=== PATIENT | male | born 1940 | race Caucasian/White ===

== ENCOUNTER 2016-11-13 18:21 | Inpatient (IN) | payer OTHER, MEDICARE ==
[~2016-11-13] VITALS: Ht 172.7 cm; Wt 72.6 kg
[~2016-11-13 18:21] MED LIST: ASPIRIN EC325 M2 PO; ASPIRIN81 M4 PO; CLOPIDOGREL75 M1 PO; COQ-10100 MG PO; LANTUS SOL100 UNIT/1 SC; LOSARTAN POTAS100 M1 PO; METOPROLOL TAR100 M1 PO; NOVOLOG100 UNIT/2 SC; OMEPRAZOLE20 M3 PO; VENLAFAXINE HC150 MG PO; VENLAFAXINE HCL75 M1 PO; VITAMIN D31000 UNI2 PO; ZETIA10 M1 PO
--- NOTE | 2016-11-13 18:35 | NUR ---
PT TO ED FOR POSITIVE URINE CULTURES, FEELING WELL OTHERWISE.
--- NOTE | 2016-11-13 18:50 | NUR ---
PT TO ROOM 21 VIA WHEELCHAIR. SITTING UP IN WHEELCHAIR
[2016-11-13] MEDS ORDERED: FINASTERIDE5 M1 PO (18:52)
[2016-11-13] MEDS ORDERED: TAMSULOSIN HCL0.4 M1 PO (18:52)
[2016-11-13] MEDS ORDERED: XARELTO20 M2 PO (18:53)
[2016-11-13] MEDS ORDERED: AMLODIPINE BESYL5 M1 PO (18:53)
[2016-11-13] MEDS ORDERED: MAGNESIUM400 M1 PO (18:55)
[2016-11-13] MEDS ORDERED: PROBIOTIC1 EACH PO (18:55)
--- NOTE | 2016-11-13 19:16 | ED GI/GU/ABDOMINAL COMPLAINT ---
History of Present Illness General Chief Complaint: General Adult Stated Complaint: SENT BY ZIA MARTINEZ FOR ADMISSION FOR PIC LINE Source: patient Exam Limitations: no limitations Vital Signs & Intake/Output Vital Signs & Intake/Output Vital Signs Date Time Temp Pulse Resp B/P B/P Pulse O2 O2 Flow FiO2 Mean Ox Delivery Rate 11/138 97.3 67 18 160/70 99 Room Air 11/13 2013 Room Air 11/13 1835 97.9 67 18 110/60 99 Room Air Allergies Coded Allergies: Penicillins (unknown 11/13/15) Reconcile Medications Amlodipine Besylate 5 MG TABLET 1 TAB PO BID HEART/BP (Reported) Cholecalciferol (Vitamin D3) 1,000 UNIT TABLET 1 TAB PO DAILY SUPPLEMENT ( Reported) Ezetimibe (Zetia) 10 MG TABLET 1 TAB PO DAILY CHOLESTEROL (Reported) Finasteride 5 MG TABLET 1 TAB PO DAILY PROSTATE (Reported) Insulin Aspart (Novolog) (Unknown Strength) VIAL (Unknown Dose) SEE SLIDING SCALE DIABETES (Reported) Insulin Glargine,Hum.rec.anlog (Lantus Solostar) 100 UNIT/1 ML INSULN.PEN 40 U SC QAM DIABETES (Reported) Lactobacillus Acidophilus (Probiotic) (Unknown Strength) CAPSULE (Unknown Dose ) PO DAILY PROBIOTIC (Reported) Losartan Potassium 100 MG TABLET 1 TAB PO DAILY HEART (Reported) Magnesium Oxide (Magnesium) (Unknown Strength) CAPSULE (Unknown Dose) PO DAILY SUPPLEMENT (Reported) Metoprolol Tartrate 100 MG TABLET 1 TAB PO BID HEART (Reported) Rivaroxaban (Xarelto) 20 MG TABLET 1 TAB PO DAILY BLOOD THINNER (Reported) with food Tamsulosin HCl 0.4 MG CAP.ER.24H 2 CAP PO QPM PROSTATE (Reported) Triage Note: PT TO ED FOR POSITIVE URINE CULTURES, FEELING WELL OTHERWISE. Triage Nurses Notes Reviewed? 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 Patient presents emergency room in which he was sent in by his primary care doctor for concerns of positive urine culture of Pseudomonas which is resistant to ciprofloxacin and levofloxacin. It is noted through the faxed urine culture that it is susceptible to cefepime, ceftazidime, tobramycin AND ZOSYN Patient currently denies any fever chills headache sore throat chest pain shortness of breath cough abdominal pain nausea vomiting. Patient is producing brown stool through the colostomy bag. (ROMANA GARRISON) Past History Travel History Traveled to [place] past 21 day No Medical History Any Pertinent Medical History? see below for history Neurological: NEUROPATHY Cardiovascular: hypertension, hyperlipidemia, myocardial infarction, CHF CABG Respiratory: obstructive sleep apnea Renal: FREQUENT UTI Musculoskeletal: OA "BEDSORE ON BUTT" Psychiatric: depression Endocrine: diabetes Blood Disorders: "CLOT" Cancer(s): rectal cancer History of MRSA: No History of VRE: No History of CDIFF: No Pneumonia Vaccine: 05/02/10 Surgical History Surgical History: CABG, colon resection, CYST REMOVAL R femoral artery stent transanal excision of rectal lesion Psychosocial History Who do you live with Spouse What is your primary language French Tobacco Use: Never used ETOH Use: occasional use Illicit Drug Use: denies illicit drug use Family History Family History, If Any: cousin FH: colon cancer MOTHER Hx Contributory? No (ROMANA GARRISON) Review of Systems Review of Systems Constitutional: Reports: no symptoms. EENTM: Reports: no symptoms. Respiratory: Reports: no symptoms. Cardiovascular: Reports: no symptoms. GI: Reports: no symptoms. Genitourinary: Reports: see HPI. Musculoskeletal: Reports: no symptoms. Skin: Reports: no symptoms. Neurological/Psychological: Reports: no symptoms. Hematologic/Endocrine: Reports: no symptoms. Immunologic/Allergic: Reports: no symptoms. All Other Systems: Reviewed and Negative (ROMANA GARRISON) Physical Exam Physical Exam General Appearance: no apparent distress, alert, comfortable Gastrointestinal: normal bowel sounds, soft, colostomy bag indwelling, Comments: Well-developed well-nourished person in no acute distress HEENT: Normal EENT exam, extraocular motion intact, no nystagmus. Pupils equally round and reactive to light and accommodation. Nose is atraumatic. External auditory canal and Tympanic membranes clear. Pharynx normal. No swelling or edema. Neck: Supple, no lymphadenopathy, normal range of motion without pain or tenderness Back: Nontender, no CVA tenderness. Cardiovascular: Regular rate and rhythms no murmurs rubs or gallops, normal JVP Respiratory: Chest nontender. No respiratory distress.breath sounds clear to auscultation bilaterally Abdomen: Soft, nontender nondistended, Extremity: No edema, no calf tenderness to palpation, normal and equal pulses. Neuro: Alert oriented x3, motor sensory normal, Psych: Mood and affect is normal, memory and judgment is normal. Diagram Body Front & Back 1) 2 x 1 cm superficial decubitus ulcer with no surrounding erythema no warmth no active discharge Core Measures ACS in differential dx? No Severe Sepsis Present: No Septic Shock Present: No (JANAY VELASCO,ROMANA) Progress Differential Diagnosis: AAA, AMI, appendicitis, biliary colic, bowel obstruction , colon cancer, cholecystitis, diverticulitis, epididymitis, esophageal varices, gastritis, hepatitis, hernia, hemorrhoids, ischemic bowel, inflamm bowel dis, Katerine-Ap tear, orchitis, pancreatitis, prostatitis, peptic ulcer, PUD/GERD, perforated viscous, pyelonephritis, SBO, STD, testicular torsion, ureterolithiasis, urinary retention, urethritis, UTI/pyelo Plan of Care: Orders Procedure Date/time Status Heart Healthy Diet 11/14 B Active LACTIC ACID 11/13 2214 Active ED Holding Orders 11/13 2144 Active Admit to inpatient 11/13 2144 Active Vital Signs 11/13 2144 Active Code Status 11/13 2144 Active Patient Data 11/14 2131 Active EKG 11/13 2026 Active CULTURE,URINE 11/13 1914 Active URINALYSIS 11/13 1914 Complete LACTIC ACID 11/13 1914 Complete COMPREHENSIVE METABOLIC PANEL 11/13 1914 Complete CBC WITHOUT DIFFERENTIAL 11/13 1914 Complete Current Medications Sig/Audrey Start time Last Medication Dose Stop Time Status Admin Sodium Chloride 1,000 ML BOLUS ONE 11/13 2014 AC 11/13 (Normal Saline 0.9%) 11/13 221 2104 Laboratory Tests 11/13/16 2005: Urine Color STRAW, Urine Clarity CLDY H, Urine pH 6.0, Ur Specific [place] 1.015, Urine Protein 100 H, Urine Ketones NEG, Urine Nitrite POS H, Urine Bilirubin NEG, Urine Urobilinogen 0.2, Ur Leukocyte Esterase LARGE H, Ur Microscopic SEDIMENT EXAMINED, Urine RBC RARE, Urine WBC PACKD H, Ur Epithelial Cells RARE, Urine Bacteria MANY H, Urine Hemoglobin LARGE H, Urine Glucose NEG 11/13/16 1933: Anion Gap 12, Estimated GFR 28 L, BUN/Creatinine Ratio 28.3 H, Glucose 146 H, Lactic Acid 0.9, Calcium 9.8, Total Bilirubin 0.3, AST 13 L, ALT 27, Alkaline Phosphatase 51, Total Protein 6.7, Albumin 3.8, Globulin 2.9, Albumin/Globulin Ratio 1.3, CBC w Diff NO MAN DIFF REQ, RBC 3.09 L, MCV 86.3, MCH 28.2, RDW 15.2 H, MPV 6.1 L, Gran % 77.1 H, Lymphocytes % 11.0 L, Monocytes % 7.6, Eosinophils % 4.1, Basophils % 0.2, Absolute Granulocytes 7.2 H, Absolute Lymphocytes 1.0 L, Absolute Monocytes 0.7 H, Absolute Eosinophils 0.4, Absolute Basophils 0, PUBS MCHC 32.7 L Microbiology 11/13 2004 URINE ROUT: Urine Culture - RECD Patient currently has unremarkable physical exam findings and no tenderness upon palpation of abdomen clear lungs PATIENT. No signs of sepsis at this time. Patient will be admitted for concerns of acute kidney injury and urine tract infection. Patient was administered IV fluid resuscitation (ROMANA GARRISON) Initial ED EKG: normal intervals, normal p-waves, normal QRS complex, normal sinus rhythm, 61 bpm (ROMANA GARRISON) Departure Departure Disposition: STILL A PATIENT Condition: Stable Clinical Impression Primary Impression: JACK (acute kidney injury) Secondary Impressions: Sacral decubitus ulcer, UTI (urinary tract infection) Referrals: DAKSHA CAMPBELL MD (PCP/Family) Departure Forms: Customer Survey General Discharge Information Admission Note Spoke With: TEVIN ADAIR MD Documentation of Exam: Documentation of any treatments & extenuating circumstances including Concerns Regarding Discharge (functional status, medication knowledge or non-compliance, living conditions, etc.) that warrant an admission rather than observation: [ Discussed patient with who agrees with general medicine admission for concerns of acute kidney injury. Patient requires IV fluid resuscitation, repeat labs, possible nephrology consultation an IV antibiotics for concomitant urine infection. Outpatient treatment this time due to critical findings of acute kidney injury would be medically harmful] (ROMANA GARRISON) PA/MANAGER HEART Co-Sign Statement Statement: ED Attending supervision documentation- [X] I saw and evaluated the patient. I have also reviewed all the pertinent lab results and diagnostic results. I agree with the findings and the plan of care as documented in the PA's/MANAGER HEART's documentation. [] I have reviewed the ED Record and agree with the PA's/MANAGER HEART's documentation. [] Additions or exceptions (if any) to the PAs/MANAGER HEART's note and plan are summarized below: [] (TAYLOR ARELLANO,COLETTE Moffett) Critical Care Note Critical Care Note Critical Care Time: 30-74 min (ROMANA GARRISON)
--- NOTE | 2016-11-13 19:30 | NUR ---
TWO PERSON MAX ASSIST TO STAND PIVOT TO STRETCHER. PT UNDRESSED. WEARING CONDOM CATH DUE TO INCONTINENCE. STATES SHE USED CONDOM CATH FOR EASE OF CARE AND DUE TO PT HAVING SACRAL DECUB
--- NOTE | 2016-11-13 19:39 | NUR ---
BLOOD SENT TO LAB. [facility]. SANDOR GARCIA.
--- NOTE | 2016-11-13 19:41 | NUR ---
STATES THEY APPLY SANTYL OINTMENT TO SACRAL DECUB. ROMANA GUSTAFSON NOTIFIED OF DECUB.
[2016-11-13 19:42] LABS: ABSOLUTE BASOPHIL COUNT 0 /CUMM (0.0-0.2); ABSOLUTE EOSINOPHIL COUNT 0.4 /CUMM (0.0-0.7); ABSOLUTE GRANULOCYTE CT 7.2 /CUMM (1.4-6.5); ABSOLUTE MONOCYTE COUNT 0.7 /CUMM (0.10-0.60); BASOPHIL % 0.2 % (0.0-2.0); EOSINOPHIL % 4.1 % (0-5); GRANULOCYTE % 77.1 % (42.2-75.2); HEMATOCRIT 26.6 % (42-52); MEAN CORPUSCULAR HGB 28.2 PG (27.0-31.0); MEAN CORPUSCULAR HGB CONC 32.7 G/DL (33.0-37.0); MEAN CORPUSCULAR VOLUME 86.3 FL (80.0-94.0); MEAN PLATELET VOLUME 6.1 FL (7.4-10.4); PLATELET COUNT 331 /CUMM (130-400); RBC DISTRIBUTION WIDTH 15.2 % (11.5-14.5); RED BLOOD CELL CT 3.09 /CUMM (4.70-6.10); WHITE BLOOD CELL COUNT 9.4 /CUMM (4.8-10.8)
--- NOTE | 2016-11-13 20:11 | NUR ---
URINE SENT. SPK & LENCHO
--- NOTE | 2016-11-13 21:03 | NUR ---
ABX AND 0.9%NS INFUSING ORDERED.
--- NOTE | 2016-11-13 21:36 | History & Physical ---
SMOOTH BRONSON,[facility] 11/13/16 2135: General Information and HPI MD Statement: I have seen and personally examined MONICA BAILEY and documented this H&P. The patient is a 76 year old M who presented with a patient stated chief complaint of [positive urinalysis]. Source of Information: patient, family () Exam Limitations: patient refusing physical exam History of Present Illness: 76-year-old M with PMH of recently admitted to [facility] for nephrolithiasis and UTI requiring PICC line and IV Cefepime, rectal cancer s/p anal endoscopic surgery in 07/2006, CABG, right femoral stent on Clopidogrel, HTN, HLD, DM, BPH, CAD s/p CABG,anemia of chronic disease, RLE DVT on Xarelto, paraxosymal afib, urinary retention 2/2 BPH and developing sacral ulcer requiring placement of condom catheter presenting to the ED after a urine analysis and urine culture done as an outpatient revealing growth of Pseudomonas resistant ciprofloxacin and levofloxacin. Most of the clinical history was obtained from the patient's Elissa over the phone as the patient was uncooperative with the history or physical. The patient's of the states that approximately 7 days ago she noticed that the patient's urine was "milky white". She then asked the visiting nurse to order a urine culture and urinalysis. On 11/11/2016 the UA came back positive for microorganism growth. On 11/13/2016 urine culture was positive for for microorganisms (> 100,000 CFU/mL of Pseudemonas). The patient's states that since 04/13/2016, he has had multiple admissions and procedures related to his colorectal cancer. He has been admitted multiple times to [facility] and has been repeatedly back and forth to [facility] and rehabilitation in [place]. During his last admission to [facility] (10/03/2016 10/15/2016), he received 5 days of IV cefepime and then was sent home with a PICC line for an additional 5 days of cefepime. At this time the patient does not have any complaints. He denies any fever, chills, night sweats, pain or discomfort. He reports a good appetite although has had a decreased PO fluid intake. The of the patient also states that her 's personality is returning to baseline since he has been giving her more of a "harder time". Patient is uncooperative with interview and physical exam. Allergies/Medications Allergies: Coded Allergies: Penicillins (unknown 11/13/15) Home Med list Amlodipine Besylate 5 MG TABLET 2 TAB PO DAILY BP (Reported) Cholecalciferol (Vitamin D3) 1,000 UNIT TABLET 1 TAB PO DAILY SUPPLEMENT ( Reported) Ezetimibe (Zetia) 10 MG TABLET 1 TAB PO DAILY CHOLESTEROL (Reported) Finasteride 5 MG TABLET 1 TAB PO DAILY PROSTATE (Reported) Insulin Aspart (Novolog) (Unknown Strength) VIAL (Unknown Dose) SEE SLIDING SCALE DIABETES (Reported) Insulin Glargine,Hum.rec.anlog (Lantus Solostar) 100 UNIT/1 ML INSULN.PEN 40 U SC QAM DIABETES (Reported) Lactobacillus Acidophilus (Probiotic) (Unknown Strength) CAPSULE (Unknown Dose ) PO DAILY PROBIOTIC (Reported) Losartan Potassium 100 MG TABLET 1 TAB PO DAILY HEART (Reported) Magnesium Oxide (Magnesium) (Unknown Strength) CAPSULE (Unknown Dose) PO DAILY SUPPLEMENT (Reported) Metoprolol Tartrate 100 MG TABLET 1.5 TAB PO BID Heart (Reported) Rivaroxaban (Xarelto) 20 MG TABLET 1 TAB PO DAILY BLOOD THINNER (Reported) with food Tamsulosin HCl 0.4 MG CAP.ER.24H 2 CAP PO DAILY prostate (Reported) Past History Travel History Traveled to [place] past 21 day No Medical History Neurological: NEUROPATHY Cardiovascular: hypertension, hyperlipidemia, CAD status post CABG, paroxisymal A. fib Renal: FREQUENT UTI, urinary retention secondary to BPH, sacral ulcer requiring condom catheter Psychiatric: depression Endocrine: diabetes Blood Disorders: anemia of chronic disease, PVD status post stent, ight lower extremity DVT on Xarelto Cancer(s): colorectal cancer status post transanal excision History of MRSA: No History of VRE: No History of CDIFF: No Pneumonia Vaccine: 05/02/10 Surgical History Surgical History: CABG, colon resection, CYST REMOVAL R femoral artery stent transanal excision of rectal lesion, PVD status post stent, colon cancer status post transanal excision Past Family/Social History Family History Relations & Conditions if any cousin FH: colon cancer MOTHER Psychosocial History ETOH Use: occasional use Illicit Drug Use: denies illicit drug use Functional Ability ADLs Independent: dressing, eating, toileting, bathing. Ambulation: independent Review of Systems Review of Systems Constitutional: Reports: see HPI. Denies: chills, fever. GI: Denies: nausea, vomiting. Exam & Diagnostic Data Last 24 Hrs of Vital Signs/I&O Vital Signs Date Time Temp Pulse Resp B/P B/P Pulse O2 O2 Flow FiO2 Mean Ox Delivery Rate 11/14 0705 98.5 76 18 149/82 96 Room Air 11/13 2333 Room Air 11/13 2324 98.6 68 20 158/70 96 11/13 2138 97.3 67 18 160/70 99 Room Air 11/13 2013 Room Air 11/13 1835 97.9 67 18 110/60 99 Room Air Intake & Output 11/14 1600 11/14 0800 11/14 0000 Intake Total 480 2290 Output Total 600 Balance -120 2290 Intake, IV 2050 Intake, Oral 480 240 Output, Urine 600 Patient 160 lb Weight Weight Reported by Patient Measurement Method Physical Exam General Appearance Alert, Oriented X3, No Acute Distress, uncooperative with physical exam and history, patient appears tired and sleepy Skin Temp/Moisture Exam: Warm/Dry Cardiovascular Regular Rate, Normal S1, Normal S2 Lungs Clear to Auscultation, expiratory crackles Abdomen Normal Bowel Sounds, condom catheter and drainage noted Extremities No Edema, Normal Pulses, 5 out of 5 strength of bilateral lower extremities Diagnostic Data EKG Results Sinus rhythm Other Results ABDOMEN PELVIS CT IMPRESSION: 1. Fluid-filled cavity along the left side of the rectum within the deep pelvis, as above, consistent with focal contained perforation of the left side of the rectum, may be secondary to underlying malignancy at this site in this patient with reported history of colon carcinoma. 2. No adjacent pathologically enlarged lymph nodes within the deep pelvis and abdomen. 3. Scattered colonic diverticulosis with no evidence of diverticulitis. 4. Bilateral renal cysts. 5. Bilateral adrenal nodularity with findings indicative of underlying small adrenal adenomas. 6. Cholelithiasis with no evidence of acute cholecystitis. 7. Three 2 mm right-sided pulmonary nodules. 8. No lytic or blastic osseous lesions. CHEST CT IMPRESSION: 1. Fluid-filled cavity along the left side of the rectum within the deep pelvis, as above, consistent with focal contained perforation of the left side of the rectum, may be secondary to underlying malignancy at this site in this patient with reported history of colon carcinoma. 2. No adjacent pathologically enlarged lymph nodes within the deep pelvis and abdomen. 3. Scattered colonic diverticulosis with no evidence of diverticulitis. 4. Bilateral renal cysts. 5. Bilateral adrenal nodularity with findings indicative of underlying small adrenal adenomas. 6. Cholelithiasis with no evidence of acute cholecystitis. 7. Three 2 mm right-sided pulmonary nodules. 8. No lytic or blastic osseous lesions. Assessment/Plan Assessment: 76-year-old M with PMH of recently admitted to [facility] for nephrolithiasis and UTI requiring PICC line and IV Cefepime, rectal cancer s/p anal endoscopic surgery in 07/2006, CABG, right femoral stent on Clopidogrel, HTN, HLD, DM, BPH, CAD s/p CABG,anemia of chronic disease, RLE DVT on Xarelto, paraxosymal afib, urinary retention 2/2 BPH and developing sacral ulcer requiring placement of condom catheter presenting to the ED after a urine analysis and urine culture done as an outpatient revealing growth of Pseudomonas resistant ciprofloxacin and levofloxacin found to be afebrile, white count of 9.4, and positive urinalysis for leuk esterase and nitrates, BUN 65, creatinine 2.3, lactic acid 0.9 most likely acute kidney injury secondary to UTI. As Ranked By This Provider Problem List: 1. UTI (urinary tract infection) Assessment/Plan The patient has a developing sacral ulcer requiring placement of condom catheter presenting to the ED after a urine analysis and urine culture done as an outpatient revealing growth of Pseudomonas resistant ciprofloxacin and levofloxacin. The pt it afebrile, white count of 9.4, and positive urinalysis for leuk esterase and nitrates. The patient's primary care physician initially advised against antibiotics until cultures were back. He was sent into the emergency department when results revealed that the Pseudomonas was resistant to ciprofloxacin and that the patient would require IV antibiotics. His creatinine was 2.3 and BUN was 65, his baseline creatinine is 0.8-0.9. His JACK is most likely due to UTI. His lactic acid is 0.9. We will repeat urine cultures. We will start him on IV fluids and trend his renal functions. We continue IV Ceftazidime and consult urology for further management. We will also consult infectious disease for further management. We will need to obtain the records from [facility] regarding his most recent admission. For now we will hold his home medications and will need to confirm them/restart them in the morning. -f/u urine cultures -Continue normal saline 0.9% at 100 mL per hour -Follow-up CBCs, BMP, trend her renal functions -continue IV Ceftazidime -consult urology for further management -Consult infectious disease -obtain the records from [facility] regarding his most recent admission 2. Anemia Assessment/Plan The patient was found to have a H&H of 8.7 and 26.6 respectively. His MCV was 86.9. It seems that he has normocytic anemia possibly due to anemia of chronic disease. We will need to guaiac all stools, check iron studies B12 and folic acid. -Follow-up stool guaiac -Follow-up iron studies -Follow-up B12 and folate levels 3. DVT prophylaxis Assessment/Plan Continue rivaroxaban 20 mg by mouth daily 4. Full code status Assessment/Plan Full code Core Measures/Miscellaneous Acute Coronary Syndrome ACS Diagnosis: No Cerebrovascular Accident CVA/TIA Diagnosis: No Congestive Heart Failure CHF Diagnosis: No VTE (View Protocol) VTE Risk Factors: Acute medical illness, Age > 40, Previous VTE No [facility] VTE prophylaxis d/t: No contraindications No VTE Pharm Prophylaxis d/t: No contraindications VTE Diagnosis: No VTE Type: NONE VTE Confirmed by (Test): NONE Sepsis (View Protocol) Severe Sepsis Present: No Septic Shock Septic Shock Present: No Miscellaneous Documentation Attending [facility] Primary Care Physician: DAKSHA CAMPBELL MD Patient sees these Specialists NA Level of Patient Care: General Medicine VIVIANA BRONSON,[facility] 11/14/16 0333: Resident Review Statement Resident Statement: examined this patient, discussed with buying intern, agreed with buying intern Other Findings: H: This is a 76-year-old gentleman with PMH of rectal cancer, s/p anal endoscopic surgery in 07/2006, CABG, right femoral stent on Clopidogrel, HTN, HLD , DM, BPH who presented to the emergency department on 11/13/2016 after a urine analysis and urine culture done as an outpatient revealed this was positive for growth of microorganisms. Much of the clinical history was obtained from the Elissa of the patient as the patient was unable to give much of a history. of the patient states that approximately 7 days ago she noted that urine was "milky white". She subsequently asked the visiting nurse (who comes to see the patient once a week) to order a urine culture and urinalysis (sample collected on 11/09 and received in the lab 11/10). On 11/11/2016 results of this UA came back positive for microorganism growth and on the evening of 11/13/2016 urine culture was positive for for microorganisms (> 100, 000 CFU/mL of Pseudemonas). of the patient states that since 04/13/2016 he has had multiple admissions and procedures owing to his history of colon and rectal cancer. He has been admitted multiple times to [facility] and has been back and forth to [facility]. His last admission to [facility] took place from October 03 2016 to October 15 2016. It was during this visit that the patient needed IV antibiotics for a Lower UTIand was sent home with a PICC line (for an additional 5 days for antibiotics) It must be noted that in addition to the above the patient has not had any complaints. He denies any fever, chills, night sweats, pain or discomfort. He reports a good appetite although has had a decreased PO fluid intake. The of the patient also states that her 's personality is returning to baseline giving her more of a "harder time". Patients primary care physician is Dr. Campbell. Urologist is Dr. Jesus. Patient's infectious disease doctor is Dr. Anthony Guevara of [place]. R On review of systems this was rather limited given the patient's condition he denied any fever, chills, nausea, vomiting. E Physical examination was limited owing to patient's lack of appropriate permission to perform physical exam. General Appearance Alert, Oriented X3, Cooperative. Skin Skin Warm and Dry. Cardiovascular Normal S1, Normal S2 Lungs Clear to Auscultation, Expiratory Crackels. Abdomen Normal Bowel Sounds, Urinary bag in place. Extremities No Clubbing, No Edema, Normal Pulses, 5/5 strength of lower extremities Lab studies were notable for white count 9.4 H&H 8.7 and 26.6, platelets 331. Electrolytes were within normal limits. BUN/creatinine ratio was 28.3. B urine was 65, creatinine was 2.3. Urine was positive for leukocyte esterase and nitrite. I CT ABD & PELVIS W IV CONTRAST; CT CHEST W IV CONTRAST IMPRESSION: 1. Fluid-filled cavity along the left side of the rectum within the deep pelvis, as above, consistent with focal contained perforation of the left side of the rectum, may be secondary to underlying malignancy at this site in this patient with reported history of colon carcinoma. 2. No adjacent pathologically enlarged lymph nodes within the deep pelvis and abdomen. 3. Scattered colonic diverticulosis with no evidence of diverticulitis. 4. Bilateral renal cysts. 5. Bilateral adrenal nodularity with findings indicative of underlying small adrenal adenomas. 6. Cholelithiasis with no evidence of acute cholecystitis. 7. Three 2 mm right-sided pulmonary nodules. 8. No lytic or blastic osseous lesions. A/P This is a 76-year-old gentleman with PMH of rectal cancer, s/p anal endoscopic surgery in 07/2006, CABG, right femoral stent on Clopidogrel, HTN, HLD, DM, BPH who presented to the emergency department on 11/13/2016 after a urine analysis and urine culture done as an outpatient revealed this was positive for growth of Psedemonas. We malu admit the patient to general medicine. Continue on Ceftaz steam for the next 24 hours. If patient remains afebrile and white blood cell count remains within normal limits may consider following off antibiotics, the setting of chronic bacteriuria without complaints. Obtain ID consultation in a.m. Consider urology consult in a.m. for additional recommendations. Patient has had extensive workup under Dr. Jesus. Elevated BUN/creatinine ratio is likely in the setting of decreased by mouth intake. Continue encouragin increased by mouth fluids. Normocytic anemia. Likely due to chronic disease. Obtain macrocytic and microcytic workup. Supplement as necessary. Insulin sliding scale for tighter glycemic control. Maintain blood sugar between 120 and 140. Gentle IV hydration with normal saline. Confirm medications in AM. Once these have been confirmed they can be resumed as tolerated by the patient. Obtain records from [facility]. Monitor BEP daily. Monitor CBC daily. VT prophylaxis Xarelto Patient is a full code. GIOVANY BRONSON, [facility] 11/14/16 0535: Attending MD Review Statement Attending Statement Attending MD Statement: examined this patient, discuss w/resident/PA/METAL LATHER, agreed w/resident/PA/METAL LATHER Attending Assessment/Plan: 76 yo M with h/o rectal cancer (diagnosed 2007) s/p transanal excision, refused chemoradiation at that point, had recurrent rectal cancer (2016), received neoadjuvant chemoradiation and underwent proctocolectomy with diverting colostomy, HTN, DM, CAD s/p CABG, PVD s/p stent, anemia of chronic disease, RLE DVT on Xarelto, Pafib, urinary retention 2/2 BPH and given developing sacral ulcer requiring placement of condom catheter, who was recently admitted to [facility] (10/03-10/15) for nephrolithiasis and UTI requiring PICC line and IV antibiotics (Cefepime), is sent in by PCP for positive urine culture. Patient was not co-operative with history or physical exam. History obtained from patient's . About 1 week ago, patient's urine was noted to be abnormal, hence UA and UC was sent. Although UA was positive, PCP advised against antibiotics until culture results were back, as patient remained asymptomatic. Today when UC results returned with Pseudomonas resistant to Cipro, patient was advised to come to ER for IV antibiotics. Patient does not keep himself hydrated. VSS. Labs: WBC 9.4, H/H 8.7/26.6, BUN 65, creat 2.3 (baseline 0.8-0.9), lactic acid 0.9. UA cloudy, proteinuria, positive nitrite, large LE, packed WBC, many bacteria. EKG: SR, PACs, first degree AV block. 1. Recurrent UTI with JACK. GM admit, repeat urine culture, IV fluids, continue IV ceftaz for now, encourage adequate hydration, trend renal functions. Obtain records from [facility] about most recent admission, any urologic intervention, etc. Consider Urology input. Resume flomax, finasteride. 2. Normocytic anemia ?ACD. Guaiac all stools, check iron studies, B12, folic acid. DVT ppx Xarelto. Full code. Please obtain more collateral information from patient's , PCP and [facility], as patient did not wish to talk or be examined overnight.
--- NOTE | 2016-11-13 21:58 | NUR ---
2ND LITER OF 0.9%NS INFUSING ORDERED.
--- NOTE | 2016-11-13 22:12 | NUR ---
MD CASE AT BEDSIDE.
--- NOTE | 2016-11-13 22:30 | NUR ---
PT TO ROOM [id number]
--- NOTE | 2016-11-13 22:32 | NUR ---
REPORT GIVEN TO DALLIN MARTINEZ ON 2NB.
[2016-11-13 23:24] VITALS: BP 158/70
--- NOTE | 2016-11-14 00:03 | Admission Certification ---
Admission Certification Certification Statement - As attending physician, I certify that at the time of - admission, based on clinical presentation, severity of - symptoms, need for further diagnostic testing and - therapeutic interventions, and risk of adverse outcomes - without in-hospital treatment, in my clinical assessment, - this patient requires an acute hospital stay for a minimum - of two nights or longer. I have also considered psychsocial - factors such as support system, advanced age, financial - issues, cognitive issues, and failed out-patient treatments, - past re-admission history, safety of patient, and lack of - compliance as applicable. Specific rationale supporting this admission is: JACK, recurrent UTI.
--- NOTE | 2016-11-14 01:45 | NUR ---
NURSE NOTE: PT ARRIVED TO FLOOR AROUND 0. REPORT FROM ED STAFF. CAME TO FLOOR VIA TRANSPORT. PT AAOX3, SOME FORGETFULLNESS NOTED. RA, IVF RUNNING. [place] CATH AND COLOSTOMY. FALL PX PUT IN PLACE, WILL CONTINUE TO MONITOR.
[2016-11-14 07:05] VITALS: BP 149/82
--- NOTE | 2016-11-14 08:14 | PN- Housestaff ---
See Addendum Subjective Follow-up For: UTi Subjective: He presented last night. This morning, he feels good. No pain. Talking to his , she is wondering why he can't walk as well as he used to before hjis blood clot in July. Otherwise, his urine is looking better and his ostomy is producing well formed stools. No other complaints. Review of Systems Constitutional: Reports: no symptoms. EENTM: Reports: no symptoms. Cardiovascular: Reports: no symptoms. Respiratory: Reports: no symptoms. Gastrointestinal: Reports: no symptoms. Genitourinary: Reports: see HPI. Musculoskeletal: Reports: see HPI. Skin: Reports: no symptoms. Neurological/Psychological: Reports: no symptoms. Hematologic/Endocrine: Reports: no symptoms. Immunologic/Allergic: Reports: no symptoms. Objective Last 24 Hrs of Vital Signs/I&O Vital Signs Date Time Temp Pulse Resp B/P B/P Pulse O2 O2 Flow FiO2 Mean Ox Delivery Rate 11/14 0705 98.5 76 18 149/82 96 Room Air 11/13 2333 Room Air 11/13 2324 98.6 68 20 158/70 96 11/13 2138 97.3 67 18 160/70 99 Room Air 11/13 2013 Room Air 11/13 1835 97.9 67 18 110/60 99 Room Air Intake & Output 11/14 1600 11/14 0800 11/14 0000 Intake Total 480 2290 Output Total 600 Balance -120 2290 Intake, IV 2050 Intake, Oral 480 240 Output, Urine 600 Patient 160 lb Weight Weight Reported by Patient Measurement Method Physical Exam General Appearance: Alert, Cooperative, No Acute Distress Cardiovascular: Regular Rate, Normal S1, Normal S2 Lungs: Clear to Auscultation Abdomen: Normal Bowel Sounds, Soft, No Tenderness, ostomy doesn't look infected. , Condom cathether Neurological: Normal Speech, Strength at 5/5 X4 Ext, Normal Tone Current Medications: Current Medications Sig/Audrey Start time Last Medication Dose Route Stop Time Status Admin Acetaminophen 650 MG Q6P PRN 11/14 0130 AC PO Amlodipine Besylate 10 MG DAILY 11/14 1000 AC PO Ceftazidime 1,000 MG Q12 11/14 1000 AC IV Ceftazidime 0 .STK-MED ONE 11/13 2100 DC .ROUTE Ceftazidime 1,000 MG ONCE ONE 11/13 2014 DC 11/13 IV 11/13 Cholecalciferol 1,000 IU DAILY 11/14 1000 AC PO Ezetimibe 10 MG DAILY 11/14 1000 AC PO Finasteride 5 MG DAILY 11/14 1000 AC PO Insulin Aspart 0 AT BEDTIME 11/14 2200 AC SC Insulin Aspart 0 TIDAC 11/14 0800 AC SC Lactobacillus 1 CAP DAILY 11/14 1000 AC Acidophilus PO Metoprolol Tartrate 150 MG BID 11/14 1000 AC PO Morphine Sulfate 2 MG Q6P PRN 11/14 0145 AC IV Rivaroxaban 20 MG DAILY 11/14 1000 AC PO Sodium Chloride 1,000 ML SEE RATE 11/13 2330 AC 11/13 IV 11/15 0929 2347 Sodium Chloride 1,000 ML BOLUS ONE 11/13 2029 DC 11/13 IV 11/13 2128 2158 Sodium Chloride 1,000 ML BOLUS ONE 11/13 2014 DC 11/13 IV 11/13 2213 2104 Tamsulosin HCl 0.8 MG DAILY 11/14 1000 AC PO Tramadol HCl 50 MG Q6P PRN 11/14 0145 AC PO Last 24 Hrs of Lab/Pilo Results Last 24 Hrs of Labs/Mics: Laboratory Tests 11/14/16 0710: Anion Gap 12, Estimated GFR 33 L, BUN/Creatinine Ratio 27.0 H, CBC w Diff NO MAN DIFF REQ, RBC 2.88 L, MCV 86.9, MCH 28.8, RDW 14.8 H, MPV 6.7 L, Gran % 72.7, Lymphocytes % 14.8 L, Monocytes % 8.5, Eosinophils % 3.5, Basophils % 0.5 , Absolute Granulocytes 5.9, Absolute Lymphocytes 1.2, Absolute Monocytes 0.7 H , Absolute Eosinophils 0.3, Absolute Basophils 0, PUBS MCHC 33.1 11/13/16 2215: Lactic Acid Cancelled 11/13/162004: Urine Color STRAW, Urine Clarity CLDY H, Urine pH 6.0, Ur Specific [place] 1.015, Urine Protein 100 H, Urine Ketones NEG, Urine Nitrite POS H, Urine Bilirubin NEG, Urine Urobilinogen 0.2, Ur Leukocyte Esterase LARGE H, Ur Microscopic SEDIMENT EXAMINED, Urine RBC RARE, Urine WBC PACKD H, Ur Epithelial Cells RARE, Urine Bacteria MANY H, Urine Hemoglobin LARGE H, Urine Glucose NEG 11/13/16 1933: Anion Gap 12, Estimated GFR 28 L, BUN/Creatinine Ratio 28.3 H, Glucose 146 H, Lactic Acid 0.9, Calcium 9.8, Iron 24 L, TIBC 303, Ferritin 26.2, Total Bilirubin 0.3, AST 13 L, ALT 27, Alkaline Phosphatase 51, Total Protein 6.7, Albumin 3.8, Globulin 2.9, Albumin/Globulin Ratio 1.3, Vitamin B12 289, Folate 5.1, CBC w Diff NO MAN DIFF REQ, RBC 3.09 L, MCV 86.3, MCH 28.2, RDW 15.2 H, MPV 6.1 L, Gran % 77.1 H, Lymphocytes % 11.0 L, Monocytes % 7.6, Eosinophils % 4.1, Basophils % 0.2, Absolute Granulocytes 7.2 H, Absolute Lymphocytes 1.0 L, Absolute Monocytes 0.7 H, Absolute Eosinophils 0.4, Absolute Basophils 0, PUBS MCHC 32.7 L Microbiology 11/13 2004 URINE ROUT: Urine Culture - RES GRAM NEGATIVE RODS Assessment/Plan Assessment: 76-year-old M with PMH of recently admitted to [facility] for nephrolithiasis and UTI requiring PICC line and IV Cefepime, rectal cancer s/p anal endoscopic surgery in 07/2006, CABG, right femoral stent on Clopidogrel, HTN, HLD, DM, BPH, CAD s/p CABG,anemia of chronic disease, RLE DVT on Xarelto, paraxosymal afib, urinary retention 2/2 BPH and developing sacral ulcer requiring placement of condom catheter presenting to the ED after a urine analysis and urine culture done as an outpatient revealing growth of Pseudomonas resistant ciprofloxacin and levofloxacin. On arrival, he was found to be afebrile, white count of 9.4, and positive urinalysis for leuk esterase and nitrates, BUN 65, creatinine 2.3, lactic acid 0.9. He was admitted to general medicine and treated for the following problems: 1) UTI 2) JACK 3) Weakness #UTI: pyuria and growing psuedomonas. Complicated UTI in male. The patient had radiation for colon cancer in December 2015. Since then, he has required a condom catheter. He is incontient of urine otherwise. We will need to obtain the records from [facility] regarding his most recent admission. For now we will hold his home medications and will need to confirm them in the morning. -f/u urine cultures -Continue normal saline 0.9% at 100 mL per hour -Follow-up CBCs, BMP, trend her renal functions -continue IV Ceftazidime -consult urology for further management -Consult infectious disease -obtain the records from [facility] regarding his most recent admission #Iron deficiency anemia: -consider ferrous sulfate supplement #JACK: Likely prerenal in setting of infection and dementia. Cr coming down to 2.0 from 2.3. Baseline 1.0 -fluids #Weakness: reports he can't walk since he had a blood clot in July. On exam, he has good strengh. This may tabitha deconditioning vs coordination issue. -PT #Chronic medical problems: HTN, HLD, DM, BPH, CAD s/p CABG, Afib, sacaral ulcer, vit d deficiency -Continue home meds -wound care -Hold oral hypoglycemics. LEvemir plus sliding scale DVT prophylaxis Continue rivaroxaban 20 mg by mouth daily Full code Problem List: 1. UTI (urinary tract infection) 2. JACK (acute kidney injury) Pain Ratin Pain Location: no pain Pain Goal: Remain pain free Pain Plan: see a/p Tomorrow's Labs & Rationales: cbc, bep
[2016-11-14 08:22] LABS: ABSOLUTE BASOPHIL COUNT 0 /CUMM (0.0-0.2); ABSOLUTE EOSINOPHIL COUNT 0.3 /CUMM (0.0-0.7); ABSOLUTE GRANULOCYTE CT 5.9 /CUMM (1.4-6.5); ABSOLUTE LYMPH COUNT 1.2 /CUMM (1.2-3.4); ABSOLUTE MONOCYTE COUNT 0.7 /CUMM (0.10-0.60); BASOPHIL % 0.5 % (0.0-2.0); EOSINOPHIL % 3.5 % (0-5); GRANULOCYTE % 72.7 % (42.2-75.2); MEAN CORPUSCULAR HGB 28.8 PG (27.0-31.0); MEAN CORPUSCULAR HGB CONC 33.1 G/DL (33.0-37.0); MEAN CORPUSCULAR VOLUME 86.9 FL (80.0-94.0); MEAN PLATELET VOLUME 6.7 FL (7.4-10.4); PLATELET COUNT 281 /CUMM (130-400); RBC DISTRIBUTION WIDTH 14.8 % (11.5-14.5); RED BLOOD CELL CT 2.88 /CUMM (4.70-6.10); WHITE BLOOD CELL COUNT 8.1 /CUMM (4.8-10.8)
[2016-11-14 15:34] VITALS: BP 142/68
--- NOTE | 2016-11-14 16:09 | NUR ---
WOUND CARE: RIGHT BUTTOCKS OPEN AREA WITH 75% SLOUGH AND SCANT SEROSANGUNOUS DRAINAGE OBSERVED. SURROUNDING AREA MACERATED AND RED. NO EDEMA. WOUND CONSULT PLACED. DRG CHANGED PER MD ORDER. WILL CONTINUE TO MONITOR ACCORDING TO POC.
--- NOTE | 2016-11-14 16:53 | Cons- Infect Disease ---
General Information and HPI Consulting Request Date of Consult: 11/14/16 Requested By: GIOVANY BRONSON,TEVIN Reason for Consult: UTI/abx advice Source of Information: patient, primary ream Exam Limitations: clinical condition History of Present Illness: 76-year-old M with PMH of rectal cancer s/p anal endoscopic surgery in 07/2006, CABG, right femoral stent, HTN, HLD, DM2, BPH,CAD s/p CABG,anemia of chronic disease, RLE DVT, paraxosymal atrial fibrillation, urinary retention 2/2 BPH and developing sacral ulcer requiring placement of condom catheter presenting to the ED after a urine analysis and urine culture done as an outpatient revealing growth of Pseudomonas resistant ciprofloxacin. Per patient's 7 days ago she noticed that the patient's urine was purulent "milky white"; urine culture was obtained; on 11/13/2016 urine analysis + packed WBC, LE positive and culture was positive for over 100,000 CFU/mL of Pseudemonas aeruginosa (of note PILO to Ceftazidime is 8). The patient's states that since 04/13/2016, he has had multiple admissions and procedures related to his colorectal cancer. He has been admitted multiple times to [facility] and has been repeatedly back and forth to [facility] in [place]. During his last admission to [facility] (10/03/2016 10/15/2016), he received 5 days of IV cefepime and then was sent home with a PICC line for an additional 5 days of cefepime. At this time the patient denies fever, chills, night sweats, pain or discomfort. He reports a good appetite although has had a decreased oral fluid intake. Has urinary incontinence. Feels fatigued. Allergies/Medications Allergies: Coded Allergies: Penicillins (unknown 11/13/15) Home Med List: Amlodipine Besylate 5 MG TABLET 2 TAB PO DAILY BP (Reported) Cholecalciferol (Vitamin D3) 1,000 UNIT TABLET 1 TAB PO DAILY SUPPLEMENT ( Reported) Ezetimibe (Zetia) 10 MG TABLET 1 TAB PO DAILY CHOLESTEROL (Reported) Finasteride 5 MG TABLET 1 TAB PO DAILY PROSTATE (Reported) Insulin Aspart (Novolog) (Unknown Strength) VIAL (Unknown Dose) SEE SLIDING SCALE DIABETES (Reported) Insulin Glargine,Hum.rec.anlog (Lantus Solostar) 100 UNIT/1 ML INSULN.PEN 40 U SC QAM DIABETES (Reported) Lactobacillus Acidophilus (Probiotic) (Unknown Strength) CAPSULE (Unknown Dose ) PO DAILY PROBIOTIC (Reported) Losartan Potassium 100 MG TABLET 1 TAB PO DAILY HEART (Reported) Magnesium Oxide (Magnesium) (Unknown Strength) CAPSULE (Unknown Dose) PO DAILY SUPPLEMENT (Reported) Metoprolol Tartrate 100 MG TABLET 1.5 TAB PO BID Heart (Reported) Rivaroxaban (Xarelto) 20 MG TABLET 1 TAB PO DAILY BLOOD THINNER (Reported) with food Tamsulosin HCl 0.4 MG CAP.ER.24H 2 CAP PO DAILY prostate (Reported) Current Medications: Current Medications Sig/Audrey Start time Last Medication Dose Route Stop Time Status Admin Acetaminophen 650 MG Q6P PRN 11/14 0130 AC PO Amlodipine Besylate 10 MG DAILY 11/14 1000 AC 11/14 PO 1103 Ceftazidime 1,000 MG Q12 11/14 1000 AC 11/14 IV 1105 Ceftazidime 0 .STK-MED ONE 11/13 2100 DC .ROUTE Ceftazidime 1,000 MG ONCE ONE 11/13 2014 DC 11/13 IV 11/13 Cholecalciferol 1,000 IU DAILY 11/14 1000 AC 11/14 PO 1104 Ezetimibe 10 MG DAILY 11/14 1000 AC 11/14 PO 1104 Finasteride 5 MG DAILY 11/14 1000 AC 11/14 PO 1103 Insulin Aspart 0 AT BEDTIME 11/14 2200 AC SC Insulin Aspart 0 TIDAC 11/14 0800 11/14 SC 1137 Insulin Detemir 40 UNITS DAILY 11/14 1145 11/14 SC 1136 Lactobacillus 1 CAP DAILY 11/14 1000 AC 11/14 Acidophilus PO 1104 Metoprolol Tartrate 150 MG BID 11/14 1000 AC 11/14 PO 1103 Morphine Sulfate 2 MG Q6P PRN 11/14 0145 AC IV Rivaroxaban 20 MG DAILY 11/14 1000 AC 11/14 PO 1104 Sodium Chloride 1,000 ML SEE RATE 11/13 2330 AC 11/14 IV 11/15 0929 1102 Sodium Chloride 1,000 ML BOLUS ONE 11/13 2029 DC 11/13 IV 11/13 2128 2158 Sodium Chloride 1,000 ML BOLUS ONE 11/13 2014 DC 11/13 IV 11/13 2214 2104 Tamsulosin HCl 0.8 MG DAILY 11/14 1000 AC 11/14 PO 1102 Tramadol HCl 50 MG Q6P PRN 11/14 0145 AC PO Past History Travel History Traveled to [place] past 21 day No Medical History Neurological: NEUROPATHY Cardiovascular: hypertension, hyperlipidemia, CAD status post CABG paroxisymal A. fib Renal: FREQUENT UTI urinary retention secondary to BPH sacral ulcer requiring condom catheter Psychiatric: depression Endocrine: diabetes Blood Disorders: anemia of chronic disease PVD status post stent ight lower extremity DVT on Xarelto Cancer(s): colorectal cancer status post transanal excision History of MRSA: No History of VRE: No History of CDIFF: No Isolation History: Standard Pneumonia Vaccine: 05/02/10 Surgical History Surgical History: CABG, colon resection, CYST REMOVAL R femoral artery stent transanal excision of rectal lesion PVD status post stent colon cancer status post transanal excision Family History Relations & Conditions If Any: cousin FH: colon cancer MOTHER Psychosocial History Smoking Status: Never Smoked ETOH Use: occasional use Illicit Drug Use: denies illicit drug use Functional Ability ADLs Independent: dressing, eating, toileting, bathing. Ambulation: independent Review of Systems Comments 12 points reviewed as noted, otherwise negative. Exam & Diagnostic Data Last 24 Hrs of Vital Signs/I&O Vital Signs Date Time Temp Pulse Resp B/P B/P Pulse O2 O2 Flow FiO2 Mean Ox Delivery Rate 11/14 1534 97.9 81 18 142/68 96 11/14 1103 148/78 11/14 1103 148/72 11/14 0705 98.5 76 18 149/82 96 Room Air 11/13 2333 Room Air 11/13 2324 98.6 68 20 158/70 96 11/13 2138 97.3 67 18 160/70 99 Room Air 11/13 2013 Room Air 11/13 1835 97.9 67 18 110/60 99 Room Air Intake & Output 11/14 1600 11/14 0800 11/14 0000 Intake Total 7181 152 4208 Output Total 500 600 Balance 540 -120 2290 Intake, IV 800 2050 Intake, Oral 240 480 240 Output, Urine 500 600 Patient 160 lb Weight Weight Reported by Patient Measurement Method Physical Exam Other Physical Findings: General Appearance Alert, Oriented X3, No Acute Distress, appears tired and sleepy HEENT: AT/NC Neck: no JVD Lungs BS present, no expiratory wheezes Cardiovascular Regular Rate, Normal S1, Normal S2 Abdomen Normal Bowel Sounds, condom catheter and drainage noted Extremities No Edema, Normal Pulses, 5 out of 5 strength of bilateral lower extremities Skin Temp/Moisture Exam: Pale Last 24 Hours of Lab Results: Laboratory Tests 11/14 11/13 0710 2215 Chemistry Sodium (137 - 145 mmol/L) 144 Potassium (3.5 - 5.1 mmol/L) 5.0 Chloride (98 - 107 mmol/L) 112 H Carbon Dioxide (22 - 30 mmol/L) 20 L Anion Gap (5 - 16) 12 BUN (9 - 20 mg/dL) 54 H Creatinine (0.7 - 1.2 mg/dL) 2.0 H Estimated GFR (>60 ml/min) 33 L BUN/Creatinine Ratio (7 - 25 %) 27.0 H Lactic Acid Cancelled Hematology CBC w Diff NO MAN DIFF REQ WBC (4.8 - 10.8 /CUMM) 8.1 RBC (4.70 - 6.10 /CUMM) 2.88 L Hgb (14.0 - 18.0 G/DL) 8.3 L Hct (42 - 52 %) 25.0 L MCV (80.0 - 94.0 FL) 86.9 MCH (27.0 - 31.0 PG) 28.8 RDW (11.5 - 14.5 %) 14.8 H Plt Count (130 - 400 /CUMM) 281 MPV (7.4 - 10.4 FL) 6.7 L Gran % (42.2 - 75.2 %) 72.7 Lymphocytes % (20.5 - 51.1 %) 14.8 L Monocytes % (1.7 - 9.3 %) 8.5 Eosinophils % (0 - 5 %) 3.5 Basophils % (0.0 - 2.0 %) 0.5 Absolute Granulocytes (1.4 - 6.5 /CUMM) 5.9 Absolute Lymphocytes (1.2 - 3.4 /CUMM) 1.2 Absolute Monocytes (0.10 - 0.60 /CUMM) 0.7 H Absolute Eosinophils (0.0 - 0.7 /CUMM) 0.3 Absolute Basophils (0.0 - 0.2 /CUMM) 0 PUBS MCHC (33.0 - 37.0 G/DL) 33.1 07/15 07/15 2005 193 Chemistry Sodium (137 - 145 mmol/L) 142 Potassium (3.5 - 5.1 mmol/L) 4.8 Chloride (98 - 107 mmol/L) 107 Carbon Dioxide (22 - 30 mmol/L) 23 Anion Gap (5 - 16) 12 BUN (9 - 20 mg/dL) 65 H Creatinine (0.7 - 1.2 mg/dL) 2.3 H Estimated GFR (>60 ml/min) 28 L BUN/Creatinine Ratio (7 - 25 %) 28.3 H Glucose (65 - 99 mg/dL) 146 H Lactic Acid (0.7 - 2.1 mmol/L) 0.9 Calcium (8.4 - 10.2 mg/dL) 9.8 Iron (49 - 181 ug/dL) 24 L TIBC (261 - 462 ug/dL) 303 Ferritin (17.9 - 464 ng/mL) 26.2 Total Bilirubin (0.2 - 1.3 mg/dL) 0.3 AST (17 - 59 U/L) 13 L ALT (21 - 72 U/L) 27 Alkaline Phosphatase (< 127 U/L) 51 Total Protein (6.3 - 8.2 g/dL) 6.7 Albumin (3.5 - 5.0 g/dL) 3.8 Globulin (1.9 - 4.2 gm/dL) 2.9 Albumin/Globulin Ratio (1.1 - 2.2 %) 1.3 Vitamin B12 (239 - 931 pg/mL) 289 Folate (2.76 - 20.0 ng/mL) 5.1 Hematology CBC w Diff NO MAN DIFF REQ WBC (4.8 - 10.8 /CUMM) 9.4 RBC (4.70 - 6.10 /CUMM) 3.09 L Hgb (14.0 - 18.0 G/DL) 8.7 L Hct (42 - 52 %) 26.6 L MCV (80.0 - 94.0 FL) 86.3 MCH (27.0 - 31.0 PG) 28.2 RDW (11.5 - 14.5 %) 15.2 H Plt Count (130 - 400 /CUMM) 331 MPV (7.4 - 10.4 FL) 6.1 L Gran % (42.2 - 75.2 %) 77.1 H Lymphocytes % (20.5 - 51.1 %) 11.0 L Monocytes % (1.7 - 9.3 %) 7.6 Eosinophils % (0 - 5 %) 4.1 Basophils % (0.0 - 2.0 %) 0.2 Absolute Granulocytes (1.4 - 6.5 /CUMM) 7.2 H Absolute Lymphocytes (1.2 - 3.4 /CUMM) 1.0 L Absolute Monocytes (0.10 - 0.60 /CUMM) 0.7 H Absolute Eosinophils (0.0 - 0.7 /CUMM) 0.4 Absolute Basophils (0.0 - 0.2 /CUMM) 0 PUBS MCHC (33.0 - 37.0 G/DL) 32.7 L Urines Urine Color (YEL,AMB,STR) STRAW Urine Clarity (CLEAR) CLDY H Urine pH (5.0 - 8.0) 6.0 Ur Specific [place] (1.001 - 1.035) 1.015 Urine Protein (NEG,<30 MG/DL) 100 H Urine Ketones (NEG) NEG Urine Nitrite (NEG) POS H Urine Bilirubin (NEG) NEG Urine Urobilinogen (0.1 - 1.0 EU/dl) 0.2 Ur Leukocyte Esterase (NEG) LARGE H Ur Microscopic SEDIMENT EXAMINED Urine RBC (0 - 5 /HPF) RARE Urine WBC (0 - 2 /HPF) PACKD H Ur Epithelial Cells (NONE,FEW) RARE Urine Bacteria (NEG/NONE) MANY H Urine Hemoglobin (NEG) LARGE H Urine Glucose (N MG/DL) NEG Last 24 Hours of [place] Results: SPEC #: [id number] RADHA: 11/13/16 STATUS: RES RECD: 11/13/[address]: ROMANA GARRISON SOURCE: URINE ROUT ENTR: 11/13/16-[address]: SHANNAN BRONSON,DAKSHA [place] SPDESC: URINE STRA ORDERED: URINE CULTURE Procedure Result > URINE CULTURE Preliminary 11/14/16-1017 Greater than 100,000 colonies per ml of: GRAM NEGATIVE RODS Identification and susceptibilities to follow Diagnostic Data Recent Imaging Findings: CT chest/abdomen/pelvis 11/14/16: IMPRESSION: 1. Fluid-filled cavity along the left side of the rectum within the deep pelvis, as above, consistent with focal contained perforation of the left side of the rectum, may be secondary to underlying malignancy at this site in this patient with reported history of colon carcinoma. 2. No adjacent pathologically enlarged lymph nodes within the deep pelvis and abdomen. 3. Scattered colonic diverticulosis with no evidence of diverticulitis. 4. Bilateral renal cysts. 5. Bilateral adrenal nodularity with findings indicative of underlying small adrenal adenomas. 6. Cholelithiasis with no evidence of acute cholecystitis. 7. Three 2 mm right-sided pulmonary nodules. 8. No lytic or blastic osseous lesions. DICTATED BY: NIYAH JONAS MD DATE/TIME DICTATED:11/15/15712 JUNIOR SYSTEMS ANALYST:MARIE DATE/TIME TRANSCRIBED:11/15/15712 Assessment/Plan Assessment/Plan Impression: 76-year-old M with PMH of rectal cancer s/p anal endoscopic surgery in 07/2006, CABG, right femoral stent, HTN, HLD, DM2, BPH,CAD s/p CABG,anemia of chronic disease, RLE DVT, paraxosymal atrial fibrillation, urinary retention 2/2 BPH admitted 11/13/16 with Ps. aeruginosa UTI and JACK. Abnormal CT abd/pelvis: per radiology fluid-filled cavity along the left side of the rectum within the deep pelvis, as above, consistent with focal contained perforation of the left side of the rectum; will require surgical evaluation. Suggestion: 1. Monitor CBC/BMP. 2. F/U repeat UC obtained in the hospital to further guide antibiotic treatment. 3. Currently receiving Ceftazidime 1 gm q 12 h D #2; f/u urology recom. 4. Bladdder scan Q 8 h; SC id PVR elevated. Consult Acknowledgment - Thank you for your consult request.
[2016-11-14 21:15] VITALS: BP 130/70
[2016-11-15 06:48] VITALS: BP 156/68
--- NOTE | 2016-11-15 08:13 | PN- Housestaff ---
See Addendum Subjective Follow-up For: UTI Subjective: No overnight events. He is feeling well this morning, no complaints. His was not present, so history is limited. Review of Systems Constitutional: Reports: no symptoms. EENTM: Reports: no symptoms. Cardiovascular: Reports: no symptoms. Respiratory: Reports: no symptoms. Gastrointestinal: Reports: no symptoms. Genitourinary: Reports: see HPI. Musculoskeletal: Reports: no symptoms. Skin: Reports: no symptoms. Neurological/Psychological: Reports: no symptoms. Hematologic/Endocrine: Reports: no symptoms. Immunologic/Allergic: Reports: no symptoms. Objective Last 24 Hrs of Vital Signs/I&O Vital Signs Date Time Temp Pulse Resp B/P B/P Pulse O2 O2 Flow FiO2 Mean Ox Delivery Rate 11/15 0648 98.0 76 20 156/68 92 11/14 2115 97.8 70 18 130/70 95 Room Air 11/14 2109 70 130/70 11/14 1534 97.9 81 18 142/68 96 11/14 1103 148/78 11/14 1103 148/72 Intake & Output 11/15 1600 11/15 0800 11/15 0000 Intake Total 250 1200 Output Total 455 1 Balance -205 1199 Intake, IV 10 450 Intake, Oral 240 750 Number 0 Bowel Movements Output, Stool 5 1 Output, Urine 450 Physical Exam General Appearance: Alert, Cooperative, No Acute Distress, Mild Distress Cardiovascular: Regular Rate, Normal S1, Normal S2 Lungs: Clear to Auscultation Abdomen: Normal Bowel Sounds, Soft, No Tenderness, No condom catheter Current Medications: Current Medications Sig/Audrey Start time Last Medication Dose Route Stop Time Status Admin Acetaminophen 650 MG Q6P PRN 11/14 0130 AC PO Amlodipine Besylate 10 MG DAILY 11/14 1000 AC 11/14 PO 1103 Ceftazidime 1,000 MG Q12 11/14 1000 AC 11/14 IV 2109 Cholecalciferol 1,000 IU DAILY 11/14 1000 AC 11/14 PO 1104 Ezetimibe 10 MG DAILY 11/14 1000 AC 11/14 PO 1104 Finasteride 5 MG DAILY 11/14 1000 AC 11/14 PO 1103 Insulin Aspart 0 AT BEDTIME 11/14 2200 AC SC Insulin Aspart 0 TIDAC 11/14 0800 AC 11/14 SC 1137 Insulin Detemir 30 UNITS DAILY 11/15 1000 AC SC Insulin Detemir 40 UNITS DAILY 11/14 1145 DC 11/14 SC 1136 Lactobacillus 1 CAP DAILY 11/14 1000 AC 11/14 Acidophilus PO 1104 Metoprolol Tartrate 150 MG BID 11/14 1000 AC 11/14 PO 2109 Morphine Sulfate 2 MG Q6P PRN 11/14 0145 AC IV Rivaroxaban 20 MG DAILY 11/14 1000 AC 11/14 PO 1104 Sodium Chloride 1,000 ML SEE RATE 11/13 2330 AC 11/14 IV 11/15 0929 1102 Tamsulosin HCl 0.8 MG DAILY 11/14 1000 AC 11/14 PO 1102 Tramadol HCl 50 MG Q6P PRN 11/14 0145 AC PO Last 24 Hrs of Lab/Pilo Results Last 24 Hrs of Labs/Mics: Laboratory Tests 11/15/16 0719: Sodium Pending, Potassium Pending, Chloride Pending, Carbon Dioxide Pending, Anion Gap Pending, BUN Pending, Creatinine Pending, BUN/Creatinine Ratio Pending , CBC w Diff Pending, WBC Pending, RBC Pending, Hgb Pending, Hct Pending, MCV Pending, MCH Pending, RDW Pending, Plt Count Pending, MPV Pending, PUBS MCHC Pending Assessment/Plan Assessment: 76-year-old M with PMH of recently admitted to [facility] for nephrolithiasis and UTI requiring PICC line and IV Cefepime, rectal cancer s/p anal endoscopic surgery in 07/2006, CABG, right femoral stent on Clopidogrel, HTN, HLD, DM, BPH, CAD s/p CABG,anemia of chronic disease, RLE DVT on Xarelto, paraxosymal afib, urinary retention 2/2 BPH and developing sacral ulcer requiring placement of condom catheter presenting to the ED after a urine analysis and urine culture done as an outpatient revealing growth of Pseudomonas resistant ciprofloxacin and levofloxacin. On arrival, he was found to be afebrile, white count of 9.4, and positive urinalysis for leuk esterase and nitrates, BUN 65, creatinine 2.3, lactic acid 0.9. He was admitted to general medicine and treated for the following problems: 1) UTI 2) JACK 3) Weakness #UTI: pyuria and growing psuedomonas. Complicated UTI in male. The patient had radiation for rectal cancer in December 2015. Since then, he has required a condom catheter. He is incontient of urine otherwise. He is looking clinically well. He is growing gram-negative rods in his urine. He will likely be able to go home tomorrow if he continues to improve. -f/u urine cultures -Continue normal saline 0.9% -Follow-up CBCs, BMP, trend his renal functions -continue IV Ceftazidime -consult urology for further management -Consult infectious disease #Iron deficiency anemia: -ferrous sulfate supplement #JACK: Likely prerenal in setting of infection and dementia. Cr coming down to 1.8 today from 2.3. Baseline 1.0 -fluids #Weakness: reports he can't walk since he had a blood clot in July. On exam, he has good strengh. This may tabitha deconditioning vs coordination issue. -PT #Chronic medical problems: HTN, HLD, DM, BPH, CAD s/p CABG, Afib, sacaral ulcer, vit d deficiency -Continue home meds -wound care -Hold oral hypoglycemics. LEvemir plus sliding scale. His glucose was 66 this morning so his levemir dose was reduced to 20 DVT prophylaxis Continue rivaroxaban 20 mg by mouth daily Full code Problem List: 1. UTI (urinary tract infection) 2. Sacral decubitus ulcer 3. JACK (acute kidney injury) Pain Ratin Pain Location: no pain Pain Goal: Remain pain free Pain Plan: see a/p Tomorrow's Labs & Rationales: cbc, bep
[2016-11-15 09:26] LABS: ABSOLUTE BASOPHIL COUNT 0 /CUMM (0.0-0.2); ABSOLUTE EOSINOPHIL COUNT 0.3 /CUMM (0.0-0.7); ABSOLUTE GRANULOCYTE CT 5.4 /CUMM (1.4-6.5); ABSOLUTE LYMPH COUNT 1.2 /CUMM (1.2-3.4); ABSOLUTE MONOCYTE COUNT 0.6 /CUMM (0.10-0.60); BASOPHIL % 0.4 % (0.0-2.0); EOSINOPHIL % 4.2 % (0-5); GRANULOCYTE % 71.1 % (42.2-75.2); HEMATOCRIT 23.5 % (42-52); MEAN CORPUSCULAR HGB 28.2 PG (27.0-31.0); MEAN CORPUSCULAR VOLUME 85.6 FL (80.0-94.0); MEAN PLATELET VOLUME 6.6 FL (7.4-10.4); PLATELET COUNT 267 /CUMM (130-400); RBC DISTRIBUTION WIDTH 15.1 % (11.5-14.5); RED BLOOD CELL CT 2.74 /CUMM (4.70-6.10); WHITE BLOOD CELL COUNT 7.6 /CUMM (4.8-10.8)
--- NOTE | 2016-11-15 12:51 | ULTRASOUND REPORT ---
EXAMINATION: US RETROPERITONEAL COMPLETE (RENAL) CLINICAL INFORMATION: Acute kidney injury. Evaluate for renal obstruction. COMPARISON: CT scan of the abdomen and pelvis dated 11/15/2016. TECHNIQUE: Real-time imaging of the kidneys and bladder. FINDINGS: RIGHT KIDNEY: 12.3 x 5.8 x 6.0 cm (SAG x AP x TRV). The kidney is normal in size, contour, and echogenicity. Renal cortical thickness is normal. No calculi or focal suspicious parenchymal lesions. There is mild right-sided hydronephrosis with dilatation of the pelvicalyceal system. No obstructing stone or mass is appreciated. In the upper pole of the right kidney, a 3.0 x 2.8 x 2.6 cm avascular simple cyst is seen. LEFT KIDNEY: 11.7 x 6.0 x 4.8 cm (SAG x AP x TRV). The kidney is normal in size, contour, and echogenicity. Renal cortical thickness is normal. No calculi or focal parenchymal lesions. There is mild left-sided hydronephrosis with no definite obstructing stone or mass seen. BLADDER: Well-distended and normal. Right ureteral jet is demonstrated. Left ureteral jet is not seen. Prevoid bladder volume is 480.8 mL. Postvoid bladder volume could not be assessed because patient was unable to void. IMPRESSION: 1. Bilateral mild hydronephrosis, new when compared to recent CT scan from 11/14/2015. 2. Upper pole right renal cyst. Of note, the recent CT scan had shown several bilateral renal low-attenuation masses, which are not seen on this ultrasound and cannot be further characterized. 3. Bladder well distended and unremarkable.
--- NOTE | 2016-11-15 13:41 | Discharge Summary ---
Visit Information Visit Dates Admission Date: 11/13/16 Discharge Date: 11/19/16 Hospital Course Course Attending Physician: YOAV METZGER MD Primary Care Physician: SHANNAN BRONSON,DAKSHA Blackburn Hospital Course: Mr Alejandro is a 76-year-old gentleman with a PMH of CAD S/P CABG, paroxysmal atrial ablation, right femoral stent currently on Plavix, RLE DVT on Xarelto, HTN, HLD, DM, BPH with urinary retention currently managed with a [place] catheter , anemia of chronic disease, sacral ulcer and a history of anal cancer diagnosed in 2007 S/P transanal excision, initially declined chemoradiation, recurrent rectal cancer 2015 for which she did receive neoadjuvant chemoradiation and underwent proctocolectomy with diverting colostomy who was brought in by his out of concern for cloudy/milky colored urine. Symptoms have been going on for approximately 7 days prior to presentation. He was recently admitted to [facility] () for nephrolithiasis and UTI, sent home with a PICC line on IV cefepime. His visiting nurse did obtain a urine sample on 11/11/2016 that came back positive for greater than 100,000 CFU per mL of Pseudomonas. VS on admission: BP 110/60, HR 67, RR 18, SPO2 99% on RA, T 97.9 Pertinent physical exam findings on admission: Alert, oriented 2, mild dementia , uncooperative with physical exam and history. RRR, normal S1/S2. Lungs CTA with mild expiratory crackles. Abdomen soft. [place] catheter noted with cloudy urine/debris. UA: Cloudy, proteinuria, positive nitrites, large LE, WBCs, many bacteria. EKG: NSR, PACs, first-degree AV block CT abdomen and pelvis with oral contrast: Probable A-P resection of bowel with left lower quadrant colostomy. There is a presacral soft tissue density which has indistinct margins with the prostate and bladder and is likely the etiology of the mild bilateral hydronephrosis of the kidneys. The soft tissue density has an indistinct margin with the posterior bladder wall as well. There is a small bowel loop or loops down into this region or the pelvis without causing obstruction of the small bowel loops. No air in the bladder to indicate presence of bowel bladder fistula. Cholelithiasis. A 5 mm nonobstructing stone lower pole left kidney Patient was admitted to general medicine floor for management of following problems 1. Complicated UTI in setting of incontinence with condom catheter s/p radiation therapy 2. Mild bilateral hydronephrosis R>L 3. BPH with possible neurogenic bladder 4. Acute kidney injury 5. Presacral soft tissue density which has indistinct margins with the prostate and bladder Hospital course: 1. Complicated UTI in setting of incontinence with condom cathether s/p radiation therapy * We empirically started the patient on ceftazidime 1 g IV Q12 * Urine cultures grew pseudomonas aeruginosa and Enterobacter cloacae * E.cloacae P. aerugin RX AB RX AB ------ -- ------ -- AMPICILLIN R CEFAZOLIN R AMOX/CLAV AUGM R AMP/SULB-UNASYN R CEFOXITIN R CEFTAZIDIME S S CEFTRIAXONE I CIPROFLOXACIN S R GENTAMICIN S I IMIPENEM S MEROPENEM S NITROFURANTOIN R TOBRAMYCIN S TRIMETH/SULFA S * PICC line was placed on 11/17/2016 with planned duration of 14 days ceftaz 1gram IV Q12 * He will also continue taking ciprofloxacin for the Enterobacter. 2. Mild bilateral hydronephrosis R>L * We obtained a renal ultrasound showed bilateral mild hydronephrosis, new in comparison with the recent CT on admission. The right renal cyst. * Initially the patient was reluctant to have a [facility] catheter placed despite symptomatic evidence of urinary retention that was relieved with straight cath X2. He eventually agreed to have a regular [facility] catheter placed with noticeable relief in urine output 3. BPH with possible neurogenic bladder * Patient will be following up with urology after discharge within 1 week for management of indwelling [facility] catheter 4. Acute kidney injury * Baseline creatinine of 0.9 as of April 2016. The patient presented with a creatinine of 2.3 that was likely in the context of post obstructive uropathy. Interval improvement with gentle fluid hydration and [facility] catheter placement 5. 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 He is not a surgical candidate at this time however , so this will be managed medically. * Patient will follow up with both his oncologist DR Sharp within the next week Allergies: Coded Allergies: Penicillins (unknown 11/13/15) Disposition Summary Disposition Principal Diagnosis: Complicated UTI in setting of incontinence with condom catheter s/p radiation therapy Additional Diagnosis: 2. Mild bilateral hydronephrosis R>L 3. BPH with possible neurogenic bladder 4. Acute kidney injury Discharge Disposition: home health services Discharge Instructions General Discharge Information Code Status: Full Code Patient's Diet: Heart healthy diet Patient's Activity: As tolerated Follow-Up Instructions/Appts: Please take all medications as directed. Patient will be on IV antibiotics for total 14 days after which the PICC line will be removed. Medications at Discharge Discharge Medications: Continue taking these medications: Cholecalciferol (Vitamin D3) 1,000 UNIT TABLET 1 Tablet ORAL DAILY Comments: LAST DOSE GIVEN ON 11/17/15 AT 8:30AM Losartan Potassium (Losartan Potassium) 100 MG TABLET 1 Tablet ORAL DAILY Qty = 90 Comments: LAST DOSE GIVEN ON 11/17/15 AT 8:30AM Metoprolol Tartrate (Metoprolol Tartrate) 100 MG TABLET 1.5 Tablet ORAL TWICE DAILY Qty = 180 Comments: LAST DOSE GIVEN ON 11/17/15 AT 8:30AM Insulin Aspart (Novolog) (Unknown Strength) VIAL 0 Inject into fatty tissue SEE SLIDING SCALE Qty = 60 Comments: LAST DOSE GIVEN ON 11/17/15 AT 12:30PM Insulin Glargine,Hum.rec.anlog (Lantus Solostar) 100 UNIT/1 ML INSULN.PEN 40 Units Inject into fatty tissue Every Morning Qty = 75 Comments: NOT GIVEN IN HOSPITAL. Ezetimibe (Zetia) 10 MG TABLET 1 Tablet ORAL DAILY Qty = 90 Comments: NOT GIVEN IN HOSPITAL. Finasteride (Finasteride) 5 MG TABLET 1 Tablet ORAL DAILY Qty = 90 Tamsulosin HCl (Tamsulosin HCl) 0.4 MG CAP.ER.24H 2 Capsule ORAL DAILY Qty = 60 Rivaroxaban (Xarelto) 20 MG TABLET 1 Tablet ORAL DAILY Qty = 90 Instructions: with food Amlodipine Besylate (Amlodipine Besylate) 5 MG TABLET 2 Tablet ORAL DAILY Qty = 60 Magnesium Oxide (Magnesium) (Unknown Strength) CAPSULE 1 Capsule ORAL DAILY Lactobacillus Acidophilus (Probiotic) (Unknown Strength) CAPSULE 1 Capsule ORAL DAILY Start taking the following new medications: Ceftazidime (Ceftazidime) 1 GRAM VIAL 1 Gram INTRAVEN EVERY 12 HOURS Qty = 17 No Refills Instructions: To complete 17 more doses Ciprofloxacin HCl (Cipro) 500 MG TABLET 500 Milligram ORAL DAILY Qty = 12 No Refills Instructions: . Copies To: LINDA BRONSON,DEANNE; HIMA BRONSON,GEGE Maldonado; GABINO BRONSON,JUANITA Mayfield; SHANNAN BRONSON,DAKSHA Blackburn
--- NOTE | 2016-11-15 14:00 | NUR ---
NURSING NOTE: BLADDER SCANED @ 1400 FOR 140ML OF URINE.
--- NOTE | 2016-11-15 14:26 | PN- Infect Dx ---
Subjective Subjective: No fever; noted increased confusion. No abdominal pain. Review of Systems Comments: 12 points reviewed as noted, otherwise negative. Objective Last 24 Hrs of Vital Signs/I&O Vital Signs Date Time Temp Pulse Resp B/P B/P Pulse O2 O2 Flow FiO2 Mean Ox Delivery Rate 11/15 1027 76 156/68 11/15 1026 76 156/68 11/15 1021 76 156/68 11/15 0648 98.0 76 20 156/68 92 11/14 2115 97.8 70 18 130/70 95 Room Air 11/14 2109 70 130/70 11/14 1534 97.9 81 18 142/68 96 Intake & Output 11/15 1600 11/15 0800 11/15 0000 Intake Total 7145 205 2080 Output Total 455 1 Balance 1220 -205 1199 Intake, IV 500 10 450 Intake, Oral 720 240 750 Number 0 0 Bowel Movements Output, Stool 5 1 Output, Urine 450 Physical Exam Other Physical Findings: General Appears chronically ill, fatigued, No Acute Distress HEENT: AT/NC, sclera anicteric Neck: no JVD Lungs BS present, few rhonchi with cough Cardiovascular Regular Rate, Normal S1, Normal S2 Abdomen Normal Bowel Sounds, ostomy bag in place Extremities No pedal Edema Skin Temp/Moisture Exam: Pale Results Last 24 Hours of Lab Results: Laboratory Tests 11/15 718 Chemistry Sodium (137 - 145 mmol/L) 144 Potassium (3.5 - 5.1 mmol/L) 4.5 Chloride (98 - 107 mmol/L) 114 H Carbon Dioxide (22 - 30 mmol/L) 20 L Anion Gap (5 - 16) 10 BUN (9 - 20 mg/dL) 47 H Creatinine (0.7 - 1.2 mg/dL) 1.8 H Estimated GFR (>60 ml/min) 37 L BUN/Creatinine Ratio (7 - 25 %) 26.1 H Hematology CBC w Diff NO MAN DIFF REQ WBC (4.8 - 10.8 /CUMM) 7.6 RBC (4.70 - 6.10 /CUMM) 2.74 L Hgb (14.0 - 18.0 G/DL) 7.7 L Hct (42 - 52 %) 23.5 L MCV (80.0 - 94.0 FL) 85.6 MCH (27.0 - 31.0 PG) 28.2 RDW (11.5 - 14.5 %) 15.1 H Plt Count (130 - 400 /CUMM) 267 MPV (7.4 - 10.4 FL) 6.6 L Gran % (42.2 - 75.2 %) 71.1 Lymphocytes % (20.5 - 51.1 %) 15.9 L Monocytes % (1.7 - 9.3 %) 8.4 Eosinophils % (0 - 5 %) 4.2 Basophils % (0.0 - 2.0 %) 0.4 Absolute Granulocytes (1.4 - 6.5 /CUMM) 5.4 Absolute Lymphocytes (1.2 - 3.4 /CUMM) 1.2 Absolute Monocytes (0.10 - 0.60 /CUMM) 0.6 Absolute Eosinophils (0.0 - 0.7 /CUMM) 0.3 Absolute Basophils (0.0 - 0.2 /CUMM) 0 PUBS MCHC (33.0 - 37.0 G/DL) 33.0 Last 24 Hours of [place] Results: SPEC #: [id number] RADHA: 11/13/16 STATUS: RES RECD: 11/13/[address]: ROMANA GARRISON SOURCE: URINE ROUT ENTR: 11/13/[address]: SHANNAN BRONSON,DAKSHA Blackburn SPDESC: URINE STRA ORDERED: URINE CULTURE Procedure Result > URINE CULTURE Preliminary 11/14/16-1017 Greater than 100,000 colonies per ml of: GRAM NEGATIVE RODS Identification and susceptibilities to follow Recent Imaging Studies: SERVICE DATE: 11/15/16 EXAM TYPE: US - US-RENAL/KIDNEY EXAMINATION: US RETROPERITONEAL COMPLETE (RENAL) CLINICAL INFORMATION: Acute kidney injury. Evaluate for renal obstruction. COMPARISON: CT scan of the abdomen and pelvis dated 11/15/2016. TECHNIQUE: Real-time imaging of the kidneys and bladder. FINDINGS: RIGHT KIDNEY: 12.3 x 5.8 x 6.0 cm (SAG x AP x TRV). The kidney is normal in size, contour, and echogenicity. Renal cortical thickness is normal. No calculi or focal suspicious parenchymal lesions. There is mild right-sided hydronephrosis with dilatation of the pelvicalyceal system. No obstructing stone or mass is appreciated. In the upper pole of the right kidney, a 3.0 x 2.8 x 2.6 cm avascular simple cyst is seen. LEFT KIDNEY: 11.7 x 6.0 x 4.8 cm (SAG x AP x TRV). The kidney is normal in size, contour, and echogenicity. Renal cortical thickness is normal. No calculi or focal parenchymal lesions. There is mild left-sided hydronephrosis with no definite obstructing stone or mass seen. BLADDER: Well-distended and normal. Right ureteral jet is demonstrated. Left ureteral jet is not seen. Prevoid bladder volume is 480.8 mL. Postvoid bladder volume could not be assessed because patient was unable to void. IMPRESSION: 1. Bilateral mild hydronephrosis, new when compared to recent CT scan from 11/14/2015. 2. Upper pole right renal cyst. Of note, the recent CT scan had shown several bilateral renal low-attenuation masses, which are not seen on this ultrasound and cannot be further characterized. 3. Bladder well distended and unremarkable. DICTATED BY: CHRISTIN BRONSON,ANN Danielle DATE/TIME DICTATED:11/15/161241 DIRECTOR OF CATERING SALES:MARIE DATE/TIME TRANSCRIBED:11/15/161241 Assessment/Plan Impression: 76-year-old M with PMH of rectal cancer s/p anal endoscopic surgery in 07/2006, CABG, right femoral stent, HTN, HLD, DM2, BPH,CAD s/p CABG,anemia of chronic disease, RLE DVT, paraxosymal atrial fibrillation, urinary retention 2/2 BPH admitted 11/13/16 with Ps. aeruginosa UTI. Bilateral hydronephrosis on renal US from today; h/o nephrolithiasis on CT abd from 11/14/15. JACK (kidney function improving) in the setting of urinary retention; f/u urology recom Suggestion: 1. Monitor CBC/BMP. aspiration precautions. 2. F/U repeat UC obtained in the hospital to further guide antibiotic treatment. 3. Currently receiving Ceftazidime 1 gm q 12 h D #3; f/u urology recom. 4. Would consider Ct abd/pelvis w/ oral contrast to eval nephrolithiasis and better eval pelvic anatomy.
[2016-11-15 14:51] VITALS: BP 138/70
--- NOTE | 2016-11-15 15:48 | NUR ---
WOUND CARE: REQUESTEWD BY NURSING STAFF TO EVLUATE PT FOR SKIN ALTERATION PRESENT ON ADMISSION - PRESENT AT BEDSIDE OFFERED HX - STATED PT HAS HAD WOUNDS FOR MONTHS TX AT [facility] AND HAS REQUIRED SX DEBRIDEMENT AND ENZYMATIC TX WITH SANTYL AT HOME UPON ASSESSMENT, PT NOTED WITH A 2X4 CM UNSTAGEABLE PRESSURE INURY TO BUTTOCKS 100% MOIST YELLOW FILL AND PERIWOUND MACERATION SLIGHTLY - NO UNDERMINNG OR TUNNELING NOTED - RECOMMENDATION: GROUP 2 APM PLEASE - CLEANSE WITH NS FB HYDROCOLLOID CGF Q 3 DAYS AND PRN - EDUCATED RE: POC
--- NOTE | 2016-11-15 17:58 | CT SCAN REPORT ---
EXAMINATION: CT ABDOMEN AND PELVIS WITHOUT CONTRAST CLINICAL INFORMATION: Fistula between bowel and bladder. Patient presenting with UTI, extremely dirty urine. COMPARISON: Ultrasound of kidneys 11/15/2016. TECHNIQUE: Multidetector volumetric imaging was performed from the superior aspect of the liver through the pubic symphysis following administration of oral contrast. Sagittal and coronal reformatted images were obtained on the technologist's workstation. No IV contrast. DLP: 310.8 mGy-cm FINDINGS: LUNG BASES: Linear scarring/atelectasis at right lung base. There is no pleural effusion. LIVER, GALLBLADDER, AND BILIARY TREE: The liver is normal in size, shape, and attenuation. No focal hepatic lesion or biliary ductal dilatation is present. Multiple small calcified gallstones layering dependently in the gallbladder. The gallbladder is distended to about 10 cm but there is no edema around the gallbladder. No bile duct dilatation. PANCREAS: Pancreas is atrophic. SPLEEN: Unremarkable. ADRENAL GLANDS: Unremarkable. KIDNEYS AND URETERS: There is mild fullness, hydronephrosis of the right and left renal collecting system to the lower pelvis. Difficult to track the ureters entirely through the pelvis. 5 mm nonobstructive stone lower pole of the left kidney. 3 cm cortical cyst at the posterior midpole of the right kidney. BLADDER: The posterior inferior bladder wall is indistinct due to the presacral soft tissue density. No air in the bladder to confirm presence of a bowel to the bladder fistula. PELVIS/GASTROINTESTINAL TRACT: There is a left-sided colostomy in the left lower quadrant. Likely status post AP resection with transverse lower midline abdominal incision and soft tissue density in the pelvis in the presacral region. There is soft tissue density in the presacral rejoin that measures approximately 5 cm AP. This is inseparable from the posterior bladder wall and the prostate as well as a small bowel loop that loops down into this region. There is no obstruction of the bowel however. No bowel wall thickening or edema. The appendix is normal. Moderate volume of stool in colon. ABDOMINAL WALL: Left lower quadrant colostomy. Transverse lower mid abdominal surgical incision intact. LYMPH NODES: Normal. VASCULAR: Extensive vascular calcifications of the aorta and iliac vessels and major branch vessels of the aorta without aneurysm. PELVIC VISCERA: Soft tissue density in the presacral area in the lower pelvis. OSSEOUS STRUCTURES: Unremarkable. IMPRESSION: 1. Probable AP resection of bowel with left lower quadrant colostomy. There is a presacral soft tissue density which has indistinct margins with the prostate bladder and is likely the etiology for the mild bilateral hydronephrosis of the kidneys. The soft tissue density has an indistinct margin with the posterior bladder wall as well. There is a small bowel loop that loops down into this region of the pelvis without causing obstruction of the small bowel loop. No air in the bladder to indicate presence of a bowel to bladder fistula. 2. Cholelithiasis. 3. A 5 mm nonobstructive stone lower pole left kidney.
[2016-11-15 22:34] VITALS: BP 142/70
--- NOTE | 2016-11-16 00:29 | Event Note ---
Event Note Event Note: S: alerted bladder scan revealed 850ml at 23:22 B: 76-year-old M with PMH of recently admitted to [facility] for nephrolithiasis and UTI requiring PICC line and IV Cefepime, urinary retention 2 /2 BPH and developing sacral ulcer requiring placement of condom catheter A/R:The resident and I were alerted that the patient's bladder scan revealed a volume of 850ml. We immediately placed an order for a straight cath. We [place] [facility] rescan bladder every 3 hours. S: alerted bladder scan revealed 625ml at 05:00 B: Patient having urinary retention A/R: We placed an order for a davis for the patient. The nurse informed us that the patient refused the davis. The resident and I went to talk to the patient. We asked the patient why he did not want a davis and he stated he has had enough. We discussed our concerns with the patient. We told him the average bladder was 500ml but the patients' bladder is 625. We told the patient that we were concerned that his bladder could possibly rupture. The patient stated that he would be fine since his bladder was larger the other day. The patient was initially reluctant to straight cath but we convinced him to allow us to straight cath him.
--- NOTE | 2016-11-16 05:49 | NUR ---
NURSE NOTE: PT BLADDER SCANNED FOR 600ML. CONCRETE FLOAT MAKER MADE AWARE, PER CONCRETE FLOAT MAKER ORDER, PLACE ROMERO. PT REFUSING ROMERO INSERTION AT THIS TIME, PT ORIENTED TO PERSON, PLACE, AND TIME. CONCRETE FLOAT MAKER MADE AWARE, PER CONCRETE FLOAT MAKER WILL COME AND TALK TO PATIENT. WILL CONTINUE TO MONITOR.
[2016-11-16 06:21] VITALS: BP 140/80
--- NOTE | 2016-11-16 07:25 | PN- Housestaff ---
See Addendum Subjective Follow-up For: Urethritis Subjective: He was bladder scaned last night, found to have 850mL. He was straight cathed but refused a davis. This morning, he feels well with no complaints. He still does not want a davis. Review of Systems Constitutional: Reports: no symptoms. EENTM: Reports: no symptoms. Cardiovascular: Reports: no symptoms. Respiratory: Reports: no symptoms. Gastrointestinal: Reports: no symptoms. Genitourinary: Reports: no symptoms. Musculoskeletal: Reports: no symptoms. Skin: Reports: no symptoms. Neurological/Psychological: Reports: no symptoms. Hematologic/Endocrine: Reports: no symptoms. Immunologic/Allergic: Reports: no symptoms. Objective Last 24 Hrs of Vital Signs/I&O Vital Signs Date Time Temp Pulse Resp B/P B/P Pulse O2 O2 Flow FiO2 Mean Ox Delivery Rate 11/16 0621 97.6 58 20 140/80 90 Room Air 11/16 0000 Room Air 11/15 2234 98.0 63 18 142/70 92 11/15 2213 63 142/70 11/15 1451 97.8 56 20 138/70 93 Room Air 11/15 1027 76 156/68 11/15 1026 76 156/68 11/15 1021 76 156/68 Intake & Output 11/16 0800 11/16 0000 11/15 1600 Intake Total 847 139 4695 Output Total 900 Balance -061 978 7886 Intake, IV 500 Intake, Oral 240 240 720 Number 0 Bowel Movements Output, Urine 900 Physical Exam General Appearance: Alert, Cooperative, No Acute Distress Cardiovascular: Regular Rate, Normal S1, Normal S2 Lungs: Clear to Auscultation Abdomen: Normal Bowel Sounds, Soft, No Tenderness, ostomy with well formed stool. No suprapoubic tenderness or fullness Current Medications: Current Medications Sig/Audrey Start time Last Medication Dose Route Stop Time Status Admin Acetaminophen 650 MG Q6P PRN 11/14 0130 AC PO Amlodipine Besylate 10 MG DAILY 11/14 1000 AC 11/15 PO 1027 Ceftazidime 1,000 MG Q12 11/14 1000 AC 11/15 IV 2213 Cholecalciferol 1,000 IU DAILY 11/14 1000 AC 11/15 PO 1027 Ezetimibe 10 MG DAILY 11/14 1000 AC 11/15 PO 1029 Ferrous Sulfate 325 MG DAILY 11/15 1103 AC 11/15 PO 1308 Finasteride 5 MG DAILY 11/14 1000 AC 11/15 PO 1027 Insulin Aspart 0 AT BEDTIME 11/14 2200 AC SC Insulin Aspart 0 TIDAC 11/14 0800 AC 11/15 SC 1700 Insulin Detemir 20 UNITS DAILY 11/16 1000 AC SC Insulin Detemir 30 UNITS DAILY 11/15 1000 DC SC Lactobacillus 1 CAP DAILY 11/14 1000 AC 11/15 Acidophilus PO 1027 Metoprolol Tartrate 150 MG BID 11/14 1000 AC 11/15 PO 2213 Morphine Sulfate 2 MG Q6P PRN 11/14 0145 AC IV Patient Medication 1 ED .STK-MED ONE 11/15 1415 [facility] Teaching ED 11/15 1416 Rivaroxaban 20 MG DAILY 11/14 1000 AC 11/15 PO 1028 Sodium Chloride 1,000 ML Q8H 11/15 1015 DC 11/15 IV 11/15 1814 1100 Sodium Chloride 1,000 ML SEE RATE 11/13 2330 DC 11/14 IV 11/15 0929 1102 Tamsulosin HCl 0.8 MG DAILY 11/14 1000 AC 11/15 PO 1021 Tramadol HCl 50 MG Q6P PRN 11/14 0145 AC PO Assessment/Plan Assessment: 76-year-old M with PMH of recently admitted to [facility] for nephrolithiasis and UTI requiring PICC line and IV Cefepime, rectal cancer s/p anal endoscopic surgery in 07/2006, CABG, right femoral stent on Clopidogrel, HTN, HLD, DM, BPH, CAD s/p CABG,anemia of chronic disease, RLE DVT on Xarelto, paraxosymal afib, urinary retention 2/2 BPH and developing sacral ulcer requiring placement of condom catheter presenting to the ED after a urine analysis and urine culture done as an outpatient revealing growth of Pseudomonas resistant ciprofloxacin and levofloxacin. On arrival, he was found to be afebrile, white count of 9.4, and positive urinalysis for leuk esterase and nitrates, BUN 65, creatinine 2.3, lactic acid 0.9. He was admitted to general medicine and treated for the following problems: 1) Urethritis plus or minus prostatitis 2) JACK 3) Weakness #Urethritis with potential prostatitis: pyuria, milky discharge, and growing psuedomonas and Enterobacter both sensitive to ceftazidine. The patient had radiation for rectal cancer in December 2015. Since then, he has required a condom catheter. However last night he was found to be retaining with 850 mL of urine in the bladder. He was straight cathed but refused Davis. Urology is recommending to continue antibiotics and check postvoid residual, cathing if greater than 500 mL. -Follow-up CBCs, BMP, trend his renal functions -continue IV Ceftazidime -Appreciate urology recommendations -Bladder scanned every 3 hours #Iron deficiency anemia: -ferrous sulfate supplement #JACK: Likely prerenal in setting of infection and dementia. He is now obstructed as well which will contribute to this. Cr still 1.8 today from 2.3. Baseline 1.0. -Consider additional IV fluids #Weakness: reports he can't walk since he had a blood clot in July. On exam, he has good strengh. This may tabitha deconditioning vs coordination issue. PT is recommending short-term rehabilitation at this point. -Continue PT #Chronic medical problems: HTN, HLD, DM, BPH, CAD s/p CABG, Afib, sacaral ulcer, vit d deficiency -Continue home meds -wound care -Hold oral hypoglycemics. LEvemir plus sliding scale. His glucose was 66 this morning so his levemir dose was reduced to 20 DVT prophylaxis Continue rivaroxaban 20 mg by mouth daily Full code Problem List: 1. JACK (acute kidney injury) 2. Urethritis Pain Ratin Pain Location: no pain Pain Goal: Remain pain free Pain Plan: see a/p Tomorrow's Labs & Rationales: cbc, bep
--- NOTE | 2016-11-16 07:30 | Cons- Urology ---
General Information and HPI Consulting Request Date of Consult: 11/16/16 Requested By: medical service, GIOVANY BRONSON,AUREAI Reason for Consult: bilateral hydronephrosis Source of Information: patient, old records Exam Limitations: no limitations History of Present Illness: This patient was admitted due to a UTI not sensitive to oral abx. He underwent an APR in 2015 due to a rectal ca. Most of his care has been at [facility]. This was complicated by pelvic abscess. Since then he has had several UTI's. He has been noted to have bilateral mild hydronephrosis since his surgery. In a R ureteral stent was placed due to a stone in the R ureter. He then underwent R ureteroscopy and laser litho of the stone. The R ureteral stent has since been removed. In 09/2016 he was treated with IV abx due to a UTI, at [facility]. At time of discharge creatinine was 1.4. He has DM and BPH. He is on tamsulosin and finasteride. He does not empty his bladder well. On this admission CT again shows mild bilateral hydronephrosis, R >L. No stones are seen. There is a soft tissue mass in the pelvis which could be the residual of his pelvic abscess, or recurrent ca. The bladder was somewhat distended. On this admission creatinine was elevated but is trending down. Allergies/Medications Allergies: Coded Allergies: Penicillins (unknown 11/13/15) Home Med List: Amlodipine Besylate 5 MG TABLET 2 TAB PO DAILY BP (Reported) Cholecalciferol (Vitamin D3) 1,000 UNIT TABLET 1 TAB PO DAILY SUPPLEMENT ( Reported) Ezetimibe (Zetia) 10 MG TABLET 1 TAB PO DAILY CHOLESTEROL (Reported) Finasteride 5 MG TABLET 1 TAB PO DAILY PROSTATE (Reported) Insulin Aspart (Novolog) (Unknown Strength) VIAL (Unknown Dose) SEE SLIDING SCALE DIABETES (Reported) Insulin Glargine,Hum.rec.anlog (Lantus Solostar) 100 UNIT/1 ML INSULN.PEN 40 U SC QAM DIABETES (Reported) Lactobacillus Acidophilus (Probiotic) (Unknown Strength) CAPSULE (Unknown Dose ) PO DAILY PROBIOTIC (Reported) Losartan Potassium 100 MG TABLET 1 TAB PO DAILY HEART (Reported) Magnesium Oxide (Magnesium) (Unknown Strength) CAPSULE (Unknown Dose) PO DAILY SUPPLEMENT (Reported) Metoprolol Tartrate 100 MG TABLET 1.5 TAB PO BID Heart (Reported) Rivaroxaban (Xarelto) 20 MG TABLET 1 TAB PO DAILY BLOOD THINNER (Reported) with food Tamsulosin HCl 0.4 MG CAP.ER.24H 2 CAP PO DAILY prostate (Reported) Current Medications: Current Medications Sig/Audrey Start time Last Medication Dose Route Stop Time Status Admin Acetaminophen 650 MG Q6P PRN 11/14 0130 AC PO Amlodipine Besylate 10 MG DAILY 11/14 1000 AC 11/15 PO 1027 Ceftazidime 1,000 MG Q12 11/14 1000 AC 11/15 IV 2213 Cholecalciferol 1,000 IU DAILY 11/14 1000 AC 11/15 PO 1027 Ezetimibe 10 MG DAILY 11/14 1000 AC 11/15 PO 1029 Ferrous Sulfate 325 MG DAILY 11/15 1103 AC 11/15 PO 1308 Finasteride 5 MG DAILY 11/14 1000 AC 11/15 PO 1027 Insulin Aspart 0 AT BEDTIME 11/14 2200 AC SC Insulin Aspart 0 TIDAC 11/14 0800 AC 11/15 SC 1700 Insulin Detemir 20 UNITS DAILY 11/16 1000 AC SC Insulin Detemir 30 UNITS DAILY 11/15 1000 DC SC Lactobacillus 1 CAP DAILY 11/14 1000 AC 11/15 Acidophilus PO 1027 Metoprolol Tartrate 150 MG BID 11/14 1000 AC 11/15 PO 2213 Morphine Sulfate 2 MG Q6P PRN 11/14 0145 AC IV Patient Medication 1 ED .STK-MED ONE 11/[address] Teaching ED 11/15 1416 Rivaroxaban 20 MG DAILY 11/14 1000 AC 11/15 PO 1028 Sodium Chloride 1,000 ML Q8H 11/15 1015 DC 11/15 IV 11/15 1814 1100 Sodium Chloride 1,000 ML SEE RATE 11/13 2330 DC 11/14 IV 11/15 0929 1102 Tamsulosin HCl 0.8 MG DAILY 11/14 1000 AC 11/15 PO 1021 Tramadol HCl 50 MG Q6P PRN 11/14 0145 AC PO Past History Medical History Neurological: NEUROPATHY Cardiovascular: hypertension, hyperlipidemia, CAD status post CABG paroxisymal A. fib Renal: FREQUENT UTI urinary retention secondary to BPH sacral ulcer requiring condom catheter Psychiatric: depression Endocrine: diabetes Blood Disorders: anemia of chronic disease PVD status post stent ight lower extremity DVT on Xarelto Cancer(s): colorectal cancer status post transanal excision Surgical History Pertinent Surgical History: CABG, colon resection, CYST REMOVAL R femoral artery stent transanal excision of rectal lesion PVD status post stent colon cancer status post transanal excision Family History Relations & Conditions If Any: cousin FH: colon cancer MOTHER Psychosocial History Smoking Status: Never Smoked ETOH Use: occasional use Illicit Drug Use: denies illicit drug use Functional Ability ADLs Independent: dressing, eating, toileting, bathing. Ambulation: independent Exam & Diagnostic Data Vital Signs and I&O Vital Signs Date Time Temp Pulse Resp B/P B/P Pulse O2 O2 Flow FiO2 Mean Ox Delivery Rate 11/16 06 97.6 58 20 140/80 90 Room Air 11/16 0000 Room Air 11/15 2234 98.0 63 18 142/70 92 11/15 2213 63 142/70 11/15 1451 97.8 56 20 138/70 93 Room Air 11/15 1027 76 156/68 11/15 1026 76 156/68 11/15 1021 76 156/68 Intake & Output 11/16 0800 11/16 0000 11/15 1600 11/15 0800 11/15 0000 11/14 1600 Intake Total 907 391 7673 250 1200 1040 Output Total 900 455 1 500 Balance -391 949 4893 -205 1199 540 Intake, IV 500 10 450 800 Intake, Oral 240 240 720 240 750 240 Number 0 0 Bowel Movements Output, Stool 5 1 Output, Urine 900 450 500 No acute distress. Chronically ill-appearing Back: No CVA tenderness Abd: soft and non tender. Colostomy on L Genitalia: normal male Laboratory Tests 11/15 718 Chemistry Sodium (137 - 145 mmol/L) 144 Potassium (3.5 - 5.1 mmol/L) 4.5 Chloride (98 - 107 mmol/L) 114 H Carbon Dioxide (22 - 30 mmol/L) 20 L Anion Gap (5 - 16) 10 BUN (9 - 20 mg/dL) 47 H Creatinine (0.7 - 1.2 mg/dL) 1.8 H Estimated GFR (>60 ml/min) 37 L BUN/Creatinine Ratio (7 - 25 %) 26.1 H Hematology CBC w Diff NO MAN DIFF REQ WBC (4.8 - 10.8 /CUMM) 7.6 RBC (4.70 - 6.10 /CUMM) 2.74 L Hgb (14.0 - 18.0 G/DL) 7.7 L Hct (42 - 52 %) 23.5 L MCV (80.0 - 94.0 FL) 85.6 MCH (27.0 - 31.0 PG) 28.2 RDW (11.5 - 14.5 %) 15.1 H Plt Count (130 - 400 /CUMM) 267 MPV (7.4 - 10.4 FL) 6.6 L Gran % (42.2 - 75.2 %) 71.1 Lymphocytes % (20.5 - 51.1 %) 15.9 L Monocytes % (1.7 - 9.3 %) 8.4 Eosinophils % (0 - 5 %) 4.2 Basophils % (0.0 - 2.0 %) 0.4 Absolute Granulocytes (1.4 - 6.5 /CUMM) 5.4 Absolute Lymphocytes (1.2 - 3.4 /CUMM) 1.2 Absolute Monocytes (0.10 - 0.60 /CUMM) 0.6 Absolute Eosinophils (0.0 - 0.7 /CUMM) 0.3 Absolute Basophils (0.0 - 0.2 /CUMM) 0 PUBS MCHC (33.0 - 37.0 G/DL) 33.0 Assessment/Plan Assessment/Plan Imp: 1. Mild bilateral hydronephrosis, R>L, appears chronic based on review of old records 2. UTI 3. BPH 4. Possible decreased bladder tone due to DM 5. Hx of urinary stone 6. Hx of rectal ca 7. JACK improving Plan: 1. Continue abx 2. Trend creatinine 3. Would check pvr by bladder scan and str cath if more than 500 cc 4. Will follow Consult Acknowledgment - Thank you for your consult request.
[2016-11-16 08:35] LABS: ABSOLUTE BASOPHIL COUNT 0 /CUMM (0.0-0.2); ABSOLUTE EOSINOPHIL COUNT 0.4 /CUMM (0.0-0.7); ABSOLUTE GRANULOCYTE CT 6.4 /CUMM (1.4-6.5); ABSOLUTE LYMPH COUNT 1.2 /CUMM (1.2-3.4); ABSOLUTE MONOCYTE COUNT 0.7 /CUMM (0.10-0.60); BASOPHIL % 0.3 % (0.0-2.0); EOSINOPHIL % 4.2 % (0-5); GRANULOCYTE % 73.6 % (42.2-75.2); HEMATOCRIT 24.3 % (42-52); MEAN CORPUSCULAR HGB 28.5 PG (27.0-31.0); MEAN CORPUSCULAR VOLUME 86.2 FL (80.0-94.0); MEAN PLATELET VOLUME 6.6 FL (7.4-10.4); PLATELET COUNT 250 /CUMM (130-400); RBC DISTRIBUTION WIDTH 14.7 % (11.5-14.5); RED BLOOD CELL CT 2.82 /CUMM (4.70-6.10); WHITE BLOOD CELL COUNT 8.6 /CUMM (4.8-10.8)
--- NOTE | 2016-11-16 11:55 | PN- Infect Dx ---
Subjective Subjective: Feeling better. No fever. Not empyting his bladder well; requiring bladder scan. Review of Systems Comments: 12 points reviewed as noted, otherwise negative. Objective Last 24 Hrs of Vital Signs/I&O Vital Signs Date Time Temp Pulse Resp B/P B/P Pulse O2 O2 Flow FiO2 Mean Ox Delivery Rate 11/16 1105 140/80 11/16 1105 58 140/80 11/16 1104 140/80 11/16 0621 97.6 58 20 140/80 90 Room Air 11/16 0000 Room Air 11/15 2234 98.0 63 18 142/70 92 11/15 2213 63 142/70 11/15 1451 97.8 56 20 138/70 93 Room Air Intake & Output 11/16 1600 11/16 0800 11/16 0000 Intake Total 240 240 Output Total 900 Balance -660 240 Intake, Oral 240 240 Output, Urine 900 Physical Exam Other Physical Findings: General Appears chronically ill, fatigued, No Acute Distress HEENT: AT/NC, sclera anicteric Neck: no JVD Lungs BS present, few b/l rhonchi Cardiovascular Regular Rate, Normal S1, Normal S2 Abdomen Normal Bowel Sounds, ostomy bag in place Extremities No pedal Edema Skin Temp/Moisture Exam: Pale Results Last 24 Hours of Lab Results: Laboratory Tests 11/16 0640 Chemistry Sodium (137 - 145 mmol/L) 142 Potassium (3.5 - 5.1 mmol/L) 4.4 Chloride (98 - 107 mmol/L) 113 H Carbon Dioxide (22 - 30 mmol/L) 18 L Anion Gap (5 - 16) 12 BUN (9 - 20 mg/dL) 46 H Creatinine (0.7 - 1.2 mg/dL) 1.8 H Estimated GFR (>60 ml/min) 37 L BUN/Creatinine Ratio (7 - 25 %) 25.6 H Hematology CBC w Diff NO MAN DIFF REQ WBC (4.8 - 10.8 /CUMM) 8.6 RBC (4.70 - 6.10 /CUMM) 2.82 L Hgb (14.0 - 18.0 G/DL) 8.0 L Hct (42 - 52 %) 24.3 L MCV (80.0 - 94.0 FL) 86.2 MCH (27.0 - 31.0 PG) 28.5 RDW (11.5 - 14.5 %) 14.7 H Plt Count (130 - 400 /CUMM) 250 MPV (7.4 - 10.4 FL) 6.6 L Gran % (42.2 - 75.2 %) 73.6 Lymphocytes % (20.5 - 51.1 %) 14.0 L Monocytes % (1.7 - 9.3 %) 7.9 Eosinophils % (0 - 5 %) 4.2 Basophils % (0.0 - 2.0 %) 0.3 Absolute Granulocytes (1.4 - 6.5 /CUMM) 6.4 Absolute Lymphocytes (1.2 - 3.4 /CUMM) 1.2 Absolute Monocytes (0.10 - 0.60 /CUMM) 0.7 H Absolute Eosinophils (0.0 - 0.7 /CUMM) 0.4 Absolute Basophils (0.0 - 0.2 /CUMM) 0 PUBS MCHC (33.0 - 37.0 G/DL) 33.0 Last 24 Hours of [place] Results: SPEC #: [id number] RADHA: 11/13/16 STATUS: COMP RECD: 11/13/[address]: ROMANA GARRISON SOURCE: URINE ROUT ENTR: 11/13/[address]: SHANNAN BRONSON,DAKSHA Oliver. SPDESC: URINE STRA ORDERED: URINE CULTURE Procedure Result > URINE CULTURE Final 11/16/16 Greater than 100,000 colonies per ml of: 1.ENTEROBACTER CLOACAE 2.PSEUDOMONAS AERUGINOSA E.cloacae P. aerugin RX AB RX AB ------ -- ------ -- AMPICILLIN R CEFAZOLIN R AMOX/CLAV AUGM R AMP/SULB-UNASYN R CEFOXITIN R CEFTAZIDIME S S CEFTRIAXONE I CIPROFLOXACIN S R GENTAMICIN S I IMIPENEM S MEROPENEM S NITROFURANTOIN R TOBRAMYCIN S TRIMETH/SULFA S 1. ENTEROBACTER CLOACAE RX AB ------ -- AMPICILLIN R CEFAZOLIN R AMOXICILLIN/CLAVULINIC ACID R AMPICILLIN/SULBACTAM R CEFOXITIN R CEFTAZIDIME S CEFTRIAXONE I CIPROFLOXACIN S GENTAMICIN S NITROFURANTOIN R TRIMETHOPRIM/SULFAMETHOXAZOLE S 2. PSEUDOMONAS AERUGINOSA RX AB ------ -- CEFTAZIDIME S CIPROFLOXACIN R GENTAMICIN I IMIPENEM S MEROPENEM S Note: Infectious Diseases Society of [place] Guidelines state that asymptomatic bacteriuria is not associated with any increase in morbidity or mortality in most patients and therefore treatment is usually not indicated unless patients are less than five years old, or about to undergo urological procedures. TOBRAMYCIN S Recent Imaging Studies: SERVICE DATE: 11/15/16- EXAM TYPE: CAT - CT ABD & PELVIS W/ ORAL CONTRA EXAMINATION: CT ABDOMEN AND PELVIS WITHOUT CONTRAST CLINICAL INFORMATION: Fistula between bowel and bladder. Patient presenting with UTI, extremely dirty urine. COMPARISON: Ultrasound of kidneys 11/15/2016. TECHNIQUE: Multidetector volumetric imaging was performed from the superior aspect of the liver through the pubic symphysis following administration of oral contrast. Sagittal and coronal reformatted images were obtained on the technologist's workstation. No IV contrast. DLP: 310.8 mGy-cm FINDINGS: LUNG BASES: Linear scarring/atelectasis at right lung base. There is no pleural effusion. LIVER, GALLBLADDER, AND BILIARY TREE: The liver is normal in size, shape, and attenuation. No focal hepatic lesion or biliary ductal dilatation is present. Multiple small calcified gallstones layering dependently in the gallbladder. The gallbladder is distended to about 10 cm but there is no edema around the gallbladder. No bile duct dilatation. PANCREAS: Pancreas is atrophic. SPLEEN: Unremarkable. ADRENAL GLANDS: Unremarkable. KIDNEYS AND URETERS: There is mild fullness, hydronephrosis of the right and left renal collecting system to the lower pelvis. Difficult to track the ureters entirely through the pelvis. 5 mm nonobstructive stone lower pole of the left kidney. 3 cm cortical cyst at the posterior midpole of the right kidney. BLADDER: The posterior inferior bladder wall is indistinct due to the presacral soft tissue density. No air in the bladder to confirm presence of a bowel to the bladder fistula. PELVIS/GASTROINTESTINAL TRACT: There is a left-sided colostomy in the left lower quadrant. Likely status post AP resection with transverse lower midline abdominal incision and soft tissue density in the pelvis in the presacral region. There is soft tissue density in the presacral rejoin that measures approximately 5 cm AP. This is inseparable from the posterior bladder wall and the prostate as well as a small bowel loop that loops down into this region. There is no obstruction of the bowel however. No bowel wall thickening or edema. The appendix is normal. Moderate volume of stool in colon. ABDOMINAL WALL: Left lower quadrant colostomy. Transverse lower mid abdominal surgical incision intact. LYMPH NODES: Normal. VASCULAR: Extensive vascular calcifications of the aorta and iliac vessels and major branch vessels of the aorta without aneurysm. PELVIC VISCERA: Soft tissue density in the presacral area in the lower pelvis. OSSEOUS STRUCTURES: Unremarkable. IMPRESSION: 1. Probable AP resection of bowel with left lower quadrant colostomy. There is a presacral soft tissue density which has indistinct margins with the prostate bladder and is likely the etiology for the mild bilateral hydronephrosis of the kidneys. The soft tissue density has an indistinct margin with the posterior bladder wall as well. There is a small bowel loop that loops down into this region of the pelvis without causing obstruction of the small bowel loop. No air in the bladder to indicate presence of a bowel to bladder fistula. 2. Cholelithiasis. 3. A 5 mm nonobstructive stone lower pole left kidney. DICTATED BY: BRYAN CORMIER MD DATE/TIME DICTATED:11/15/161717 STAFF PHARMACIST:MARIE DATE/TIME TRANSCRIBED:11/15/161717 Assessment/Plan Impression: 76-year-old M with PMH of rectal cancer s/p anal endoscopic surgery in 07/2006, CABG, right femoral stent, HTN, HLD, DM2, BPH,CAD s/p CABG,anemia of chronic disease, RLE DVT, paraxosymal atrial fibrillation, urinary retention 2/2 BPH admitted 11/13/16 with Ps. aeruginosa/Enterobacter UTI. Bilateral hydronephrosis, nephrolithiasis; CT scan of the abdomen and pelvis from yesterday also note a presacral soft tissue density which has indistinct margins with the prostate bladder and is likely the etiology for the mild bilateral hydronephrosis of the kidneys. This soft tissue density has an indistinct margin with the posterior bladder wall as well; question of recurrent malignancy. JACK/CKD (kidney function improved; baseline creatinine ~ 1.4mg/dl); f/u urology recom Suggestion: 1. Monitor CBC/BMP. Aspiration precautions. 2. Currently receiving Ceftazidime 1 gm q 12 h D #4; as urine culture positive also enterobacter add oral Cipro 500 mg daily for 14 d. 3. Obtain baseline EKG in am eval QT prolongation. 4. F/U urology and sx recom regarding the further work up of the pelvic mass. 5. Trend CBC/BMP/ESR. CEA level in am.
--- NOTE | 2016-11-16 14:54 | NUR ---
PT AND PT'S AGREED TO HAVE A ROMERO PLACED IN DUE TO PATIENT RETAINING. ROMERO PLACED AT 1123. PT TOLERATED PROCEDURE WELL. 400ML OUTPUT, URINE CLEAR/LIGHT YELLOW. PT CURRENTLY SITTING IN CHAIR, APPEARS COMFORTABLE AND DENIES ANY PAIN.
[2016-11-16 15:15] VITALS: BP 120/58
[2016-11-16 22:41] VITALS: BP 118/52
--- NOTE | 2016-11-17 07:18 | PN- Urology ---
Subjective Subjective: No acute distress Objective Vital Signs and I&Os Vital Signs Date Time Temp Pulse Resp B/P B/P Pulse O2 O2 Flow FiO2 Mean Ox Delivery Rate 11/16 2241 97.6 83 20 118/52 92 Room Air 11/16 2103 68 132/72 11/16 1515 97.9 60 20 120/58 96 Room Air 11/16 1105 140/80 11/16 1105 58 140/80 11/16 1104 140/80 Intake & Output 11/17 0811/17 0000 11/16 1600 11/16 0800 11/16 0000 11/15 1600 Intake Total 250 930 800 123 590 6931 Output Total 801 500 400 900 Balance -551 430 400 -482 372 8936 Intake, IV 10 750 300 500 Intake, Oral 240 180 500 240 240 720 Number 0 Bowel Movements Output, Stool 1 Output, Urine 800 500 400 900 Abd: soft. Colostomy functioning Genitalia: Normal male. Davis now in place. Draining clear urine Laboratory Tests 11/16 11/15 0640 0719 Chemistry Sodium (137 - 145 mmol/L) 142 144 Potassium (3.5 - 5.1 mmol/L) 4.4 4.5 Chloride (98 - 107 mmol/L) 113 H 114 H Carbon Dioxide (22 - 30 mmol/L) 18 L 20 L Anion Gap (5 - 16) 12 10 BUN (9 - 20 mg/dL) 46 H 47 H Creatinine (0.7 - 1.2 mg/dL) 1.8 H 1.8 H Estimated GFR (>60 ml/min) 37 L 37 L BUN/Creatinine Ratio (7 - 25 %) 25.6 H 26.1 H Hematology CBC w Diff NO MAN DIFF REQ NO MAN DIFF REQ WBC (4.8 - 10.8 /CUMM) 8.6 7.6 RBC (4.70 - 6.10 /CUMM) 2.82 L 2.74 L Hgb (14.0 - 18.0 G/DL) 8.0 L 7.7 L Hct (42 - 52 %) 24.3 L 23.5 L MCV (80.0 - 94.0 FL) 86.2 85.6 MCH (27.0 - 31.0 PG) 28.5 28.2 RDW (11.5 - 14.5 %) 14.7 H 15.1 H Plt Count (130 - 400 /CUMM) 250 267 MPV (7.4 - 10.4 FL) 6.6 L 6.6 L Gran % (42.2 - 75.2 %) 73.6 71.1 Lymphocytes % (20.5 - 51.1 %) 14.0 L 15.9 L Monocytes % (1.7 - 9.3 %) 7.9 8.4 Eosinophils % (0 - 5 %) 4.2 4.2 Basophils % (0.0 - 2.0 %) 0.3 0.4 Absolute Granulocytes (1.4 - 6.5 /CUMM) 6.4 5.4 Absolute Lymphocytes (1.2 - 3.4 /CUMM) 1.2 1.2 Absolute Monocytes (0.10 - 0.60 /CUMM) 0.7 H 0.6 Absolute Eosinophils (0.0 - 0.7 /CUMM) 0.4 0.3 Absolute Basophils (0.0 - 0.2 /CUMM) 0 0 PUBS MCHC (33.0 - 37.0 G/DL) 33.0 33.0 Assessment/Plan Assessment/Plan Imp: 1. Hx of APR for rectal cancer 2. Mild chronic bilateral hydro 3. UTI 4. Incomplete bladder emptying 5. Pelvic mass, ? residual of pelvic abscess vs recurrent rectal ca Plan: 1. Trend creatinine with davis in place 2. Abx per ID 3. Would order CEA if not done already
--- NOTE | 2016-11-17 07:24 | PN- Housestaff ---
See Addendum Subjective Follow-up For: Urethritis Subjective: No overnight events. He feels well this morning. No complaints. Review of Systems Constitutional: Reports: no symptoms. EENTM: Reports: no symptoms. Cardiovascular: Reports: no symptoms. Respiratory: Reports: no symptoms. Gastrointestinal: Reports: no symptoms. Genitourinary: Reports: no symptoms. Musculoskeletal: Reports: no symptoms. Skin: Reports: no symptoms. Neurological/Psychological: Reports: no symptoms. Hematologic/Endocrine: Reports: no symptoms. Immunologic/Allergic: Reports: no symptoms. Objective Last 24 Hrs of Vital Signs/I&O Vital Signs Date Time Temp Pulse Resp B/P B/P Pulse O2 O2 Flow FiO2 Mean Ox Delivery Rate 11/16 2241 97.6 83 20 118/52 92 Room Air 11/16 2103 68 132/72 11/16 1515 97.9 60 20 120/58 96 Room Air 11/16 1105 140/80 11/16 1105 58 140/80 11/16 1104 140/80 Intake & Output 11/17 0800 11/17 0000 11/16 1600 Intake Total 250 930 800 Output Total 801 500 400 Balance -551 430 400 Intake, IV 10 750 300 Intake, Oral 240 180 500 Output, Stool 1 Output, Urine 800 500 400 Physical Exam General Appearance: Alert, Cooperative, No Acute Distress Cardiovascular: Regular Rate, Normal S1, Normal S2 Lungs: Clear to Auscultation Abdomen: Normal Bowel Sounds, Soft, No Tenderness, [facility] with yellow urine. Ostomy with well formed stool Extremities: No Edema Current Medications: Current Medications Sig/Audrey Start time Last Medication Dose Route Stop Time Status Admin Acetaminophen 650 MG Q6P PRN 11/14 0130 AC PO Amlodipine Besylate 10 MG DAILY 11/14 1000 AC 11/16 PO 1104 Ceftazidime 1,000 MG Q12 11/14 1000 AC 11/16 IV 2102 Cholecalciferol 1,000 IU DAILY 11/14 1000 AC 11/16 PO 1104 Ezetimibe 10 MG DAILY 11/14 1000 AC 11/16 PO 1106 Ferrous Sulfate 325 MG DAILY 11/15 1103 AC 11/16 PO 1106 Finasteride 5 MG DAILY 11/14 1000 AC 11/16 PO 1104 Insulin Aspart 0 AT BEDTIME 11/14 2200 AC SC Insulin Aspart 0 TIDAC 11/14 0800 AC 11/16 SC 1755 Insulin Detemir 20 UNITS DAILY 11/16 1000 AC 11/16 SC 1114 Lactobacillus 1 CAP DAILY 11/14 1000 AC 11/16 Acidophilus PO 1104 Metoprolol Tartrate 150 MG BID 11/14 1000 AC 11/16 PO 2103 Morphine Sulfate 2 MG Q6P PRN 11/14 0145 AC IV Rivaroxaban 20 MG DAILY 11/14 1000 AC 11/16 PO 1106 Sodium Chloride 1,000 ML ONCE ONE 11/16 1000 DC 11/16 IV 11/16 1958 1116 Tamsulosin HCl 0.8 MG DAILY 11/14 1000 AC 11/16 PO 1105 Tramadol HCl 50 MG Q6P PRN 11/14 0145 AC PO Assessment/Plan Assessment: 76-year-old M with PMH of recently admitted to [facility] for nephrolithiasis and UTI requiring PICC line and IV Cefepime, rectal cancer s/p anal endoscopic surgery in 07/2006, CABG, right femoral stent on Clopidogrel, HTN, HLD, DM, BPH, CAD s/p CABG,anemia of chronic disease, RLE DVT on Xarelto, paraxosymal afib, urinary retention 2/2 BPH and developing sacral ulcer requiring placement of condom catheter presenting to the ED after a urine analysis and urine culture done as an outpatient revealing growth of Pseudomonas resistant ciprofloxacin and levofloxacin. #Urethritis and complicated UTI in a male: pyuria, milky discharge, and growing psuedomonas and Enterobacter both sensitive to ceftazidine and resistant to ciprofloxacin. The patient had radiation for rectal cancer in December 2015. Since then, he has required a condom catheter for incontinence. He now has a [facility] in. he has had 800mL output from his urine in the past 24 hours, fluid balance - 551. Because the bacteria is resistant to ciprofloxacin, he'll need a PICC line to complete his course of antibiotics. -Follow-up CBCs, BMP, trend his renal functions -continue IV Ceftazidime -Appreciate urology recommendations -PICC line today #Incidental CT scan finding: CT scan on 11/13 showed presacral soft tissue density with indistinct margins with the prostate bladder. There was also soft tissue density with indistinct margins in the posterior bladder wall. The differential for this includes a residual pelvic abscess versus recurrent rectal carcinoma. -Follow-up CEA -Talk to about goals of care. Consider consulting surgery if they are amenable. #JACK: Likely prerenal in setting of infection and dementia. He is now obstructed as well which will contribute to this. Cr still 1.8 today from 2.3. Baseline 1.0. -Consider additional IV fluids #Mild bilateral hydronephrosis right greater than left:this was seen on renal ultrasound and was new compared with 11/13 CT scan. Likely caused by obstruction. he now has a [facility] in.urology has been following him. -Follow up with urology recommendations. #Iron deficiency anemia: -ferrous sulfate supplement #Weakness: reports he can't walk since he had a blood clot in July. On exam, he has good strengh. This may tabitha deconditioning vs coordination issue. PT is recommending short-term rehabilitation at this point. -Continue PT #Chronic medical problems: HTN, HLD, DM, BPH, CAD s/p CABG, Afib, sacaral ulcer, vit d deficiency -Continue home meds -wound care -Hold oral hypoglycemics. LEvemir plus sliding scale. His glucose was 66 this morning so his levemir dose was reduced to 20 DVT prophylaxis Continue rivaroxaban 20 mg by mouth daily Full code Problem List: 1. Complicated UTI (urinary tract infection) 2. Urethritis 3. Hydronephrosis due to obstruction of bladder 4. Presacral mass 5. JACK (acute kidney injury) Pain Ratin Pain Location: no pain Pain Goal: Remain pain free Pain Plan: see a/p Tomorrow's Labs & Rationales: cbc, bep cbc, bep
[2016-11-17 07:45] VITALS: BP 141/70
[2016-11-17 08:00] VITALS: BP 110/60
[2016-11-17 09:36] LABS: PT 17.7 SEC (9.4-12.5)
[2016-11-17 10:17] LABS: ABSOLUTE BASOPHIL COUNT 0.1 /CUMM (0.0-0.2); ABSOLUTE EOSINOPHIL COUNT 0.4 /CUMM (0.0-0.7); ABSOLUTE GRANULOCYTE CT 7.1 /CUMM (1.4-6.5); ABSOLUTE LYMPH COUNT 1.4 /CUMM (1.2-3.4); ABSOLUTE MONOCYTE COUNT 0.5 /CUMM (0.10-0.60); BASOPHIL % 0.6 % (0.0-2.0); GRANULOCYTE % 76.2 % (42.2-75.2); HEMATOCRIT 23.5 % (42-52); MEAN CORPUSCULAR HGB 28.5 PG (27.0-31.0); MEAN CORPUSCULAR HGB CONC 33.2 G/DL (33.0-37.0); MEAN CORPUSCULAR VOLUME 85.9 FL (80.0-94.0); MEAN PLATELET VOLUME 6.9 FL (7.4-10.4); RBC DISTRIBUTION WIDTH 15.1 % (11.5-14.5); RED BLOOD CELL CT 2.73 /CUMM (4.70-6.10); WHITE BLOOD CELL COUNT 9.4 /CUMM (4.8-10.8)
[2016-11-17 11:26] LABS: PLATELET COUNT 232 /CUMM (130-400)
[2016-11-17 11:30] VITALS: BP 180/80
--- NOTE | 2016-11-17 12:20 | NUR ---
PULP GR[employer]ER AND BLENDER NOTIFIED OF PT BP THIS AM; BP MEDS HELD AT THIS TIME; PULP GR[employer]ER [employer] BLENDER ALSO INFORMED OF REPEAT BP 180/80 AND HR OF 57; TO HOL LOPRESSOR AT THIS TIME.
[2016-11-17 14:56] VITALS: BP 150/61
--- NOTE | 2016-11-17 15:22 | RADIOLOGY REPORT ---
EXAMINATION: XR PORTABLE CHEST CLINICAL INFORMATION: PICC line placement. COMPARISON: Chest x-ray 12/05/2014. TECHNIQUE: Portable frontal view of the chest was obtained. 2:54 PM FINDINGS: PICC line catheter tip in superior vena cava at the cavoatrial junction. Status post median sternotomy. Cardiac and mediastinal contours are normal. Lungs are clear. No pleural effusion or pneumothorax. 1.5 cm Periarticular calcification inferior to left humeral head at the glenohumeral joint. IMPRESSION: PICC line catheter tip at caval atrial junction. No acute change of the chest.
--- NOTE | 2016-11-17 17:41 | PN- Infect Dx ---
Subjective Subjective: No fever. fatigued. Elevated PVR. Review of Systems Comments: 12 points reviewed as noted, otherwise negative. Objective Last 24 Hrs of Vital Signs/I&O Vital Signs Date Time Temp Pulse Resp B/P B/P Pulse O2 O2 Flow FiO2 Mean Ox Delivery Rate 11/17 1456 97.8 63 20 150/61 96 Room Air 11/17 1242 57 180/80 11/17 1242 97.7 57 180/80 11/17 1242 57 16 180/80 11/17 1130 57 180/80 11/17 0800 97.7 60 16 110/60 97 Room Air 11/17 0745 98.0 59 20 141/70 94 Room Air 11/16 2241 97.6 83 20 118/52 92 Room Air 11/16 2103 68 132/72 Intake & Output 11/17 1600 11/17 0800 11/17 0000 Intake Total 800 250 930 Output Total 801 500 Balance 800 -551 430 Intake, IV 10 750 Intake, Oral 800 240 180 Output, Stool 1 Output, Urine 800 500 Patient 160 lb Weight Physical Exam Other Physical Findings: General Appears chronically ill, fatigued, No Acute Distress HEENT: AT/NC, sclera anicteric Neck: no JVD Lungs BS present, few b/l rhonchi Cardiovascular Regular Rate, Normal S1, Normal S2 Abdomen Normal Bowel Sounds, ostomy bag in place Extremities No pedal Edema Skin Temp/Moisture Exam: Pale Results Last 24 Hours of Lab Results: Laboratory Tests 11/17 11/17 UNK 0847 Chemistry Sodium (137 - 145 mmol/L) 142 Potassium (3.5 - 5.1 mmol/L) 4.5 Chloride (98 - 107 mmol/L) 114 H Carbon Dioxide (22 - 30 mmol/L) 18 L Anion Gap (5 - 16) 11 BUN (9 - 20 mg/dL) 44 H Creatinine (0.7 - 1.2 mg/dL) 1.8 H Estimated GFR (>60 ml/min) 37 L BUN/Creatinine Ratio (7 - 25 %) 24.4 Carcinoembryonic Ag Pending Coagulation PT (9.4 - 12.5 SEC) 17.7 H INR (0.90 - 1.17) 1.69 H Hematology CBC w Diff NO MAN DIFF REQ WBC (4.8 - 10.8 /CUMM) 9.4 RBC (4.70 - 6.10 /CUMM) 2.73 L Hgb (14.0 - 18.0 G/DL) 7.8 L Hct (42 - 52 %) 23.5 L MCV (80.0 - 94.0 FL) 85.9 MCH (27.0 - 31.0 PG) 28.5 RDW (11.5 - 14.5 %) 15.1 H Plt Count (130 - 400 /CUMM) 232 MPV (7.4 - 10.4 FL) 6.9 L Gran % (42.2 - 75.2 %) 76.2 H Lymphocytes % (20.5 - 51.1 %) 14.4 L Monocytes % (1.7 - 9.3 %) 4.8 Eosinophils % (0 - 5 %) 4.0 Basophils % (0.0 - 2.0 %) 0.6 Absolute Granulocytes (1.4 - 6.5 /CUMM) 7.1 H Absolute Lymphocytes (1.2 - 3.4 /CUMM) 1.4 Absolute Monocytes (0.10 - 0.60 /CUMM) 0.5 Absolute Eosinophils (0.0 - 0.7 /CUMM) 0.4 Absolute Basophils (0.0 - 0.2 /CUMM) 0.1 PUBS MCHC (33.0 - 37.0 G/DL) 33.2 ESR Westergren (0 - 10 MM) 80 H Last 24 Hours of Pilo Results: n/a Recent Imaging Studies: n/a Assessment/Plan Impression: 76-year-old M with PMH of rectal cancer s/p anal endoscopic surgery in 07/2006, CABG, right femoral stent, HTN, HLD, DM2, BPH,CAD s/p CABG,anemia of chronic disease, RLE DVT, paraxosymal atrial fibrillation, urinary retention 2/2 BPH admitted 11/13/16 with Ps. aeruginosa/Enterobacter UTI. Bilateral hydronephrosis, nephrolithiasis; CT scan of the abdomen and pelvis from yesterday also note a presacral soft tissue density which has indistinct margins with the prostate bladder and is likely the etiology for the mild bilateral hydronephrosis of the kidneys. This soft tissue density has an indistinct margin with the posterior bladder wall as well; question of recurrent malignancy. JACK/CKD (kidney function improved; baseline creatinine ~ 1.4mg/dl); f/u urology recom Suggestion: 1. Monitor CBC/BMP. Aspiration precautions. 2. Currently receiving Ceftazidime 1 gm q 12 h D #4/; as urine culture positive also Enterobacter (S cipro) add oral Cipro 500 mg daily for 14 d as advised previous day. Please note that ceftazidime is not treating Enterobacter infection. If Cipro contraindicated (e.g. increased QT interval or possible worrisome side effects as increased confusion) iv Meropenem instead of ceftazidime is indicated. Please call if questions. 3. Obtain baseline EKG in am eval QT prolongation. 4. F/U urology and sx recom regarding the further work up of the pelvic mass. 5. Trend CBC/BMP.
--- NOTE | 2016-11-17 19:53 | NUR ---
ALERT AND ORIENTED X 3. ON ROOM AIR. DENIES SHORTNESS OF BREATH VITAL SIGNS STABLE. DENIES CHEST PAIN. + PULSES. DENIES NUMBNESS/TINGLING PALE. NO EDEMA. ROMERO CARE GIVEN. TURNED AND REPOSITIONED. FOLEU CARE GIVEN NO DISTRESS/DISCOMFORT NOTED. WILL CONTINUE TO MONITOR
[2016-11-17 22:48] VITALS: BP 136/64
--- NOTE | 2016-11-18 07:33 | PN- Housestaff ---
See Addendum Subjective Follow-up For: Urethritis with cystitis Subjective: No overnight events. He got his PICC line yesterday, tolerated procedure well. CXR confirmed placement. He feels good this morning, no complaints. Review of Systems Constitutional: Reports: no symptoms. EENTM: Reports: no symptoms. Cardiovascular: Reports: no symptoms. Respiratory: Reports: no symptoms. Gastrointestinal: Reports: no symptoms. Genitourinary: Reports: no symptoms. Musculoskeletal: Reports: no symptoms. Skin: Reports: no symptoms. Neurological/Psychological: Reports: no symptoms. Hematologic/Endocrine: Reports: no symptoms. Immunologic/Allergic: Reports: no symptoms. Objective Last 24 Hrs of Vital Signs/I&O Vital Signs Date Time Temp Pulse Resp B/P B/P Pulse O2 O2 Flow FiO2 Mean Ox Delivery Rate 11/17 2301 68 136/64 11/17 2248 98.2 68 20 136/64 94 Room Air 11/17 1456 97.8 63 20 150/61 96 Room Air 11/17 1242 57 180/80 11/17 1242 97.7 57 180/80 11/17 1242 57 16 180/80 11/17 1130 57 180/80 11/17 0800 97.7 60 16 110/60 97 Room Air 11/17 0745 98.0 59 20 141/70 94 Room Air Intake & Output 11/18 0800 11/18 0000 11/17 1600 Intake Total 600 800 Output Total 700 1000 Balance -100 -200 Intake, Oral 600 800 Output, Urine 700 1000 Patient 160 lb Weight Physical Exam General Appearance: Alert, Cooperative, No Acute Distress Cardiovascular: Regular Rate, Normal S1, Normal S2 Lungs: Clear to Auscultation Abdomen: Normal Bowel Sounds, Soft, No Tenderness, ostomy with well formed stool. [facility] in place, yellow urine. Extremities: No Edema Current Medications: Current Medications Sig/Audrey Start time Last Medication Dose Route Stop Time Status Admin Acetaminophen 650 MG Q6P PRN 11/14 0130 AC PO Amlodipine Besylate 10 MG DAILY 11/14 1000 AC 11/17 PO 1242 Ceftazidime 1,000 MG Q12 11/14 1000 AC 11/17 IV 2301 Cholecalciferol 1,000 IU DAILY 11/14 1000 AC 11/17 PO 0905 Ciprofloxacin 500 MG DAILY 11/18 1000 AC PO 07/24 0959 Ezetimibe 10 MG DAILY 11/14 1000 AC 11/17 PO 0905 Ferrous Sulfate 325 MG DAILY 11/15 1103 AC 11/17 PO 0905 Finasteride 5 MG DAILY 11/14 1000 AC 11/17 PO 0905 Insulin Aspart 0 AT BEDTIME 11/14 2200 AC SC Insulin Aspart 0 TIDAC 11/14 0800 AC 11/17 SC 1754 Insulin Detemir 20 UNITS DAILY 11/16 1000 AC 11/17 SC 1244 Lactobacillus 1 CAP DAILY 11/14 1000 AC 11/17 Acidophilus PO 0905 Metoprolol Tartrate 150 MG BID 11/14 1000 AC 11/17 PO 2301 Morphine Sulfate 2 MG Q6P PRN 11/14 0145 AC IV Patient Medication 1 ED .STK-MED ONE 11/17 1324 HI Teaching ED 11/17 1325 Rivaroxaban 20 MG DAILY 11/14 1000 AC 11/17 PO 0905 Tamsulosin HCl 0.8 MG DAILY 11/14 1000 AC 11/17 PO 1242 Tramadol HCl 50 MG Q6P PRN 11/14 0145 AC PO Last 24 Hrs of Lab/Pilo Results Last 24 Hrs of Labs/Mics: Laboratory Tests 11/18/16 0520: Sodium Pending, Potassium Pending, Chloride Pending, Carbon Dioxide Pending, Anion Gap Pending, BUN Pending, Creatinine Pending, BUN/Creatinine Ratio Pending , CBC w Diff Pending, WBC Pending, RBC Pending, Hgb Pending, Hct Pending, MCV Pending, MCH Pending, RDW Pending, Plt Count Pending, MPV Pending, PUBS MCHC Pending 11/17/16 1000: Carcinoembryonic Ag 0.7 11/17/16 0847: Anion Gap 11, Estimated GFR 37 L, BUN/Creatinine Ratio 24.4, PT 17.7 H, INR 1.69 H, CBC w Diff NO MAN DIFF REQ, RBC 2.73 L, MCV 85.9, MCH 28.5, RDW 15.1 H, MPV 6.9 L, Gran % 76.2 H, Lymphocytes % 14.4 L, Monocytes % 4.8, Eosinophils % 4.0, Basophils % 0.6, Absolute Granulocytes 7.1 H, Absolute Lymphocytes 1.4, Absolute Monocytes 0.5, Absolute Eosinophils 0.4, Absolute Basophils 0.1, PUBS MCHC 33.2, ESR Westergren 80 H Assessment/Plan Assessment: 76-year-old M with PMH of recently admitted to [facility] for nephrolithiasis and UTI requiring PICC line and IV Cefepime, rectal cancer s/p anal endoscopic surgery in 07/2006, CABG, right femoral stent on Clopidogrel, HTN, HLD, DM, BPH, CAD s/p CABG,anemia of chronic disease, RLE DVT on Xarelto, paraxosymal afib, urinary retention 2/2 BPH and developing sacral ulcer requiring placement of condom catheter here with urethritis and complicated UTI. #Urethritis and complicated UTI in a male: pyuria, milky discharge, and growing psuedomonas and Enterobacter both sensitive to ceftazidine and resistant to ciprofloxacin. The patient had radiation for rectal cancer in December 2015. Since then, he has required a condom catheter for incontinence. He now has a [facility] in. He had his PICC line yesterday and tolerated the procedure well. Chest x- ray shows tip is well placed. He can go home on IV ceftazidine. -Follow-up CBCs, BMP, trend his renal functions -continue IV Ceftazidime -Appreciate urology recommendations #Incidental CT scan finding: CT scan on 11/13 showed presacral soft tissue density with indistinct margins with the prostate bladder. There was also soft tissue density with indistinct margins in the posterior bladder wall. The differential for this includes a residual pelvic abscess versus recurrent rectal carcinoma versus fibrosis. Once upon is developed he may be able to go today -Follow-up CEA -Follow-up pelvic/abdomen MRI -Consult colorectal surgery #JACK: Likely prerenal in setting of infection and dementia. He is now obstructed as well which will contribute to this. Cr still 1.8 today from 2.3. Baseline 1.0. -Consider additional IV fluids #Mild bilateral hydronephrosis right greater than left:this was seen on renal ultrasound and was new compared with 11/13 CT scan. Likely caused by obstruction, potentially the mass that is seen on the CT scan above. -Follow up with urology recommendations. #Iron deficiency anemia: -ferrous sulfate supplement #Weakness: reports he can't walk since he had a blood clot in July. On exam, he has good strengh. This may tabitha deconditioning vs coordination issue. PT is recommending short-term rehabilitation at this point. -Continue PT #Chronic medical problems: HTN, HLD, DM, BPH, CAD s/p CABG, Afib, sacaral ulcer, vit d deficiency -Continue home meds -wound care -Hold oral hypoglycemics. LEvemir plus sliding scale. His glucose was 66 this morning so his levemir dose was reduced to 20 DVT prophylaxis Continue rivaroxaban 20 mg by mouth daily Full code Problem List: 1. Hydronephrosis due to obstruction of bladder 2. Presacral mass 3. Complicated UTI (urinary tract infection) 4. Urethritis Pain Ratin Pain Location: no pain Pain Goal: Remain pain free Pain Plan: see a/p Tomorrow's Labs & Rationales: none if discharge today
--- NOTE | 2016-11-18 07:45 | PN- Urology ---
Subjective Subjective: Feels better Objective Vital Signs and I&Os Vital Signs Date Time Temp Pulse Resp B/P B/P Pulse O2 O2 Flow FiO2 Mean Ox Delivery Rate 11/17 2301 68 136/64 11/17 2248 98.2 68 20 136/64 94 Room Air 11/17 1456 97.8 63 20 150/61 96 Room Air 11/17 1242 57 180/80 11/17 1242 97.7 57 180/80 11/17 1242 57 16 180/80 11/17 1130 57 180/80 11/17 0800 97.7 60 16 110/60 97 Room Air 11/17 0745 98.0 59 20 141/70 94 Room Air Intake & Output 11/18 0811/18 0000 11/17 1600 11/17 0800 11/17 0000 11/16 1600 Intake Total 600 800 250 930 800 Output Total 700 1000 801 500 400 Balance -100 -200 -551 430 400 Intake, IV 10 750 300 Intake, Oral 600 800 240 180 500 Output, Stool 1 Output, Urine 700 1000 800 500 400 Patient 160 lb Weight Abd: soft and non tender. Ostomy functioning Genitalia: davis in place. Draining clear urine CEA normal at 0.7 creat=1.8, slightly above baseline Laboratory Tests 11/18 11/17 11/17 0520 UNK 0847 Chemistry Sodium (137 - 145 mmol/L) Pending 142 Potassium (3.5 - 5.1 mmol/L) Pending 4.5 Chloride (98 - 107 mmol/L) Pending 114 H Carbon Dioxide (22 - 30 mmol/L) Pending 18 L Anion Gap (5 - 16) Pending 11 BUN (9 - 20 mg/dL) Pending 44 H Creatinine (0.7 - 1.2 mg/dL) Pending 1.8 H Estimated GFR (>60 ml/min) 37 L BUN/Creatinine Ratio (7 - 25 %) Pending 24.4 Carcinoembryonic Ag (() ng/mL) 0.7 Coagulation PT (9.4 - 12.5 SEC) 17.7 H INR (0.90 - 1.17) 1.69 H Hematology CBC w Diff Pending NO MAN DIFF REQ WBC (4.8 - 10.8 /CUMM) Pending 9.4 RBC (4.70 - 6.10 /CUMM) Pending 2.73 L Hgb (14.0 - 18.0 G/DL) Pending 7.8 L Hct (42 - 52 %) Pending 23.5 L MCV (80.0 - 94.0 FL) Pending 85.9 MCH (27.0 - 31.0 PG) Pending 28.5 RDW (11.5 - 14.5 %) Pending 15.1 H Plt Count (130 - 400 /CUMM) Pending 232 MPV (7.4 - 10.4 FL) Pending 6.9 L Gran % (42.2 - 75.2 %) 76.2 H Lymphocytes % (20.5 - 51.1 %) 14.4 L Monocytes % (1.7 - 9.3 %) 4.8 Eosinophils % (0 - 5 %) 4.0 Basophils % (0.0 - 2.0 %) 0.6 Absolute Granulocytes (1.4 - 6.5 /CUMM) 7.1 H Absolute Lymphocytes (1.2 - 3.4 /CUMM) 1.4 Absolute Monocytes (0.10 - 0.60 /CUMM) 0.5 Absolute Eosinophils (0.0 - 0.7 /CUMM) 0.4 Absolute Basophils (0.0 - 0.2 /CUMM) 0.1 PUBS MCHC (33.0 - 37.0 G/DL) Pending 33.2 ESR Westergren (0 - 10 MM) 80 H Assessment/Plan Assessment/Plan Imp: 1. Mild chronic bilateral hydro, R>L 2. Mildly elevated creatinine 3. Pelvic mass, may be residual of his pelvic abscess. Recent cysto at [facility] showed no evidence of bladder tumor Plan: 1. Abx per ID 2. continue tamsulosin and finasteride 3. Leave davis today. Would remove davis tomorrow. 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 Trend creatinine 5. After discharge he should f/u with usual urologist in [place]
[2016-11-18 08:07] VITALS: BP 146/64
[2016-11-18 08:30] LABS: ABSOLUTE BASOPHIL COUNT 0 /CUMM (0.0-0.2); ABSOLUTE EOSINOPHIL COUNT 0.4 /CUMM (0.0-0.7); ABSOLUTE GRANULOCYTE CT 7.7 /CUMM (1.4-6.5); ABSOLUTE LYMPH COUNT 1.1 /CUMM (1.2-3.4); ABSOLUTE MONOCYTE COUNT 0.5 /CUMM (0.10-0.60); BASOPHIL % 0.4 % (0.0-2.0); EOSINOPHIL % 3.6 % (0-5); GRANULOCYTE % 79.4 % (42.2-75.2); HEMATOCRIT 23.3 % (42-52); MEAN CORPUSCULAR HGB 28.4 PG (27.0-31.0); MEAN CORPUSCULAR HGB CONC 33.1 G/DL (33.0-37.0); MEAN CORPUSCULAR VOLUME 85.9 FL (80.0-94.0); MEAN PLATELET VOLUME 6.9 FL (7.4-10.4); PLATELET COUNT 255 /CUMM (130-400); RBC DISTRIBUTION WIDTH 15.1 % (11.5-14.5); RED BLOOD CELL CT 2.71 /CUMM (4.70-6.10); WHITE BLOOD CELL COUNT 9.7 /CUMM (4.8-10.8)
[2016-11-18] MEDS ORDERED: CEFTAZIDIME1 G2 IV ×2 (10:32→13:29)
--- NOTE | 2016-11-18 12:03 | PN- General Surgery ---
Surgical Brief Attending Note Brief Attending Note: Pt is well known to me. He is s/p trananal rectal excision for stage I rectal CA 10 years ago. At that time, pt refused adjuvant chemoradiation. He recurred 2 years ago, received neoadjuvant chemoradiation and then had APR. His final pathology had negative distal and radial margins. His postop course was complicated by a pelvic abscess that required prolonged course of IV antibiotics and IR drainage. He was supposed to restart chemotherapy once he recovered. Patient is at high risk for pelvic recurrence. PET scan may be the best modality to evaluate the pelvic mass. Should he recur, he wouldn't be a surgical candidate, but would have to be managed medically.
[2016-11-18] MEDS ORDERED: CIPRO500 M1 PO (13:29)
[2016-11-18 14:33] VITALS: BP 124/60
--- NOTE | 2016-11-18 18:24 | PN- Infect Dx ---
Subjective Subjective: No fever. Urinary retention/required [facility] cath. Review of Systems Comments: 12 points reviewed as noted, otherwise negative. Objective Last 24 Hrs of Vital Signs/I&O Vital Signs Date Time Temp Pulse Resp B/P B/P Pulse O2 O2 Flow FiO2 Mean Ox Delivery Rate 11/18 1433 97.6 64 20 124/60 98 Room Air 11/18 0933 60 116/60 11/18 0933 60 116/60 11/18 0933 60 116/60 11/18 0807 98.6 62 20 146/64 95 Room Air 11/17 2301 68 136/64 11/17 2248 98.2 68 20 136/64 94 Room Air Intake & Output 11/18 1600 11/18 0800 11/18 0000 Intake Total 720 530 600 Output Total 893 438 3871 Balance -181 -325 -1100 Intake, IV 50 Intake, Oral 720 480 600 Output, Stool 1 5 Output, Urine 305 938 7876 Physical Exam Other Physical Findings: General Appears chronically ill, fatigued, No Acute Distress HEENT: AT/NC, sclera anicteric Neck: no JVD Lungs BS present, few b/l rhonchi Cardiovascular Regular Rate, Normal S1, Normal S2 Abdomen Normal Bowel Sounds, ostomy bag in place Extremities No pedal Edema Skin Temp/Moisture Exam: Pale Results Last 24 Hours of Lab Results: Laboratory Tests 11/18 0520 Chemistry Sodium (137 - 145 mmol/L) 142 Potassium (3.5 - 5.1 mmol/L) 4.4 Chloride (98 - 107 mmol/L) 110 H Carbon Dioxide (22 - 30 mmol/L) 21 L Anion Gap (5 - 16) 11 BUN (9 - 20 mg/dL) 47 H Creatinine (0.7 - 1.2 mg/dL) 2.0 H Estimated GFR (>60 ml/min) 33 L BUN/Creatinine Ratio (7 - 25 %) 23.5 Hematology CBC w Diff NO MAN DIFF REQ WBC (4.8 - 10.8 /CUMM) 9.7 RBC (4.70 - 6.10 /CUMM) 2.71 L Hgb (14.0 - 18.0 G/DL) 7.7 L Hct (42 - 52 %) 23.3 L MCV (80.0 - 94.0 FL) 85.9 MCH (27.0 - 31.0 PG) 28.4 RDW (11.5 - 14.5 %) 15.1 H Plt Count (130 - 400 /CUMM) 255 MPV (7.4 - 10.4 FL) 6.9 L Gran % (42.2 - 75.2 %) 79.4 H Lymphocytes % (20.5 - 51.1 %) 11.5 L Monocytes % (1.7 - 9.3 %) 5.1 Eosinophils % (0 - 5 %) 3.6 Basophils % (0.0 - 2.0 %) 0.4 Absolute Granulocytes (1.4 - 6.5 /CUMM) 7.7 H Absolute Lymphocytes (1.2 - 3.4 /CUMM) 1.1 L Absolute Monocytes (0.10 - 0.60 /CUMM) 0.5 Absolute Eosinophils (0.0 - 0.7 /CUMM) 0.4 Absolute Basophils (0.0 - 0.2 /CUMM) 0 PUBS MCHC (33.0 - 37.0 G/DL) 33.1 Last 24 Hours of [place] Results: SPEC #: [id number] RADHA: 11/13/16 STATUS: COMP RECD: 11/13/[address]: ROMANA GARRISON SOURCE: URINE ROUT ENTR: 11/13/[address]: SHANNAN BRONSON,DAKSHA Blackburn SPDESC: URINE STRA ORDERED: URINE CULTURE Procedure Result > URINE CULTURE Final 11/16/16 Greater than 100,000 colonies per ml of: 1.ENTEROBACTER CLOACAE 2.PSEUDOMONAS AERUGINOSA E.cloacae P. aerugin RX AB RX AB ------ -- ------ -- AMPICILLIN R CEFAZOLIN R AMOX/CLAV AUGM R AMP/SULB-UNASYN R CEFOXITIN R CEFTAZIDIME S S CEFTRIAXONE I CIPROFLOXACIN S R GENTAMICIN S I IMIPENEM S MEROPENEM S NITROFURANTOIN R TOBRAMYCIN S TRIMETH/SULFA S 1. ENTEROBACTER CLOACAE RX AB ------ -- AMPICILLIN R CEFAZOLIN R AMOXICILLIN/CLAVULINIC ACID R AMPICILLIN/SULBACTAM R CEFOXITIN R CEFTAZIDIME S CEFTRIAXONE I CIPROFLOXACIN S GENTAMICIN S NITROFURANTOIN R TRIMETHOPRIM/SULFAMETHOXAZOLE S 2. PSEUDOMONAS AERUGINOSA RX AB ------ -- CEFTAZIDIME S CIPROFLOXACIN R GENTAMICIN I IMIPENEM S MEROPENEM S Note: Infectious Diseases Society of [place] Guidelines state that asymptomatic bacteriuria is not associated with any increase in morbidity or mortality in most patients and therefore treatment is usually not indicated unless patients are less than five years old, or about to undergo urological procedures. TOBRAMYCIN S Recent Imaging Studies: Reviewed. Assessment/Plan Impression: 76-year-old M with PMH of rectal cancer s/p anal endoscopic surgery in 07/2006, CABG, right femoral stent, HTN, HLD, DM2, BPH,CAD s/p CABG,anemia of chronic disease, RLE DVT, paraxosymal atrial fibrillation, urinary retention 2/2 BPH admitted 11/13/16 with Ps. aeruginosa/Enterobacter UTI. Bilateral hydronephrosis, nephrolithiasis; CT scan of the abdomen and pelvis from yesterday also note a presacral soft tissue density which has indistinct margins with the prostate bladder and is likely the etiology for the mild bilateral hydronephrosis of the kidneys. This soft tissue density has an indistinct margin with the posterior bladder wall as well; question of recurrent malignancy ; work up per team. JACK/CKD (kidney function improved; baseline creatinine ~ 1.4mg/dl); f/u urology recom Suggestion: 1. Monitor CBC/BMP. Aspiration precautions. 2. Currently receiving Ceftazidime 1 gm q 12 h D #5/; as urine culture positive also Enterobacter (S cipro); oral Cipro 500 mg daily added today; f/u EKG if increased QT interval >500 msec please call. He would require treatment w / Meropenem 1 gm daily instead Cipro/Ceftaz (duration 10 d). 3. Trend CBC/BMP.
--- NOTE | 2016-11-18 18:42 | NUR ---
1655 PATIENT BACK ON FLOOR. ALERT AND ORIENTED X 3. ON ROOM AIR. DENIES SHORTNESS OF BREATH VITAL SIGNS STABLE. DENIES CHEST PAIN. + PULSES. DENIES NUMBNESS/TINGLING ROMERO CARE GIVEN. PATIENT TURNED AND REPOSITIONED. NO DISCOMFORT/DISTRESS NOTED. WILL CONTINUE TO MONITOR
--- NOTE | 2016-11-18 21:37 | MRI REPORT ---
EXAMINATION: MR ABDOMEN AND PELVIS WITHOUT CONTRAST CLINICAL INFORMATION: Presacral mass seen on CT scan of the abdomen and pelvis performed 11/15/2016 to exclude an enterovesical fistula in a patient presenting with UTI and extremely dirty urine. History of rectal carcinoma treated 10 years ago with transanal rectal cancer excision. Evaluate for recurrent rectal carcinoma versus abscess versus scar tissue. COMPARISON: CT scan of the abdomen and pelvis dated 11/15/2016 and 11/14/2015. TECHNIQUE: An MRI scan of the abdomen and pelvis was performed noncontrast using multiple imaging sequences and imaging planes. Intravenous contrast was not given because of acutely declining GFR. FINDINGS: LIVER, GALLBLADDER, BILIARY TREE: Liver normal size and signal. No focal cystic or solid mass or intrahepatic or extrahepatic ductal dilatation. The gallbladder is well distended and demonstrates several tiny layering gallstones. No gallbladder wall thickening or pericholecystic fluid is seen. Common bile duct is normal, measuring 0.5 cm in maximal diameter. PANCREAS: The pancreas is diffusely atrophic but otherwise unremarkable with no ductal dilatation, mass, or surrounding stranding. SPLEEN: Normal size and appearance. ADRENAL GLANDS AND KIDNEYS: Adrenal glands bilaterally are hypertrophied, similar to prior studies. Kidneys bilaterally symmetric in size. No suspicious focal mass or perinephric stranding. Multiple bilateral variably sized T2 bright renal cortical masses are seen, measuring up to 3 cm in the mid right kidney and 1 cm in the upper and lower pole of the left kidney. Similar findings were noted previously and are consistent with cysts. The tiny calculus seen on CT scan in the lower pole of the left kidney is not appreciated on MRI scan. There is persistent bilateral mild hydroureteronephrosis, similar to the recent CT scan. URETERS AND BLADDER: Ureters bilaterally are abnormally dilated, slightly more prominently on the left side than the right and can be followed down to the mid pelvis level to the region of the large presacral mass seen on CT scan (see GI section below). Bladder partially distended with prominent urine air level due to presence of a [facility] catheter. BOWEL LOOPS: Postoperative changes are seen in the pelvis. The appearance is most suggestive of a distal rectosigmoid resection with diverting left lower quadrant colostomy and Julian's pouch creation. The Julian's pouch appears distorted and filled with amorphous heterogeneous T2 bright signal. There is abnormal surrounding soft tissue thickening seen which fills the posterior presacral space, measuring 2.2 cm in thickness. Anterior to the Julian's pouch, the soft tissue thickening measures 1.3 cm. There is complete loss of the fat planes between the soft tissue thickening and the posterior margin of the prostate gland and seminal vesicles, though no obvious disruption of the prostatic capsule is seen. No definite fistulous tract to the bladder or adjacent bowel loops is defined. There is extensive soft tissue edema seen tracking throughout the pelvis and in the overlying pelvic wall and along the iliac is muscles bilaterally and the left greater than right piriform muscles. There is also mild edema of the gluteal muscles bilaterally. There is a small fistulous tract seen extending from the 7:00 position of the anus to the right side of the superior gluteal cleft (series 10, image 26 through 29). No defined abscess collection is seen. The diverting colostomy in the left lower quadrant appears unremarkable with the upstream colon and small bowel loops decompressed and within normal limits. LYMPHOVASCULAR STRUCTURES: Abdominal aorta normal in caliber. No periaortic collections. No definite abdominal or pelvic adenopathy, though evaluation in the pelvis is difficult given the distorted tissue planes as discussed above. BONES: Multilevel mild degenerative changes as seen in the spine. No evidence of metastatic disease. IMPRESSION: 1. Above findings suggest diffuse inflammation in the pelvis and overlying soft tissues of the abdominal wall and buttock. No discrete abscess formation is appreciated. Evaluation overall is difficult given the postoperative changes in the pelvis and lack of intravenous contrast. Close clinical correlation is requested. 2. Right perianal fistulous tract to the right side of the superior intergluteal cleft is seen. There is no significant associated edema seen, suggesting that this is a chronic process. 3. The diffuse soft tissue thickening anterior and posterior to the Julian's pouch is suspicious for recurrence of rectal malignancy, superimposed upon postsurgical scarring. Endoscopic correlation and biopsy can be considered. 4. Other incidental findings include cholelithiasis, atrophic pancreas, multiple bilateral renal cysts, and hypertrophied adrenal glands. Findings discussed with Dr. King Hayes 11/18/2016, 8:35 PM and 9:30 PM.
[2016-11-18 23:50] VITALS: BP 140/66
--- NOTE | 2016-11-19 07:34 | PN- Housestaff ---
See Addendum Subjective Follow-up For: UTI urethritis Subjective: No overnight events. He did get the MRI, which shows potential recurrence of rectal cancer with possible fistula. We will discuss this with his and the surgeons. He had no complaints this morning. Review of Systems Constitutional: Reports: no symptoms. EENTM: Reports: no symptoms. Cardiovascular: Reports: no symptoms. Respiratory: Reports: no symptoms. Gastrointestinal: Reports: no symptoms. Genitourinary: Reports: no symptoms. Musculoskeletal: Reports: no symptoms. Skin: Reports: no symptoms. Neurological/Psychological: Reports: no symptoms. Hematologic/Endocrine: Reports: no symptoms. Immunologic/Allergic: Reports: no symptoms. Objective Last 24 Hrs of Vital Signs/I&O Vital Signs Date Time Temp Pulse Resp B/P B/P Pulse O2 O2 Flow FiO2 Mean Ox Delivery Rate 11/18 2350 98.1 61 20 140/66 96 Room Air 11/18 2329 140/66 11/18 1433 97.6 64 20 124/60 98 Room Air 11/18 0933 60 116/60 11/18 0933 60 116/60 11/18 0933 60 116/60 11/18 0807 98.6 62 20 146/64 95 Room Air Intake & Output 11/19 0800 11/19 0000 11/18 1600 Intake Total 370 720 Output Total 400 901 Balance -30 -181 Intake, Oral 370 720 Output, Stool 1 Output, Urine 400 900 Physical Exam General Appearance: Alert, Cooperative, No Acute Distress Cardiovascular: Regular Rate, Normal S1, Normal S2 Lungs: Clear to Auscultation Abdomen: Soft, No Tenderness, ostomy and davis Extremities: No Edema Current Medications: Current Medications Sig/Audrey Start time Last Medication Dose Route Stop Time Status Admin Acetaminophen 650 MG Q6P PRN 11/14 0130 AC PO Amlodipine Besylate 10 MG DAILY 11/14 1000 AC 11/18 PO 0933 Ceftazidime 1,000 MG Q12 11/14 1000 DC 11/18 IV 0932 Cholecalciferol 1,000 IU DAILY 11/14 1000 AC 11/18 PO 0923 Ciprofloxacin 500 MG DAILY 11/18 1000 AC 11/18 PO 11/22 0959 0922 Ezetimibe 10 MG DAILY 11/14 1000 AC 11/18 PO 0923 Ferrous Sulfate 325 MG DAILY 11/15 1103 AC 07/20 PO 0922 Finasteride 5 MG DAILY 11/14 1000 AC 11/18 PO 0922 Insulin Aspart 0 AT BEDTIME 11/14 2200 AC SC Insulin Aspart 0 TIDAC 11/14 0800 AC 11/18 SC 1714 Insulin Detemir 20 UNITS DAILY 11/16 1000 AC 11/18 SC 0922 Lactobacillus 1 CAP DAILY 11/14 1000 AC 11/18 Acidophilus PO 0923 Metoprolol Tartrate 150 MG BID 11/14 1000 AC 11/18 PO 2329 Morphine Sulfate 2 MG Q6P PRN 11/14 0145 AC IV Rivaroxaban 20 MG DAILY 11/14 1000 AC 11/18 PO 0922 Tamsulosin HCl 0.8 MG DAILY 11/14 1000 AC 11/18 PO 0933 Tramadol HCl 50 MG Q6P PRN 11/14 0145 AC PO Last 24 Hrs of Lab/Pilo Results Last 24 Hrs of Labs/Mics: Laboratory Tests 11/19/16 0535: Sodium Pending, Potassium Pending, Chloride Pending, Carbon Dioxide Pending, Anion Gap Pending, BUN Pending, Creatinine Pending, BUN/Creatinine Ratio Pending , CBC w Diff Pending, WBC Pending, RBC Pending, Hgb Pending, Hct Pending, MCV Pending, MCH Pending, RDW Pending, Plt Count Pending, MPV Pending, PUBS MCHC Pending Assessment/Plan Assessment: 76-year-old M with PMH of recently admitted to [facility] for nephrolithiasis and UTI requiring PICC line and IV Cefepime, rectal cancer s/p anal endoscopic surgery in 07/2006, CABG, right femoral stent on Clopidogrel, HTN, HLD, DM, BPH, CAD s/p CABG,anemia of chronic disease, RLE DVT on Xarelto, paraxosymal afib, urinary retention 2/2 BPH and developing sacral ulcer requiring placement of condom catheter here with urethritis and complicated UTI. #Urethritis and complicated UTI in a male: pyuria, milky discharge, and growing psuedomonas and Enterobacter both sensitive to ceftazidine and resistant to ciprofloxacin. The patient had radiation for rectal cancer in December 2015. Since then, he has required a condom catheter for incontinence. He now has a Davis in. He had his PICC line yesterday and tolerated the procedure well. Chest x- ray shows tip is well placed. we will do a voiding trial today, if he fails, he can go home with the davis. He will follow up with urology, Dr. Nails next week. -Follow-up CBCs, BMP, trend his renal functions -continue IV Ceftazidime -Appreciate urology recommendations #Incidental CT scan finding: CT scan on 11/13 showed presacral soft tissue density with indistinct margins with the prostate bladder. There was also soft tissue density with indistinct margins in the posterior bladder wall. The differential for this includes a residual pelvic abscess versus recurrent rectal carcinoma versus fibrosis. We talked to surgery and he is not a surgical candidate. We will make an appt for him to follow up with oncology next week. -follow up outpatient next week. #JACK: Likely due to obstruction. Cr still 1.8 today from 2.3. Baseline 1.0. -Continue to monitor #Mild bilateral hydronephrosis right greater than left:this was seen on renal ultrasound and was new compared with 11/13 CT scan. Likely caused by obstruction, potentially the mass that is seen on the CT scan above. -Follow up with urology recommendations. #Iron deficiency anemia: -ferrous sulfate supplement #Weakness: reports he can't walk since he had a blood clot in July. On exam, he has good strengh. This may tabitha deconditioning vs coordination issue. PT is recommending short-term rehabilitation at this point. -Continue PT #Chronic medical problems: HTN, HLD, DM, BPH, CAD s/p CABG, Afib, sacaral ulcer, vit d deficiency -Continue home meds -wound care -Hold oral hypoglycemics. LEvemir plus sliding scale. His glucose was 66 this morning so his levemir dose was reduced to 20 DVT prophylaxis Continue rivaroxaban 20 mg by mouth daily Full code Problem List: 1. Presacral mass 2. Hydronephrosis due to obstruction of bladder 3. Complicated UTI (urinary tract infection) 4. Urethritis Pain Ratin Pain Location: no pain Pain Goal: Remain pain free Pain Plan: no pain Tomorrow's Labs & Rationales: none
[2016-11-19 07:43] VITALS: BP 128/65
--- NOTE | 2016-11-19 07:48 | PN- Urology ---
Subjective Subjective: No distress Objective Vital Signs and I&Os Vital Signs Date Time Temp Pulse Resp B/P B/P Pulse O2 O2 Flow FiO2 Mean Ox Delivery Rate 11/18 2350 98.1 61 20 140/66 96 Room Air 11/18 2329 140/66 11/18 1433 97.6 64 20 124/60 98 Room Air 11/18 0933 60 116/60 11/18 0933 60 116/60 11/18 0933 60 116/60 11/18 0807 98.6 62 20 146/64 95 Room Air Intake & Output 11/19 0811/19 0000 11/18 1600 11/18 0800 11/18 0000 11/17 1600 Intake Total 370 720 530 600 800 Output Total 400 901 522 524 0299 Balance -30 -181 -325 -100 -200 Intake, IV 50 Intake, Oral 370 720 480 600 800 Output, Stool 1 5 Output, Urine 400 900 629 018 2703 Patient 160 lb Weight Abd: soft and non tender. Ostomy functioning Genitalia: davis in place. Draining clear urine MRI: suspicious for recurrent rectal Ca creat=2.0 Laboratory Tests 11/19 11/18 11/17 0535 0520 UNK Chemistry Sodium (137 - 145 mmol/L) Pending 142 Potassium (3.5 - 5.1 mmol/L) Pending 4.4 Chloride (98 - 107 mmol/L) Pending 110 H Carbon Dioxide (22 - 30 mmol/L) Pending 21 L Anion Gap (5 - 16) Pending 11 BUN (9 - 20 mg/dL) Pending 47 H Creatinine (0.7 - 1.2 mg/dL) Pending 2.0 H Estimated GFR (>60 ml/min) 33 L BUN/Creatinine Ratio (7 - 25 %) Pending 23.5 Carcinoembryonic Ag (() ng/mL) 0.7 Hematology CBC w Diff Pending NO MAN DIFF REQ WBC (4.8 - 10.8 /CUMM) Pending 9.7 RBC (4.70 - 6.10 /CUMM) Pending 2.71 L Hgb (14.0 - 18.0 G/DL) Pending 7.7 L Hct (42 - 52 %) Pending 23.3 L MCV (80.0 - 94.0 FL) Pending 85.9 MCH (27.0 - 31.0 PG) Pending 28.4 RDW (11.5 - 14.5 %) Pending 15.1 H Plt Count (130 - 400 /CUMM) Pending 255 MPV (7.4 - 10.4 FL) Pending 6.9 L Gran % (42.2 - 75.2 %) 79.4 H Lymphocytes % (20.5 - 51.1 %) 11.5 L Monocytes % (1.7 - 9.3 %) 5.1 Eosinophils % (0 - 5 %) 3.6 Basophils % (0.0 - 2.0 %) 0.4 Absolute Granulocytes (1.4 - 6.5 /CUMM) 7.7 H Absolute Lymphocytes (1.2 - 3.4 /CUMM) 1.1 L Absolute Monocytes (0.10 - 0.60 /CUMM) 0.5 Absolute Eosinophils (0.0 - 0.7 /CUMM) 0.4 Absolute Basophils (0.0 - 0.2 /CUMM) 0 PUBS MCHC (33.0 - 37.0 G/DL) Pending 33.1 11/17 0847 Chemistry Sodium (137 - 145 mmol/L) 142 Potassium (3.5 - 5.1 mmol/L) 4.5 Chloride (98 - 107 mmol/L) 114 H Carbon Dioxide (22 - 30 mmol/L) 18 L Anion Gap (5 - 16) 11 BUN (9 - 20 mg/dL) 44 H Creatinine (0.7 - 1.2 mg/dL) 1.8 H Estimated GFR (>60 ml/min) 37 L BUN/Creatinine Ratio (7 - 25 %) 24.4 Coagulation PT (9.4 - 12.5 SEC) 17.7 H INR (0.90 - 1.17) 1.69 H Hematology CBC w Diff NO MAN DIFF REQ WBC (4.8 - 10.8 /CUMM) 9.4 RBC (4.70 - 6.10 /CUMM) 2.73 L Hgb (14.0 - 18.0 G/DL) 7.8 L Hct (42 - 52 %) 23.5 L MCV (80.0 - 94.0 FL) 85.9 MCH (27.0 - 31.0 PG) 28.5 RDW (11.5 - 14.5 %) 15.1 H Plt Count (130 - 400 /CUMM) 232 MPV (7.4 - 10.4 FL) 6.9 L Gran % (42.2 - 75.2 %) 76.2 H Lymphocytes % (20.5 - 51.1 %) 14.4 L Monocytes % (1.7 - 9.3 %) 4.8 Eosinophils % (0 - 5 %) 4.0 Basophils % (0.0 - 2.0 %) 0.6 Absolute Granulocytes (1.4 - 6.5 /CUMM) 7.1 H Absolute Lymphocytes (1.2 - 3.4 /CUMM) 1.4 Absolute Monocytes (0.10 - 0.60 /CUMM) 0.5 Absolute Eosinophils (0.0 - 0.7 /CUMM) 0.4 Absolute Basophils (0.0 - 0.2 /CUMM) 0.1 PUBS MCHC (33.0 - 37.0 G/DL) 33.2 ESR Westergren (0 - 10 MM) 80 H Assessment/Plan Assessment/Plan Imp: 1. resolving UTI 2. Probable recurrent rectal ca 3. Mild bilateral hydro, R>L, chronic but with creatinine a little above baseline 4. 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 Voiding trial today 2. If voids adequately could be discharged and f/u with his usual urologist, Dr Nails in [place] 3. If creat continues to rise may need ureteral stents. Would hope to avoid as this would be another potential focus of infection.
[2016-11-19 08:27] LABS: ABSOLUTE BASOPHIL COUNT 0 /CUMM (0.0-0.2); ABSOLUTE EOSINOPHIL COUNT 0.4 /CUMM (0.0-0.7); ABSOLUTE GRANULOCYTE CT 7.5 /CUMM (1.4-6.5); ABSOLUTE MONOCYTE COUNT 0.5 /CUMM (0.10-0.60); BASOPHIL % 0.4 % (0.0-2.0); EOSINOPHIL % 4.5 % (0-5); GRANULOCYTE % 79.3 % (42.2-75.2); HEMATOCRIT 23.4 % (42-52); MEAN CORPUSCULAR HGB 28.3 PG (27.0-31.0); MEAN CORPUSCULAR VOLUME 85.6 FL (80.0-94.0); MEAN PLATELET VOLUME 6.7 FL (7.4-10.4); PLATELET COUNT 256 /CUMM (130-400); RBC DISTRIBUTION WIDTH 14.9 % (11.5-14.5); RED BLOOD CELL CT 2.74 /CUMM (4.70-6.10); WHITE BLOOD CELL COUNT 9.4 /CUMM (4.8-10.8)
[2016-11-19] MEDS ORDERED: CEFTAZIDIME1 G2 IV (08:55)
[2016-11-19] MEDS ORDERED: CIPRO500 M1 PO ×2 (08:55→15:07)
--- NOTE | 2016-11-19 09:34 | PN- General Surgery ---
Surgical Brief Attending Note Brief Attending Note: Pt has no complaints, stoma is working. Perineum examined. The incision has healed will, there is no evidence of fistulization or infection. There is stage II right buttock decub. Recommend continuing antibiotics. Patient has no rectal stump as he had APR. There is no easy surgical approach to biopsying the pelvic mass. Recommend PET scan to differentiate malignancy vs. chronic inflammation Pt may be a candidate for IR biopsy of the mass, should it be necessary after PET Recommend f/u with Oncologist
--- NOTE | 2016-11-19 11:48 | Patient Discharge Instructions ---
Discharge Instructions General Discharge Information You were seen/treated for: Urethritis and UTI Watch for these problems: If you have fever, chills, or increased pain, please contact your PCP. Special Instructions: Please take all medications as directed. Please follow up with your oncologist Dr. Patino at [facility] on TuesdayNovember 29 at 1:30pm. Please follow up with Dr. Nails, the urologist, as well in 1 week. Acute Coronary Syndrome Inclusion Criteria At DC or during hospital stay patient has or had the following: ACS DIAGNOSIS No Discharge Core Measures Meds if any: Prescribed or Continued at Discharge Meds if any: NOT Prescribed or Continued at Discharge Congestive Heart Failure Inclusion Criteria At DC or during hospital stay patient has or had the following: CHF DIAGNOSIS No Discharge Core Measures Meds if any: Prescribed or Continued at Discharge Meds if any: NOT Prescribed or Continued at Discharge Cerebrovascular accident Inclusion Criteria At DC or during hospital stay patient has or had the following: CVA/TIA Diagnosis No Discharge Core Measures Meds if any: Prescribed or Continued at Discharge Meds if any: NOT Prescribed or Continued at Discharge Venous thromboembolism Inclusion Criteria VTE Diagnosis No VTE Type NONE VTE Confirmed by (Test) NONE Discharge Core Measures - Per Current guidelines, there needs to be overlap - treatment for the first 5 days of Warfarin therapy. - If discharged on Warfarin prior to 5 days of - overlap therapy, the patient will need to be - assessed for post discharge needs including - *Post discharge parental anticoagulation - *Warfarin and/or parental anticoagulation education - *Follow up date to check INR post discharge At least 5 days overlap therapy as Inpatient No Meds if any: Prescribed or Continued at Discharge Note: Overlap Therapy is Warfarin and Anticoagulant Meds if any: NOT Prescribed or Continued at Discharge
--- NOTE | 2016-11-19 15:17 | PN- Infect Dx ---
Subjective Subjective: No fever; fair appetite. [facility] cath removed at 11 am; so far patient did not void. Review of Systems Comments: 12 points reviewed as noted, otherwise negative. Objective Last 24 Hrs of Vital Signs/I&O Vital Signs Date Time Temp Pulse Resp B/P B/P Pulse O2 O2 Flow FiO2 Mean Ox Delivery Rate 11/19 0942 62 118/62 11/19 0942 62 118/62 11/19 0942 62 118/62 11/19 0743 97.5 67 20 128/65 96 Room Air 11/18 2350 98.1 61 20 140/66 96 Room Air 11/18 2329 140/66 Intake & Output 11/19 1600 11/19 0800 11/19 0000 Intake Total 120 370 Output Total 1000 400 Balance -1000 120 -30 Intake, Oral 120 370 Output, Urine 1000 400 Physical Exam Other Physical Findings: General Appears chronically ill, No Acute Distress HEENT: AT/NC, sclera anicteric Neck: no JVD Lungs BS present, no rales Cardiovascular Regular Rate, Normal S1, Normal S2 Abdomen Normal Bowel Sounds, colostomy bag in place Extremities No pedal Edema Skin Temp/Moisture Exam: Pale Results Last 24 Hours of Lab Results: Laboratory Tests 11/19 0535 Chemistry Sodium (137 - 145 mmol/L) 140 Potassium (3.5 - 5.1 mmol/L) 4.5 Chloride (98 - 107 mmol/L) 109 H Carbon Dioxide (22 - 30 mmol/L) 20 L Anion Gap (5 - 16) 10 BUN (9 - 20 mg/dL) 45 H Creatinine (0.7 - 1.2 mg/dL) 1.9 H Estimated GFR (>60 ml/min) 35 L BUN/Creatinine Ratio (7 - 25 %) 23.7 Hematology CBC w Diff NO MAN DIFF REQ WBC (4.8 - 10.8 /CUMM) 9.4 RBC (4.70 - 6.10 /CUMM) 2.74 L Hgb (14.0 - 18.0 G/DL) 7.7 L Hct (42 - 52 %) 23.4 L MCV (80.0 - 94.0 FL) 85.6 MCH (27.0 - 31.0 PG) 28.3 RDW (11.5 - 14.5 %) 14.9 H Plt Count (130 - 400 /CUMM) 256 MPV (7.4 - 10.4 FL) 6.7 L Gran % (42.2 - 75.2 %) 79.3 H Lymphocytes % (20.5 - 51.1 %) 10.8 L Monocytes % (1.7 - 9.3 %) 5.0 Eosinophils % (0 - 5 %) 4.5 Basophils % (0.0 - 2.0 %) 0.4 Absolute Granulocytes (1.4 - 6.5 /CUMM) 7.5 H Absolute Lymphocytes (1.2 - 3.4 /CUMM) 1.0 L Absolute Monocytes (0.10 - 0.60 /CUMM) 0.5 Absolute Eosinophils (0.0 - 0.7 /CUMM) 0.4 Absolute Basophils (0.0 - 0.2 /CUMM) 0 PUBS MCHC (33.0 - 37.0 G/DL) 33.0 Last 24 Hours of [place] Results: Procedure Result > URINE CULTURE Final 11/16/16-915 Greater than 100,000 colonies per ml of: 1.ENTEROBACTER CLOACAE 2.PSEUDOMONAS AERUGINOSA E.cloacae P. aerugin RX AB RX AB ------ -- ------ -- AMPICILLIN R CEFAZOLIN R AMOX/CLAV AUGM R AMP/SULB-UNASYN R CEFOXITIN R CEFTAZIDIME S S CEFTRIAXONE I CIPROFLOXACIN S R GENTAMICIN S I IMIPENEM S MEROPENEM S NITROFURANTOIN R TOBRAMYCIN S TRIMETH/SULFA S 1. ENTEROBACTER CLOACAE RX AB ------ -- AMPICILLIN R CEFAZOLIN R AMOXICILLIN/CLAVULINIC ACID R AMPICILLIN/SULBACTAM R CEFOXITIN R CEFTAZIDIME S CEFTRIAXONE I CIPROFLOXACIN S GENTAMICIN S NITROFURANTOIN R TRIMETHOPRIM/SULFAMETHOXAZOLE S 2. PSEUDOMONAS AERUGINOSA RX AB ------ -- CEFTAZIDIME S CIPROFLOXACIN R GENTAMICIN I IMIPENEM S MEROPENEM S Note: Infectious Diseases Society of [place] Guidelines state that asymptomatic bacteriuria is not associated with any increase in morbidity or mortality in most patients and therefore treatment is usually not indicated unless patients are less than five years old, or about to undergo urological procedures. TOBRAMYCIN S Recent Imaging Studies: IMPRESSION: 1. Above findings suggest diffuse inflammation in the pelvis and overlying soft tissues of the abdominal wall and buttock. No discrete abscess formation is appreciated. Evaluation overall is difficult given the postoperative changes in the pelvis and lack of intravenous contrast. Close clinical correlation is requested. 2. Right perianal fistulous tract to the right side of the superior intergluteal cleft is seen. There is no significant associated edema seen, suggesting that this is a chronic process. 3. The diffuse soft tissue thickening anterior and posterior to the Julian's pouch is suspicious for recurrence of rectal malignancy, superimposed upon postsurgical scarring. Endoscopic correlation and biopsy can be considered. 4. Other incidental findings include cholelithiasis, atrophic pancreas, multiple bilateral renal cysts, and hypertrophied adrenal glands. Findings discussed with Dr. King Hayes 11/18/2016, 8:35 PM and 9:30 PM. DICTATED BY: ANN WALLER MD DATE/TIME DICTATED:11/18/161941 TEMPERATURE CONTROL INSPECTOR:MARIE DATE/TIME TRANSCRIBED:11/18/161941 SERVICE DATE: 11/17/16 EXAM TYPE: RAD - XRY-PORTABLE CHEST XRAY EXAMINATION: XR PORTABLE CHEST CLINICAL INFORMATION: PICC line placement. COMPARISON: Chest x-ray 12/05/2014. TECHNIQUE: Portable frontal view of the chest was obtained. 2:54 PM FINDINGS: PICC line catheter tip in superior vena cava at the cavoatrial junction. Status post median sternotomy. Cardiac and mediastinal contours are normal. Lungs are clear. No pleural effusion or pneumothorax. 1.5 cm Periarticular calcification inferior to left humeral head at the glenohumeral joint. IMPRESSION: PICC line catheter tip at caval atrial junction. No acute change of the chest. DICTATED BY: BRYAN CORMIER MD DATE/TIME DICTATED:11/17/161515 TEMPERATURE CONTROL INSPECTOR:MARIE DATE/TIME TRANSCRIBED:11/17/161515 CONFIDENTIAL, DO NOT COPY WITHOUT APPROPRIATE AUTHORIZATION. Assessment/Plan Impression: 76-year-old M with PMH of rectal cancer s/p anal endoscopic surgery in 07/2006, CABG, right femoral stent, HTN, HLD, DM2, BPH,CAD s/p CABG,anemia of chronic disease, RLE DVT, paraxosymal atrial fibrillation, urinary retention 2/2 BPH admitted 11/13/16 with Ps. aeruginosa/Enterobacter UTI. Bilateral hydronephrosis, nephrolithiasis; s/p MRI pelvis yesterday, likely recurrent rectal malignancy. JACK/CKD (kidney function improved; baseline creatinine ~ 1.4mg/dl) Suggestion: 1. Monitor CBC/BMP. Aspiration precautions. 2. Continue Ceftazidime 1 gm q 12 h D #10/13; and as UC+ Enterobacter (S cipro) oral Cipro 500 mg daily added previous day (D#06/11); f/u EKG today if increased QT interval >500 msec please call [phone]. 3. Trend CBC/BMP. 4. Voiding trial; if persistent urinary retention f/u urology recom.
[2016-11-19 15:20] VITALS: BP 122/62
--- NOTE | 2016-11-19 17:50 | NUR ---
NSG NOTE LATE ENTRY: ROMERO REMOVED AT 1030 BY MD HENSON #[id number] FOR VOIDING TRIAL; ORDER TO CHECK IF PATIENT VOIDED IN 4 HOURS W/ [place] CATH IN PLACE; BY 1430, PATIENT HAD NOT YET VOIDED; THIS RN BLADDER SCANNED AND GOT 215 & 245 ML; MD AWARE; ORDER FOR ROMERO INSERTION PLACED BY MD HENSON #[id number]; PATIENT TO GO HOME W/ ROMERO TODAY;
== END 2016-11-19 18:01 | disposition home health service (06) | DRG 690 ==
LOC: ERH 18:21 → 2NB 21:45 → ERHI 21:45 → ENRESERV 22:11 → ENTRNSPT 22:31 → EDTRNSPTSTS 22:35 → 2NB 22:41 → CMPTRNSPT 22:49 → 2NB 11-16 08:11 → ENPENDDIS 11-19 15:22 → 2NB 11-19 18:01
PROVIDERS: Internal Medicine; Physician Assistant; Student in an Organized Health Care Education/Training Program; ADMIT Student in an Organized Health Care Education/Training Program
PROC: 02HV33Z Insertion of Infusion Device into Superior Vena Cava, Percutaneous Approach (ICD-10-PCS; principal; 2016-11-17)
DX: N13.6 Pyonephrosis (principal); N17.9 Acute kidney failure, unspecified; L89.150 Pressure ulcer of sacral region, unstageable; F03.90 Unspecified dementia, unspecified severity, without behavioral disturbance, psychotic disturbance, mood disturbance, and anxiety; L89.312 Pressure ulcer of right buttock, stage 2; N13.30 Unspecified hydronephrosis; E11.51 Type 2 diabetes mellitus with diabetic peripheral angiopathy without gangrene; E11.9 Type 2 diabetes mellitus without complications; I10 Essential (primary) hypertension; B96.5 Pseudomonas (aeruginosa) (mallei) (pseudomallei) as the cause of diseases classified elsewhere; I48.0 Paroxysmal atrial fibrillation; N39.0 Urinary tract infection, site not specified; Z93.3 Colostomy status; Z79.4 Long term (current) use of insulin; I25.10 Atherosclerotic heart disease of native coronary artery without angina pectoris; Z95.1 Presence of aortocoronary bypass graft; Z79.02 Long term (current) use of antithrombotics/antiplatelets; Z95.828 Presence of other vascular implants and grafts; Z86.718 Personal history of other venous thrombosis and embolism; Z79.01 Long term (current) use of anticoagulants; E78.5 Hyperlipidemia, unspecified; N40.1 Benign prostatic hyperplasia with lower urinary tract symptoms; R33.8 Other retention of urine; D63.8 Anemia in other chronic diseases classified elsewhere; Z85.048 Personal history of other malignant neoplasm of rectum, rectosigmoid junction, and anus; Z92.21 Personal history of antineoplastic chemotherapy; I44.0 Atrioventricular block, first degree; N31.9 Neuromuscular dysfunction of bladder, unspecified; Z88.0 Allergy status to penicillin; F32.9 Major depressive disorder, single episode, unspecified; Z87.442 Personal history of urinary calculi; N34.2 Other urethritis; E55.9 Vitamin D deficiency, unspecified; D50.9 Iron deficiency anemia, unspecified
CPT/HCPCS: 2NBSP; 74181; 75633; 36415; 74176; 76775; 81001; 82436; 87086; 93005; 93010; 96374; 97110-GO; 97116-GO; 97161-GP; 97530-GO; C1769; J0713; J1815; J3490

== ENCOUNTER 2017-06-01 10:41 | Inpatient (IN) | payer OTHER, MEDICARE ==
[~2017-06-01] VITALS: Ht 175.3 cm; Wt 68.1 kg
[~2017-06-01 10:41] MED LIST changes: +AMLODIPINE BESYL5 M1 PO; +CEFTAZIDIME1 G2 IV; +CIPRO500 M1 PO; +DESITIN57 GM EXT; +FINASTERIDE5 M1 PO; +MAGNESIUM400 M1 PO; +PAXIL10 M1 PO; +PROBIOTIC1 EACH PO; +TAMSULOSIN HCL0.4 M1 PO; +VITAMIN B-121000 MC3 PO; -VITAMIN D31000 UNI2 PO; +VITAMIN D32000 UNI1 PO; +XARELTO20 M2 PO
--- NOTE | 2017-06-01 10:51 | ED NEURO DEFICIT/STROKE ---
History of Present Illness General Chief Complaint: General Adult Stated Complaint: BIBA FOR L SIDED FACIAL DROOP SINCE YESTERDAY Source: patient, family Exam Limitations: no limitations Vital Signs & Intake/Output Vital Signs & Intake/Output Vital Signs Date Time Temp Pulse Resp B/P B/P Pulse O2 O2 Flow FiO2 Mean Ox Delivery Rate 06/01 1908 100.2 61 20 188/76 97 Room Air 06/01 1825 97.5 58 19 172/80 98 Room Air 06/01 1456 98.5 59 20 180/82 97 Nasal 2.0L Cannula 06/01 1226 54 20 196/86 100 Nasal 2.0L Cannula 06/01 1050 98.2 62 20 164/74 95 Room Air Allergies Coded Allergies: Penicillins (unknown 11/13/15) Reconcile Medications Cholecalciferol (Vitamin D3) (Vitamin D3) 2,000 UNIT TABLET 1 TAB PO DAILY VITAMIN SUPPORT (Reported) Cyanocobalamin (Vitamin B-12) 1,000 MCG TABLET 1 TAB PO DAILY VITAMIN SUPPORT (Reported) Ezetimibe (Zetia) 10 MG TABLET 1 TAB PO DAILY CHOLESTEROL (Reported) Finasteride 5 MG TABLET 1 TAB PO DAILY PROSTATE (Reported) Insulin Aspart (Novolog) (Unknown Strength) VIAL 0 SC SEE SLIDING SCALE Diabetes (Reported) Insulin Glargine,Hum.rec.anlog (Lantus Solostar) 100 UNIT/ML (3 ML) INSULN.PEN 32 UNIT SC QAM DIABETES (Reported) Lactobacillus Acidophilus (Probiotic) 10 BILLION CELL CAPSULE 1 TAB PO DAILY VITAMIN (Reported) Metoprolol Tartrate 100 MG TABLET 1 TAB PO BID Heart (Reported) Paroxetine HCl (Paxil) 10 MG TABLET 1 TAB PO DAILY MENTAL HEALTH (Reported) Tamsulosin HCl 0.4 MG CAP.ER.24H 1 CAP PO BID PROSTATE (Reported) Triage Nurses Notes Reviewed? yes Onset: Gradual Duration: week(s): (1-2), changing over time, continues in ED Timing: multiple episodes today Severity: moderate, severe New Weakness: right facial Vision Problem? No Glaucoma? No Impaired Ability: difficult to speak, difficult to stand, difficult to walk, PATIENT IS A 2 PERSON ASSIST Baseline: alert but confused, walks only w/assistance Associated Symptoms: confusion, fatigue, slurred speech HPI: 76-year-old male past medical history of atrial fibrillation, DVT, diabetes, CHF presents for evaluation of change in mental status with possible facial droop. Patient's reports that over the past several weeks patient has had multiple changes in his mental status. She states that one day he'll be very lethargic and fatigued in the next few be more active. She does report that he also has had a right upper eyelid and right facial droop intermittently over the past few weeks. Current episode started yesterday and has been persistent. She also reports that he's been more lethargic than usual and talking less than usual. She feels like his beaches been slurred and garbled. He has not been complaining of any chest pain or shortness of breath he's been eating and drinking normally no nausea vomiting diarrhea or fever. No hemoptysis or lower extremity edema. No new medications. (Jose Queen) Past History Travel History Traveled to [place] past 21 day No Medical History Any Pertinent Medical History? see below for history Neurological: NEUROPATHY EENT: NONE Cardiovascular: AFIB, CHF, hypertension, hyperlipidemia, PVD (right femoral stent), CAD status post CABG paroxisymal A. 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 No (Jose Queen) Review of Systems Review of Systems Constitutional: Reports: malaise, weakness. EENTM: Reports: no symptoms. Respiratory: Reports: no symptoms. Cardiovascular: Reports: no symptoms. GI: Reports: no symptoms. Genitourinary: Reports: no symptoms. Musculoskeletal: Reports: no symptoms. Skin: Reports: no symptoms. Neurological/Psychological: Reports: see HPI, ataxia, cognitive dysfunction, confusion, weakness, other ( facial droop). Hematologic/Endocrine: Reports: no symptoms. Immunologic/Allergic: Reports: no symptoms. All Other Systems: Reviewed and Negative (Jose Queen) Physical Exam Physical Exam General Appearance: no apparent distress, alert, awake, lethargic, thin Head: atraumatic, normal appearance Eyes: Right: other (rt lid droop). Bilateral: PERRL, EOMI. Ears, Nose, Throat: normal ENT inspection, moist mucous membrane, hearing grossly normal Neck: normal inspection, supple, full range of motion, no JVD no carotid bruits Respiratory: normal breath sounds, chest non-tender, no respiratory distress, lungs clear Cardiovascular: regular rate/rhythm, normal peripheral pulses Peripheral Pulses: 2+ radial (R), 2+ radial (L) Gastrointestinal: soft, non-tender, colostomy bag presents without any surrounding erythema. No stool in the bag Back: normal inspection, normal range of motion, no vertebral tenderness, no CVA tenderness Extremities: normal range of motion Psychiatric: awake, alert, patient is alert to person only. He appears confused and lethargic. He does not answer questions appropriately. Cranial Nerves: normal hearing, PERRL, facial droop (rt), right eye upper lid drooping Coordination/Gait: normal finger to nose (bilaterally) Motor/Sensory: patient does not follow most commands he is difficult to assess. He does appear to be moving all extremities equally Skin: intact, normal color, warm/dry Core Measures CVA/TIA Diagnosis: Yes (POSSIBLE TIA ) NIH Stroke Scale NIH Stroke Scale Response Value Level of Consciousness alert 0 LOC Questions incorrect 2 LOC Commands incorrect 2 Best Gaze normal 0 Visual Mueller no visual loss 0 Facial Paresis minor 1 Motor Arm - Left no drift 0 Motor Arm - Right no drift 0 Motor Leg - Left no drift 0 Motor Leg - Right no drift 0 Limb Ataxia no ataxia 0 Sensory normal 0 Best Language mild to moderate aphasia 1 Dysarthria mild/mod slurring words 1 Extinction and Inattention no neglect 0 Total 7 Sepsis Present: No Sepsis Focused Exam Completed? No (Jose Queen) Progress Differential Diagnosis: Gerardo's Palsy, drug intoxication, electrolyte imbalance, encephalitis, intracranial Hem., intracranial mass/tumor, stroke, subarachnoid Hem., Parkinson's disease Plan of Care: Orders Procedure Date/time Status Nothing by Mouth 06/02 B Active LIPID PANEL 06/02 06 Active CBC WITHOUT DIFFERENTIAL 06/02 0600 Active BASIC ELECTROLYTES PLUS BUN&CR 06/02 0600 Active Nothing by Mouth 06/01 D Complete Pathway - chart 06/01 191 Active House Staff 06/01 191 Active [id number] DOPPLER 06/01 185 Active LOWER RESPIRATORY CULTURE 06/01 1854 Active CULTURE,URINE 06/01 1852 Active BLOOD CULTURE 06/01 1852 Active MRI-HEAD W/O QUENTIN 06/01 1810 Active Patient Data 06/01 1647 Active ED Holding Orders 06/01 1631 Active Admit to inpatient 06/01 1631 Active Vital Signs 06/01 1631 Active Code Status 06/01 1631 Active LACTIC ACID 06/01 1405 Active Add-on Test (ER Only) 06/01 1251 Active Intake & Output 06/01 1141 Active LACTIC ACID 06/01 1105 Complete CULTURE,URINE 06/01 1051 Active URINALYSIS 06/01 1051 Complete TROPONIN LEVEL 06/01 1051 Complete PARTIAL THROMBOPLASTIN TIME 06/01 1051 Complete PROTHROMBIN TIME 06/01 1051 Complete COMPREHENSIVE METABOLIC PANEL 06/01 1051 Complete CBC WITHOUT DIFFERENTIAL 06/01 1051 Complete EKG 06/01 1051 Active SWALLOW EVALUATION 06/01 UNK Active PT Evaluate & Treat 06/01 UNK Active VTE Mechanical Prophylaxis 06/01 UNK Active NIH Stroke Scale 06/01 UNK Active FingerStick- Glucose 06/01 UNK Active ECHOCARDIOGRAM 06/01 UNK Active Current Medications Sig/Audrey Start time Last Medication Dose Stop Time Status Admin Finasteride 5 MG DAILY 06/02 1000 AC (Proscar) Insulin Detemir 10 UNITS BID 06/02 1000 AC (Levemir) Insulin Human Regular 0 Q6 06/01 2359 AC (NovoLIN R) Heparin Sodium 5,000 UNIT Q8 06/01 2199 AC (Porcine) Metoprolol Tartrate 100 MG BID 06/01 2199 AC (Lopressor) Tamsulosin HCl 0.4 MG BID 06/01 2199 AC (Flomax) Meropenem 1 GM ONCE ONE 06/01 1929 UNVr (MEROPENEM) 01/31 1931 Atorvastatin Calcium 80 MG 1700 06/01 191 AC (Lipitor) Dextrose/Sodium 1,000 ML Q20H 06/01 1900 AC Chloride (D5W-1/2 Normal Saline 1000ML) Laboratory Tests 06/01/17 1628: Sodium Cancelled, Potassium Cancelled, Chloride Cancelled, Carbon Dioxide Cancelled, Anion Gap Cancelled, BUN Cancelled, Creatinine Cancelled, BUN/ Creatinine Ratio Cancelled, CBC w Diff Cancelled, WBC Cancelled, RBC Cancelled, Hgb Cancelled, Hct Cancelled, MCV Cancelled, MCH Cancelled, MCHC Cancelled, RDW Cancelled, Plt Count Cancelled, MPV Cancelled 06/01/17 1310: Lactic Acid 0.7 06/01/17 1200: Urinalysis LIGHT H, Urine Color YEL, Urine Clarity CLDY H, Urine pH 6.0, Ur Specific [place] 1.020, Urine Protein 100 H, Urine Ketones NEG, Urine Nitrite POS H, Urine Bilirubin NEG, Urine Urobilinogen 0.2, Ur Leukocyte Esterase MOD H, Ur Microscopic SEDIMENT EXAMINED, Urine RBC 3-5, Urine WBC PACKD H, Ur Epithelial Cells RARE, Urine Bacteria MANY H, Urine Hemoglobin MOD H, Urine Glucose NEG 06/01/17 1108: Anion Gap 13, Estimated GFR 40 L, BUN/Creatinine Ratio 27.1 H, Glucose 204 H, Calcium 9.6, Total Bilirubin 0.3, AST 8 L, ALT 14 L, Alkaline Phosphatase 58, Troponin I < 0.01, Total Protein 6.9, Albumin 3.3 L, Globulin 3.6, Albumin/ Globulin Ratio 0.9 L, PT 13.4 H, INR 1.28 H, APTT 28, CBC w Diff NO MAN DIFF REQ, RBC 3.17 L, MCV 79.4 L, MCH 25.2 L, MCHC 31.8 L, RDW 17.2 H, MPV 5.8 L, Gran % 81.1 H, Lymphocytes % 9.3 L, Monocytes % 8.6, Eosinophils % 0.8, Basophils % 0.2, Absolute Granulocytes 7.3 H, Absolute Lymphocytes 0.8 L, Absolute Monocytes 0.8 H, Absolute Eosinophils 0.1, Absolute Basophils 0 Microbiology 06/01 1853 LOWER RESP: Respiratory Culture - COLB 06/01 1853 LOWER RESP: Gram Stain - COLB 06/01 1851 URINE ROUT: Urine Culture - COLB 06/01 1851 BLOOD: Blood Culture - COLB 06/01 1851 BLOOD: Blood Culture - COLB 06/01 1051 URINE ROUT: Urine Culture - RECD Patient seen and evaluated. He appears confused and not answering questions appropriately. He is difficult to examine. He is not following directions. The CT scan shows multiple old microvascular disease. No acute infarcts. He is moving all extremities equally. His reports symptoms have been going on for several weeks now getting worse. Urine is showing signs of infection but he has no elevated white blood cell count negative lactic acid. He did spike a low -grade temp here of 100.6. Chest x-ray is clear. His abdomen is soft and nontender. No signs of cellulitis. At this time differential includes UTI, sepsis, TIA/stroke, Parkinson's disease will require further evaluation and admission to the hospital for IV antibiotics, follow-up cultures, MRI of the brain, neurology consult, case management consult serial labs, carotid ultrasounds echocardiogram. Case discussed with Dr. Henry he agrees. Felipe Henry DO spoke with the hospitalist and admitted the patient. Diagnostic Imaging: Viewed by Me: Radiology Read, CT Scan. Discussed w/RAD: Radiology Read, CT Scan. Radiology Impression: PATIENT: MONICA BAILEY PRESENT AGE: 76 PATIENT ACCOUNT NO: [id number] : 42 LOCATION: [facility] ORDERING PHYSICIAN: Jose VELASCO SERVICE DATE: 06/01/17 EXAM TYPE: RAD - XRY-PORTABLE CHEST XRAY EXAMINATION: XR PORTABLE CHEST CLINICAL INFORMATION: Altered mental status. COMPARISON: Multiple previous chest imaging studies with the most recent chest x-ray of 02/24/[address] of 11/14/2015. TECHNIQUE: Portable frontal view of the chest was obtained. FINDINGS: A right-sided Port-A- Cath is in place terminating at the superior cavoatrial junction. The patient is rotated. The sternotomy wires appear intact. The cardiomediastinal silhouette is unchanged. Lungs are mildly hypoexpanded. Multiple cardiac leads and wires overlie the chest. No focal consolidation, changes of congestion, pleural effusions or pneumothorax. The well visualized osseous structures demonstrate no acute abnormality. IMPRESSION: No acute pulmonary process. DICTATED BY: Juan BRONSON ,Anal DATE/TIME DICTATED:06/01/171432 DELIVERY ANALYST:MARIE DATE/TIME TRANSCRIBED:06/01/171432 CONFIDENTIAL, DO NOT COPY WITHOUT APPROPRIATE AUTHORIZATION. CXR Impression: PATIENT: MONICA BAILEY PRESENT AGE: 76 PATIENT ACCOUNT NO: [id number] : 42 LOCATION: [facility] ORDERING PHYSICIAN: Jose VELASCO SERVICE DATE: 06/01/17 EXAM TYPE: RAD - XRY-PORTABLE CHEST XRAY EXAMINATION: XR PORTABLE CHEST CLINICAL INFORMATION: Altered mental status. COMPARISON: Multiple previous chest imaging studies with the most recent chest x-ray of 02/24/[address] of 11/14/2015. TECHNIQUE: Portable frontal view of the chest was obtained. FINDINGS: A right-sided Port-A-Cath is in place terminating at the superior cavoatrial junction. The patient is rotated. The sternotomy wires appear intact. The cardiomediastinal silhouette is unchanged. Lungs are mildly hypoexpanded. Multiple cardiac leads and wires overlie the chest. No focal consolidation, changes of congestion, pleural effusions or pneumothorax. The well visualized osseous structures demonstrate no acute abnormality. IMPRESSION: No acute pulmonary process. DICTATED BY: Juan BRONSON ,Anal DATE/TIME DICTATED:06/01/171432 DELIVERY ANALYST:MARIE DATE/TIME TRANSCRIBED:06/01/171432 CONFIDENTIAL, DO NOT COPY WITHOUT APPROPRIATE AUTHORIZATION. Initial ED EKG: SINUS RHYTHM, INCOMPLETE LBBB, LVH, INFERIOR INMFARCT AGE INDETERMINANT (Segundo VELASCO,Jose) Departure Departure Disposition: STILL A PATIENT Condition: Stable Clinical Impression Primary Impression: Altered mental status Qualifiers: Altered mental status type: unspecified Qualified Code: R41.82 - Altered mental status, unspecified Secondary Impressions: Pyuria TIA (transient ischemic attack) Qualifiers: Transient cerebral ischemia type: unspecified Qualified Code: G45.9 - Transient cerebral ischemic attack, unspecified Referrals: Rosalba BRONSON,Irene Blackburn (PCP/Family) Departure Forms: Customer Survey General Discharge Information Admission Note Spoke With: Fadumo Chaparro MD Documentation of Exam: Documentation of any treatments & extenuating circumstances including Concerns Regarding Discharge (functional status, medication knowledge or non-compliance, living conditions, etc.) that warrant an admission rather than observation: [ Serial labs, MRI of the brain, cardiology consult, neurology consult, IV antibiotics, follow-up cultures, medication adjustment, echocardiogram, carotid ultrasound] (Jose Queen) PA/CUSTOMER LOYALTY REPRESENTATIVE Co-Sign Statement Statement: ED Attending supervision documentation- [x] I saw and evaluated the patient. I have also reviewed all the pertinent lab results and diagnostic results. I agree with the findings and the plan of care as documented in the PA's/CUSTOMER LOYALTY REPRESENTATIVE's documentation. [] I have reviewed the ED Record and agree with the PA's/CUSTOMER LOYALTY REPRESENTATIVE's documentation. [] Additions or exceptions (if any) to the PAs/CUSTOMER LOYALTY REPRESENTATIVE's note and plan are summarized below: [] I saw and personally examined the patient. His symptoms improved over time in the ED. (Felipe Henry DO)
[2017-06-01 11:16] LABS: ABSOLUTE BASOPHIL COUNT 0 /CUMM (0.0-0.2); ABSOLUTE EOSINOPHIL COUNT 0.1 /CUMM (0.0-0.7); ABSOLUTE GRANULOCYTE CT 7.3 /CUMM (1.4-6.5); ABSOLUTE LYMPH COUNT 0.8 /CUMM (1.2-3.4); ABSOLUTE MONOCYTE COUNT 0.8 /CUMM (0.10-0.60); BASOPHIL % 0.2 % (0.0-2.0); EOSINOPHIL % 0.8 % (0-5); GRANULOCYTE % 81.1 % (42.2-75.2); HEMATOCRIT 25.2 % (42-52); MEAN CORPUSCULAR HGB 25.2 PG (27.0-31.0); MEAN CORPUSCULAR HGB CONC 31.8 G/DL (33.0-37.0); MEAN CORPUSCULAR VOLUME 79.4 FL (80.0-94.0); MEAN PLATELET VOLUME 5.8 FL (7.4-10.4); PLATELET COUNT 405 /CUMM (130-400); RBC DISTRIBUTION WIDTH 17.2 % (11.5-14.5); RED BLOOD CELL CT 3.17 /CUMM (4.70-6.10)
[2017-06-01 11:25] LABS: PT 13.4 SEC (9.4-12.5); PTT 28 SEC (25-37)
--- NOTE | 2017-06-01 14:14 | CT SCAN REPORT ---
EXAMINATION: CT HEAD WITHOUT CONTRAST CLINICAL INFORMATION: Left-sided facial droop. COMPARISON: None TECHNIQUE: Contiguous axial imaging was performed from the skull base to vertex without intravenous administration of contrast. DLP: 690.52 mGy-cm FINDINGS: Marked periventricular and subcortical white matter hypodensities, a nonspecific finding. No definite territorial acute infarction. Old lacunar infarcts are seen within the basal ganglia and left thalamus. No evidence of intracranial hemorrhage or extra-axial fluid collection. No evidence of mass lesion, mass effect or midline shift. The ventricles are symmetric in configuration. There is proportional sulcal prominence and ventricular dilatation consistent with global volume loss. Basal cisterns are patent. The calvarium is intact. Limited views of the paranasal sinuses demonstrate rounded opacities within the left maxillary sinus consistent with polyps or mucous retention cysts. Calcification of the cavernous carotid arteries. Mastoid air cells are well aerated with middle ear cavities clear. Limited views of the orbits are unremarkable. IMPRESSION: Limited evaluation for stroke due to the presence of extensive periventricular and subcortical white matter hypodensities, a nonspecific finding but most likely on the basis of chronic small vessel ischemic disease. No obvious territorial infarction is able to be identified. Based on clinical suspicion for stroke, consider followup with MRI. This result was discussed with Jose Raymond at 11:45 AM on 06/01/2017 and it was ascertained that the content and urgency of the report was understood at the time of direct communication.
--- NOTE | 2017-06-01 14:39 | RADIOLOGY REPORT ---
EXAMINATION: XR PORTABLE CHEST CLINICAL INFORMATION: Altered mental status. COMPARISON: Multiple previous chest imaging studies with the most recent chest x-ray of 02/24/[address] of 11/14/2015. TECHNIQUE: Portable frontal view of the chest was obtained. FINDINGS: A right-sided Port-A-Cath is in place terminating at the superior cavoatrial junction. The patient is rotated. The sternotomy wires appear intact. The cardiomediastinal silhouette is unchanged. Lungs are mildly hypoexpanded. Multiple cardiac leads and wires overlie the chest. No focal consolidation, changes of congestion, pleural effusions or pneumothorax. The well visualized osseous structures demonstrate no acute abnormality. IMPRESSION: No acute pulmonary process.
--- NOTE | 2017-06-01 16:21 | Admission Certification ---
Admission Certification Certification Statement - As attending physician, I certify that at the time of - admission, based on clinical presentation, severity of - symptoms, need for further diagnostic testing and - therapeutic interventions, and risk of adverse outcomes - without in-hospital treatment, in my clinical assessment, - this patient requires an acute hospital stay for a minimum - of two nights or longer. I have also considered psychsocial - factors such as support system, advanced age, financial - issues, cognitive issues, and failed out-patient treatments, - past re-admission history, safety of patient, and lack of - compliance as applicable. Specific rationale supporting this admission is: suspected TIA in pt with recurrence of rectal carcinoma and multiple mediacl problems.
--- NOTE | 2017-06-01 16:29 | History & Physical ---
Osvaldo BRONSON,[facility] 06/01/17 2018: General Information and HPI MD Statement: I have seen and personally examined MONICA BAILEY and documented this H&P. The patient is a 76 year old M who presented with a patient stated chief complaint of [right-sided weakness]. Source of Information: family Exam Limitations: physical impairment History of Present Illness: 76-year-old gentleman with past medical history of hypertension, hyperlipidemia, coronary artery disease status post CABG, paroxysmal A. fib, rectal cancer status post transanal excision and cholectomy, 3 chemotherapy [last one in March 2017 at [facility]], BPH, diabetes, right leg DVT was on xeralto [discontinued in March 2017], paroxysmal A. fib, chronic sacral ulcer , anemia of chronic disease, patient is on [place] catheter, depression, nephrolithiasis brought in by ambulance with complaints of right-sided weakness and facial droop since today morning. All the history was obtained from the ,who was at the bedside. According to her, the patient was in usual state of health until today morning he had his breakfast and metoprolol morning dose, following which he acute right-sided weakness and confusion, not responding to commands with facial droop.He had an episode of fever 3 days ago and the gave him Tylenol. She denies chest pain, chest pressure, abdominal pain, seizures, loss of consciousness, trauma, drooling of saliva, fever with chills. He had his morning toast and metoprolol today. Nausea, vomiting Patient had his last chemotherapy in March 2017, following which he had multiple bouts of diarrhea and was admitted in [facility] for the same. During the admission patient's medications Juan, losartan, amlodipine was held in view of hypotension and low blood count. According to the since discharge from the hospital he was weak and lethargic. Prior to this used to ambulate using a walker, since discharge she was not able to ambulate well. He was mostly bedbound, but alert and oriented. He was able to feed himself. He had multiple episodes of confusion on and off during 2 months, but always returned to his baseline. Allergies/Medications Compliance With Home Meds: FAIR Past History Travel History Traveled to [place] past 21 day No Medical History Neurological: NEUROPATHY EENT: NONE Cardiovascular: AFIB, CHF, hypertension, hyperlipidemia, PVD (right femoral stent), CAD status post CABG paroxisymal A. 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 Home Who Do You Live With? spouse Services at Home: Nursing Primary Language: Romanian Smoking Status: Former Smoker ETOH Use: denies use Illicit Drug Use: denies illicit drug use Functional Ability ADLs Independent: dressing, eating, toileting, bathing. Ambulation: independent IADLs Needs Assist: shopping, housework, finances, food prep, telephone, transportation, medication admin. Review of Systems Review of Systems Constitutional: Reports: weakness. Cardiovascular: Reports: no symptoms. Respiratory: Reports: no symptoms. GI: Reports: no symptoms. Genitourinary: Reports: no symptoms. Musculoskeletal: Reports: no symptoms. Skin: Reports: no symptoms. Neurological/Psychological: Reports: confusion (rt side weakness). Exam & Diagnostic Data Last 24 Hrs of Vital Signs/I&O Vital Signs Date Time Temp Pulse Resp B/P B/P Pulse O2 O2 Flow FiO2 Mean Ox Delivery Rate 06/01 1456 98.5 59 20 180/82 97 Nasal 2.0L Cannula 06/01 1226 54 20 196/86 100 Nasal 2.0L Cannula 06/01 1050 98.2 62 20 164/74 95 Room Air Intake & Output 06/01 1600 06/01 0800 06/01 0000 Intake Total Output Total 300 Balance -300 Output, Urine 300 Patient 200 lb Weight Weight Estimated Measurement Method Physical Exam General Appearance AWAKE, NOT ALERT /ORIENTED.NOT FOLLOWING COMMANDS Skin Temp/Moisture Exam: Warm/Dry Sepsis Skin Exam (color): Normal for Ethnicity Neck Supple, No JVD, No thryomegaly Cardiovascular Normal S1, Normal S2, No Murmurs Lungs Clear to Auscultation Abdomen Soft, colostomy BAG Neurological STRENGTH 2/5 RT UL,1/5 REST OF THE LIMBS Extremities LEFT PEDAL EDEMA Body Front and Back (Adult) 1) 1*1 *1cm sacral ulcer present Last 24 Hrs of Labs/Pilo: Laboratory Tests 06/01/17 1628: Sodium Cancelled, Potassium Cancelled, Chloride Cancelled, Carbon Dioxide Cancelled, Anion Gap Cancelled, BUN Cancelled, Creatinine Cancelled, BUN/ Creatinine Ratio Cancelled, CBC w Diff Cancelled, WBC Cancelled, RBC Cancelled, Hgb Cancelled, Hct Cancelled, MCV Cancelled, MCH Cancelled, MCHC Cancelled, RDW Cancelled, Plt Count Cancelled, MPV Cancelled 06/01/17 1310: Lactic Acid 0.7 06/01/17 1200: Urinalysis LIGHT H, Urine Color YEL, Urine Clarity CLDY H, Urine pH 6.0, Ur Specific [place] 1.020, Urine Protein 100 H, Urine Ketones NEG, Urine Nitrite POS H, Urine Bilirubin NEG, Urine Urobilinogen 0.2, Ur Leukocyte Esterase MOD H, Ur Microscopic SEDIMENT EXAMINED, Urine RBC 3-5, Urine WBC PACKD H, Ur Epithelial Cells RARE, Urine Bacteria MANY H, Urine Hemoglobin MOD H, Urine Glucose NEG 06/01/17 1108: Anion Gap 13, Estimated GFR 40 L, BUN/Creatinine Ratio 27.1 H, Glucose 204 H, Calcium 9.6, Total Bilirubin 0.3, AST 8 L, ALT 14 L, Alkaline Phosphatase 58, Troponin I < 0.01, Total Protein 6.9, Albumin 3.3 L, Globulin 3.6, Albumin/ Globulin Ratio 0.9 L, PT 13.4 H, INR 1.28 H, APTT 28, CBC w Diff NO MAN DIFF REQ, RBC 3.17 L, MCV 79.4 L, MCH 25.2 L, MCHC 31.8 L, RDW 17.2 H, MPV 5.8 L, Gran % 81.1 H, Lymphocytes % 9.3 L, Monocytes % 8.6, Eosinophils % 0.8, Basophils % 0.2, Absolute Granulocytes 7.3 H, Absolute Lymphocytes 0.8 L, Absolute Monocytes 0.8 H, Absolute Eosinophils 0.1, Absolute Basophils 0 Microbiology 06/01 1051 URINE ROUT: Urine Culture - RECD Diagnostic Data CXR Results A right-sided Port-A-Cath is in place terminating at the superior cavoatrial junction. The patient is rotated. The sternotomy wires appear intact. The cardiomediastinal silhouette is unchanged. Lungs are mildly hypoexpanded. Multiple cardiac leads and wires overlie the chest. No focal consolidation, changes of congestion, pleural effusions or pneumothorax. The well visualized osseous structures demonstrate no acute abnormality. Other Results HEAD CT Limited evaluation for stroke due to the presence of extensive periventricular and subcortical white matter hypodensities, a nonspecific finding but most likely on the basis of chronic small vessel ischemic disease. No obvious territorial infarction is able to be identified. Based on clinical suspicion for stroke, consider followup with MRI. Assessment/Plan Assessment: 76-year-old gentleman with past medical history of hypertension, hyperlipidemia, coronary artery disease status post CABG, paroxysmal A. fib, rectal cancer status post transanal excision and cholectomy, 3 chemotherapy [last one in March 2017 at [facility]], BPH, diabetes, right leg DVT was on xeralto [discontinued in March 2017], paroxysmal A. fib, chronic sacral ulcer , anemia of chronic disease, patient is on [place] catheter, depression, nephrolithiasis brought in by ambulance with complaints of right-sided weakness and facial droop since today morning. Admission vitals-temperature 98.5, pulse rate 61, respiratory rate 20, blood pressure 180/82----> 188/76, saturating at room air Admission labs-WBC 9, hemoglobin 8, hematocrit 25.2, sodium 139, potassium 46, BUNs-46, creatinine 1.7, troponin 0.01 ED treatment-ceftriaxone 1 g, normal saline-500 bolus given ---- Assessment and plan 1. Rule out stroke 2. Urinary tract infection 3. Diabetes/hypertension/hyperlipidemia 1. Weakness/confusion can be secondary due to urinary tract infection/stroke. From the history obtained his weakness [which is present since March 2017] and confusion since today morning can be secondary due to stroke. However his CAT scan is negative. We will do an MRI candidate ultrasound, echocardiogram to help with further diagnosis of stroke. Neuro checksq4, neurology consult. patient had fever 3 days ago for which Tylenol was given. His urine analysis during presentation his nitrate positive with many bacteria. Given the patient history of [place] catheter usage, previous UTI with ESBL, VRE, Enterobacter, Pseudomonas in 2017, urinary infection has to be ruled out. Though the patient was afebrile with no symptoms and had no leukocytosis upon admission he spiked a temperature of 100.2 at 7 PM. Given his immunocompromised condition we will give him 1 dose of meropenem and continue monitoring his vitals and clinical status. We will follow up with urine culture, blood culture. Patient passed bedside swallow eval. We will keep him nothing by mouth and get a swallow eval in a.m. Physical therapy and occupational therapy a.m. Patient right Ajrg-T-Eycq-appears normal with no redness/swelling. No evidence of any infection. According to the and she said medication, blood draw can be done through the cath. Abdomen-patient has colostomy tube. No redness or swelling. 2. Diabetes Accu-Chek every 6, we will continue his Levemir at a reduced dose of 10 units twice a day, since the patient is nothing by mouth. 3. Sacral ulcer 1 *1* 1 cm clean sacral ulcer present at the level of coccyx. No erythema, swelling or abnormal discharge. We will do offloading and duodenum dressing every 2-3 days. If needed we will place a wound consult in a.m. No signs of any infection. Examination of the rest of the skin appears normal. 4. We will continue rest of his medications and a steroid 5 mg daily, atorvastatin 80 mg, tamsulosin 0.4 mg twice a day, metoprolol 100 mg twice a day. Patient has a low hemoglobin 8 and BUNs 41, creatinine 1.7. We will continue monitoring his BEP and CBC. -Full code DVT prophylaxis heparin As Ranked By This Provider Problem List: 1. Altered mental status Qualifiers Altered mental status type: unspecified Qualified Code: R41.82 - Altered mental status, unspecified 2. Complicated UTI (urinary tract infection) 3. Sacral decubitus ulcer, stage III Core Measures/Misc (01/16) Acute Coronary Syndrome ACS Diagnosis: No Congestive Heart Failure Congestive Heart Failure Diagnosis No Cerebrovascular Accident CVA/TIA Diagnosis: No VTE (View Protocol) VTE Risk Factors Age>40 No Mechanical VTE Prophylaxis d/t Other No VTE Pharm Prophylaxis d/t Other Sepsis (View protocol) Sepsis Present: No Fadumo Chaparro MD 06/01/17 1656: Attending MD Review Statement Attending Statement Attending MD Statement: examined this patient, discuss w/resident/PA/LARD MAKER, agreed w/resident/PA/LARD MAKER, discussed with family, reviewed EMR data (avail), reviewed images Attending Assessment/Plan: 76-year-old male with multiple medical problems including coronary artery disease, atrial fibrillation, BPH with recurrent UTIs and rectal carcinoma treated remotely and with a recurrence in the recent past, last chemo on 03/18 via right chest wall port. The patient was here in January from February 24 to March 01 where he was noted to have, what was thought to be a UTI but later felt to be asymptomatic bacteriuria among his other problems. He has been at rehabilitation in the past but currently has been brought from home for what his describes as weakness, difficulty with gait and questionable facial droop on arrival to the ER. In taking the history from the , it appears that some of his neurological problems appear to be going on for at least a few days now in terms of progressive decline, weakness and questionable confusion. Today he was brought in for what was thought to be an acute facial droop and right arm weakness. In the emergency room he was mildly hypertensive at 180/82, had a nonfocal neurological exam (limited sec to his inability to follow commands at all times), a CT head that showed chronic small vessel disease but no acute infarct. His labs are chronically abnormal with CK D and baseline creatinine in the 1.7-1.9 range and chronic anemia with a hemoglobin the 8-9 range. He has a [place] catheter and the urine obtained from that has packed white cells and bacteria but again I think that reflects asymptomatic bacteriuria rather than a true UTI. The mentation is not explained by anything obvious. Will get an MRI, he passed a bedside swallow eval for meds and will contnue PO meds for now and get a formal swallow eval in am. Will hills c/s him and give him one dose of IV Meropenem (he grew ESBL in the past) to cover for any possibilty of sepsis. PT eval, DVT prophylaxis and follow closely. Conner Mcwilliams 06/01/172034: General Information and HPI Allergies/Medications Allergies: Coded Allergies: Penicillins (unknown 11/13/15) STATINS (MUSCLE CRAMPS 06/07/17) Home Med list Amlodipine Besylate (Norvasc) 5 MG TABLET 1 TAB PO DAILY Hypertension Apixaban (Eliquis) 5 MG TABLET 1 TAB PO BID DVT treatment/ppx 06/07-06/12: Please take 2 x 5mg tablets, twice daily 06/13: Please take 1 x 5mg tablets, twice daily Cholecalciferol (Vitamin D3) (Vitamin D3) 2,000 UNIT TABLET 1 TAB PO DAILY VITAMIN SUPPORT (Reported) Cyanocobalamin (Vitamin B-12) 1,000 MCG TABLET 1 TAB PO DAILY VITAMIN SUPPORT (Reported) Ezetimibe (Zetia) 10 MG TABLET 1 TAB PO DAILY CHOLESTEROL (Reported) Finasteride 5 MG TABLET 1 TAB PO DAILY PROSTATE (Reported) Insulin Aspart (Novolog) (Unknown Strength) VIAL 0 SC SEE SLIDING SCALE Diabetes (Reported) Insulin Glargine,Hum.rec.anlog (Lantus Solostar) 100 UNIT/ML (3 ML) INSULN.PEN 32 UNIT SC QAM DIABETES (Reported) Lactobacillus Acidophilus (Probiotic) 10 BILLION CELL CAPSULE 1 TAB PO DAILY VITAMIN (Reported) Lisinopril 5 MG TABLET 1 TAB PO DAILY Hypertension Metoprolol Tartrate 100 MG TABLET 1 TAB PO BID Heart (Reported) Paroxetine HCl (Paxil) 10 MG TABLET 1 TAB PO DAILY MENTAL HEALTH (Reported) Tamsulosin HCl 0.4 MG CAP.ER.24H 1 CAP PO BID PROSTATE (Reported) Core Measures/Misc (01/16) Cerebrovascular Accident Reason tPA not ordered Medical Contraindication Swallow Evaluation Pass Resident Review Statement Resident Statement: examined this patient, discussed with healthcare administration internship, reviewed images, amended to note Other Findings: 80-year-old gentleman with past medical history of hypertension, hyperlipidemia, CAD status post CABG, diabetes,paroxysmal A. fib not on anticoagulation him a rectal cancer status post transabdominal excision with colostomy and recurrence with recent chemotherapy last March and [facility], ESBL UTI in the past, diabetes, DVT not on anticoagulation, BPH, anemia of chronic disease, [place] catheter and nephrolithiasis was bedbound after the recent admission to [facility] was brought to the hospital with chief complaint of confusion, low oral intake and left facial droop and right-sided weakness. Information was obtained from patient's . Patient is very lethargic not being able to lasted 20 questions or follow commands. According to the patient functional status declined since last March however he was able to communicate his needs and was able to move all his limbs to one and half days ago. Patient's nurses noticed a right-sided weakness and facial droop patient was brought to the hospital. According to drive patient had an episode of fever 3 days ago which was treated with Tylenol. According to patient didn't have any chest pain, abdominal pain, nausea, vomiting, trauma recently. Patient himself at one point expressed headache. He should be noted that patient had multiple episode of transient confusion in the past 2 months. Some of his medication were stopped during the last admission at [facility] especially Xarelto. Vital signs in the ED showed temperature 97.5, blood pressure was 72/80, heart rate 58, 98% on room air Physical exam lethargic and responds minimally to verbal stimuli, sometimes open his eyes very minimally Heart rate is regular with normal sinus to Limited lung exam was clear, Port-A-Cath on the right side does not look red or tender Abdomen was nontender Patient was moving his right upper extremity and one time left upper extremity, However due to not following commands full Neurological exam was not feasible, LUAN in the eyes Patient passed bedside swallow evaluation Labs notable for WBC 9, hemoglobin 8, MCV 79.4, platelet count 405, Creatinine 1.7, BUN 46, lactic acid 0.7, albumin 3.3 urine packed wbc and bacteria with positive nitrare CXR : No acute pulmonary process. head CT Limited evaluation for stroke due to the presence of extensive periventricular and subcortical white matter hypodensities, a nonspecific finding but most likely on the basis of chronic small vessel ischemic disease. No obvious territorial infarction is able to be identified. Based on clinical suspicion for stroke, consider followup with MRI. EKG showed A. fib, No acute ST-T changes compared to previous EKG Assessment Altered mental status DDX due to possible UTI versus stroke or TIA History of rectal cancer with bladder invasion History of diabetes History of A. fib not on anticoagulation History of CABG and CAD Anemia Plan Admit to telemetry Stat MRI of head neurology consult placed Aspirin 325 and high-dose statin Patient had history of ESBL so we cover with 1 dose of meropenem today Blood cultures, urine cultures, sputum culture NPO, swallow evaluation, PT eval IV dextrose half normal saline, fingerstick, sliding scale insulin, Levemir 10 U twice a day Carotid ultrasound and echocardiogram in the morning Workup the anemia and the morning Give metoprolol 100 mg twice a day if systolic blood pressure is more than 140 Continue tamsulosin and finasteride Full code for now, NPO, Tylenol for pain, PT prophylaxis is subcutaneous heparin and Alps
[2017-06-01] MEDS ORDERED: PROBIOTIC1 EACH PO (17:19)
[2017-06-01 19:08] VITALS: BP 188/76
[2017-06-01 22:04] VITALS: BP 178/72
--- NOTE | 2017-06-01 22:07 | ULTRASOUND REPORT ---
EXAMINATION: US DUPLEX CAROTID AND VERTEBRAL CLINICAL INFORMATION: Left-sided weakness. Rule out carotid stenosis. COMPARISON: None TECHNIQUE: Real-time ultrasound and Doppler techniques (integrating B-mode 2D vascular images, Doppler spectral analysis and color flow Doppler imaging) were utilized to interrogate the extracranial carotid and vertebral arteries bilaterally. The degree of stenosis determined by criteria similar to NASCET. FINDINGS: On the RIGHT, there is significant mixed soft and largely calcified plaque is noted at the distal CCA, carotid bifurcation extending into the external and internal carotid arteries. In the distal CCA, the peak systolic velocity is 110 cm/sec. In the proximal ICA, the peak systolic velocity is 135 cm/sec, and the end diastolic velocity is 17 cm/sec. The ICA/CCA ratio is 1.2. On the LEFT, there is moderate to significant mixed soft and large calcified plaque is noted at the distal CCA, carotid bifurcation as well as extending into the proximal external and internal carotid arteries. In the distal CCA, the peak systolic velocity is 137 cm/sec. In the proximal ICA, the peak systolic velocity is 94 cm/sec, and the end diastolic velocity is 17 cm/sec. The ICA/CCA ratio is 0.7. The vertebral arteries show antegrade flow with normal waveforms bilaterally. IMPRESSION: 1. The right internal carotid artery shows 80-99% stenosis. 2. The left internal carotid artery shows 50-79% stenosis.
--- NOTE | 2017-06-02 05:34 | Event Note ---
Event Note Event Note: S: alerted by the nursing staff that the patient may be below baseline neuro level. B: pt was admitted for concern of CVA. MRI has not been done and CT showed no acute infarct, patient was not cooperative with initial neuro exam, so baseline is difficult to ascertain. AR: Pt was seen and assessed at bedside with resident, Dr. Ivey. He was able to respond to command and give one word answers to questions. He was in no acute distress, and responded to commands. 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 He overall appeared stable and at his baseline from adimssion. This information was signed out to the day team.
[2017-06-02 06:40] VITALS: BP 120/70
--- NOTE | 2017-06-02 06:42 | PN- Housestaff ---
Osvaldo BRONSON,Lisa 06/02/17 0642: Subjective Follow-up For: stroke,uti Complaints: no complaints Tele-Events Since Last Visit: SR-HR 67 Review of Systems Constitutional: Reports: no symptoms. Cardiovascular: Reports: no symptoms. Respiratory: Reports: no symptoms. Gastrointestinal: Reports: no symptoms. Genitourinary: Reports: no symptoms. Musculoskeletal: Reports: no symptoms. Objective Last 24 Hrs of Vital Signs/I&O Vital Signs Date Time Temp Pulse Resp B/P B/P Pulse O2 O2 Flow FiO2 Mean Ox Delivery Rate 06/02 0640 98.8 64 16 120/70 94 Room Air 06/01 2204 100.0 71 20 178/72 96 Room Air 06/01 2118 61 188/76 06/01 2116 61 188/76 06/01 1908 100.2 61 20 188/76 97 Room Air 06/01 1825 97.5 58 19 172/80 98 Room Air 06/01 1456 98.5 59 20 180/82 97 Nasal 2.0L Cannula 06/01 1226 54 20 196/86 100 Nasal 2.0L Cannula 06/01 1050 98.2 62 20 164/74 95 Room Air Intake & Output 06/02 0800 06/02 0000 06/01 1600 Intake Total 1000 Output Total 300 Balance 1000 -300 Intake, IV 1000 Output, Urine 300 Patient 160 lb 200 lb Weight Weight Estimated Measurement Method Physical Exam General Appearance: Alert, Oriented X3, Cooperative, No Acute Distress Skin: No Breakdown HEENT: Atraumatic, PERRLA Cardiovascular: Regular Rate, Normal S1, Normal S2 Lungs: Clear to Auscultation Abdomen: Soft, COLOSTOMY BAG + Extremities: LEFT LEG EDEMA Rectal STAGE 111 ULCER IN COCCYX Assessment/Plan Assessment: 76-year-old gentleman with past medical history of hypertension, hyperlipidemia, coronary artery disease status post CABG, paroxysmal A. fib, rectal cancer status post transanal excision and cholectomy, 3 chemotherapy [last one in March 2017 at [facility]], BPH, diabetes, right leg DVT was on xeralto [discontinued in March 2017], paroxysmal A. fib, chronic sacral ulcer , anemia of chronic disease, patient is on [place] catheter, depression, nephrolithiasis brought in by ambulance with complaints of right-sided weakness and facial droop since today morning. Assessment and plan 1. Rule out stroke 2. Urinary tract infection 3. Diabetes/hypertension/hyperlipidemia 1. Weakness/confusion can be secondary due to urinary tract infection/stroke. From the history obtained his weakness [which is present since March 2017] and confusion since 1 day can be secondary due to stroke. However his CAT scan is negative. Patient is planned for an MRI brain [his cardiac cath, right leg stent, right port All are MRI compatible] today. His carotid ultrasound showed a 80-99% stenosis in the right side, 50-79% in the left side. We will get a vascular surgery consult for further evaluation and management. We will follow up with urine culture, blood culture. Patient passed bedside swallow eval. patient passed a swallow eval.we will advance his diet. And given all his medications. Physical therapy and occupational therapy a.m. 2. Diabetes Accu-Chek every 6, we will continue his Levemir at a reduced dose of 10 units twice a day, since the patient is nothing by mouth. 3. Sacral ulcer 1 *1* 1 cm clean sacral ulcer present at the level of coccyx. No erythema, swelling or abnormal discharge. We will do offloading and duodenum dressing every 2-3 days. If needed we will place a wound consult in a.m. No signs of any infection. Examination of the rest of the skin appears normal. 4. Anemia of chronic disease Patient has a baseline hemoglobin of 8. Today morning his hemoglobin was 7.9. We will repeat one in the afternoon if it's low we will give 1 unit of packed red blood cell transfusion. We will also guaiac his stool. The same was discussed with the . She agreed for vascular surgery consult and blood transfusion. Blood transfusion consent obtained. 4. We will continue rest of his medications and a steroid 5 mg daily, atorvastatin 80 mg, tamsulosin 0.4 mg twice a day, metoprolol 100 mg twice a day. Patient has a low hemoglobin 8 and BUNs 41, creatinine 1.7. We will continue monitoring his BEP and CBC. Patient right [id number]-appears normal with no redness/swelling. No evidence of any infection. According to the and she said medication, blood draw can be done through the cath. Abdomen-patient has colostomy tube. No redness or swelling. -Full code DVT prophylaxis heparin Problem List: 1. Altered mental status 2. Complicated UTI (urinary tract infection) 3. Sacral ulcer Pain Ratin Pain Location: none Pain Goal: Remain pain free Pain Plan: tylenol Tomorrow's Labs & Rationales: cbc,bep Nicole BRONSON,Osmel 06/02/17 1350: Attending MD Review Statement Attending Statement Attending MD Statement: examined this patient, discuss w/resident/PA/SOFTWARE PROGRAM MANAGER, agreed w/resident/PA/SOFTWARE PROGRAM MANAGER, discussed with family, reviewed EMR data (avail), discussed with nursing, discussed with case mgmt, amended to note Attending Assessment/Plan: Patient seen and examined. Lying in bed extremely drowsy. Not following command. is present at bedside. Patient is unable to participate in the neurologic examination at this time. Problems: 1: Right-sided weakness; raising concern for stroke. 2. Altered mental status; probably due to metabolic encephalopathy 3. 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 4. Metastatic rectal cancer; unable to undergo chemotherapy in recent time due to repeated hospitalizations. 5. paroxysmal atrial for ablation. 6. History of deep vein thrombosis of the right lower extremity. 7. Acute on chronic anemia. Plan: -Repeat CBC. If hemoglobin is indeed less than 8 transfuse 1 unit of PRBC given his history of coronary artery disease. -Please ensure the urine cultures are sent and follow-up results. Continue current antibiotic regimen pending the results. -ID consultation for antibiotic stewardship. -Follow-up MRI to determine if patient indeed had a stroke or if he has metastatic lesions. -Pending results of MRI will obtain consultation with the vascular surgery service regarding recommendations for management of his bilateral carotid artery stenosis which is more severe on the right. -Awaiting neurology consultation. -Patient is not a candidate for aspirin therapy at present due to the acute on chronic anemia. Anticoagulation was discontinued in March. Please confirm why this was done. -Prognosis is guarded. This was discussed with .
[2017-06-02 08:51] LABS: ABSOLUTE BASOPHIL COUNT 0 /CUMM (0.0-0.2); ABSOLUTE EOSINOPHIL COUNT 0 /CUMM (0.0-0.7); ABSOLUTE GRANULOCYTE CT 7.4 /CUMM (1.4-6.5); ABSOLUTE LYMPH COUNT 0.9 /CUMM (1.2-3.4); ABSOLUTE MONOCYTE COUNT 0.9 /CUMM (0.10-0.60); BASOPHIL % 0.4 % (0.0-2.0); EOSINOPHIL % 0.3 % (0-5); GRANULOCYTE % 79.9 % (42.2-75.2); MEAN CORPUSCULAR HGB 25.3 PG (27.0-31.0); MEAN CORPUSCULAR HGB CONC 31.7 G/DL (33.0-37.0); MEAN CORPUSCULAR VOLUME 79.8 FL (80.0-94.0); MEAN PLATELET VOLUME 6.2 FL (7.4-10.4); PLATELET COUNT 409 /CUMM (130-400); RBC DISTRIBUTION WIDTH 18.2 % (11.5-14.5); RED BLOOD CELL CT 2.89 /CUMM (4.70-6.10); WHITE BLOOD CELL COUNT 9.2 /CUMM (4.8-10.8)
[2017-06-02 10:15] VITALS: BP 187/80
--- NOTE | 2017-06-02 11:54 | Cons- Wound Care ---
General Information and HPI Consulting Request Date of Consult: 06/02/17 Requested By: Osmel Rivera MD Reason for Consult: Stage III sacral ulcer present on admission History of Present Illness: Patient is 76-year-old minimally communicative with multiple medical problems admitted with change in mental status. His reports a chronic nonhealing sacral wound treated at home with meta-honey in the low air loss mattress she reports the wound has been progressively improving. Allergies/Medications Allergies: Coded Allergies: Penicillins (unknown 11/13/15) Home Med List: Cholecalciferol (Vitamin D3) (Vitamin D3) 2,000 UNIT TABLET 1 TAB PO DAILY VITAMIN SUPPORT (Reported) Cyanocobalamin (Vitamin B-12) 1,000 MCG TABLET 1 TAB PO DAILY VITAMIN SUPPORT (Reported) Ezetimibe (Zetia) 10 MG TABLET 1 TAB PO DAILY CHOLESTEROL (Reported) Finasteride 5 MG TABLET 1 TAB PO DAILY PROSTATE (Reported) Insulin Aspart (Novolog) (Unknown Strength) VIAL 0 SC SEE SLIDING SCALE Diabetes (Reported) Insulin Glargine,Hum.rec.anlog (Lantus Solostar) 100 UNIT/ML (3 ML) INSULN.PEN 32 UNIT SC QAM DIABETES (Reported) Lactobacillus Acidophilus (Probiotic) 10 BILLION CELL CAPSULE 1 TAB PO DAILY VITAMIN (Reported) Metoprolol Tartrate 100 MG TABLET 1 TAB PO BID Heart (Reported) Paroxetine HCl (Paxil) 10 MG TABLET 1 TAB PO DAILY MENTAL HEALTH (Reported) Tamsulosin HCl 0.4 MG CAP.ER.24H 1 CAP PO BID PROSTATE (Reported) Review of Systems Review of Systems: Noncontributory Past History Travel History Traveled to [place] past 21 day No Medical History Neurological: NEUROPATHY EENT: NONE Cardiovascular: AFIB, CHF, hypertension, hyperlipidemia, PVD (right femoral stent), CAD status post CABG paroxisymal A. 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 Home Who Do You Live With? spouse Services at Home: Nursing Primary Language: Azerbaijani Smoking Status: Former Smoker ETOH Use: denies use Illicit Drug Use: denies illicit drug use Functional Ability ADLs Independent: dressing, eating, toileting, bathing. Ambulation: independent IADLs Needs Assist: shopping, housework, finances, food prep, telephone, transportation, medication admin. Exam & Diagnostic Data Vital Signs and I&O Vital Signs Result Date Time B/P 187/80 06/02 1015 Pulse 64 06/02 0844 Pulse Ox 94 06/02 0640 O2 Delivery Room Air 06/02 0640 Temp 98.8 06/02 0640 Resp 16 06/02 0640 O2 Flow Rate 2.0L 06/01 1456 Intake & Output 06/02 0000 06/01 1600 06/01 0800 Intake Total 1000 Output Total 300 Balance 1000 -300 Intake, IV 1000 Output, Urine 300 Patient 160 lb 200 lb Weight Weight Estimated Measurement Method Exam of the coccyx shows there to be a 1 x 1 cm stage III pressure ulcer with red and yellow fill there is no undermining sinus tracking or exposed bone. Assessment/Plan Impression/Plan: 76-year-old gentleman with multiple medical problems admitted with concern over possible stroke and urinary tract infection has a chronic stage III pressure ulcer of the coccyx. Recommend low air loss mattress avoid supine positioning with frequent turning. Wound can be covered with a thin do a term changed every 2-3 days. Note there was a sedimentation rate of 80 in October. Would repeat sedimentation rate and if no other explanation for elevated sedimentation rate exists consideration of further imaging of the area would be appropriate to exclude osteomyelitis. Given the chronicity of the wound and absence of acute infection this could be deferred to the outpatient setting Consult Acknowledgment - Thank you for your consult request.
--- NOTE | 2017-06-02 14:45 | Cons- Vascular Surgery ---
General Information and HPI Consulting Request Date of Consult: 06/02/17 Requested By: Osmel Rivera MD Reason for Consult: CAROTID ARTERY STENOSIS Source of Information: family Exam Limitations: not alert/orientated History of Present Illness: PT is a 76 y/o m x/ hx of CAD s/p CABG, rectal cancer s/p rectal resection/ ostomy creation and chemo. He has chronic anemia and [place] catheter with uti. was sent to [facility] with altered mental status, ? right sided weakenes. Vascular surgery consulted as carotid duplex read as high grade 80-99% stenosis right carotid artery, and 50-79% left sided carotid stenosis. i saw and examined the pt and spoke to the pts . Per the pt normally is alert and conversant but for past few days he has been lethargic and non responsive. when i spoke to pt he was able to follow some commands. has right eye droop-- no clear lip droop. Allergies/Medications Allergies: Coded Allergies: Penicillins (unknown 11/13/15) Home Med List: Cholecalciferol (Vitamin D3) (Vitamin D3) 2,000 UNIT TABLET 1 TAB PO DAILY VITAMIN SUPPORT (Reported) Cyanocobalamin (Vitamin B-12) 1,000 MCG TABLET 1 TAB PO DAILY VITAMIN SUPPORT (Reported) Ezetimibe (Zetia) 10 MG TABLET 1 TAB PO DAILY CHOLESTEROL (Reported) Finasteride 5 MG TABLET 1 TAB PO DAILY PROSTATE (Reported) Insulin Aspart (Novolog) (Unknown Strength) VIAL 0 SC SEE SLIDING SCALE Diabetes (Reported) Insulin Glargine,Hum.rec.anlog (Lantus Solostar) 100 UNIT/ML (3 ML) INSULN.PEN 32 UNIT SC QAM DIABETES (Reported) Lactobacillus Acidophilus (Probiotic) 10 BILLION CELL CAPSULE 1 TAB PO DAILY VITAMIN (Reported) Metoprolol Tartrate 100 MG TABLET 1 TAB PO BID Heart (Reported) Paroxetine HCl (Paxil) 10 MG TABLET 1 TAB PO DAILY MENTAL HEALTH (Reported) Tamsulosin HCl 0.4 MG CAP.ER.24H 1 CAP PO BID PROSTATE (Reported) Past History Medical History Neurological: NEUROPATHY EENT: NONE Cardiovascular: AFIB, CHF, hypertension, hyperlipidemia, PVD (right femoral stent), CAD status post CABG paroxisymal A. 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 Home Who Do You Live With? spouse Services at Home: Nursing Primary Language: Occitan Smoking Status: Former Smoker ETOH Use: denies use Illicit Drug Use: denies illicit drug use Functional Ability ADLs Independent: dressing, eating, toileting, bathing. Ambulation: independent IADLs Needs Assist: shopping, housework, finances, food prep, telephone, transportation, medication admin. Review of Systems Review of Systems: reviewd Exam & Diagnostic Data Vital Signs and I&O Vital Signs Date Time Temp Pulse Resp B/P B/P Pulse O2 O2 Flow FiO2 Mean Ox Delivery Rate 06/02 1225 73 187/80 06/02 1015 187/80 06/02 0844 64 120/70 06/02 0844 64 120/70 06/02 0640 98.8 64 16 120/70 94 Room Air 06/01 2204 100.0 71 20 178/72 96 Room Air 06/01 2118 61 188/76 06/01 2116 61 188/76 06/01 1908 100.2 61 20 188/76 97 Room Air 06/01 1825 97.5 58 19 172/80 98 Room Air 06/01 1456 98.5 59 20 180/82 97 Nasal 2.0L Cannula Intake & Output 06/02 1600 06/02 0800 06/02 0000 06/01 1600 06/01 0800 06/01 0000 Intake Total 9944 975 4502 Output Total 201 300 Balance 4715 417 8108 -300 Intake, IV 400 1000 Intake, Oral 120 Intake, Tube 900 Feeding Intake, Tube 450 Irrigant Output, Stool 1 Output, Urine 200 300 Patient 160 lb 200 lb Weight Weight Estimated Measurement Method Physical Exam: not alert or oriented able to follow basic commands- weak hand squeeze in both hands right eye droop feet wwp Assessment/Plan Assessment/Plan 76 y/o m w/ mmp and ams. carotid artery stenosis -i reviewed us images and velocities were not-consistent with high grade stenosis however did appear to be significant plaque. I would obtain MRA to better assess carotid arteries -mri of brain to determine if he did infact have a stroke -neurology consult -unclear is ams is related to toxic/metabolic syndrom vs neurological event -pt not a good operative candidate. further recommendations pending imaging. Problem List: 1. Altered mental status Consult Acknowledgment - Thank you for your consult request.
[2017-06-02 14:47] LABS: ABSOLUTE BASOPHIL COUNT 0 /CUMM (0.0-0.2); ABSOLUTE EOSINOPHIL COUNT 0 /CUMM (0.0-0.7); ABSOLUTE GRANULOCYTE CT 6.9 /CUMM (1.4-6.5); ABSOLUTE LYMPH COUNT 0.8 /CUMM (1.2-3.4); ABSOLUTE MONOCYTE COUNT 0.9 /CUMM (0.10-0.60); BASOPHIL % 0.2 % (0.0-2.0); EOSINOPHIL % 0.4 % (0-5); GRANULOCYTE % 79.5 % (42.2-75.2); MEAN CORPUSCULAR HGB 25.5 PG (27.0-31.0); MEAN CORPUSCULAR VOLUME 79.7 FL (80.0-94.0); MEAN PLATELET VOLUME 6.2 FL (7.4-10.4); PLATELET COUNT 367 /CUMM (130-400); RBC DISTRIBUTION WIDTH 18.3 % (11.5-14.5); RED BLOOD CELL CT 2.89 /CUMM (4.70-6.10); WHITE BLOOD CELL COUNT 8.7 /CUMM (4.8-10.8)
[2017-06-02 15:22] VITALS: BP 130/70
--- NOTE | 2017-06-02 16:05 | MRI REPORT ---
EXAMINATION: MR BRAIN WITHOUT CONTRAST CLINICAL INFORMATION: Altered mental status with right-sided weakness and facial droop. COMPARISON: CT scan of the head 06/01/2017. TECHNIQUE: MRI of the brain without contrast was obtained using routine sequences. FINDINGS: There is no restricted diffusion signal to suggest an acute infarct. There is an area of increased diffusion signal without low ADC map signal in the right grubbs radiata, which has corresponding increased T2 and FLAIR signal, consistent with an area of subacute ischemia. No mass effect or midline shift is seen. The ventricles and sulci are commensurately prominent consistent with moderate diffuse volume loss, including the cerebellum. There is extensive T2 and FLAIR hyperintensity in the periventricular and subcortical white matter and in the hortencia consistent with chronic microvascular ischemic changes. There are lacunar infarcts in the left basal ganglia. No extra-axial fluid collections are seen. No pathologic magnetic susceptibility artifact is identified on the gradient refocused acquisition. The craniovertebral junction, marrow signal, and midline structures are normal. There are degenerative changes in the upper cervical spine. The major intracranial flow-voids at the level of the rincon of [place] are preserved. The dural venous sinus flow-voids are maintained. There is moderate fluid signal at the right mastoid tip. There are retention cysts in the left maxillary sinus. IMPRESSION: 1. There are no acute bleeds or infarcts. No masses are demonstrated. 2. There are scattered areas of subacute ischemia as well as evidence of chronic microvascular ischemic disease and diffuse volume loss.
--- NOTE | 2017-06-02 16:18 | MRI REPORT ---
EXAMINATION: MRA NECK WITHOUT CONTRAST CLINICAL INFORMATION: Stroke with carotid stenosis. COMPARISON: Carotid ultrasound 06/01/2017. TECHNIQUE: MRA of the neck without contrast was obtained using routine sequences. The degree of stenosis determined by criteria similar to NASCET. FINDINGS: While [id number] noncontrast MRA does not give accurate information on true luminal caliber, by NASCET criteria there are less than 50% stenoses involving the proximal internal carotid arteries bilaterally. The results are discordant on the right side for which a CTA of the neck could be obtained if indicated. No significant arterial stenoses are identified within the neck. The great vessel origins are not included on this exam. The proximal vertebral arteries are not diagnostically assessed secondary to artifact. The vertebral arteries are codominant and remain widely patent throughout their course. IMPRESSION: While [id number] noncontrast MRA does not give accurate information in regards to true luminal caliber, by NASCET criteria there are less than 50% stenoses involving the proximal internal carotid arteries bilaterally. The results are discordant on the right side when compared to the prior ultrasound for which a CTA of the neck could be obtained if indicated.
--- NOTE | 2017-06-02 19:36 | Cons- Neurology ---
General Information and HPI Consulting Request Date of Consult: 06/02/17 Requested By: Nicole BRONSON,Osmel History of Present Illness: 76-year-old male history of rectal cancer hypertension and coronary artery disease who yesterday morning was noted to have acute right-sided weakness and confusion Since March 2017 he has had persistent weakness and lethargy and was unable to walk and remain predominantly bedbound was able to feed himself Since the event yesterday he has remained nonverbal There were no specific complaints There was no documented head trauma or seizure Allergies/Medications Allergies: Coded Allergies: Penicillins (unknown 11/13/15) Home Med List: Cholecalciferol (Vitamin D3) (Vitamin D3) 2,000 UNIT TABLET 1 TAB PO DAILY VITAMIN SUPPORT (Reported) Cyanocobalamin (Vitamin B-12) 1,000 MCG TABLET 1 TAB PO DAILY VITAMIN SUPPORT (Reported) Ezetimibe (Zetia) 10 MG TABLET 1 TAB PO DAILY CHOLESTEROL (Reported) Finasteride 5 MG TABLET 1 TAB PO DAILY PROSTATE (Reported) Insulin Aspart (Novolog) (Unknown Strength) VIAL 0 SC SEE SLIDING SCALE Diabetes (Reported) Insulin Glargine,Hum.rec.anlog (Lantus Solostar) 100 UNIT/ML (3 ML) INSULN.PEN 32 UNIT SC QAM DIABETES (Reported) Lactobacillus Acidophilus (Probiotic) 10 BILLION CELL CAPSULE 1 TAB PO DAILY VITAMIN (Reported) Metoprolol Tartrate 100 MG TABLET 1 TAB PO BID Heart (Reported) Paroxetine HCl (Paxil) 10 MG TABLET 1 TAB PO DAILY MENTAL HEALTH (Reported) Tamsulosin HCl 0.4 MG CAP.ER.24H 1 CAP PO BID PROSTATE (Reported) Current Medications: Current Medications Sig/Audrey Start time Last Medication Dose Route Stop Time Status Admin Atorvastatin Calcium 80 MG 1700 06/01 1915 AC 06/02 PO 1755 Cholecalciferol 2,000 IU DAILY 06/02 1137 AC 06/02 PO 1337 Cyanocobalamin 1,000 MCG DAILY 06/02 1138 AC 06/02 PO 1337 Dextrose/Sodium 1,000 ML Q20H 06/01 1900 AC 06/02 Chloride IV 1215 Finasteride 5 MG DAILY 06/02 1000 AC PO Heparin Sodium 5,000 UNIT Q8 06/01 2200 AC 06/02 (Porcine) SC 1337 Insulin Aspart 0 TIDAC 06/02 1200 AC SC Insulin Detemir 10 UNITS BID 06/02 1000 AC SC Insulin Human Regular 2 UNITS .STK-MED ONE 06/02 0608 DC IV 06/02 0609 Insulin Human Regular 2 UNITS .STK-MED ONE 06/02 0136 DC IV 06/02 0137 Insulin Human Regular 0 Q6 06/01 2359 DC 06/02 SC 0613 Meropenem 1 GM ONCE ONE 06/01 1930 DC 06/01 IV 06/01 1931 2118 Metoprolol Tartrate 100 MG BID 06/01 2200 AC 06/02 PO 1225 Paroxetine HCl 10 MG DAILY 06/02 1138 AC 06/02 PO 1337 Tamsulosin HCl 0.4 MG BID 06/01 2200 AC 06/01 PO 2118 Review of Systems Review of Systems: Unable to obtain review of systems as patient is nonverbal Past History Travel History Traveled to [place] past 21 day No Medical History Neurological: NEUROPATHY EENT: NONE Cardiovascular: AFIB, CHF, hypertension, hyperlipidemia, PVD (right femoral stent), CAD status post CABG paroxisymal A. 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 Home Who Do You Live With? spouse Services at Home: Nursing Primary Language: Bengali Smoking Status: Former Smoker ETOH Use: denies use Illicit Drug Use: denies illicit drug use Functional Ability ADLs Independent: dressing, eating, toileting, bathing. Ambulation: independent IADLs Needs Assist: shopping, housework, finances, food prep, telephone, transportation, medication admin. Exam & Diagnostic Data Vital Signs and I&O Vital Signs Date Time Temp Pulse Resp B/P B/P Pulse O2 O2 Flow FiO2 Mean Ox Delivery Rate 06/02 1600 Room Air 06/02 1522 98.7 70 16 130/70 94 06/02 1225 73 187/80 06/02 1015 187/80 06/02 0844 64 120/70 06/02 0844 64 120/70 06/02 0640 98.8 64 16 120/70 94 Room Air 06/01 2204 100.0 71 20 178/72 96 Room Air 06/01 2117 61 188/76 06/01 2115 61 188/76 Intake & Output 06/02 1600 06/02 0800 06/02 0000 Intake Total 990 240 1711 Output Total 201 Balance 571 667 0157 Intake, IV 930 032 2689 Intake, Oral 120 Intake, Tube Feeding Intake, Tube Irrigant Output, Stool 1 Output, Urine 200 Patient 160 lb Weight Physical Exam: Awake Follow-through simple commands Nonverbal Heart sounds normal No carotid bruits Distal pulses intact Pupils equal and reactive Extraocular movements full No obvious facial weakness Fundi cannot be assessed Palate and tongue appear midline Hearing cannot adequately be assessed Facial sensation appears intact to noxious stimuli Motor examination shows diffuse rigidity, more right sided than left Movements left upper extremity relatively well; little movement right upper extremity Withdraws bilateral lower extremity to noxious stimuli Response to noxious stimuli bilaterally Deep tendon reflexes hypoactive throughout Coordinative functions cannot be assessed Patient does not walk Last 48 Hours of Lab Results: Laboratory Tests 06/02 06/02 1708 1320 Hematology CBC w Diff NO MAN DIFF REQ WBC (4.8 - 10.8 /CUMM) 8.7 RBC (4.70 - 6.10 /CUMM) 2.89 L Hgb (14.0 - 18.0 G/DL) 7.4 *L Hct (42 - 52 %) 23.0 L MCV (80.0 - 94.0 FL) 79.7 L MCH (27.0 - 31.0 PG) 25.5 L MCHC (33.0 - 37.0 G/DL) 32.0 L RDW (11.5 - 14.5 %) 18.3 H Plt Count (130 - 400 /CUMM) 367 MPV (7.4 - 10.4 FL) 6.2 L Gran % (42.2 - 75.2 %) 79.5 H Lymphocytes % (20.5 - 51.1 %) 9.6 L Monocytes % (1.7 - 9.3 %) 10.3 H Eosinophils % (0 - 5 %) 0.4 Basophils % (0.0 - 2.0 %) 0.2 Absolute Granulocytes (1.4 - 6.5 /CUMM) 6.9 H Absolute Lymphocytes (1.2 - 3.4 /CUMM) 0.8 L Absolute Monocytes (0.10 - 0.60 /CUMM) 0.9 H Absolute Eosinophils (0.0 - 0.7 /CUMM) 0 Absolute Basophils (0.0 - 0.2 /CUMM) 0 ESR Westergren (0 - 10 MM) > 130 H 06/02 06/01 06/01 0709 1628 1405 Chemistry Sodium (137 - 145 mmol/L) 139 Cancelled Potassium (3.5 - 5.1 mmol/L) 4.2 Cancelled Chloride (98 - 107 mmol/L) 105 Cancelled Carbon Dioxide (22 - 30 mmol/L) 22 Cancelled Anion Gap (5 - 16) 12 Cancelled BUN (9 - 20 mg/dL) 43 H Cancelled Creatinine (0.7 - 1.2 mg/dL) 1.6 H Cancelled Estimated GFR (>60 ml/min) 42 L BUN/Creatinine Ratio (7 - 25 %) 26.9 H Cancelled Lactic Acid Cancelled Triglycerides (<150 mg/dL) 77 Cholesterol (< 200 MG/DL) 101 LDL Cholesterol, Calc (65 - 129 mg/dL) 50 L HDL Cholesterol (40 - 60 mg/dL) 36 L Cholesterol/HDL Ratio (0.00 - 4.88 %) 3 Hematology CBC w Diff NO MAN DIFF REQ Cancelled WBC (4.8 - 10.8 /CUMM) 9.2 Cancelled RBC (4.70 - 6.10 /CUMM) 2.89 L Cancelled Hgb (14.0 - 18.0 G/DL) 7.3 *L Cancelled Hct (42 - 52 %) 23.0 L Cancelled MCV (80.0 - 94.0 FL) 79.8 L Cancelled MCH (27.0 - 31.0 PG) 25.3 L Cancelled MCHC (33.0 - 37.0 G/DL) 31.7 L Cancelled RDW (11.5 - 14.5 %) 18.2 H Cancelled Plt Count (130 - 400 /CUMM) 409 H Cancelled MPV (7.4 - 10.4 FL) 6.2 L Cancelled Gran % (42.2 - 75.2 %) 79.9 H Lymphocytes % (20.5 - 51.1 %) 10.1 L Monocytes % (1.7 - 9.3 %) 9.3 Eosinophils % (0 - 5 %) 0.3 Basophils % (0.0 - 2.0 %) 0.4 Absolute Granulocytes (1.4 - 6.5 /CUMM) 7.4 H Absolute Lymphocytes (1.2 - 3.4 /CUMM) 0.9 L Absolute Monocytes (0.10 - 0.60 /CUMM) 0.9 H Absolute Eosinophils (0.0 - 0.7 /CUMM) 0 Absolute Basophils (0.0 - 0.2 /CUMM) 0 06/01 06/01 1310 1200 Chemistry Lactic Acid (0.7 - 2.1 mmol/L) 0.7 Urines Urinalysis LIGHT H Urine Color (YEL,AMB,STR) YEL Urine Clarity (CLEAR) CLDY H Urine pH (5.0 - 8.0) 6.0 Ur Specific [place] (1.001 - 1.035) 1.020 Urine Protein (NEG,<30 MG/DL) 100 H Urine Ketones (NEG) NEG Urine Nitrite (NEG) POS H Urine Bilirubin (NEG) NEG Urine Urobilinogen (0.1 - 1.0 EU/dl) 0.2 Ur Leukocyte Esterase (NEG) MOD H Ur Microscopic SEDIMENT EXAMINED Urine RBC (0 - 5 /HPF) 3-5 Urine WBC (0 - 2 /HPF) PACKD H Ur Epithelial Cells (NONE,FEW) RARE Urine Bacteria (NEG/NONE) MANY H Urine Hemoglobin (NEG) MOD H Urine Glucose (N MG/DL) NEG 06/01 1108 Chemistry Sodium (137 - 145 mmol/L) 139 Potassium (3.5 - 5.1 mmol/L) 4.6 Chloride (98 - 107 mmol/L) 102 Carbon Dioxide (22 - 30 mmol/L) 24 Anion Gap (5 - 16) 13 BUN (9 - 20 mg/dL) 46 H Creatinine (0.7 - 1.2 mg/dL) 1.7 H Estimated GFR (>60 ml/min) 40 L BUN/Creatinine Ratio (7 - 25 %) 27.1 H Glucose (65 - 99 mg/dL) 204 H Calcium (8.4 - 10.2 mg/dL) 9.6 Total Bilirubin (0.2 - 1.3 mg/dL) 0.3 AST (17 - 59 U/L) 8 L ALT (21 - 72 U/L) 14 L Alkaline Phosphatase (< 127 U/L) 58 Troponin I (<0.11 ng/ml) < 0.01 Total Protein (6.3 - 8.2 g/dL) 6.9 Albumin (3.5 - 5.0 g/dL) 3.3 L Globulin (1.9 - 4.2 gm/dL) 3.6 Albumin/Globulin Ratio (1.1 - 2.2 %) 0.9 L Coagulation PT (9.4 - 12.5 SEC) 13.4 H INR (0.90 - 1.17) 1.28 H APTT (25 - 37 SEC) 28 Hematology CBC w Diff NO MAN DIFF REQ WBC (4.8 - 10.8 /CUMM) 9.0 RBC (4.70 - 6.10 /CUMM) 3.17 L Hgb (14.0 - 18.0 G/DL) 8.0 L Hct (42 - 52 %) 25.2 L MCV (80.0 - 94.0 FL) 79.4 L MCH (27.0 - 31.0 PG) 25.2 L MCHC (33.0 - 37.0 G/DL) 31.8 L RDW (11.5 - 14.5 %) 17.2 H Plt Count (130 - 400 /CUMM) 405 H MPV (7.4 - 10.4 FL) 5.8 L Gran % (42.2 - 75.2 %) 81.1 H Lymphocytes % (20.5 - 51.1 %) 9.3 L Monocytes % (1.7 - 9.3 %) 8.6 Eosinophils % (0 - 5 %) 0.8 Basophils % (0.0 - 2.0 %) 0.2 Absolute Granulocytes (1.4 - 6.5 /CUMM) 7.3 H Absolute Lymphocytes (1.2 - 3.4 /CUMM) 0.8 L Absolute Monocytes (0.10 - 0.60 /CUMM) 0.8 H Absolute Eosinophils (0.0 - 0.7 /CUMM) 0.1 Absolute Basophils (0.0 - 0.2 /CUMM) 0 Imaging/Other Studies: MRI brain IMPRESSION: 1. There are no acute bleeds or infarcts. No masses are demonstrated. 2. There are scattered areas of subacute ischemia as well as evidence of chronic microvascular ischemic disease and diffuse volume loss. MRA brain IMPRESSION: While [id number] noncontrast MRA does not give accurate information in regards to true luminal caliber, by NASCET criteria there are less than 50% stenoses involving the proximal internal carotid arteries bilaterally. The results are discordant on the right side when compared to the prior ultrasound for which a CTA of the neck could be obtained if indicated. Assessment/Plan Assessment: Progressive neurologic decline with new onset of right-sided weakness and inability to speak Patient likely will also have inability to swallow Discussion should follow with his treating oncologist what his overall prognosis is thought to be If overall prognosis is thought to be reasonable would then suggest CSF analysis to look for possible meningeal disease Connelly culture for possible underlying sepsis also recommended Patient has extremely high sedimentation rate which may reflect underlying infection, or cancer, or possible vasculitis If no infection documented and if cancer is well controlled a trial of high-dose steroids may be considered Recommendations: see above Consult Acknowledgment - Thank you for your consult request.
--- NOTE | 2017-06-02 19:37 | ECHOCARDIOGRAM REPORT ---
MONICA BAILEY Age: 76 : 1940 Gender: M Exam Date: 06/02/2017 09:13 Exam Location: [address] [place] Ht (in): 69 Wt (lb): 160 BSA: 1.88 BP: 120 / 70 Ordering Physician: Lisa Riley MD Referring Physician: Lisa Riley MD Technologist: Matthew Herrmann [facility] Room Number: [id number] Indications: STROKE Rhythm: Atrial flutter Technical Quality: FINDINGS Left Ventricle Normal global left ventricular size, wall thickness, systolic function with no obvious regional wall motion abnormalities. Normal left ventricular ejection fraction estimated at 55-60%. Right Ventricle Normal right ventricular size and function. Right Atrium Normal right atrial size. Left Atrium Mild left atrial dilatation. Mitral Valve Mild mitral annular calcification. Trace mitral regurgitation. Aortic Valve Aortic sclerosis. Tricuspid Valve Tricuspid valve is normal in structure and function. Trace tricuspid regurgitation. Pulmonic Valve Pulmonic valve not well visualized, grossly normal. Pericardium No pericardial effusion. Great Vessels Normal size aortic root. CONCLUSIONS Normal left ventricular systolic function. Mild left atrial enlargement. No significant valvular abnormalities noted.. Derek Chaparro M.D. (Electronically Signed) Final Date: 02 June 2017 19:36 MEASUREMENTS (Male / Female) Normal Values 2D ECHO LV Diastolic Diameter PLAX 5.1 cm 4.2 - 5.9 / 3.9 - 5.3 cm LV Systolic Diameter PLAX 3.7 cm 2.1 - 4.0 cm LV Fractional Shortening PLAX 27.5 % 25 - 46 % LV Ejection Fraction 2D Teich 53.1 % IVS Diastolic Thickness 1.0 cm LVPW Diastolic Thickness 1.0 cm LV Relative Wall Thickness 0.4 RV Internal Dim ED PLAX 3.0 cm 1.9 - 3.8 cm LVOT Diameter 1.8 cm Aortic Root Diameter 2.2 cm LA Systolic Diameter LX 4.2 cm 3.0 - 4.0 / 2.7 - 3.8 cm LA Volume 50.0 cm 18 - 58 / 22 - 52 cm Ascending Aorta Diameter 3.0 cm DOPPLER AV Peak Velocity 136.0 cm/s AV Peak Gradient 7.4 mmHg AV Mean Velocity 91.5 cm/s AV Mean Gradient 4.0 mmHg AV Velocity Time Integral 26.4 cm LVOT Peak Velocity 120.0 cm/s LVOT Peak Gradient 5.8 mmHg LVOT Mean Velocity 66.7 cm/s LVOT Mean Gradient 2.0 mmHg LVOT Velocity Time Integral 27.0 cm LVOT Stroke Volume 68.7 cm AV Area Cont Eq vti 2.6 cm AV Area Cont Eq pk 2.2 cm MV Peak Velocity 119.0 cm/s MV Peak Gradient 5.7 mmHg MV Mean Velocity 77.2 cm/s MV Mean Gradient 3.0 mmHg Mitral E Point Velocity 98.2 cm/s Mitral A Point Velocity 101.0 cm/s Mitral E to A Ratio 1.0 MV PHT Velocity 121.0 cm/s MV Deceleration [place] 409.0 cm/s MV Pressure Half Time 88.8 ms MV Area PHT 2.5 cm MV Deceleration Time 190.0 ms PV Peak Velocity 125.0 cm/s PV Peak Gradient 6.3 mmHg PV Mean Velocity 84.2 cm/s PV Mean Gradient 3.0 mmHg PV Velocity Time Integral 27.8 cm LV E' Lateral Velocity 8.8 cm/s Mitral E to LV E' Lateral Ratio 11.2 LV E' Septal Velocity 6.5 cm/s Mitral E to LV E' Septal Ratio 15.0
--- NOTE | 2017-06-02 19:52 | PN- Neurology ---
Subjective Subjective: somnolent\briefly arousable Review of Systems: minimal speech awakens mid day Objective Vital Signs and I&Os Vital Signs Date Time Temp Pulse Resp B/P B/P Pulse O2 O2 Flow FiO2 Mean Ox Delivery Rate 06/02 1600 Room Air 06/02 1522 98.7 70 16 130/70 94 06/02 1225 73 187/80 06/02 1015 187/80 06/02 0844 64 120/70 06/02 0844 64 120/70 06/02 0640 98.8 64 16 120/70 94 Room Air 06/01 2204 100.0 71 20 178/72 96 Room Air 06/01 2118 61 188/76 06/01 2116 61 188/76 Intake & Output 06/02 1600 06/02 0800 06/02 0000 06/01 1600 06/01 0800 06/01 0000 Intake Total 553 595 8383 Output Total 201 300 Balance 126 726 1625 -300 Intake, IV 263 331 7392 Intake, Oral 120 Intake, Tube Feeding Intake, Tube Irrigant Output, Stool 1 Output, Urine 200 300 Patient 160 lb 200 lb Weight Weight Estimated Measurement Method bnriefly arousable mutters moves upper extremities equally Current Medications: Current Medications Sig/Audrey Start time Last Medication Dose Route Stop Time Status Admin Atorvastatin Calcium 80 MG 1700 06/01 1915 AC 06/02 PO 1755 Cholecalciferol 2,000 IU DAILY 06/02 1137 AC 06/02 PO 1337 Cyanocobalamin 1,000 MCG DAILY 06/02 1138 AC 06/02 PO 1337 Dextrose/Sodium 1,000 ML Q20H 06/01 1900 AC 06/02 Chloride IV 1215 Finasteride 5 MG DAILY 06/02 1000 AC PO Heparin Sodium 5,000 UNIT Q8 06/01 2200 AC 06/02 (Porcine) SC 1337 Insulin Aspart 0 TIDAC 06/02 1200 AC SC Insulin Detemir 10 UNITS BID 06/02 1000 AC SC Insulin Human Regular 2 UNITS .STK-MED ONE 06/02 0608 DC IV 06/02 0609 Insulin Human Regular 2 UNITS .STK-MED ONE 06/02 0136 DC IV 06/02 0137 Insulin Human Regular 0 Q6 06/01 2359 DC 06/02 SC 0613 Metoprolol Tartrate 100 MG BID 06/01 2200 AC 06/02 PO 1225 Paroxetine HCl 10 MG DAILY 06/02 1138 AC 06/02 PO 1337 Tamsulosin HCl 0.4 MG BID 06/01 2199 AC 06/01 PO 2118 Results Last 24 Hours of Lab Results: Laboratory Tests 06/02 06/02 1708 1320 Hematology CBC w Diff NO MAN DIFF REQ WBC (4.8 - 10.8 /CUMM) 8.7 RBC (4.70 - 6.10 /CUMM) 2.89 L Hgb (14.0 - 18.0 G/DL) 7.4 *L Hct (42 - 52 %) 23.0 L MCV (80.0 - 94.0 FL) 79.7 L MCH (27.0 - 31.0 PG) 25.5 L MCHC (33.0 - 37.0 G/DL) 32.0 L RDW (11.5 - 14.5 %) 18.3 H Plt Count (130 - 400 /CUMM) 367 MPV (7.4 - 10.4 FL) 6.2 L Gran % (42.2 - 75.2 %) 79.5 H Lymphocytes % (20.5 - 51.1 %) 9.6 L Monocytes % (1.7 - 9.3 %) 10.3 H Eosinophils % (0 - 5 %) 0.4 Basophils % (0.0 - 2.0 %) 0.2 Absolute Granulocytes (1.4 - 6.5 /CUMM) 6.9 H Absolute Lymphocytes (1.2 - 3.4 /CUMM) 0.8 L Absolute Monocytes (0.10 - 0.60 /CUMM) 0.9 H Absolute Eosinophils (0.0 - 0.7 /CUMM) 0 Absolute Basophils (0.0 - 0.2 /CUMM) 0 ESR Westergren (0 - 10 MM) > 130 H 06/02 0709 Chemistry Sodium (137 - 145 mmol/L) 139 Potassium (3.5 - 5.1 mmol/L) 4.2 Chloride (98 - 107 mmol/L) 105 Carbon Dioxide (22 - 30 mmol/L) 22 Anion Gap (5 - 16) 12 BUN (9 - 20 mg/dL) 43 H Creatinine (0.7 - 1.2 mg/dL) 1.6 H Estimated GFR (>60 ml/min) 42 L BUN/Creatinine Ratio (7 - 25 %) 26.9 H Triglycerides (<150 mg/dL) 77 Cholesterol (< 200 MG/DL) 101 LDL Cholesterol, Calc (65 - 129 mg/dL) 50 L HDL Cholesterol (40 - 60 mg/dL) 36 L Cholesterol/HDL Ratio (0.00 - 4.88 %) 3 Hematology CBC w Diff NO MAN DIFF REQ WBC (4.8 - 10.8 /CUMM) 9.2 RBC (4.70 - 6.10 /CUMM) 2.89 L Hgb (14.0 - 18.0 G/DL) 7.3 *L Hct (42 - 52 %) 23.0 L MCV (80.0 - 94.0 FL) 79.8 L MCH (27.0 - 31.0 PG) 25.3 L MCHC (33.0 - 37.0 G/DL) 31.7 L RDW (11.5 - 14.5 %) 18.2 H Plt Count (130 - 400 /CUMM) 409 H MPV (7.4 - 10.4 FL) 6.2 L Gran % (42.2 - 75.2 %) 79.9 H Lymphocytes % (20.5 - 51.1 %) 10.1 L Monocytes % (1.7 - 9.3 %) 9.3 Eosinophils % (0 - 5 %) 0.3 Basophils % (0.0 - 2.0 %) 0.4 Absolute Granulocytes (1.4 - 6.5 /CUMM) 7.4 H Absolute Lymphocytes (1.2 - 3.4 /CUMM) 0.9 L Absolute Monocytes (0.10 - 0.60 /CUMM) 0.9 H Absolute Eosinophils (0.0 - 0.7 /CUMM) 0 Absolute Basophils (0.0 - 0.2 /CUMM) 0 Recent Imaging Studies: MRI Brain MPRESSION: 1. There are no acute bleeds or infarcts. No masses are demonstrated. 2. There are scattered areas of subacute ischemia as well as evidence of chronic microvascular ischemic disease and diffuse volume loss. Assessment/Plan Assessment: progressive mental status change Plan: consider lumbar puncture/csf analysis TSH/cortisol level if not done
[2017-06-02 22:45] VITALS: BP 162/70
[2017-06-03 06:43] VITALS: BP 178/76
--- NOTE | 2017-06-03 07:05 | PN- Housestaff ---
Lisa Riley MD 06/03/17 0705: Subjective Follow-up For: Altered mental status, possible urinary tract infection, rectal cancer Complaints: no complaints Tele-Events Since Last Visit: Normal sinus rhythm Subjective: Patient was seen and examined at bedside. Patient is lying in his bed flat in no acute distress. He is awake, follows some of the commands, oriented 1, lethargic. He denies chest pain, chest pressure, fever, chills. Review of Systems Constitutional: Reports: no symptoms. Cardiovascular: Reports: no symptoms. Respiratory: Reports: no symptoms. Gastrointestinal: Reports: no symptoms. Genitourinary: Reports: no symptoms. Musculoskeletal: Reports: no symptoms. Objective Last 24 Hrs of Vital Signs/I&O Vital Signs Date Time Temp Pulse Resp B/P B/P Pulse O2 O2 Flow FiO2 Mean Ox Delivery Rate 06/03 0643 98.1 65 18 178/76 95 Room Air 06/02 2245 98.5 64 18 162/70 96 Room Air 06/02 203 69 196/84 06/02 2032 69 196/84 06/02 1600 Room Air 06/02 1522 98.7 70 16 130/70 94 06/02 1225 73 187/80 06/02 1015 187/80 Intake & Output 06/03 1600 06/03 0800 06/03 0000 Intake Total 550 300 Output Total 475 Balance 550 -175 Intake, IV 550 180 Intake, Oral 120 Output, Urine 475 Physical Exam General Appearance: Alert, Cooperative, No Acute Distress, oriented 1 Cardiovascular: Regular Rate, Normal S1, Normal S2, No Murmurs Lungs: Clear to Auscultation Abdomen: Normal Bowel Sounds, Soft, No Tenderness, No Hepatospenomegaly Neurological: strength one by one * 4 limbs Extremities: No Edema Current Medications: Current Medications Sig/Audrey Start time Last Medication Dose Route Stop Time Status Admin Amlodipine Besylate 5 MG DAILY 06/03 1000 AC PO Atorvastatin Calcium 80 MG 1700 06/01 1915 AC 06/02 PO 1755 Cholecalciferol 2,000 IU DAILY 06/02 1137 AC 06/02 PO 1337 Cyanocobalamin 1,000 MCG DAILY 06/02 1138 AC 06/02 PO 1337 Dextrose/Sodium 1,000 ML Q20H 06/01 1900 AC 06/02 Chloride IV 1215 Finasteride 5 MG DAILY 06/02 1000 AC PO Heparin Sodium 5,000 UNIT Q8 06/01 2199 AC 06/03 (Porcine) IN 0559 Insulin Aspart 0 TIDAC 06/02 1200 AC SC Insulin Detemir 10 UNITS BID 06/02 1000 AC 06/02 IN 2056 Insulin Human Regular 0 Q6 06/01 2359 DC 06/02 IN 0613 Metoprolol Tartrate 100 MG BID 06/01 2199 AC 06/02 PO 2031 Paroxetine HCl 10 MG DAILY 06/02 1138 AC 06/02 PO 133 Tamsulosin HCl 0.4 MG BID 06/01 2199 AC 06/02 PO 2031 Last 24 Hrs of Lab/Pilo Results Last 24 Hrs of Labs/Mics: Laboratory Tests 06/03/17 0645: Anion Gap 13, Estimated GFR 37 L, BUN/Creatinine Ratio 22.2, CBC w Diff NO MAN DIFF REQ, RBC 2.97 L, MCV 80.7, MCH 26.0 L, MCHC 32.2 L, RDW 17.3 H, MPV 6.0 L, Gran % 69.1, Lymphocytes % 15.8 L, Monocytes % 13.6 H, Eosinophils % 1.1, Basophils % 0.4, Absolute Granulocytes 5.1, Absolute Lymphocytes 1.2, Absolute Monocytes 1.0 H, Absolute Eosinophils 0.1, Absolute Basophils 0 06/02/17 1708: ESR Westergren > 130 H 06/02/17 1320: CBC w Diff NO MAN DIFF REQ, RBC 2.89 L, MCV 79.7 L, MCH 25.5 L, MCHC 32.0 L, RDW 18.3 H, MPV 6.2 L, Gran % 79.5 H, Lymphocytes % 9.6 L, Monocytes % 10.3 H, Eosinophils % 0.4, Basophils % 0.2, Absolute Granulocytes 6.9 H, Absolute Lymphocytes 0.8 L, Absolute Monocytes 0.9 H, Absolute Eosinophils 0, Absolute Basophils 0 Microbiology 06/02 1830 URINE ROUT: Urine Culture - RECD 06/02 1155 BLOOD: Blood Culture - RECD 06/02 115 BLOOD: Blood Culture - RES Assessment/Plan Assessment: 76-year-old gentleman with past medical history of hypertension, hyperlipidemia, coronary artery disease status post CABG, paroxysmal A. fib, rectal cancer status post transanal excision and cholectomy, 3 chemotherapy [last one in March 2017 at [facility]], BPH, diabetes, right leg DVT was on xeralto [discontinued in March 2017], paroxysmal A. fib, chronic sacral ulcer , anemia of chronic disease, patient is on [place] catheter, depression, nephrolithiasis brought in by ambulance with complaints of right-sided weakness and facial droop since today morning. Assessment and plan 1. Rule out stroke 2. Urinary tract infection 3. Diabetes/hypertension/hyperlipidemia 1. Weakness/confusion can be secondary due to urinary tract infection/stroke. From the history obtained his weakness [which is present since March 2017] and confusion since 1 day can be secondary due to stroke. However his CAT scan is negative. MRI shows subacute ischemia with no acute infarction [his cardiac cath, right leg stent, right port All are MRI compatible] . His carotid ultrasound showed a 80-99% stenosis in the right side, 50-79% in the left side, and he was seen by vascular surgery who suggested to do a MR a of the neck which showed less than 50% stenosis bilateral. He also suggested that he is a poor candidate for surgery. We will follow up with urine culture, blood culture. Today urine culture grows gram-negative rods 25,000 colony. Given the patient is afebrile since admission with no leukocytosis we will not treat him now. Patient is more alert and awake 3. Vital stable. Physical therapy-seen by physical therapy who suggested short-term rehabilitation. 2. Diabetes Accu-Chek very 6, we will continue his Levemir at a reduced dose of 10 units twice a day, since the patient is nothing by mouth. 3. Sacral ulcer 1 *1* 1 cm clean sacral ulcer present at the level of coccyx. No erythema, swelling or abnormal discharge. We will do offloading and duodenum dressing every 2-3 days. He was seen by Dr. Nascimento is today who suggested to continue the current management and to do a ESR. His ESR in October 2016 was 80 and the one repeated yesterday was 130. There is low suspicion for osteomyelitis. We will him H is lumbar spine if needed. 4. Anemia of chronic disease Patient was given 1 unit of blood transfusion yesterday following a hemoglobin of 7.3. Posttransfusion hemoglobin is 7.7. We will repeat CBC tomorrow morning. 4. We will continue rest of his medications and a steroid 5 mg daily, atorvastatin 80 mg, tamsulosin 0.4 mg twice a day, metoprolol 100 mg twice a day. Patient has a low hemoglobin 8 and BUNs 41, creatinine 1.7. We will continue monitoring his BEP and CBC. Patient right Vyqy-P-Rbty-appears normal with no redness/swelling. No evidence of any infection. According to the and she said medication, blood draw can be done through the cath. Abdomen-patient has colostomy tube. No redness or swelling. Hemeoccult negative. -Full code DVT prophylaxis heparin Diet-carbohydrate diet. Problem List: 1. Sacral ulcer 2. Altered mental status Pain Ratin Pain Location: NONE Pain Goal: Remain pain free Pain Plan: TYLENOL Tomorrow's Labs & Rationales: CBC,BEP Nicole BRONSON,Osmel 06/03/17 1149: Attending MD Review Statement Attending Statement Attending MD Statement: examined this patient, discuss w/resident/PA/DECOMMISSIONING WELL SITE MANAGER, agreed w/resident/PA/DECOMMISSIONING WELL SITE MANAGER, reviewed EMR data (avail), discussed with nursing, discussed with case mgmt, amended to note Attending Assessment/Plan: Patient seen and examined. Today he is more awake although still lethargic. He is oriented to time place and person. He He is able to answer simple questions. He denies pain. He is able to participate in physical examination although very weakly. He is able to move all extremities although with diminished power globally. He has remained afebrile over the past 24 hours. He is hemodynamically stable. He did not have significant improvement of his hemoglobin following transfusion overnight. Urine culture is positive however only 25,000 colony-forming units. He has remained afebrile with no leukocytosis. Problems: 1: Right-sided weakness; raising concern for stroke. However MRI shows no evidence of an acute stroke 2. Altered mental status; probably due to metabolic encephalopathy 3. 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 4. Metastatic rectal cancer; unable to undergo chemotherapy in recent time due to repeated hospitalizations. 5. paroxysmal atrial fibrilation. 6. History of deep vein thrombosis of the right lower extremity. 7. Acute on chronic anemia. Plan: -MRI shows no evidence of an acute stroke. He does show evidence of chronic microvascular disease with evidence of subacute ischemia. He also has lacunar infarcts in the left basal ganglia. -Mentation has improved today. He is able to answer simple questioning. He follows commands by moving all extremities although very weakly. There is no focal deficit on examination. He answers questions appropriately. Fluctuating mentation may be due to the chronic microvascular changes and subacute ischemia noted on the MRI. -Given his history of paroxysmal atrial fibrillation he should be on anticoagulation but this was discontinued, in the past. We attempted to follow- up with his primary care provider/oncologist to determine why this was done. However due to his acute on chronic anemia we will not be able to resume anticoagulation therapy. - his hemoglobin improve from 7.4-7.7 only after a units of transfusion yesterday. Repeat CBCs today to determine he is actively bleeding. We will transfuse to keep hemoglobin greater than 8 given his history of coronary artery disease. -Follow-up with patient's oncologist to determine his prognosis and long-term goals of care. is of the impression that he will be continuing chemotherapy if he can improve and stay out of the hospital. -Recommend evaluation by the physical therapy service. Urine culture is positive but only when 5000 colony-forming units. -Hold off antibiotic therapy for now as long as patient remains afebrile with no leukocytosis.
[2017-06-03 07:42] LABS: ABSOLUTE BASOPHIL COUNT 0 /CUMM (0.0-0.2); ABSOLUTE EOSINOPHIL COUNT 0.1 /CUMM (0.0-0.7); ABSOLUTE GRANULOCYTE CT 5.1 /CUMM (1.4-6.5); ABSOLUTE LYMPH COUNT 1.2 /CUMM (1.2-3.4); BASOPHIL % 0.4 % (0.0-2.0); EOSINOPHIL % 1.1 % (0-5); GRANULOCYTE % 69.1 % (42.2-75.2); MEAN CORPUSCULAR HGB CONC 32.2 G/DL (33.0-37.0); MEAN CORPUSCULAR VOLUME 80.7 FL (80.0-94.0); PLATELET COUNT 394 /CUMM (130-400); RBC DISTRIBUTION WIDTH 17.3 % (11.5-14.5); RED BLOOD CELL CT 2.97 /CUMM (4.70-6.10); WHITE BLOOD CELL COUNT 7.4 /CUMM (4.8-10.8)
--- NOTE | 2017-06-03 09:54 | PN- Vascular Surgery ---
Surgical Brief Attending Note Brief Attending Note: Neck MRA did not show any significant ICA stenosis bilaterally. There is no vascular surgery intervention necessary at this time. Continue with medical management. Thank you
[2017-06-03 13:14] VITALS: BP 154/60
[2017-06-03 14:53] VITALS: BP 148/70
[2017-06-03 21:00] VITALS: BP 162/80
[2017-06-04] VITALS (8 sets, daily range): BP systolic 128–208; BP diastolic 56–88
--- NOTE | 2017-06-04 08:08 | PN- Housestaff ---
Lisa Riley MD 06/04/17 0807: Subjective Follow-up For: altered mental status Subjective: Patient was seen and examined at bedside. No overnight events. He is more alert, oriented 2. He is able to follow commands. He denies headache, chest pain, chest pressure, palpitation, shortness of breath. Review of Systems Constitutional: Reports: no symptoms. Cardiovascular: Reports: no symptoms. Respiratory: Reports: no symptoms. Gastrointestinal: Reports: no symptoms. Genitourinary: Reports: no symptoms. Musculoskeletal: Reports: no symptoms. Objective Last 24 Hrs of Vital Signs/I&O Vital Signs Date Time Temp Pulse Resp B/P B/P Pulse O2 O2 Flow FiO2 Mean Ox Delivery Rate 06/04 0547 98.2 71 18 208/88 06/04 0218 98.5 66 18 06/04 0104 06/03 2318 66 206/80 06/03 2317 66 206/80 06/03 2100 98.5 65 18 162/80 96 Room Air 06/03 1634 Room Air 2.0L 06/03 1600 Room Air 06/03 1453 98.4 61 20 148/70 96 Room Air 06/03 1314 154/60 06/03 1028 97.3 06/03 1020 62 180/70 06/03 1019 62 180/70 Intake & Output 06/04 1600 06/04 0800 06/04 0000 Intake Total 400 950 Output Total 550 550 Balance -150 400 Intake, Blood 350 Product Intake, IV 400 150 Intake, Oral 0 450 Number 1 0 Bowel Movements Output, Urine 550 550 Physical Exam General Appearance: Alert, Cooperative, No Acute Distress, ORIENTED * 2 Cardiovascular: Regular Rate, Normal S1, Normal S2, No Murmurs Lungs: Clear to Auscultation Abdomen: Normal Bowel Sounds, Soft, No Tenderness, No Hepatospenomegaly Neurological: Normal Speech, Strength at 5/5 X4 Ext, Normal Tone, Sensation Intact Extremities: No Edema, Normal Pulses Current Medications: Current Medications Sig/Audrey Start time Last Medication Dose Route Stop Time Status Admin Acetaminophen 650 MG Q4P PRN 06/03 1345 AC 06/03 PO 1418 Amlodipine Besylate 5 MG DAILY 06/03 1000 AC 06/04 PO 0925 Atorvastatin Calcium 80 MG 1700 06/01 1915 AC 06/03 PO 1642 Cholecalciferol 2,000 IU DAILY 06/02 1137 AC 06/04 PO 0924 Cyanocobalamin 1,000 MCG DAILY 06/02 1138 AC 06/04 PO 0924 Dextrose/Sodium 1,000 ML Q20H 06/01 1900 AC 06/03 Chloride IV 2321 Finasteride 5 MG DAILY 06/02 1000 AC 06/04 PO 0924 Heparin Sodium 5,000 UNIT Q8 06/01 2200 AC 06/04 (Porcine) SC 1406 Hydralazine HCl 5 MG ONCE ONE 06/04 0545 DC 06/04 IV 06/04 0546 0547 Hydralazine HCl 5 MG ONCE ONE 06/04 0530 CAN IV 06/04 0531 Hydralazine HCl 5 MG ONCE ONE 06/04 0215 DC 06/04 IV 06/04 0216 0218 Insulin Aspart 0 TIDAC 06/02 1200 AC 06/04 SC 1226 Insulin Detemir 10 UNITS BID 06/02 1000 AC 06/04 SC 0924 Metoprolol Tartrate 100 MG BID 06/01 220 AC 06/04 PO 0924 Paroxetine HCl 10 MG DAILY 06/02 1138 AC 06/04 PO 0924 Tamsulosin HCl 0.4 MG BID 06/01 2200 AC 06/04 PO 0923 Last 24 Hrs of Lab/Pilo Results Last 24 Hrs of Labs/Mics: Laboratory Tests 06/04/17 0614: Anion Gap 14, Estimated GFR 46 L, BUN/Creatinine Ratio 23.3, CBC w Diff NO MAN DIFF REQ, RBC 3.63 L, MCV 84.4, MCH 27.3, MCHC 32.4 L, RDW 19.2 H, MPV 6.4 L , Gran % 73.8, Lymphocytes % 14.6 L, Monocytes % 9.7 H, Eosinophils % 1.6, Basophils % 0.3, Absolute Granulocytes 6.3, Absolute Lymphocytes 1.2, Absolute Monocytes 0.8 H, Absolute Eosinophils 0.1, Absolute Basophils 0 Assessment/Plan Assessment: 76-year-old gentleman with past medical history of hypertension, hyperlipidemia, coronary artery disease status post CABG, paroxysmal A. fib, rectal cancer status post transanal excision and cholectomy, 3 chemotherapy [last one in March 2017 at [facility]], BPH, diabetes, right leg DVT was on xeralto [discontinued in March 2017], paroxysmal A. fib, chronic sacral ulcer , anemia of chronic disease, patient is on [place] catheter, depression, nephrolithiasis brought in by ambulance with complaints of right-sided weakness and facial droop since today morning. Assessment and plan 1. Rule out stroke 2. Urinary tract infection 3. Diabetes/hypertension/hyperlipidemia 1. Weakness/confusion can be secondary due to urinary tract infection From the history obtained his weakness [which is present since March 2017] and confusion since 1 day can be secondary due to stroke. However his CAT scan is negative. MRI shows subacute ischemia with no acute infarction [his cardiac cath, right leg stent, right port All are MRI compatible] . His carotid ultrasound showed a 80-99% stenosis in the right side, 50-79% in the left side, and he was seen by vascular surgery who suggested to do a MR a of the neck which showed less than 50% stenosis bilateral. He also suggested that he is a poor candidate for surgery. We will follow up with urine culture, blood culture. urine culture grows gram-negative rods 25,000 colony. Given the patient is afebrile since admission with no leukocytosis we will not treat him now. Patient is more alert and awake 2. Vital stable. Physical therapy- suggested STR 2. Diabetes Accu-Chek very 6, we will continue his Levemir at a reduced dose of 10 units twice a day, since the patient is nothing by mouth. 3. Sacral ulcer 1 *1* 1 cm clean sacral ulcer present at the level of coccyx. No erythema, swelling or abnormal discharge. We will do offloading and duodenum dressing every 2-3 days. He was seen by Dr. Nascimento who suggested to continue the current management and to do a ESR. His ESR in October 2016 was 80 and the one repeated yesterday was 130. Plan for MRA spine to rule out any osteomyelitis 4. Anemia of chronic disease Patient was given 1 unit of blood transfusion yesterday following a hemoglobin of 7.7. Posttransfusion hemoglobin is 9.9 . We will repeat CBC tomorrow morning. 4. We will continue rest of his medications and a steroid 5 mg daily, atorvastatin 80 mg, tamsulosin 0.4 mg twice a day, metoprolol 100 mg twice a day. Patient has a low hemoglobin 8 and BUNs 41, creatinine 1.7. We will continue monitoring his BEP and CBC. Patient right Fdmi-L-Ovod-appears normal with no redness/swelling. No evidence of any infection. According to the and she said medication, blood draw can be done through the cath. Abdomen-patient has colostomy tube. No redness or swelling. Hemeoccult negative. -Full code DVT prophylaxis heparin Diet-carbohydrate diet. Problem List: 1. Sacral ulcer 2. Altered mental status Pain Ratin Pain Location: none Pain Goal: Remain pain free Pain Plan: tylenol Tomorrow's Labs & Rationales: cbc,bep Nicole BRONSON,Osmel 06/04/17 1340: Attending MD Review Statement Attending Statement Attending MD Statement: examined this patient, discuss w/resident/PA/TRESTLEMAN, agreed w/resident/PA/TRESTLEMAN, discussed with family, reviewed EMR data (avail), discussed with nursing, discussed with case mgmt, amended to note Attending Assessment/Plan: Patient seen and examined. Resting comfortably and was in any acute distress. No issues overnight reported by nursing staff. He is more alert today. He is moving all extremities spontaneously and to command. He is tolerating his meals. Hemoglobin level has improved following transfusion yesterday. Will monitor through the weekend. If hemoglobin levels remained stable he may be discharged to senior care facility for short-term rehabilitation. MRI has been ordered for today to rule out osteomyelitis of the sacral spine given his elevated ESR.
[2017-06-04 08:44] LABS: ABSOLUTE BASOPHIL COUNT 0 /CUMM (0.0-0.2); ABSOLUTE EOSINOPHIL COUNT 0.1 /CUMM (0.0-0.7); ABSOLUTE GRANULOCYTE CT 6.3 /CUMM (1.4-6.5); ABSOLUTE LYMPH COUNT 1.2 /CUMM (1.2-3.4); ABSOLUTE MONOCYTE COUNT 0.8 /CUMM (0.10-0.60); BASOPHIL % 0.3 % (0.0-2.0); EOSINOPHIL % 1.6 % (0-5); GRANULOCYTE % 73.8 % (42.2-75.2); MEAN CORPUSCULAR HGB 27.3 PG (27.0-31.0); MEAN CORPUSCULAR HGB CONC 32.4 G/DL (33.0-37.0); MEAN CORPUSCULAR VOLUME 84.4 FL (80.0-94.0); MEAN PLATELET VOLUME 6.4 FL (7.4-10.4); PLATELET COUNT 374 /CUMM (130-400); RBC DISTRIBUTION WIDTH 19.2 % (11.5-14.5); RED BLOOD CELL CT 3.63 /CUMM (4.70-6.10); WHITE BLOOD CELL COUNT 8.6 /CUMM (4.8-10.8)
[2017-06-04 09:47] LABS: HEMATOCRIT 30.6 % (42-52)
--- NOTE | 2017-06-04 18:06 | MRI REPORT ---
EXAMINATION: MR LUMBAR SPINE WITHOUT CONTRAST CLINICAL INFORMATION: Osteomyelitis. Stage III ulcer. COMPARISON: CT abdomen and pelvis 11/15/2016. TECHNIQUE: MRI of the lumbar spine without contrast was obtained using routine sequences. FINDINGS: There is partial lumbarization of the S1 vertebral body. VERTEBRAL BODIES AND PARASPINAL STRUCTURES: No acute fracture. No vertebral body height loss. There is subtle linear T2 signal in the inferior aspect of the right L2 vertebral body. No corresponding endplate erosion. No marrow replacement to diagnose osteomyelitis within the lumbar spine. There are multilevel small osteophytes. There is multilevel disc desiccation with degenerative disc disease worst at L2-L3. No significant spondylolisthesis. The visualized portions of the upper pelvic bones demonstrate no abnormal marrow signal. CONUS MEDULLARIS AND CAUDA EQUINA: Normal, terminating at the level of L1. MISCELLANEOUS: Mild left hydroureter. Multiple right renal cysts. Bilateral perinephric fluid. SPINAL LEVELS: L1-L2: Not included in the axial [id number]. No significant canal stenosis or foraminal narrowing. L2-L3: Broad-based disc bulge and mild facet arthropathy cause mild canal stenosis. Rvhe-fn-berwykyr foraminal narrowing bilaterally. L3-L4: Broad-based disc bulge. Mild facet arthropathy. No significant canal stenosis. Mild bilateral foraminal narrowing. L4-L5: Broad-based disc bulge. Mild facet arthropathy. No canal stenosis. Moderate left and mild right foraminal narrowing. L5-S1: Broad-based right parasagittal/foraminal protrusion. No canal stenosis. At least mild right foraminal narrowing. No significant left foraminal narrowing. IMPRESSION: 1. No MR evidence of lumbar osteomyelitis. 2. Note should be made that the pelvis is not entirely included in the [id number], particularly the area which would be associated with a decubitus ulcer. 3. Gikx-lw-djtgxpxz degenerative changes as described above. 4. Linear T2 signal within the inferior right L2 vertebral body is favored to represent sequela of endplate degenerative change. 5. Mild left hydroureter. Bilateral perinephric fluid. Consider further evaluation with CT abdomen and pelvis, if clinically warranted.
[2017-06-05 06:48] VITALS: BP 154/72
[2017-06-05 08:38] LABS: ABSOLUTE BASOPHIL COUNT 0 /CUMM (0.0-0.2); ABSOLUTE EOSINOPHIL COUNT 0.2 /CUMM (0.0-0.7); ABSOLUTE LYMPH COUNT 1.3 /CUMM (1.2-3.4); ABSOLUTE MONOCYTE COUNT 0.8 /CUMM (0.10-0.60); BASOPHIL % 0.5 % (0.0-2.0); EOSINOPHIL % 3.3 % (0-5); GRANULOCYTE % 67.9 % (42.2-75.2); HEMATOCRIT 30.2 % (42-52); MEAN CORPUSCULAR HGB 26.6 PG (27.0-31.0); MEAN CORPUSCULAR HGB CONC 31.8 G/DL (33.0-37.0); MEAN CORPUSCULAR VOLUME 83.8 FL (80.0-94.0); MEAN PLATELET VOLUME 6.5 FL (7.4-10.4); PLATELET COUNT 351 /CUMM (130-400); RBC DISTRIBUTION WIDTH 19.4 % (11.5-14.5); WHITE BLOOD CELL COUNT 7.4 /CUMM (4.8-10.8)
--- NOTE | 2017-06-05 08:50 | PN- Housestaff ---
Subjective Follow-up For: Altered Mental Status Subjective: No overnighte event. Patient appeared AO x2. able to follow commands without specific complaint. Review of Systems Constitutional: Reports: see HPI. Objective Last 24 Hrs of Vital Signs/I&O Vital Signs Date Time Temp Pulse Resp B/P B/P Pulse O2 O2 Flow FiO2 Mean Ox Delivery Rate 06/05 1247 84 144/78 02/ 1033 82 142/78 02/ 1033 82 142/78 02/ 0648 98.6 73 20 154/72 95 02/04 0227 180/70 02/03 2251 98.6 82 20 196/86 95 Room Air 02/ 2246 82 196/86 / 2231 82 196/86 / 1441 98.1 73 20 144/70 95 Room Air Intake & Output 06/05 1600 06/05 0800 06/05 0000 Intake Total 400 510 Output Total 600 225 Balance -200 285 Intake, IV 400 210 Intake, Oral 300 Output, Urine 600 225 Patient 64.013 kg Weight Weight Bed scale Measurement Method Physical Exam General Appearance: Alert, Cooperative, No Acute Distress, Oriented to person and place Cardiovascular: Regular Rate Lungs: Clear to Auscultation, Normal Air Movement Abdomen: Normal Bowel Sounds, Soft, No Tenderness Extremities: No Edema, Normal Pulses Current Medications: Current Medications Sig/Audrey Start time Last Medication Dose Route Stop Time Status Admin Acetaminophen 650 MG Q4P PRN 06/03 1345 AC 06/03 PO 1418 Amlodipine Besylate 5 MG DAILY 06/03 1000 AC 06/05 PO 1033 Atorvastatin Calcium 80 MG 1700 06/01 1915 AC 06/04 PO 1848 Cholecalciferol 2,000 IU DAILY 06/02 1137 AC 06/05 PO 1033 Cyanocobalamin 1,000 MCG DAILY 06/02 1138 AC 06/05 PO 1246 Dextrose/Sodium 1,000 ML Q20H 06/01 1900 AC 06/04 Chloride IV 2242 Finasteride 5 MG DAILY 06/02 1000 AC 06/05 PO 1246 Heparin Sodium 5,000 UNIT Q8 06/01 2200 AC 06/05 (Porcine) SC 0632 Hydralazine HCl 25 MG ONCE ONE 06/05 0115 DC 06/05 PO 06/05 0116 0227 Insulin Aspart 0 TIDAC 06/02 1200 AC 06/05 SC 0825 Insulin Detemir 10 UNITS BID 06/02 1000 AC 06/05 SC 1033 Metoprolol Tartrate 100 MG BID 06/01 2199 AC 06/05 PO 103 Paroxetine HCl 10 MG DAILY 06/02 1138 AC 06/05 PO 1246 Tamsulosin HCl 0.4 MG BID 06/01 2199 AC 06/05 PO 1247 Last 24 Hrs of Lab/Pilo Results Last 24 Hrs of Labs/Mics: Laboratory Tests 06/05/17 0713: Anion Gap 11, Estimated GFR 50 L, BUN/Creatinine Ratio 25.0, CBC w Diff NO MAN DIFF REQ, RBC 3.60 L, MCV 83.8, MCH 26.6 L, MCHC 31.8 L, RDW 19.4 H, MPV 6.5 L, Gran % 67.9, Lymphocytes % 17.8 L, Monocytes % 10.5 H, Eosinophils % 3.3, Basophils % 0.5, Absolute Granulocytes 5.0, Absolute Lymphocytes 1.3, Absolute Monocytes 0.8 H, Absolute Eosinophils 0.2, Absolute Basophils 0 Assessment/Plan Assessment: 76-year-old gentleman with past medical history of hypertension, hyperlipidemia, coronary artery disease status post CABG, paroxysmal A. fib, rectal cancer status post transanal excision and cholectomy, 3 chemotherapy [last one in March [address] [facility]], BPH, diabetes, right leg DVT was on xeralto [discontinued in March 2017], paroxysmal A. fib, chronic sacral ulcer , anemia of chronic disease, patient is on [place] catheter, depression, nephrolithiasis brought in by ambulance with complaints of right-sided weakness and facial droop since today morning. Assessment and plan 1. Rule out stroke 2. Urinary tract infection 3. Diabetes/hypertension/hyperlipidemia 1. Weakness/confusion can be secondary due to urinary tract infection From the history obtained his weakness [which is present since March 2017] and confusion since 1 day can be secondary due to stroke. However his CAT scan is negative. MRI shows subacute ischemia with no acute infarction [his cardiac cath, right leg stent, right port All are MRI compatible] . His carotid ultrasound showed a 80-99% stenosis in the right side, 50-79% in the left side, and he was seen by vascular surgery who suggested to do a MR a of the neck which showed less than 50% stenosis bilateral. He also suggested that he is a poor candidate for surgery. We will follow up with urine culture, blood culture. urine culture grows gram-negative rods 25,000 colony. Given the patient is afebrile since admission with no leukocytosis we will not treat him now. Patient is more alert and awake 2. Vital stable. Physical therapy- suggested STR 2. Diabetes On novolog SS. 3. Sacral ulcer 1 *1* 1 cm clean sacral ulcer present at the level of coccyx. No erythema, swelling or abnormal discharge. We will do offloading and duodenum dressing every 2-3 days. He was seen by Dr. Nascimento who suggested to continue the current management and to do a ESR. His ESR in October 2016 was 80 -> 130. - Spine MR ruled out osteomyelitis - will repeat ESR in the AM 4. Anemia of chronic disease Patient was given 1 unit of blood transfusion yesterday following a hemoglobin of 7.7. Posttransfusion hemoglobin is 9.9 . - H/H 9.6/30.2 on latest lab. 4. We will continue rest of his medications and a steroid 5 mg daily, atorvastatin 80 mg, tamsulosin 0.4 mg twice a day, metoprolol 100 mg twice a day. Patient has a low hemoglobin 8 and BUNs 41, creatinine 1.7. We will continue monitoring his BEP and CBC. Patient right Gumk-G-Cmsx-appears normal with no redness/swelling. No evidence of any infection. According to the and she said medication, blood draw can be done through the cath. Abdomen-patient has colostomy tube. No redness or swelling. Hemeoccult negative. -Full code DVT prophylaxis heparin Diet-carbohydrate diet. Problem List: 1. Sacral ulcer 2. Altered mental status Pain Ratin Pain Location: NA Pain Goal: Remain pain free Pain Plan: see AP Tomorrow's Labs & Rationales: CBC/BEP
--- NOTE | 2017-06-05 13:32 | ULTRASOUND REPORT ---
EXAMINATION: US TRIPLEX OF LOWER EXTREMITIES, BILATERAL CLINICAL INFORMATION: Bilateral lower extremity swelling. COMPARISON: None. TECHNIQUE: Color-flow triplex imaging with spectral analysis and compression Doppler were performed on the bilateral lower extremities. FINDINGS: There is partially occlusive thrombus noted within the right common femoral vein, proximal greater saphenous vein and proximal femoral vein. There is noncompressible thrombus extending from the left common femoral to popliteal vein segments. Remaining bilateral lower extremity venous segments, including visualized portions in the respective calfs, appear patent. There is no Craig's cyst. IMPRESSION: The examination is positive for deep venous thrombosis bilaterally, as detailed above. This critical result was discussed with Dr. Bobby at 12:30 PM on 06/05/2017, and it was ascertained that the content and urgency of this report was understood at the time of direct communication.
--- NOTE | 2017-06-05 14:20 | PN- Att Addend ---
Attending Addendum Attending Brief Note Patient seen and examined. Much more alert today. Conversant with his son at the bedside. Not in any distress. Denies pain. Denies shortness of breath. Denies chest pain. Denies cough. Denies nausea vomiting. Denies abdominal pain. Denies leg pain. Vital Signs Date Time Temp Pulse Resp B/P B/P Pulse O2 O2 Flow FiO2 Mean Ox Delivery Rate 06/05 1247 84 144/78 02/ 1033 82 142/78 02 1033 82 142/78 02/ 0648 98.6 73 20 154/72 95 02/04 0227 180/70 02/ 2251 98.6 82 20 196/86 95 Room Air 06/04 2246 82 196/86 06/04 2231 82 196/86 02/ 1441 98.1 73 20 144/70 95 Room Air General appearance: Not in acute distress Heart: S1-S2 Lungs: Clear to auscultation bilaterally Abdomen: Soft, nontender with normal bowel sounds Extremities: Bilateral pedal edema Neurologic: Alert and oriented 3. Power is 4/5 bilateral lower extremities. Power is 3 over 5 bilateral lower extremities. states that patient has been deconditioned over the past few months requiring significant assistance with mobilization. Laboratory Tests 06/05/17 0713: Anion Gap 11, Estimated GFR 50 L, BUN/Creatinine Ratio 25.0, CBC w Diff NO MAN DIFF REQ, RBC 3.60 L, MCV 83.8, MCH 26.6 L, MCHC 31.8 L, RDW 19.4 H, MPV 6.5 L, Gran % 67.9, Lymphocytes % 17.8 L, Monocytes % 10.5 H, Eosinophils % 3.3, Basophils % 0.5, Absolute Granulocytes 5.0, Absolute Lymphocytes 1.3, Absolute Monocytes 0.8 H, Absolute Eosinophils 0.2, Absolute Basophils 0 MRI of the lumbar spine done as recommended by the wound/ostomy clinical nurse specialist for his elevated ESR shows no evidence of osteomyelitis. He did chew incidentally mild left hydroureter and bilateral perinephric fluid. Problems: 1. Altered mental status; likely secondary to metabolic encephalopathy. 2. Klebsiella pneumoniae bacteria; query colonization. 3. Bilateral deep vein thrombosis 4. Acute on chronic anemia; negative stool guaiac 5. Metastatic rectal cancer 6. Paroxysmal atrial fibrillation 7. History of right lower extremity deep vein thrombosis. 8. Patient was previously on anticoagulation therapy with Xarelto. This was discontinued in March 2017. 9. History of bilateral hydronephrosis. Plan: -Mental status has improved today. He is more alert and conversant appropriately. He will need to be discharged to prison facility due to his deconditioning. -Patient received a dose of meropenem and ceftriaxone on admission. He has been afebrile. He has no leukocytosis. Cultures likely represents colonization. MRI of the lumbar spine done yesterday to evaluate for osteomyelitis incidentally noted mild left hydroureter and bilateral perinephric fluid. Recommend consultation with the ID service regarding the need for antibiotic therapy. Patient has remained afebrile with no leukocytosis since admission. -Dopplers of the lower extremity were done overnight due to lower extremity swelling. It revealed bilateral lower extremity deep vein thrombosis. It is noted that patient was anticoagulated in the past however this was discontinued in March. The chronicity of the current findings is not known. He is also noted to have acute on chronic anemia for which she received 2 units of blood during this admission. Recommend discussion with the patient's oncologist regarding need for long-term anticoagulant therapy. For now we will anticoagulate patient only full dose of Lovenox until a conversation is held with his oncologist. -Discharge planning to prison facility for short-term rehab. -MRI of the lumbar spine done due to his elevated ESR shows no evidence of lumbar osteomyelitis.
[2017-06-05 15:50] VITALS: BP 152/58
--- NOTE | 2017-06-05 20:48 | Discharge Summary ---
See Addendum Visit Information Visit Dates Admission Date: 06/01/17 Discharge Date: 06/09/17 Hospital Course Course Attending Physician: Osmel Rivera MD Primary Care Physician: Rosalba BRONSON,Irene Blackburn Consulting Request: Consulting Specialty: Cardiology Consulting Physician: Reason for Consult: HTN, anticogulation recommendations Hospital Course: Patient is a 76-year-old gentleman with PMH of HTN, HLD, CAD s/p CABG, paroxysmal A. fib, rectal cancer status post transanal excision and cholectomy, 3 chemotherapy [last one in March 2017 at [facility]], BPH, diabetes, right leg DVT was on xeralto [discontinued in March 2017], chronic sacral ulcer, anemia of chronic disease, chronically on [place] catheter, depression, nephrolithiasis brought in by ambulance with complaints of right- sided weakness and facial droop. At admission Vital signs in the ED showed temperature 97.5, blood pressure was 72/80, heart rate 58, 98% on room air Physical exam lethargic and responds minimally to verbal stimuli, sometimes open his eyes very minimally. Heart rate is regular. Limited lung exam was clear, Port-A-Cath on the right side does not look red or tender. Abdomen was nontender. Neuro: Patient was moving his right upper extremity and one time left upper extremity, However due to not following commands full Neurological exam was not feasible,LUAN in the eyes Patient passed bedside swallow evaluation Labs notable for WBC 9, hemoglobin 8, MCV 79.4, platelet count 405, Creatinine 1.7, BUN 46, lactic acid 0.7, albumin 3.3. urine packed wbc and bacteria with positive nitrare CXR : No acute pulmonary process. Head CT Limited evaluation for stroke due to the presence of extensive periventricular and subcortical white matter hypodensities, a nonspecific finding but most likely on the basis of chronic small vessel ischemic disease. No obvious territorial infarction is able to be identified. MRI head IMPRESSION: 1. There are no acute bleeds or infarcts. No masses are demonstrated. 2. There are scattered areas of subacute ischemia as well as evidence of chronic microvascular ischemic disease and diffuse volume loss. EKG showed A. fib, No acute ST-T changes compared to previous EKG Admitted to telemetry floor intially for continous rhythm monitoring The following is the management Problem list 1. Possible TIA - Rt sided weakness without any eividence of stroke on CT and MRI 2. Altered mental status; probably due to metabolic encephalopathy 3. ESBL K.pneumoniae UTI with bilateral perinephric fluid evident on CT 4. Metastatic rectal cancer- unable to undergo chemo lately due to repeated hospitalizations. 5. Paroxysmal atrial fibrilation - on metoprolol 6. Acute on chronic anemia. Right sided weakness - Possible TIA Intially managed with high dose aspirin and statin. MRI shows subacute ischemia with no acute infarction [his cardiac cath, right leg stent, right port All are MRI compatible]. Carotid ultrasound showed a 80-99% stenosis in the right side, 50-79% in the left side, and he was seen by vascular surgery who suggested to do a MR a of the neck which showed less than 50% stenosis bilateral. Imaging is negative for acute stroke with improvement in neurological deficits during her hospital course. TSH and cortisol levels were normal. Remained afebrile with Tmax of 100.2 at admission. Altered mental status Patient did have progressive decline in mental status since march. A fever of 100.2 without any white count is notable at admission. Now urine cultures were positve for ESBL K.Pneumoniae which is likely contamination. Mentation improved slowly over the next few days. Bialteral extensive Lower extremity DVT Patient was on anticoagulation in the past which was discontinued last march. Started on lovenox initially and transitioned to apixaban given significant clot burden. Apixaban 10mg BID for 7days followed by 5mg BID indefinetely. Hypertensive urgency Patient had a history of HTN and was on Amlodipine 5mg previously. During his hospital stay his blood pressure was on higher side, so added lisinopril 5mg to her regimen. Stabilized after. Acute on chronic anemia H&H at admission is 12/24. Dropped to 7.3/23. 2 units transfused and then remained stable around 01/29. Diabetes Novolog sliding scale BPH continue Tamsulosin and finasteride. CAD s/p CABG Contineu metoprolol 100mg BID and Atorvastatin 80mg dialy. Code status full code Complications: None Allergies: Coded Allergies: Penicillins (unknown 11/13/15) STATINS (MUSCLE CRAMPS 06/07/17) Significant Procedures: MRI/MRA of neck IMPRESSION: While [id number] noncontrast MRA does not give accurate information in regards to true luminal caliber, by NASCET criteria there are less than 50% stenoses involving the proximal internal carotid arteries bilaterally. The results are discordant on the right side when compared to the prior ultrasound for which a CTA of the neck could be obtained if indicated. Disposition Summary Disposition Principal Diagnosis: Possible TIA Bilateral extensive DVT Additional Diagnosis: Altered mental status; probably due to metabolic encephalopathy ESBL K.pneumoniae UTI with bilateral perinephric fluid evident on CT Metastatic rectal cancer- unable to undergo chemo lately due to repeated hospitalizations. Paroxysmal atrial fibrilation - on metoprolol Acute on chronic anemia. Discharge Disposition: short term rehab Discharge Instructions General Discharge Information Code Status: Full Code Patient's Diet: as tolerated - mechanical soft and thin liquids Patient's Activity: as tolerated Follow-Up Instructions/Appts: Please follow up with your PCP in a week Please follow up with your oncologist in a week Medications at Discharge Discharge Medications: Continue taking these medications: Cholecalciferol (Vitamin D3) (Vitamin D3) 2,000 UNIT TABLET 1 Tablet ORAL DAILY Comments: Last Taken: 06/09/17 Time: 0900AM Metoprolol Tartrate (Metoprolol Tartrate) 100 MG TABLET 1 Tablet ORAL TWICE DAILY Qty = 180 Comments: Last Taken: 03/01/17 Time: 0900 Insulin Aspart (Novolog) (Unknown Strength) VIAL 0 Inject into fatty tissue SEE SLIDING SCALE Qty = 60 Comments: Last Taken: 06/09/17 Time: 1200PM Insulin Glargine,Hum.rec.anlog (Lantus Solostar) 100 UNIT/ML (3 ML) INSULN.PEN 32 Unit Inject into fatty tissue Every Morning Comments: NOT GIVEN IN HOSPITAL. Ezetimibe (Zetia) 10 MG TABLET 1 Tablet ORAL DAILY Qty = 90 Comments: Last Taken: 06/08/17 Time: 1700PM Finasteride (Finasteride) 5 MG TABLET 1 Tablet ORAL DAILY Qty = 90 Comments: Last Taken: 06/09/17 Time: 0900AM Tamsulosin HCl (Tamsulosin HCl) 0.4 MG CAP.ER.24H 1 Capsule ORAL TWICE DAILY Qty = 60 Comments: Last Taken: 06/09/17 Time: 0800AM Paroxetine HCl (Paxil) 10 MG TABLET 1 Tablet ORAL DAILY Qty = 90 Comments: Last Taken: 06/09/17 Time: 0900AM Cyanocobalamin (Vitamin B-12) 1,000 MCG TABLET 1 Tablet ORAL DAILY Comments: NOT GIVEN IN HOSPITAL Lactobacillus Acidophilus (Probiotic) 10 BILLION CELL CAPSULE 1 Tablet ORAL DAILY Comments: NOT GIVEN IN HOSPITAL Start taking the following new medications: Apixaban (Eliquis) 5 MG TABLET 1 Tablet ORAL TWICE DAILY Qty = 60 No Refills Instructions: 06/10-06/12: Please take 2 x 5mg tablets, twice daily 06/13: Please take 1 x 5mg tablets, twice daily Comments: Last Taken: 06/09/17 Time: 0900AM Amlodipine Besylate (Norvasc) 5 MG TABLET 1 Tablet ORAL DAILY Qty = 30 No Refills Comments: Last Taken: 06/09/17 Time: 0900AM Lisinopril (Lisinopril) 5 MG TABLET 1 Tablet ORAL DAILY Qty = 30 No Refills Comments: Last Taken: 06/09/17 Time: 0900AM Copies To: Rosalba BRONSON,Irene Blackburn Attending MD Review Statement Documenting Attending: Luis Alberto Cardenas MD
[2017-06-05 20:54] VITALS: BP 172/82
[2017-06-06 06:35] VITALS: BP 184/76
[2017-06-06 07:33] VITALS: BP 142/80
--- NOTE | 2017-06-06 07:48 | PN- Housestaff ---
SosaMary Jane 06/06/17 0748: Subjective Follow-up For: AMS Bilateral DVT Metastatic Rectal CA Subjective: No overnight event. Patient said he felt improved on mental status today and was smiling at me. Denied any discomfort. Review of Systems Constitutional: Reports: see HPI. Objective Last 24 Hrs of Vital Signs/I&O Vital Signs Date Time Temp Pulse Resp B/P B/P Pulse O2 O2 Flow FiO2 Mean Ox Delivery Rate 06/06 0733 80 142/80 / 0635 98.3 66 20 184/76 96 06/06 0629 64 184/76 / 0629 64 164/76 06/05 2120 74 172/82 06/05 2119 74 172/82 06/05 2054 98.0 74 19 172/82 96 Room Air 06/05 1550 97.9 65 20 152/58 96 Room Air 06/05 1247 84 144/78 06/05 1033 82 142/78 06/05 1033 82 142/78 Intake & Output 06/06 1600 06/06 0800 02 0000 Intake Total 400 880 Output Total 700 700 Balance -300 180 Intake, IV 400 400 Intake, Oral 480 Output, Urine 700 700 Patient 74.503 kg Weight Weight Bed scale Measurement Method Physical Exam General Appearance: Alert, Cooperative, No Acute Distress, Appeared more spirited from yesterday but did not want to tell me where he is at now. Cardiovascular: Regular Rate Lungs: Normal Air Movement, Limited to body position Abdomen: Soft, No Tenderness Extremities: No Edema, Normal Pulses Current Medications: Current Medications Sig/Audrey Start time Last Medication Dose Route Stop Time Status Admin Acetaminophen 650 MG Q4P PRN 06/03 1345 AC 06/03 PO 1418 Amlodipine Besylate 5 MG DAILY 06/03 1000 AC 06/06 PO 0629 Apixaban 10 MG BID 06/05 1343 DC PO 06/11 2201 Atorvastatin Calcium 80 MG 1700 06/01 1915 AC 06/04 PO 1848 Cholecalciferol 2,000 IU DAILY 06/02 1137 AC 06/05 PO 1033 Cyanocobalamin 1,000 MCG DAILY 06/02 1138 AC 06/05 PO 1246 Dextrose/Sodium 1,000 ML Q20H 06/01 1900 AC 06/05 Chloride IV 1857 Enoxaparin Sodium 60 MG Q12H 06/05 1500 AC 06/06 SC 0344 Finasteride 5 MG DAILY 06/02 1000 AC 06/05 PO 1246 Heparin Sodium 5,000 UNIT Q8 06/01 2200 DC 06/05 (Porcine) SC 1338 Insulin Aspart 0 TIDAC 06/02 1200 AC 06/05 SC 1705 Insulin Detemir 10 UNITS BID 06/02 1000 AC 06/05 SC 2120 Metoprolol Tartrate 100 MG BID 06/01 2200 AC 06/06 PO 0629 Paroxetine HCl 10 MG DAILY 06/02 1138 AC 06/05 PO 1246 Tamsulosin HCl 0.4 MG BID 06/01 220 AC 06/05 PO 2120 Last 24 Hrs of Lab/Pilo Results Last 24 Hrs of Labs/Mics: Laboratory Tests 06/06/17 0647: Anion Gap 12, Estimated GFR 54 L, BUN/Creatinine Ratio 23.1, CBC w Diff Pending , WBC Pending, RBC Pending, Hgb Pending, Hct Pending, MCV Pending, MCH Pending, MCHC Pending, RDW Pending, Plt Count Pending, MPV Pending, ESR Westergren Pending Assessment/Plan Assessment: 76-year-old gentleman with past medical history of hypertension, hyperlipidemia, coronary artery disease status post CABG, paroxysmal A. fib, rectal cancer status post transanal excision and cholectomy, 3 chemotherapy [last one in March 2017 at [facility]], BPH, diabetes, right leg DVT was on xeralto [discontinued in March 2017], paroxysmal A. fib, chronic sacral ulcer , anemia of chronic disease, patient is on [place] catheter, depression, nephrolithiasis brought in by ambulance with complaints of right-sided weakness and facial droop since today morning. Assessment and plan 1. Rule out stroke 2. Urinary tract infection 3. Diabetes/hypertension/hyperlipidemia 1. Weakness/confusion can be secondary due to urinary tract infection From the history obtained his weakness [which is present since March 2017] and confusion since 1 day can be secondary due to stroke. However his CAT scan is negative. MRI shows subacute ischemia with no acute infarction [his cardiac cath, right leg stent, right port All are MRI compatible] . His carotid ultrasound showed a 80-99% stenosis in the right side, 50-79% in the left side, and he was seen by vascular surgery who suggested to do a MR a of the neck which showed less than 50% stenosis bilateral. He also suggested that he is a poor candidate for surgery. We will follow up with urine culture, blood culture. urine culture grows gram-negative rods 25,000 colony. Given the patient is afebrile since admission with no leukocytosis we will not treat him now. Patient is more alert and awake 2. Vital stable. Physical therapy- suggested STR 2. Diabetes On novolog SS. 3. Sacral ulcer 1 *1* 1 cm clean sacral ulcer present at the level of coccyx. No erythema, swelling or abnormal discharge. We will do offloading and duodenum dressing every 2-3 days. He was seen by Dr. Nascimento who suggested to continue the current management and to do a ESR. His ESR in October 2016 was 80 -> 130. - Spine MR ruled out osteomyelitis - will repeat ESR in the AM 4. Anemia of chronic disease Patient was given 1 unit of blood transfusion yesterday following a hemoglobin of 7.7. Posttransfusion hemoglobin is 9.9 . - H/H 9.6/30.2 on latest lab. 5. Bilateral DVT w/ hx of TIA/A-fib: - Patient is currently on Lovenox 60mg SC BID - Pending Cardiology consult for anticoagulation choice - Patient's with Dr. Armando from [facility] for chemo. Would defer decision of anticoagulation to them. 6. We will continue rest of his medications and a steroid 5 mg daily, atorvastatin 80 mg, tamsulosin 0.4 mg twice a day, metoprolol 100 mg twice a day. Patient has a low hemoglobin 8 and BUNs 41, creatinine 1.7. We will continue monitoring his BEP and CBC. Patient right [id number]-appears normal with no redness/swelling. No evidence of any infection. According to the and she said medication, blood draw can be done through the cath. Abdomen-patient has colostomy tube. No redness or swelling. Hemeoccult negative. -Full code DVT prophylaxis Lovenox Diet-Mechhanical Ground/Thin Heart Healthy Diet Problem List: 1. Sacral ulcer 2. TIA (transient ischemic attack) 3. Sacral decubitus ulcer, stage III Pain Ratin Pain Location: NA Pain Goal: Remain pain free Pain Plan: see AP Tomorrow's Labs & Rationales: BEP Luis Alberto Cardenas 06/06/17 1405: Attending MD Review Statement Attending Statement Attending MD Statement: examined this patient, discuss w/resident/PA/LENS MOUNTER, agreed w/resident/PA/LENS MOUNTER, discussed with family, reviewed EMR data (avail), discussed with nursing, discussed with case mgmt, reviewed images, amended to note Attending Assessment/Plan: Patient seen and examined. He is alert , awake , follows commands. He has remained afebrile over the past 24 hours. He is hemodynamically stable. h/h stable. labs noted. Problems: 1: Right-sided weakness with MRI negative for stroke. Doubtful for TIA. 2. Altered mental status; probably due to metabolic encephalopathy 3. 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 4. Metastatic rectal cancer s/p 3 cycles of chemo as outpatient. Follows oncologist outpatient. 5. paroxysmal atrial fibrilation. 6. B/l lower extremity DVT. 7. Acute on chronic anemia s/p transfusion of PRBC. (AOCD) Plan: -MRI shows no evidence of an acute stroke however subacute ischemia and lacunar infarcts+. -Cardiology consult for paroxysmal afib and a/c as per cardio. (Lovenox given so far, tolerating) -b/l DVT of lower extremities. A/C of choice. obtain previous records. -Follow-up with patient's oncologist to determine his prognosis and long-term goals of care. is of the impression that he will be continuing chemotherapy if he can improve and stay out of the hospital. -PT eval. -Hold off antibiotic therapy for now as long as patient remains afebrile with no leukocytosis.
[2017-06-06 10:29] LABS: ABSOLUTE BASOPHIL COUNT 0.1 /CUMM (0.0-0.2); ABSOLUTE EOSINOPHIL COUNT 0.3 /CUMM (0.0-0.7); ABSOLUTE GRANULOCYTE CT 5.9 /CUMM (1.4-6.5); ABSOLUTE LYMPH COUNT 1.6 /CUMM (1.2-3.4); ABSOLUTE MONOCYTE COUNT 0.6 /CUMM (0.10-0.60); BASOPHIL % 0.9 % (0.0-2.0); EOSINOPHIL % 3.8 % (0-5); GRANULOCYTE % 69.9 % (42.2-75.2); HEMATOCRIT 30.1 % (42-52); MEAN CORPUSCULAR HGB 27.1 PG (27.0-31.0); MEAN CORPUSCULAR HGB CONC 32.1 G/DL (33.0-37.0); MEAN CORPUSCULAR VOLUME 84.6 FL (80.0-94.0); MEAN PLATELET VOLUME 6.6 FL (7.4-10.4); PLATELET COUNT 338 /CUMM (130-400); RBC DISTRIBUTION WIDTH 18.9 % (11.5-14.5); RED BLOOD CELL CT 3.56 /CUMM (4.70-6.10); WHITE BLOOD CELL COUNT 8.4 /CUMM (4.8-10.8)
--- NOTE | 2017-06-06 13:05 | Cons- Cardiology ---
General Information and HPI Consulting Request Date of Consult: 06/06/17 Requested By: Theresa BRONSON,Luis Alberto Reason for Consult: 76-year-old man with underlying heart disease, mental status changes, DVT Source of Information: patient, family, old records Exam Limitations: poor historian History of Present Illness: The patient is a 76-year-old man who has history of bypass surgery approximately 10 years ago according to his . He also had cardiac catheterization done about 5 years ago for unknown reasons which apparently did not show any need for further intervention. According to the the patient hasn't had any significant cardiac issues since then. However there is a vague history of congestive heart failure and atrial fibrillation in the past but nothing recent per the . He presented a few days ago with the mental status changes which have gradually improved. According to the the patient has been doing very poorly at home. He had recent surgery for rectal cancer and a couple of rounds of chemotherapy. He has recently been getting very lethargic and weak. He has no complaints of chest pain, shortness of breath, palpitations, dizziness, carmelo syncope. In the hospital he was found to have extensive DVT and was started on anticoagulants, although it appears as if they have been discontinued at this time. He has been evaluated by vascular surgery for carotid disease and there is apparently no indication for any intervention here. He has received blood transfusions for anemia, presumably related to chemotherapy and previous surgery. An echocardiogram showed normal left ventricular systolic function and mild left atrial enlargement and no significant valvular disease. Allergies/Medications Allergies: Coded Allergies: Penicillins (unknown 11/13/15) Home Med List: Apixaban (Eliquis) 5 MG TABLET 1 TAB PO BID DVT treatment/ppx 06/07-06/12: Please take 2 x 5mg tablets, twice daily 06/13: Please take 1 x 5mg tablets, twice daily Cholecalciferol (Vitamin D3) (Vitamin D3) 2,000 UNIT TABLET 1 TAB PO DAILY VITAMIN SUPPORT (Reported) Cyanocobalamin (Vitamin B-12) 1,000 MCG TABLET 1 TAB PO DAILY VITAMIN SUPPORT (Reported) Ezetimibe (Zetia) 10 MG TABLET 1 TAB PO DAILY CHOLESTEROL (Reported) Finasteride 5 MG TABLET 1 TAB PO DAILY PROSTATE (Reported) Insulin Aspart (Novolog) (Unknown Strength) VIAL 0 SC SEE SLIDING SCALE Diabetes (Reported) Insulin Glargine,Hum.rec.anlog (Lantus Solostar) 100 UNIT/ML (3 ML) INSULN.PEN 32 UNIT SC QAM DIABETES (Reported) Lactobacillus Acidophilus (Probiotic) 10 BILLION CELL CAPSULE 1 TAB PO DAILY VITAMIN (Reported) Metoprolol Tartrate 100 MG TABLET 1 TAB PO BID Heart (Reported) Paroxetine HCl (Paxil) 10 MG TABLET 1 TAB PO DAILY MENTAL HEALTH (Reported) Tamsulosin HCl 0.4 MG CAP.ER.24H 1 CAP PO BID PROSTATE (Reported) Current Medications: Current Medications Sig/Audrey Start time Last Medication Dose Route Stop Time Status Admin Acetaminophen 650 MG Q4P PRN 06/03 1345 AC 06/06 PO 1124 Amlodipine Besylate 5 MG DAILY 06/03 1000 AC 06/06 PO 0629 Apixaban 10 MG BID 06/05 1343 DC PO 06/11 2201 Atorvastatin Calcium 80 MG 1700 06/01 1915 AC 06/04 PO 1848 Cholecalciferol 2,000 IU DAILY 06/02 1137 AC 06/06 PO 0854 Cyanocobalamin 1,000 MCG DAILY 06/02 1138 AC 06/06 PO 0854 Dextrose/Sodium 1,000 ML Q20H 06/01 1900 AC 06/05 Chloride IV 1857 Enoxaparin Sodium 60 MG Q12H 06/05 1500 AC 06/06 SC 0344 Finasteride 5 MG DAILY 06/02 1000 AC 06/06 PO 0854 Heparin Sodium 5,000 UNIT Q8 06/01 2200 DC /04 (Porcine) SC 1338 Insulin Aspart 0 TIDAC 06/02 1200 AC 06/06 SC 0854 Insulin Detemir 10 UNITS BID 06/02 1000 AC 06/06 SC 0854 Metoprolol Tartrate 100 MG BID 06/01 2200 AC / PO 0629 Paroxetine HCl 10 MG DAILY 06/02 1138 AC 06/06 PO 0854 Tamsulosin HCl 0.4 MG BID 06/01 2200 AC 06/06 PO 0854 Review of Systems Review of Systems: Unobtainable from patient. Past History Travel History Traveled to [place] past 21 day No Medical History Neurological: NEUROPATHY EENT: NONE Cardiovascular: AFIB, CHF, hypertension, hyperlipidemia, PVD (right femoral stent), CAD status post CABG paroxisymal A. 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 Home Who Do You Live With? spouse Services at Home: Nursing Primary Language: Mozambican Smoking Status: Former Smoker ETOH Use: denies use Illicit Drug Use: denies illicit drug use Functional Ability ADLs Independent: dressing, eating, toileting, bathing. Ambulation: independent IADLs Needs Assist: shopping, housework, finances, food prep, telephone, transportation, medication admin. Exam & Diagnostic Data Vital Signs and I&O Vital Signs Date Time Temp Pulse Resp B/P B/P Pulse O2 O2 Flow FiO2 Mean Ox Delivery Rate 06/06 0959 Room Air 2.0L 06/06 0954 Room Air 2.0L 06/06 0854 80 140/78 06/06 0800 96 Room Air 06/06 0733 80 142/80 06/06 0635 98.3 66 20 184/76 96 06/06 0629 64 184/76 06/06 0629 64 164/76 06/05 2120 74 172/82 06/05 2119 74 172/82 06/05 2054 98.0 74 19 172/82 96 Room Air 06/05 1550 97.9 65 20 152/58 96 Room Air Intake & Output 06/06 1600 06/06 0000 06/05 1600 06/05 0000 Intake Total 400 880 880 400 510 Output Total 700 700 525 600 225 Balance -300 180 355 -200 285 Intake, IV 400 400 400 400 210 Intake, Oral 480 480 300 Output, Stool 200 Output, Urine 700 700 325 600 225 Patient 164 lb 141 lb Weight Weight Bed scale Bed scale Measurement Method Physical Exam: Elderly-appearing male, lethargic, answering some questions with one or 2 word answers. HEENT exam unremarkable Neck veins not distended Carotids normal Chest clear to limited exam Heart regular rhythm and no murmurs. Healed midsternal scar noted Abdomen nontender Extremities trace edema Labs/Pilo Results: Laboratory Tests 06/06 06/05 0647 0713 Chemistry Sodium (137 - 145 mmol/L) 139 140 Potassium (3.5 - 5.1 mmol/L) 4.3 4.2 Chloride (98 - 107 mmol/L) 105 106 Carbon Dioxide (22 - 30 mmol/L) 22 22 Anion Gap (5 - 16) 12 11 BUN (9 - 20 mg/dL) 30 H 35 H Creatinine (0.7 - 1.2 mg/dL) 1.3 H 1.4 H Estimated GFR (>60 ml/min) 54 L 50 L BUN/Creatinine Ratio (7 - 25 %) 23.1 25.0 Hematology CBC w Diff NO MAN DIFF REQ NO MAN DIFF REQ WBC (4.8 - 10.8 /CUMM) 8.4 7.4 RBC (4.70 - 6.10 /CUMM) 3.56 L 3.60 L Hgb (14.0 - 18.0 G/DL) 9.7 L 9.6 L Hct (42 - 52 %) 30.1 L 30.2 L MCV (80.0 - 94.0 FL) 84.6 83.8 MCH (27.0 - 31.0 PG) 27.1 26.6 L MCHC (33.0 - 37.0 G/DL) 32.1 L 31.8 L RDW (11.5 - 14.5 %) 18.9 H 19.4 H Plt Count (130 - 400 /CUMM) 338 351 MPV (7.4 - 10.4 FL) 6.6 L 6.5 L Gran % (42.2 - 75.2 %) 69.9 67.9 Lymphocytes % (20.5 - 51.1 %) 18.8 L 17.8 L Monocytes % (1.7 - 9.3 %) 6.6 10.5 H Eosinophils % (0 - 5 %) 3.8 3.3 Basophils % (0.0 - 2.0 %) 0.9 0.5 Absolute Granulocytes (1.4 - 6.5 /CUMM) 5.9 5.0 Absolute Lymphocytes (1.2 - 3.4 /CUMM) 1.6 1.3 Absolute Monocytes (0.10 - 0.60 /CUMM) 0.6 0.8 H Absolute Eosinophils (0.0 - 0.7 /CUMM) 0.3 0.2 Absolute Basophils (0.0 - 0.2 /CUMM) 0.1 0 ESR Westergren (0 - 10 MM) 80 H Diagnostic Data EKG Results SR, LVH, old IMI, PVCs. CXR Results PATIENT: CARMELO BAILEY PRESENT AGE: 76 PATIENT ACCOUNT NO: [id number] : 42 LOCATION: [facility] ORDERING PHYSICIAN: Jose VELASCO SERVICE DATE: 06/01/17 EXAM TYPE: RAD - XRY-PORTABLE CHEST XRAY EXAMINATION: XR PORTABLE CHEST CLINICAL INFORMATION: Altered mental status. COMPARISON: Multiple previous chest imaging studies with the most recent chest x-ray of 02/24/[address] of 11/14/2015. TECHNIQUE: Portable frontal view of the chest was obtained. FINDINGS: A right-sided Port-A-Cath is in place terminating at the superior cavoatrial junction. The patient is rotated. The sternotomy wires appear intact. The cardiomediastinal silhouette is unchanged. Lungs are mildly hypoexpanded. Multiple cardiac leads and wires overlie the chest. No focal consolidation, changes of congestion, pleural effusions or pneumothorax. The well visualized osseous structures demonstrate no acute abnormality. IMPRESSION: No acute pulmonary process. DICTATED BY: Tyler Martinez MD DATE/TIME DICTATED:06/01/171432 LOFT WORKER:MARIE DATE/TIME TRANSCRIBED:06/01/171432 CONFIDENTIAL, DO NOT COPY WITHOUT APPROPRIATE AUTHORIZATION. <Electronically signed in Other Vendor System> SIGNED BY: Tyler Martinez MD 06/01/171438 Other Results PATIENT: CARMELO BAILEY PRESENT AGE: 76 PATIENT ACCOUNT NO: [id number] : 42 LOCATION: B ORDERING PHYSICIAN: Yoan Thomas MD SERVICE DATE: 06/04/17 EXAM TYPE: US - US-EXT BILAT VENOUS DOPPLER EXAMINATION: US TRIPLEX OF LOWER EXTREMITIES, BILATERAL CLINICAL INFORMATION: Bilateral lower extremity swelling. COMPARISON: None. TECHNIQUE: Color-flow triplex imaging with spectral analysis and compression Doppler were performed on the bilateral lower extremities. FINDINGS: There is partially occlusive thrombus noted within the right common femoral vein, proximal greater saphenous vein and proximal femoral vein. There is noncompressible thrombus extending from the left common femoral to popliteal vein segments. Remaining bilateral lower extremity venous segments, including visualized portions in the respective calfs, appear patent. There is no Craig's cyst. IMPRESSION: The examination is positive for deep venous thrombosis bilaterally, as detailed above. This critical result was discussed with Dr. Bobby at 12:30 PM on 06/05/2017, and it was ascertained that the content and urgency of this report was understood at the time of direct communication. DICTATED BY: Anthony Larson MD DATE/TIME DICTATED:06/05/171213 LOFT WORKER:MARIE DATE/TIME TRANSCRIBED:06/05/171213 CONFIDENTIAL, DO NOT COPY WITHOUT APPROPRIATE AUTHORIZATION. <Electronically signed in Other Vendor System> SIGNED BY: Anthony Larson MD 06/05/17 1332 CONCLUSIONS Normal left ventricular systolic function. Mild left atrial enlargement. No significant valvular abnormalities noted.. Derek Chaparro M.D. (Electronically Signed) Final Date: 02 June 2017 19:36 Assessment/Plan Assessment/Plan This patient presented with symptoms suggestive of stroke although MRI has not documented a stroke. He had mental status changes which have improved. He has a past history of heart disease with bypass surgery but there are no active cardiac issues on this admission. He has a history of atrial fibrillation and CHF in the past but neither of these are present at the current time. He has extensive bilateral DVT on ultrasound. At this point I would think the patient needs to have treatment for his DVT. I would recommend reconsulting vascular for their opinion as to whether full or partial anticoagulation would be appropriate or consideration for thrombectomy and/or IVC filter would be indicated. Until this can be accomplished perhaps restarting him on Apixaban would be appropriate, as I do not see any definite contraindications to anticoagulation at this time. Copies To: Irene Navarrete MD Consult Acknowledgment - Thank you for your consult request.
[2017-06-06 14:54] VITALS: BP 144/68
[2017-06-06] MEDS ORDERED: ELIQUIS5 M1 PO (16:29)
[2017-06-06 22:31] VITALS: BP 140/78
[2017-06-07 05:23] VITALS: BP 142/80
--- NOTE | 2017-06-07 08:30 | PN- Housestaff ---
IanMary Jane Austyn De La Rosa 06/07/17 0829: Subjective Follow-up For: AMS Bilateral DVT Metastatic Rectal CA Subjective: No overnight event. Patient has no specific complaint. Review of Systems Constitutional: Reports: see HPI. Objective Last 24 Hrs of Vital Signs/I&O Vital Signs Date Time Temp Pulse Resp B/P B/P Pulse O2 O2 Flow FiO2 Mean Ox Delivery Rate 06/07 0523 97.9 72 20 142/80 95 Room Air / 2231 98.0 67 19 140/78 96 Room Air 06/06 2142 67 140/78 06/06 2141 67 140/78 / 1454 97.5 56 20 144/68 96 Room Air / 0959 Room Air 2.0L 06/06 0954 Room Air 2.0L 06/06 0854 80 140/78 Intake & Output 06/07 1600 06/07 0800 06/07 0000 Intake Total 1020 Output Total 735 450 Balance -735 570 Intake, IV 20 Intake, Oral 1000 Number 0 Bowel Movements Output, Stool 10 Output, Urine 725 450 Patient 70.76 kg Weight Physical Exam General Appearance: Alert, Oriented X3, Cooperative, No Acute Distress Cardiovascular: Regular Rate Lungs: Clear to Auscultation, Normal Air Movement Abdomen: Normal Bowel Sounds, Soft, No Tenderness Neurological: Normal Speech Extremities: No Edema, Normal Pulses Current Medications: Current Medications Sig/Audrey Start time Last Medication Dose Route Stop Time Status Admin Acetaminophen 650 MG .STK-MED ONE 06/06 1119 DC PO 06/06 1120 Acetaminophen 650 MG Q4P PRN 06/03 1345 AC 06/06 PO 1124 Amlodipine Besylate 5 MG DAILY 06/03 1000 AC 06/06 PO 0629 Apixaban 10 MG BID 06/06 2200 AC / PO 06/13 1001 2140 Atorvastatin Calcium 80 MG 1700 06/01 1915 AC 06/06 PO 1757 Cholecalciferol 2,000 IU DAILY 06/02 1137 AC 06/06 PO 0854 Cyanocobalamin 1,000 MCG DAILY 06/02 1138 AC 06/06 PO 0854 Dextrose/Sodium 1,000 ML Q20H 06/01 1900 DC 06/05 Chloride IV 1857 Enoxaparin Sodium 60 MG Q12H 06/05 1500 DC 06/06 SC 0344 Finasteride 5 MG DAILY 06/02 1000 AC 06/06 PO 0854 Insulin Aspart 0 TIDAC 06/02 1200 AC 06/06 SC 1757 Insulin Detemir 10 UNITS BID 06/02 1000 AC 06/06 SC 2142 Metoprolol Tartrate 100 MG BID 06/01 2200 AC 05 PO 2142 Paroxetine HCl 10 MG DAILY 06/02 1138 AC 06/06 PO 0854 Tamsulosin HCl 0.4 MG BID 06/01 2199 AC 06/06 PO 2141 Assessment/Plan Assessment: 76-year-old gentleman with past medical history of hypertension, hyperlipidemia, coronary artery disease status post CABG, paroxysmal A. fib, rectal cancer status post transanal excision and cholectomy, 3 chemotherapy [last one in March 2017 at [facility]], BPH, diabetes, right leg DVT was on xeralto [discontinued in March 2017], paroxysmal A. fib, chronic sacral ulcer , anemia of chronic disease, patient is on [place] catheter, depression, nephrolithiasis brought in by ambulance with complaints of right-sided weakness and facial droop since today morning. Assessment and plan 1. Rule out stroke 2. Urinary tract infection 3. Diabetes/hypertension/hyperlipidemia 1. Weakness/confusion can be secondary due to urinary tract infection From the history obtained his weakness [which is present since March 2017] and confusion since 1 day can be secondary due to stroke. However his CAT scan is negative. MRI shows subacute ischemia with no acute infarction [his cardiac cath, right leg stent, right port All are MRI compatible] . His carotid ultrasound showed a 80-99% stenosis in the right side, 50-79% in the left side, and he was seen by vascular surgery who suggested to do a MR a of the neck which showed less than 50% stenosis bilateral. He also suggested that he is a poor candidate for surgery. urine culture grows Klebsiella ESBL sensitive to Bactrim. Given the patient is afebrile since admission with no leukocytosis we will not treat him now. Patient is more alert and awake 2. Vital stable. Physical therapy- suggested STR 2. Diabetes On novolog SS. 3. Sacral ulcer 1 *1* 1 cm clean sacral ulcer present at the level of coccyx. No erythema, swelling or abnormal discharge. We will do offloading and duodenum dressing every 2-3 days. He was seen by Dr. Nascimento who suggested to continue the current management and to do a ESR. His ESR in October 2016 was 80 -> 130. - Spine MR ruled out osteomyelitis - Repeated ESR 80, decreased from before. 4. Anemia of chronic disease Patient was given 1 unit of blood transfusion yesterday following a hemoglobin of 7.7. Posttransfusion hemoglobin is 9.9 . - H/H 9.6/30.2 on latest lab. 5. Bilateral DVT w/ hx of subacute ischemia infarct/A-fib: - Patient is currently on Lovenox 60mg SC BID - Cardiology recommended Eliquis for bilateral DVT treatment. - Patient's with Dr. Sharp from [facility] for chemo. Discussed with Dr. Sharp over the phone on 06/07 and agreed upon use of Eliquis. Would advise patient to follow up in 2 weeks. 6. Chronic medical conditions: - We will continue rest of his medications and a steroid 5 mg daily, atorvastatin 80 mg, tamsulosin 0.4 mg twice a day, metoprolol 100 mg twice a day. Patient has a low hemoglobin 8 and BUNs 41, creatinine 1.7. We will continue monitoring his BEP and CBC. Patient right Yrmo-V-Okgi-appears normal with no redness/swelling. No evidence of any infection. According to the and she said medication, blood draw can be done through the cath. Abdomen-patient has colostomy tube. No redness or swelling. Hemeoccult negative. Full code DVT prophylaxis Eliquis Diet-Mechhanical Ground/Thin Heart Healthy Diet Problem List: 1. Sacral ulcer 2. Altered mental status 3. Rectal adenocarcinoma Pain Ratin Pain Location: NA Pain Goal: Remain pain free Pain Plan: see AP Tomorrow's Labs & Rationales: Luis Alberto Diaz 06/07/17 1524: Attending MD Review Statement Attending Statement Attending MD Statement: examined this patient, discuss w/resident/PA/SIGNS AND DISPLAYS SALES REPRESENTATIVE, agreed w/resident/PA/SIGNS AND DISPLAYS SALES REPRESENTATIVE, discussed with family, reviewed EMR data (avail), discussed with nursing, discussed with case mgmt, reviewed images, amended to note Attending Assessment/Plan: Patient seen and examined. He is alert , awake , follows commands. h/h stable. Problems: 1: Right-sided weakness with MRI negative for stroke. Doubtful for TIA. 2. Altered mental status; probably due to metabolic encephalopathy 3. 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 4. Metastatic rectal cancer s/p 3 cycles of chemo as outpatient. Follows oncologist outpatient. 5. paroxysmal atrial fibrilation. 6. B/l lower extremity DVT. 7. Acute on chronic anemia s/p transfusion of PRBC. (AOCD) Plan: -MRI shows no evidence of an acute stroke however subacute ischemia and lacunar infarcts+. -Cardiology consult for paroxysmal afib and a/c as per cardio. Eliquis restarted. -b/l DVT of lower extremities. A/C of choice. obtain previous records. -Informed oncologist outpatient Dr Patino who agrees to anticoagulation. -PT eval. -Hold off antibiotic therapy for now as long as patient remains afebrile with no leukocytosis. FOLLOW UP PCP in 3-5 days of discharge Hematology/oncology Dr Patino at [facility] in 2 weeks of discharge.
--- NOTE | 2017-06-07 09:02 | Patient Discharge Instructions ---
Discharge Instructions General Discharge Information You were seen/treated for: Altered mental status TIA Bilateral DVT Metastatic Rectal CA Special Instructions: - Please follow up with jodi oncologist at [place] for chemotherapy within two weeks. Dr. Sharp from [place] was already notified about your hospital stay and use of Eliquis. - Please continue Eliquis 10mg twice daily for a total 7 days after discharge, and then continue Eliquis at 5mg twice daily until further evaluated by your oncologist or PCP for bilateral lower extremity DVT treatment. - Please follow up with your primary care physician within 1-2 week of discharge. Inform your primary care physician of this admission to [facility]. - Continue your current medications per discharge instructions. - Please watch for these problems: Fever, Chills, Nausea, Vomiting, Shortness of Breath, Productive Cough, Chest Pain/Discomfort, Abdominal Pain, Active Bleeding or Bloody urine/stool. Diet Continue normal diet: No Recommended Diet: Mechanical Soft/Thin Liquid Activity Full Activity/No Limits: No Acute Coronary Syndrome Inclusion Criteria At DC or during hospital stay patient has or had the following: ACS DIAGNOSIS No Discharge Core Measures Meds if any: Prescribed or Continued at Discharge Meds if any: NOT Prescribed or Continued at Discharge Congestive Heart Failure Inclusion Criteria At DC or during hospital stay patient has or had the following: CHF DIAGNOSIS No Discharge Core Measures Meds if any: Prescribed or Continued at Discharge Meds if any: NOT Prescribed or Continued at Discharge Cerebrovascular accident Inclusion Criteria At DC or during hospital stay patient has or had the following: CVA/TIA Diagnosis No Discharge Core Measures Meds if any: Prescribed or Continued at Discharge Meds if any: NOT Prescribed or Continued at Discharge Venous thromboembolism Inclusion Criteria VTE Diagnosis Yes VTE Type Deep Venous Thrombosis VTE Confirmed by (Test) EXT BILATERAL VENOUS DOPP Discharge Core Measures - Per Current guidelines, there needs to be overlap - treatment for the first 5 days of Warfarin therapy. - If discharged on Warfarin prior to 5 days of - overlap therapy, the patient will need to be - assessed for post discharge needs including - *Post discharge parental anticoagulation - *Warfarin and/or parental anticoagulation education - *Follow up date to check INR post discharge At least 5 days overlap therapy as Inpatient No Meds if any: Prescribed or Continued at Discharge Warfarin No Overlap Therapy No Note: Overlap Therapy is Warfarin and Anticoagulant Meds if any: NOT Prescribed or Continued at Discharge No Warfarin d/t Prescribed other Anticoag No Overlap Therapy d/t Prescribed other Anticoag
--- NOTE | 2017-06-07 09:49 | Event Note ---
Event Note Event Note: Patient's oncologist Dr. Sharp (Office #: [phone]) was contacted this morning regarding patient's hospital course and choice of anticoagulation with use of Eliquis for now. Dr. Sharp agreed on using Eliquis for now for patient's DVT treatment, and advised that he would like the patient to be followed up in his office in 2 weeks.
[2017-06-07 14:51] VITALS: BP 190/80
[2017-06-07 18:45] VITALS: BP 176/78
[2017-06-07 21:25] VITALS: BP 138/78
[2017-06-08 06:05] VITALS: BP 176/74
--- NOTE | 2017-06-08 07:30 | PN- Housestaff ---
See Addendum Subjective Follow-up For: Bilateral DVT Metastatic Rectal CA Subjective: No overngihte event. Patient had no specific complaint. Alert and oriented x 2 as usual Review of Systems Constitutional: Reports: see HPI. Objective Last 24 Hrs of Vital Signs/I&O Vital Signs Date Time Temp Pulse Resp B/P B/P Pulse O2 O2 Flow FiO2 Mean Ox Delivery Rate 06/08 0811 80 158/80 02/ 0605 98.0 69 18 176/74 93 02/ 0245 76 170/70 02/ 2342 194/78 02/ 2204 72 198/84 02/ 2203 72 198/84 02/ 2125 98.6 72 18 138/78 95 Room Air 02/ 1845 176/78 02/ 1616 190/80 02/ 1451 98.6 58 20 190/80 96 Room Air / 0944 80 132/80 Intake & Output 06/08 1600 02 0800 02/ 0000 Intake Total Output Total 100 Balance -100 Output, Urine 100 Patient 69.4 kg Weight Physical Exam General Appearance: Alert, Cooperative, No Acute Distress, AOx2 Cardiovascular: Regular Rate Lungs: Clear to Auscultation, Normal Air Movement Abdomen: Soft, No Tenderness, colostomy bag intact Extremities: No Edema, Normal Pulses Current Medications: Current Medications Sig/Audrey Start time Last Medication Dose Route Stop Time Status Admin Acetaminophen 650 MG Q4P PRN 06/03 1345 AC 06/06 PO 1124 Amlodipine Besylate 10 MG DAILY 06/08 1000 AC PO Amlodipine Besylate 5 MG ONCE ONE 06/07 1515 DC 06/07 PO 06/07 1516 1616 Amlodipine Besylate 5 MG DAILY 06/03 1000 DC 06/07 PO 0944 Apixaban 10 MG BID 06/06 2200 AC / PO 06/13 1001 2204 Atorvastatin Calcium 80 MG 1700 06/01 1915 AC 06/07 PO 1616 Cholecalciferol 2,000 IU DAILY 06/02 1137 AC 06/07 PO 0944 Cyanocobalamin 1,000 MCG DAILY 06/02 1138 AC 06/07 PO 0944 Finasteride 5 MG DAILY 06/02 1000 AC 06/07 PO 0944 Hydralazine HCl 10 MG ONCE ONE 06/08 0130 DC 06/08 IV 06/08 0131 0245 Hydralazine HCl 25 MG ONCE ONE 06/07 2300 DC 06/07 PO 06/07 2301 2342 Insulin Aspart 0 TIDAC 06/02 1200 AC 06/07 SC 1739 Insulin Detemir 10 UNITS BID 06/02 1000 AC 06/07 SC 2205 Metoprolol Tartrate 100 MG BID 06/01 2199 AC 06/07 PO 220 Paroxetine HCl 10 MG DAILY 06/02 1138 AC 06/07 PO 0944 Tamsulosin HCl 0.4 MG BID 06/01 2199 AC 06/07 PO 220 Assessment/Plan Assessment: 76-year-old gentleman with past medical history of hypertension, hyperlipidemia, coronary artery disease status post CABG, paroxysmal A. fib, rectal cancer status post transanal excision and cholectomy, 3 chemotherapy [last one in March 2017 at [facility]], BPH, diabetes, right leg DVT was on xeralto [discontinued in March 2017], paroxysmal A. fib, chronic sacral ulcer , anemia of chronic disease, patient is on [place] catheter, depression, nephrolithiasis brought in by ambulance with complaints of right-sided weakness and facial droop since today morning. Assessment and plan 1. Rule out stroke 2. Urinary tract infection 3. Diabetes/hypertension/hyperlipidemia 1. Weakness/confusion can be secondary due to urinary tract infection From the history obtained his weakness [which is present since March 2017] and confusion since 1 day can be secondary due to stroke. However his CAT scan is negative. MRI shows subacute ischemia with no acute infarction [his cardiac cath, right leg stent, right port All are MRI compatible] . His carotid ultrasound showed a 80-99% stenosis in the right side, 50-79% in the left side, and he was seen by vascular surgery who suggested to do a MR a of the neck which showed less than 50% stenosis bilateral. He also suggested that he is a poor candidate for surgery. urine culture grows Klebsiella ESBL sensitive to Bactrim. Given the patient is afebrile since admission with no leukocytosis we will not treat him now. Patient is more alert and awake 2. Vital stable. Physical therapy- suggested STR, pending discharge to [place] today. 2. Diabetes On novolog SS. 3. Sacral ulcer 1 *1* 1 cm clean sacral ulcer present at the level of coccyx. No erythema, swelling or abnormal discharge. We will do offloading and duodenum dressing every 2-3 days. He was seen by Dr. Nascimento who suggested to continue the current management and to do a ESR. His ESR in October 2016 was 80 -> 130. - Spine MR ruled out osteomyelitis - Repeated ESR 80, decreased from before. 4. Anemia of chronic disease Patient was given 1 unit of blood transfusion yesterday following a hemoglobin of 7.7. Posttransfusion hemoglobin is 9.9 . - H/H 9.6/30.2 on latest lab. 5. Bilateral DVT w/ hx of subacute ischemia infarct/A-fib: - Patient is currently on Lovenox 60mg SC BID - Cardiology recommended Eliquis for bilateral DVT treatment. - Patient's with Dr. Sharp from [facility] for chemo. Discussed with Dr. Sharp over the phone on 06/07 and agreed upon use of Eliquis. Would advise patient to follow up in 2 weeks. 6. Chronic medical conditions: - We will continue rest of his medications and a steroid 5 mg daily, atorvastatin 80 mg, tamsulosin 0.4 mg twice a day, metoprolol 100 mg twice a day. Patient has a low hemoglobin 8 and BUNs 41, creatinine 1.7. We will continue monitoring his BEP and CBC. Patient was discontinued on [facility] and will be discharge with outpatient use of [place] Catheter. Patient right Reju-X-Umfi-appears normal with no redness/swelling. No evidence of any infection. According to the and she said medication, blood draw can be done through the cath. Abdomen-patient has colostomy tube. No redness or swelling. Hemeoccult negative. Full code DVT prophylaxis Eliquis Diet-Mechhanical Ground/Thin Heart Healthy Diet Problem List: 1. Sacral ulcer 2. Asymptomatic bacteriuria Pain Ratin Pain Location: NA Pain Goal: Remain pain free Pain Plan: see AP Tomorrow's Labs & Rationales: NA
[2017-06-08 08:11] VITALS: BP 158/80
[2017-06-08] MEDS ORDERED: NORVASC5 M1 PO (13:23)
[2017-06-08] MEDS ORDERED: LISINOPRIL5 M1 PO (13:23)
[2017-06-08 15:08] VITALS: BP 160/68
[2017-06-08 22:05] VITALS: BP 160/88
[2017-06-09 07:33] VITALS: BP 164/84
--- NOTE | 2017-06-09 07:36 | PN- Housestaff ---
Mary Jane Sosa Austyn Rj 06/09/17 0735: Subjective Follow-up For: Bilateral DVT Metastatic Rectal CA Subjective: No overnight event. Patient was sleeping when I entered Review of Systems Constitutional: Reports: see HPI. Objective Last 24 Hrs of Vital Signs/I&O Vital Signs Date Time Temp Pulse Resp B/P B/P Pulse O2 O2 Flow FiO2 Mean Ox Delivery Rate 06/09 732 97.9 62 18 164/84 94 06/08 2205 98.4 74 19 160/88 95 Room Air 06/08 212 74 160/88 06/08 2121 74 160/88 06/08 1508 97.8 20 20 160/68 94 Room Air 06/08 1110 78 154/80 06/08 0954 78 158/80 06/08 0811 80 158/80 Intake & Output 06/09 0800 06/09 0000 06/08 1600 Intake Total 240 810 Output Total 0 Balance 240 810 Intake, IV 10 Intake, Oral 240 800 Number 1 Bowel Movements Output, Stool 0 Patient 68.096 kg Weight Weight Bed scale Measurement Method Physical Exam General Appearance: Pt was sleeping Cardiovascular: Regular Rate Lungs: Clear to Auscultation, Normal Air Movement Current Medications: Current Medications Sig/Audrey Start time Last Medication Dose Route Stop Time Status Admin Acetaminophen 650 MG Q4P PRN 06/03 1345 AC 06/06 PO 1124 Amlodipine Besylate 10 MG DAILY 06/08 1000 AC 06/08 PO 1110 Apixaban 10 MG BID 06/06 2200 AC 06/08 PO 06/13 1001 2122 Atorvastatin Calcium 80 MG 1700 06/01 1915 AC 06/08 PO 1700 Cholecalciferol 2,000 IU DAILY 06/02 1137 AC 06/08 PO 0954 Cyanocobalamin 1,000 MCG DAILY 06/02 1138 AC 06/08 PO 0954 Finasteride 5 MG DAILY 06/02 1000 AC 06/08 PO 0954 Insulin Aspart 0 TIDAC 06/02 1200 AC 06/08 SC 1700 Insulin Detemir 10 UNITS BID 06/02 1000 AC 06/08 SC 2122 Lisinopril 5 MG ONCE ONE 06/08 1000 DC 06/08 PO 06/08 1001 1110 Metoprolol Tartrate 100 MG BID 06/01 2200 AC 06/08 PO 2121 Paroxetine HCl 10 MG DAILY 06/02 1138 AC 06/08 PO 0954 Tamsulosin HCl 0.4 MG BID 06/01 2199 AC 06/08 PO 2121 Assessment/Plan Assessment: 76-year-old gentleman with past medical history of hypertension, hyperlipidemia, coronary artery disease status post CABG, paroxysmal A. fib, rectal cancer status post transanal excision and cholectomy, 3 chemotherapy [last one in March 2017 at [facility]], BPH, diabetes, right leg DVT was on xeralto [discontinued in March 2017], paroxysmal A. fib, chronic sacral ulcer , anemia of chronic disease, patient is on [place] catheter, depression, nephrolithiasis brought in by ambulance with complaints of right-sided weakness and facial droop since today morning. Assessment and plan 1. Rule out stroke 2. Urinary tract infection 3. Diabetes/hypertension/hyperlipidemia 1. Weakness/confusion can be secondary due to urinary tract infection From the history obtained his weakness [which is present since March 2017] and confusion since 1 day can be secondary due to stroke. However his CAT scan is negative. MRI shows subacute ischemia with no acute infarction [his cardiac cath, right leg stent, right port All are MRI compatible] . His carotid ultrasound showed a 80-99% stenosis in the right side, 50-79% in the left side, and he was seen by vascular surgery who suggested to do a MR a of the neck which showed less than 50% stenosis bilateral. He also suggested that he is a poor candidate for surgery. urine culture grows Klebsiella ESBL sensitive to Bactrim. Given the patient is afebrile since admission with no leukocytosis we will not treat him now. Patient is more alert and awake 2. Vital stable. Physical therapy- suggested STR, pending placement to [place] today. 2. Diabetes On novolog SS. 3. Sacral ulcer 1 *1* 1 cm clean sacral ulcer present at the level of coccyx. No erythema, swelling or abnormal discharge. We will do offloading and duodenum dressing every 2-3 days. He was seen by Dr. Nascimento who suggested to continue the current management and to do a ESR. His ESR in October 2016 was 80 -> 130. - Spine MR ruled out osteomyelitis - Repeated ESR 80 on latest lab, decreased from before. 4. Anemia of chronic disease Patient was given 1 unit of blood transfusion yesterday following a hemoglobin of 7.7. Posttransfusion hemoglobin is 9.9 . - H/H 9.6/30.2 on latest lab. 5. Bilateral DVT w/ hx of subacute ischemia infarct/A-fib: - Patient was on Lovenox 60mg SC BID and transitioned to Eliquis 10mg BID on 06/06 - Cardiology recommended Eliquis for bilateral DVT treatment. - Patient's with Dr. Sharp from [facility] for chemo. Discussed with Dr. Sharp over the phone on 06/07 and agreed upon use of Eliquis. Would advise patient to follow up in 2 weeks. 6. Chronic medical conditions: - We will continue rest of his medications and a steroid 5 mg daily, atorvastatin 80 mg, tamsulosin 0.4 mg twice a day, metoprolol 100 mg twice a day. Patient has a low hemoglobin 8 and BUNs 41, creatinine 1.7. We will continue monitoring his BEP and CBC. Patient was discontinued on [facility] and will be discharge with outpatient use of [place] Catheter. Patient right Xugu-M-Xjeo-appears normal with no redness/swelling. No evidence of any infection. According to the and she said medication, blood draw can be done through the cath. Abdomen-patient has colostomy tube. No redness or swelling. Hemeoccult negative. Full code DVT prophylaxis Eliquis Diet-Mechhanical Ground/Thin Heart Healthy Diet Problem List: 1. Sacral ulcer 2. Altered mental status Pain Ratin Pain Location: NA Pain Goal: Remain pain free Pain Plan: see AP Tomorrow's Labs & Rationales: ASHLEY CardenasLuis Alberto 06/09/17 1209: Attending MD Review Statement Attending Statement Attending MD Statement: examined this patient, discuss w/resident/PA/FOOTBALL COACH, agreed w/resident/PA/FOOTBALL COACH, discussed with family, reviewed EMR data (avail), discussed with nursing, discussed with case mgmt, reviewed images, amended to note Attending Assessment/Plan: Patient seen and examined. He is alert , awake , follows commands. F/u case management and family. Problems: 1: Right-sided weakness with MRI negative for stroke. Doubtful for TIA. 2. Altered mental status; probably due to metabolic encephalopathy 3. 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 4. Metastatic rectal cancer s/p 3 cycles of chemo as outpatient. Follows oncologist outpatient. 5. paroxysmal atrial fibrilation. 6. B/l lower extremity DVT. 7. Acute on chronic anemia s/p transfusion of PRBC. (AOCD) 8. Hypertension Plan: -MRI shows no evidence of an acute stroke however subacute ischemia and lacunar infarcts+. -Cardiology consult for paroxysmal afib and a/c as per cardio. Eliquis continue. -b/l DVT of lower extremities. A/C of choice. -Informed oncologist outpatient Dr Patino who agrees to anticoagulation. -PT eval. -BP control with lisinopril, amlodipine and metorpolol. -Hold off antibiotic therapy for now as long as patient remains afebrile with no leukocytosis. -dc planning, case management aware. Patient mediaclly stable. f/u family and [facility] FO[facility] UP PCP in 3-5 days of discharge Hematology/oncology Dr Patino at [facility] in 2 weeks of discharge.
[2017-06-09] MEDS ORDERED: ELIQUIS5 M1 PO (13:26)
[2017-06-09 14:29] VITALS: BP 160/70
[2017-06-09 16:10] VITALS: BP 160/70
== END 2017-06-09 16:25 | DRG 299 ==
LOC: ERH 10:41 → 2NB 16:31 → 1NO 16:31 → ERHI 16:31 → ENRESERV 17:05 → ENTRNSPT 18:26 → EDTRNSPTSTS 18:41 → 1NO 18:47 → CMPTRNSPT 18:58 → 1NO 06-02 10:26 → ENTRNSPT 06-04 14:05 → EDTRNSPTSTS 06-04 15:07 → EDTRNSPT 06-04 15:07 → 2NB 06-04 15:14 → CMPTRNSPT 06-04 15:18 → 2NB 06-06 09:51
PROVIDERS: Internal Medicine; Physician Assistant Medical; Student in an Organized Health Care Education/Training Program
PROC: 30233N1 Transfusion of Nonautologous Red Blood Cells into Peripheral Vein, Percutaneous Approach (ICD-10-PCS; principal; 2017-06-02)
DX: I82.4Z3 Acute embolism and thrombosis of unspecified deep veins of distal lower extremity, bilateral (principal); G93.41 Metabolic encephalopathy; L89.153 Pressure ulcer of sacral region, stage 3; I13.0 Hypertensive heart and chronic kidney disease with heart failure and stage 1 through stage 4 chronic kidney disease, or unspecified chronic kidney disease; E11.22 Type 2 diabetes mellitus with diabetic chronic kidney disease; I48.0 Paroxysmal atrial fibrillation; G45.9 Transient cerebral ischemic attack, unspecified; I50.9 Heart failure, unspecified; D64.89 Other specified anemias; C20 Malignant neoplasm of rectum; N39.0 Urinary tract infection, site not specified; G81.91 Hemiplegia, unspecified affecting right dominant side; Z79.4 Long term (current) use of insulin; Z22.39 Carrier of other specified bacterial diseases; N18.3 Chronic kidney disease, stage 3 (moderate); Z93.3 Colostomy status; I65.23 Occlusion and stenosis of bilateral carotid arteries; I16.0 Hypertensive urgency; Z95.1 Presence of aortocoronary bypass graft
CPT/HCPCS: 1NP; 70551; 70557; 72148; 36415; 71045; 81001; 82436; 86920; 87040; 87070; 87086; 93005; 93010; 93306; 93970; 96361; 96374; 97110-GO; 97112-GO; 97162-GP; 97530-GO; J0360; J0696; J1644; J1650; J1815; J2185; J7040; J7042; P9016

== ENCOUNTER 2017-07-03 14:03 | Observation (INO) | payer OTHER, MEDICARE ==
[~2017-07-03] VITALS: Ht 175.3 cm; Wt 63.7 kg
[~2017-07-03 14:03] MED LIST changes: +ELIQUIS5 M1 PO; +LISINOPRIL5 M1 PO; +NORVASC5 M1 PO
--- NOTE | 2017-07-03 14:21 | ED NEURO DEFICIT/STROKE ---
History of Present Illness General Chief Complaint: Neuro Symptoms/ Deficit Stated Complaint: ?TIA Source: patient, family, EMS, [facility]10 Exam Limitations: difficulty speaking Vital Signs & Intake/Output Vital Signs & Intake/Output Vital Signs Date Time Temp Pulse Resp B/P B/P Pulse O2 O2 Flow FiO2 Mean Ox Delivery Rate 07/04 1016 98.4 66 16 139/69 95 Room Air 03/05 0611 97.2 96 18 162/72 98 03/05 0141 97.6 60 19 160/76 95 Room Air 03/04 2250 64 18 136/64 97 Room Air 03/04 2143 97.9 62 16 152/70 97 Room Air 03/04 1645 60 160/84 03/04 1631 70 185/88 03/04 1602 97.0 78 15 188/85 100 Room Air 03/04 1452 Room Air 03/04 1416 97.5 60 20 186/84 98 Room Air ED Intake and Output 03/ 0000 03/04 1200 Intake Total 1000 Output Total Balance 1000 Intake, IV 1000 Allergies Coded Allergies: Penicillins (unknown 11/13/15) STATINS (MUSCLE CRAMPS 06/07/17) Reconcile Medications Acetaminophen 325 MG TABLET 2 TAB PO Q4H PRN PAIN/TEMP>101 (Reported) Amino AC/Protein Hydr/Whey Pro (Prosource Protein Liquid) (Unknown Strength) LIQUID 30 ML PO BID SUPPLEMENT (Reported) Amlodipine Besylate (Norvasc) 5 MG TABLET 1 TAB PO DAILY Hypertension Apixaban (Eliquis) 5 MG TABLET 1 TAB PO BID DVT treatment/ppx 06/10-06/12: Please take 2 x 5mg tablets, twice daily 06/13: Please take 1 x 5mg tablets, twice daily Cholecalciferol (Vitamin D3) (Vitamin D3) 2,000 UNIT TABLET 1 TAB PO DAILY VITAMIN SUPPORT (Reported) Cyanocobalamin (Vitamin B-12) 1,000 MCG TABLET 1 TAB PO DAILY VITAMIN SUPPORT (Reported) Ezetimibe (Zetia) 10 MG TABLET 1 TAB PO DAILY CHOLESTEROL (Reported) Ferrous Sulfate 325 MG (65 MG IRON) TABLET 1 TAB PO DAILY SUPPLEMENT ( Reported) Finasteride 5 MG TABLET 1 TAB PO DAILY PROSTATE (Reported) Insulin Aspart (Novolog) (Unknown Strength) VIAL 0 SC SEE SLIDING SCALE Diabetes (Reported) BEFORE MEALS Blood Insulin Sugar Units <80 0 81-100 2 101-200 4 201-250 6 251-300 8 301-350 10 351-400 12 >400 Call Doctor Insulin Glargine,Hum.rec.anlog (Lantus Solostar) 100 UNIT/ML (3 ML) INSULN.PEN 22 UNIT SC QAM DIABETES (Reported) Lactobacillus Acidophilus (Probiotic) 10 BILLION CELL CAPSULE 1 TAB PO DAILY VITAMIN (Reported) Lisinopril 5 MG TABLET 1 TAB PO DAILY Hypertension Magnesium Hydroxide (Milk Of Magnesia) 400 MG/5 ML ORAL.SUSP 30 ML PO DAILY PRN CONSTIPATION- NO BM IN 3 DAYS (Reported) Metoprolol Tartrate 100 MG TABLET 1 TAB PO BID Heart (Reported) Multiple Vitamin (Multivitamins) 1 EACH TABLET 1 TAB PO DAILY SUPPLEMENT ( Reported) Paroxetine HCl (Paxil) 10 MG TABLET 1 TAB PO DAILY MENTAL HEALTH (Reported) Tamsulosin HCl 0.4 MG CAP.ER.24H 1 CAP PO BID PROSTATE (Reported) Triage Note: PT BIBA FROM ECF S/P POSSIBLE TIA WITH AMS. DR GERARDO AT BEDSIDE WITH THE SPOUSE. PT SPOUSE STATES THAT SYMPTOMS OCCURED DURING BREAKFAST AND 1130. PT IS TWITCHING, PT IS ALERT AND AWARE THAT HE IS AT HOSPITAL. PT HAS HX OF TIA AND META CA, PT HAS PORT TO [facility] ALREADY ACCESSED. Triage Nurses Notes Reviewed? yes HPI: Patient presents for evaluation of tremors and trouble speaking. The patient himself offers no complaint at this time. He has a history of metastatic rectal cancer. According to his he was last seen normal at breakfast at about 9 to 10:00 this morning. She then went to see him at about 11:30 and noticed that he was having trouble speaking and had strange movements of his tongue. Upon presentation to the emergency department the patient has muscle twitching of his face but is otherwise alert and answering questions. He also follows commands. Prehospital fingerstick blood glucose was normal. (Humaira BRONSON,Felipe Blackburn) Past History Medical History Any Pertinent Medical History? see below for history Neurological: NEUROPATHY EENT: NONE Cardiovascular: AFIB, CHF, hypertension, hyperlipidemia, PVD (right femoral stent), CAD status post CABG paroxisymal A. 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 No (Felipe Gerardo MD) Review of Systems Review of Systems Constitutional: Reports: no symptoms. EENTM: Reports: no symptoms. Respiratory: Reports: no symptoms. Cardiovascular: Reports: no symptoms. GI: Reports: no symptoms. Genitourinary: Reports: no symptoms. Musculoskeletal: Reports: see HPI. Skin: Reports: no symptoms. Neurological/Psychological: Reports: no symptoms. Hematologic/Endocrine: Reports: no symptoms. Immunologic/Allergic: Reports: no symptoms. All Other Systems: Reviewed and Negative (Humaira BRONSON,Felipe Blackburn) Physical Exam Physical Exam General Appearance: SEE BELOW Cranial Nerves: SEE BELOW Comments: Gen.: Well-nourished, well-developed, no acute respiratory distress. Head: Normocephalic, atraumatic. Eyes: Normal inspection bilaterally, pupils small but reactive, EOMI Ears: Normal inspection bilaterally Nose: Normal inspection Throat/mouth : Tacky mucosa, tongue fasciculations Face: No facial droop, bilateral muscle fasciculations Neck: Supple, full range of motion, no goiter Heart: Regular rate and rhythm Lungs: Clear to auscultation bilaterally with normal air entry Chest: Nontender Abdomen: Soft, nontender, nondistended, normal bowel sounds Extremities: Normal range of motion grossly, equal radial pulses, no cyanosis clubbing or edema, mild muscle wasting diffusely Neurologic: Cranial nerves grossly intact, speech is clear and mildly dysarthric Skin: warm and dry Psychiatric: Calm, cooperative, normal affect Core Measures CVA/TIA Diagnosis: No Sepsis Present: No Sepsis Focused Exam Completed? No (Humaira BRONSON,Felipe Blackburn) Progress Differential Diagnosis: MUSCLE FASCICULATIONS, SEIZURES, DEHYDRATION, ELECTROLYTE ABNORMALITY, cva, BRAIN METASTASES Plan of Care: Orders Procedure Date/time Status Nothing by Mouth 07/04 L Active Heart Healthy Diet 07/04 B Complete OXYGEN SETUP (GEN) 07/04 954 Active Saline Lock 07/[address] in observation 07/04 954 Active Activity/Ambulation 07/04 954 Active SWALLOW EVALUATION 07/04 846 Active PT Evaluate & Treat 07/[address] in observation 07/03 1953 Active ED Holding Orders 07/03 1953 Active Patient Data 07/03 1953 Active Vital Signs 07/03 1953 Active Code Status 07/03 1953 Active Intake & Output 07/03 145 Active TSH REFLEX 07/03 142 Complete MAGNESIUM 07/03 142 Complete COMPREHENSIVE METABOLIC PANEL 07/03 142 Complete CBC WITHOUT DIFFERENTIAL 07/03 142 Complete Current Medications Sig/Audrey Start time Last Medication Dose Stop Time Status Admin Metoprolol Succinate 100 MG ONCE ONE 07/03 1615 CAN (Toprol Xl) 07/03 1616 Laboratory Tests 07/03/17 1437: Anion Gap 9, Estimated GFR 59 L, BUN/Creatinine Ratio 30.8 H, Glucose 112 H, Calcium 9.2, Magnesium 1.4 L, Total Bilirubin 0.3, AST 12 L, ALT 19 L, Alkaline Phosphatase 60, Total Protein 6.2 L, Albumin 2.9 L, Globulin 3.3, Albumin/Globulin Ratio 0.9 L, TSH &T3 &Free T4 Intrp 3.000, CBC w Diff NO MAN DIFF REQ, RBC 3.63 L, MCV 83.9, MCH 26.7 L, MCHC 31.8 L, RDW 21.0 H, MPV 6.5 L, Gran % 69.4, Lymphocytes % 19.0 L, Monocytes % 8.0, Eosinophils % 3.2, Basophils % 0.4, Absolute Granulocytes 5.6, Absolute Lymphocytes 1.5, Absolute Monocytes 0.6, Absolute Eosinophils 0.3, Absolute Basophils 0 Diagnostic Imaging: Discussed w/RAD: CT Scan. Radiology Impression: PATIENT: OMAR BAILEY PRESENT AGE: 76 PATIENT ACCOUNT NO: [id number] : 42 LOCATION: [facility] ORDERING PHYSICIAN: Felipe Gerardo MD SERVICE DATE: 07/03/17 EXAM TYPE : CAT - CT HEAD WO IV CONTRAST EXAMINATION: CT HEAD CLINICAL INFORMATION: CVA COMPARISON: No prior CT scan available for comparison. TECHNIQUE: Computer axial tomographic sections acquired at 2.5 mm thin sections. DLP: mGy-cm FINDINGS: CEREBRAL HEMISPHERES: There is no evidence of intra-axial or extra-axial mass, hemorrhage or acute infarct. BRAIN PARENCHYMA: Deep white matter and paraventricular hypoattenuation, nonspecific; however, in this patient's age group most likely changes secondary to chronic ischemia/microvascular angiopathy. SUBDURAL SPACE: No bleed. BASAL GANGLIA AND PINEAL GLAND: Unremarkable VENTRICLES: Symmetric and normal in size. CEREBELLUM AND BRAINSTEM: No space-occupying mass, hemorrhage or acute infarct. CEREBELLOPONTINE ANGLES: No lesion found. ORBITS: No intraorbital mass. VESSELS: Unremarkable SKULL BASE: Unremarkable INCLUDED SINUSES AT SKULL BASE: Clear SKULL AND SKIN: No fracture or bone lesion found. IMPRESSION: Deep white matter and periventricular hypoattenuation, nonspecific; however, in this patient's age group most likely sequela of chronic microvascular angiopathy ischemia. DICTATED BY: Lamine BRONSON, Eitan DATE/TIME DICTATED:07/03/171825 CASINO FLOOR SUPERVISOR:MARIE DATE/TIME TRANSCRIBED:07/03/171825 CONFIDENTIAL, DO NOT COPY WITHOUT APPROPRIATE AUTHORIZATION. <Electronically signed in Other Vendor System> SIGNED BY: Lamine BRONSON,Hadeer 07/03/17 1832 Initial ED EKG: none Comments: Patient has no apparent facial droop or other focal neurologic deficit. The muscle twitches he is experiencing are bilateral. I doubt he is suffering from a stroke or TIA. His states that when he had these type of muscle tremors previously it was due to a low potassium level. 07/03/2017 4:26:13 PM I feel Omar's muscle twitching has diminished some with IV fluids. Magnesium is infusing. Lopressor ordered given his elevated blood pressure. 07/03/2017 5:46:29 PM patient's blood pressure has improved with the Lopressor. The magnesium has finished infusing along with the IV fluids. Over the patient' s facial fasciculations have improved he still has noticeable fasciculations of the tongue. I will order a CAT scan of the head given the recent addition of Eliquis to his regimen because of DVT. 07/03/2017 6:42:18 PM results of the CAT scan are unrevealing. I have had another discussion with Omar's who states that once previously she treated him with a "tranquilizer" for muscle tremors he had of his extremities. I have ordered IV Ativan. However I'm concerned for his ability to swallow and for an aspiration risk. Although Omar did tolerate applesauce in the emergency department, I will speak with case management about having an evaluation by PT/ OT. 07/03/2017 7:04:22 PM patient signed out to Dr. 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 (Humaira BRONSON,Felipe Blackburn) Hand-Off Endorsed To: Kika Maldonado MD Endorsed Time: 2300 Pending: other (RE-EVAL) (Ezra Ma MD) Hand-Off Endorsed To: Cresencio Suero MD Endorsed Time: 0700 Pending: other (REEVALUATION, PO CHALLENGE) (Kika Maldonado MD) Departure Departure Disposition: STILL A PATIENT Condition: Stable Referrals: Yolanda Cervantes MD (PCP/Family) Departure Forms: Customer Survey General Discharge Information (Felipe Gerardo MD) Departure Clinical Impression Primary Impression: Muscle fasciculation Secondary Impressions: Hypomagnesemia (Ezra Ma MD) Departure Time of Disposition: 1022 Admission Note Documentation of Exam: Documentation of any treatments & extenuating circumstances including Concerns Regarding Discharge (functional status, medication knowledge or non-compliance, living conditions, etc.) that warrant an admission rather than observation: Observation Note Spoke With: Beny Marin MD Physician Advisor Notified: MANNY NUR MD Place Patient In: Non-ED OBS Care Area Rationale for Observation: My rational for observation is as follows swallow evaluation neurologic evaluation neurochecks physical therapy medication adjustment oncology evaluation hospice evaluation continuing care discharge planning. (Cresencio Suero MD) ED Attending Observation Initial Observation Note: I have seen and personally examined OMAR BAILEY on 07/03/17 at 1955. I agree with the current emergency department documentation. The disposition (admission or discharge) is uncertain at this time, he needs a period of observation for the following reason(s): [Patient presented with tongue and bilateral fasciculations mainly in the muscles of mastication. Patient was found to be hypomagnesemic. The fasciculations I've gone away after IV dose of Ativan however we do not know if they will return on the Ativan wears off. Patient was also unable to eat this afternoon or this evening secondary to the fasciculations. Patient will remain in the emergency department tonight for close observation for return to the fasciculations as well as to make sure he can eat in the morning. If the fasciculations do not come back and he is able to eat that he will be stable for discharge back to his extended care facility. If, however, the fasciculations come back and or he is unable to eat than his require admission to the hospital for neurological evaluation.] The ED Nurse caring for this patient has been personally informed as to what the patient is being observed for. (Anil BRONSON,Ezra Malave) Observation Re-Evaluation: I have reevaluated LEOOMAR on 07/03/17 at 2323. The physical findings that support the continued need to observe this patient include [PATIENT SIGNED OUT TO ME BY DR MA, PENDING OVERNIGHT EVALUATION. IF CAN TOLERATE PO IN AM, WILL LIKELY D/C BACK TO ECF. CURRENTLY FASCICIULATIONS HAVE STOPPED]. (Erica BRONSON,Kika) Observation Discharge: I have reevaluated LEO,OMAR on 07/04/17 at 1022. The patient is: (): Stable for discharge (x): To be admitted to Nursing Floor (): To be placed in Observation on Nursing Floor (): For transfer to other facility The patient was being observed for tongue fasciculations As a result of that observation, I have determined unable to tolerate food or fluid. (Pio BRONSON,Cresencio)
[2017-07-03 14:48] LABS: ABSOLUTE BASOPHIL COUNT 0 /CUMM (0.0-0.2); ABSOLUTE EOSINOPHIL COUNT 0.3 /CUMM (0.0-0.7); ABSOLUTE GRANULOCYTE CT 5.6 /CUMM (1.4-6.5); ABSOLUTE LYMPH COUNT 1.5 /CUMM (1.2-3.4); ABSOLUTE MONOCYTE COUNT 0.6 /CUMM (0.10-0.60); BASOPHIL % 0.4 % (0.0-2.0); EOSINOPHIL % 3.2 % (0-5); GRANULOCYTE % 69.4 % (42.2-75.2); HEMATOCRIT 30.5 % (42-52); MEAN CORPUSCULAR HGB 26.7 PG (27.0-31.0); MEAN CORPUSCULAR HGB CONC 31.8 G/DL (33.0-37.0); MEAN CORPUSCULAR VOLUME 83.9 FL (80.0-94.0); MEAN PLATELET VOLUME 6.5 FL (7.4-10.4); PLATELET COUNT 342 /CUMM (130-400); RED BLOOD CELL CT 3.63 /CUMM (4.70-6.10)
[2017-07-03] MEDS ORDERED: FERROUS SULFAT325 M3 PO (16:55)
[2017-07-03] MEDS ORDERED: MULTIVITAMINS1 EAC9 PO (16:57)
[2017-07-03] MEDS ORDERED: PROSOURCE PROT946 M1 PO (16:57)
[2017-07-03] MEDS ORDERED: ACEPHEN650 M1 PR (17:00)
[2017-07-03] MEDS ORDERED: ACETAMINOPHEN325 M2 PO (17:11)
[2017-07-03] MEDS ORDERED: MILK OF MA400 MG/52 PO (17:14)
--- NOTE | 2017-07-03 18:32 | CT SCAN REPORT ---
EXAMINATION: CT HEAD CLINICAL INFORMATION: CVA COMPARISON: No prior CT scan available for comparison. TECHNIQUE: Computer axial tomographic sections acquired at 2.5 mm thin sections. DLP: mGy-cm FINDINGS: CEREBRAL HEMISPHERES: There is no evidence of intra-axial or extra-axial mass, hemorrhage or acute infarct. BRAIN PARENCHYMA: Deep white matter and paraventricular hypoattenuation, nonspecific; however, in this patient's age group most likely changes secondary to chronic ischemia/microvascular angiopathy. SUBDURAL SPACE: No bleed. BASAL GANGLIA AND PINEAL GLAND: Unremarkable VENTRICLES: Symmetric and normal in size. CEREBELLUM AND BRAINSTEM: No space-occupying mass, hemorrhage or acute infarct. CEREBELLOPONTINE ANGLES: No lesion found. ORBITS: No intraorbital mass. VESSELS: Unremarkable SKULL BASE: Unremarkable INCLUDED SINUSES AT SKULL BASE: Clear SKULL AND SKIN: No fracture or bone lesion found. IMPRESSION: Deep white matter and periventricular hypoattenuation, nonspecific; however, in this patient's age group most likely sequela of chronic microvascular angiopathy ischemia.
--- NOTE | 2017-07-04 11:49 | History & Physical ---
Viola Alarcon 07/04/17 1138: General Information and HPI MD Statement: I have seen and personally examined MONICA BAILEY and documented this H&P. The patient is a 76 year old M who presented with a patient stated chief complaint of []. Source of Information: old records, ED documents History of Present Illness: 80-year-old gentleman with past medical history of hypertension, hyperlipidemia, CAD status post CABG, diabetes,paroxysmal A. fib not on anticoagulation him a rectal cancer status post transabdominal excision with colostomy and recurrence with recent chemotherapy last March and [facility], ESBL UTI in the past, diabetes, DVT not on anticoagulation, BPH, anemia of chronic disease, [place] catheter and nephrolithiasis was bedbound after the recent admission to [facility] ( 06/01/2017-06/09/2017) for confusion, was brought in this time to the hospital with chief complaint of altered mental status and tonic and facial muscle twitch. Patient is a resident of [place]; bedbound, history of right-sided weakness, at his baseline he is verbal and able to feed himself. Currently patient is not communicative. Most of the HPI was obtained from [place], and . Yesterday morning patient was verbal and was seen to feed himself comfortably ( 07/03/2017). By noon, when was visiting came he found him confused, and nonverbal. He also developed new allegedly reported " tongue and facial muscle to each and wavy movements", and was not able to swallow. Vital signs are [facility] at the [facility]. Patient was sent to the emergency room. Initially in the ED blood lood pressure was uncontrolled. He was restarted on his normal dose of metoprolol and his blood pressure is currently controlled. Patient received small doses of IV Ativan (0.25), which reportedly stop the wavy movements in his face. Under related, according to his patient was recently treated for another episode of urinary tract infection, on meropenem ( Alfredo/26 q8h last dose was given on 07/03/2017); the last dose of medication was given yesterday. Patient visited his asset specialist on last week; according to patient's if the recent CAT scan on 07/01/2017 shows new metastasis, due to his poor performance status patient is not a candidate for another round of chemotherapy. Allergies/Medications Allergies: Coded Allergies: Penicillins (unknown 11/13/15) STATINS (MUSCLE CRAMPS 06/07/17) Home Med list Acetaminophen 325 MG TABLET 2 TAB PO Q4H PRN PAIN/TEMP>101 (Reported) Amino AC/Protein Hydr/Whey Pro (Prosource Protein Liquid) (Unknown Strength) LIQUID 30 ML PO BID SUPPLEMENT (Reported) Apixaban (Eliquis) 5 MG TABLET 1 TAB PO BID DVT treatment/ppx 06/10-06/12: Please take 2 x 5mg tablets, twice daily 06/13: Please take 1 x 5mg tablets, twice daily Cholecalciferol (Vitamin D3) (Vitamin D3) 2,000 UNIT TABLET 1 TAB PO DAILY VITAMIN SUPPORT (Reported) Cyanocobalamin (Vitamin B-12) 1,000 MCG TABLET 1 TAB PO DAILY VITAMIN SUPPORT (Reported) Ezetimibe (Zetia) 10 MG TABLET 1 TAB PO DAILY CHOLESTEROL (Reported) Ferrous Sulfate 325 MG (65 MG IRON) TABLET 1 TAB PO DAILY SUPPLEMENT ( Reported) Insulin Aspart (Novolog) (Unknown Strength) VIAL 0 SC SEE SLIDING SCALE Diabetes (Reported) BEFORE MEALS Blood Insulin Sugar Units <80 0 81-100 2 101-200 4 201-250 6 251-300 8 301-350 10 351-400 12 >400 Call Doctor Insulin Glargine,Hum.rec.anlog (Lantus Solostar) 100 UNIT/ML (3 ML) INSULN.PEN 22 UNIT SC QAM DIABETES (Reported) Lactobacillus Acidophilus (Probiotic) 10 BILLION CELL CAPSULE 1 TAB PO DAILY VITAMIN (Reported) Magnesium Hydroxide (Milk Of Magnesia) 400 MG/5 ML ORAL.SUSP 30 ML PO DAILY PRN CONSTIPATION- NO BM IN 3 DAYS (Reported) Metoprolol Tartrate 100 MG TABLET 1 TAB PO BID Heart (Reported) Multiple Vitamin (Multivitamins) 1 EACH TABLET 1 TAB PO DAILY SUPPLEMENT ( Reported) Paroxetine HCl (Paxil) 10 MG TABLET 1 TAB PO DAILY MENTAL HEALTH (Reported) Tamsulosin HCl 0.4 MG CAP.ER.24H 1 CAP PO BID PROSTATE (Reported) Compliance With Home Meds: GOOD Past History Travel History Traveled to [place] past 21 day No Medical History Neurological: NEUROPATHY EENT: NONE Cardiovascular: AFIB, CHF, hypertension, hyperlipidemia, PVD (right femoral stent), CAD status post CABG paroxisymal A. 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 spouse Services at Home: Nursing Primary Language: Mongolian Smoking Status: Unknown If Ever Smoked Functional Ability ADLs Independent: dressing, eating, toileting, bathing. Ambulation: independent IADLs Needs Assist: shopping, housework, finances, food prep, telephone, transportation, medication admin. Review of Systems Review of Systems Constitutional: Reports: see HPI. Exam & Diagnostic Data Last 24 Hrs of Vital Signs/I&O Vital Signs Date Time Temp Pulse Resp B/P B/P Pulse O2 O2 Flow FiO2 Mean Ox Delivery Rate 07/04 1258 96 Room Air / 1255 98.2 70 16 187/85 95 Room Air / 1016 98.4 66 16 139/69 95 Room Air /05 0611 97.2 96 18 162/72 98 03/05 0141 97.6 60 19 160/76 95 Room Air 03/ 2250 64 18 136/64 97 Room Air 03/04 2143 97.9 62 16 152/70 97 Room Air 03/04 1645 60 160/84 03/04 1631 70 185/88 03/04 1602 97.0 78 15 188/85 100 Room Air 03/ 1452 Room Air 03/ 1416 97.5 60 20 186/84 98 Room Air Physical exam lethargic but arousible; responds minimally to verbal stimuli, sometimes open his eyes very minimally; not able to communicate Heart rate is regular with normal sinus to Limited lung exam was clear Port-A-Cath on the right side does not look red or tender Abdomen was nontender; colostomy bag in palce Neuro exam: very limited; seemingly upper extremities are weaker than lower extremity; there is increased in tone and cogwheel rigidity in B/L Upper extremities. right lower extremity weaker than left ( just contraction; baseline ; no change). Back: Nondistended stage ago decubitus ulcer; incontinence and sewed in urine Physical Exam General Appearance No Acute Distress Skin No Rashes HEENT right-sided facial droop; compatible with prior admissions Abdomen Soft, colostomy bag Assessment/Plan Assessment: History of hydronephrosis This is a 76-year-old gentleman complicated past medical history multiple comorbidities he was admitted for sudden change in mentation, aphagia, inability to swallow and reportedly fascial muscle twitch. Labs from 07/03/2017 notable for WBC 8, hemoglobin 9.7, MCV 30, platelet count 342, Creatinine 1.2, BUN 37, head CT 06/01/2017 Limited evaluation for stroke due to the presence of extensive periventricular and subcortical white matter hypodensities, a nonspecific finding but most likely on the basis of chronic small vessel ischemic disease. No obvious territorial infarction is able to be identified. Based on clinical suspicion for stroke, consider followup with MRI. CT scan of the head without IV contrast 06/05/2017 Deep white matter and periventricular hypoattenuation, nonspecific; however, in this patient's age group most likely sequela of chronic microvascular angiopathy ischemia; CEREBELLUM AND BRAINSTEM: No space-occupying mass, hemorrhage or acute infarct. List of differential diagnosis Altered mental status and new neurology findings: Stroke, seizure Initial CT scan without IV contrast did not show any mass or intracranial hemorrhage or new infarct; similar to the prior head CT scan without IV contrast this is studies and limited value specifically in this patient. Patient recently finished a course of meropenem therapy for UTI. Carboplatinum the known to lower threshold seizure, which might very well explain the movements and altered mental status. Chronic medical conditions History of DVT Hypertension History of hydronephrosis and urinary tract colonization and recurrent UTIs History of BPH History of decubitus ulcer stage III Plan * Admit to general medical floor as an observation * Swallow evaluation-javi and nectar thick * Obtain neurology consult * carbohydrate diet nectar thick and puree * galrgine insuline 22 U Qam * novolog sliding scale TIDAC * metoprolol 100 mg twice a day * Recently finished treatments for UTI-no active infection-stage III decubitus ulcer and incontinence (clear indication for placing urinary catheter) * Daily blood work and came * Hypomagnesemia repleted yesterday; check lvl DNR/DNI IV Tylenol for pain avoidance narcotics/antipsychotics and hypnotic medication As Ranked By This Provider Problem List: 1. Sacral ulcer 2. Hypomagnesemia Core Measures/Misc (01/16) Acute Coronary Syndrome ACS Diagnosis: No Congestive Heart Failure Congestive Heart Failure Diagnosis No Cerebrovascular Accident CVA/TIA Diagnosis: No VTE (View Protocol) VTE Risk Factors Cancer/chemo/othr therapy No Mechanical VTE Prophylaxis d/t N/A MechProphylax Ordered No VTE Pharm Prophylaxis d/t NA PharmProphylax ordered Sepsis (View protocol) Sepsis Present: No Resident Review Statement Resident Statement: examined this patient, discussed with real estate internship, agreed with real estate internship, discussed with family, reviewed EMR data (avail), discussed with nursing , discussed with case mgmt, reviewed images, amended to note Jesús Clarke MD 07/04/17 5279: Attending MD Review Statement Attending Statement Attending MD Statement: examined this patient, discuss w/resident/PA/OUTPATIENT PHYSICAL THERAPIST, agreed w/resident/PA/OUTPATIENT PHYSICAL THERAPIST, reviewed EMR data (avail) Attending Assessment/Plan: Agree with plan, will follow up with neurology, EEG, MRI, continue home meds, continue to monitor, DVT PPx
[2017-07-04 15:23] LABS: ABSOLUTE BASOPHIL COUNT 0 /CUMM (0.0-0.2); ABSOLUTE EOSINOPHIL COUNT 0.2 /CUMM (0.0-0.7); ABSOLUTE GRANULOCYTE CT 4.8 /CUMM (1.4-6.5); ABSOLUTE MONOCYTE COUNT 0.5 /CUMM (0.10-0.60); BASOPHIL % 0.7 % (0.0-2.0); EOSINOPHIL % 3.3 % (0-5); GRANULOCYTE % 72.9 % (42.2-75.2); HEMATOCRIT 27.8 % (42-52); MEAN CORPUSCULAR HGB 27.3 PG (27.0-31.0); MEAN CORPUSCULAR HGB CONC 32.9 G/DL (33.0-37.0); MEAN PLATELET VOLUME 6.2 FL (7.4-10.4); PLATELET COUNT 323 /CUMM (130-400); RED BLOOD CELL CT 3.35 /CUMM (4.70-6.10); WHITE BLOOD CELL COUNT 6.6 /CUMM (4.8-10.8)
--- NOTE | 2017-07-04 22:05 | ELECTROENCEPHALOGRAM REPORT ---
Electroencephalogram Report Electroencephalogram Results Date of service: 07/04/17 Attending MD: Rosa Clarke MD Cuffing Machine Operator: Melissa EEG Number: [id number] Test Utilizes: 10-20 system, 21 lead 18 channel digital recording Pertinent Hx/Physical/Neuro Findings/Clin Diagnosis: 76 year old wth new onset tongue twitching and facial twitches with episodic aphasia. Inpatient Medications: Current Medications Sig/Audrey Start time Last Medication Dose Route Stop Time Status Admin Acetaminophen 975 MG Q8P PRN 07/04 1500 AC PO Acetaminophen 650 MG Q4H PRN 07/04 1415 DC PO Acetaminophen 1,000 MG Q6P PRN 07/04 1400 DC N/A 1 UNIT IV Apixaban 5 MG 0600,1800 07/04 1800 AC PO Apixaban 5 MG BID 07/04 1415 DC 07/04 PO 1808 Cholecalciferol 2,000 IU DAILY 07/04 1416 AC 07/04 PO 1809 Dextrose/Sodium 1,000 ML .[id number] 07/04 1400 DC Chloride IV Enoxaparin Sodium 40 MG DAILY 07/04 1359 DC SC Ezetimibe 10 MG DAILY 07/04 1416 AC 03 PO 1809 Ferrous Sulfate 325 MG DAILY 07/04 1416 AC 07/04 PO 1809 Insulin Aspart 0 TIDAC 07/04 1700 AC SC Insulin Detemir 22 UNITS DAILY 07/04 1417 AC SC Insulin Detemir 12 UNITS DAILY 07/04 1404 DC SC Insulin Human Regular 0 Q6 07/04 1405 DC SC Lactobacillus 1 CAP DAILY 07/04 1417 AC 07/04 Acidophilus PO 1809 Metoprolol Tartrate 100 MG 1800,07/04 1800 AC PO Metoprolol Tartrate 100 MG BID 07/04 1417 DC 03/ PO 1809 Metoprolol Tartrate 100 MG BID 07/04 1338 DC IV Multivitamins 1 TAB DAILY 07/04 1418 AC 07/04 Therapeutic PO 1810 Sodium Chloride 1,000 ML ONCE ONE 07/03 1430 DC 03/ IV 07/03 2229 1538 Tamsulosin HCl 0.4 MG 1800,0600 07/04 1800 AC PO Tamsulosin HCl 0.4 MG BID 07/04 1418 DC 07/04 PO 1810 Interpretation: The recording demonstrates an intermittent episodic 4-5 Hertz spike activity seen within the bifrontal fronal and central regions that is felt to represent muscle artifact due to twitching. At times this takes a form that seems more spike and wave but still is not classically epileptiform in nature. Further, these sharps that are seen during wakefulness disappear completely during sleep. During wakefulness background rhythm is composed of 5 Hertz delta range waves. Impression: Abnormal recording more consistent with myoclonic or myokymic muscle twitching than with epileptiform activity. This is especially supported by the fact that this activity resolves during sleep.
--- NOTE | 2017-07-04 22:18 | Cons- Neurology ---
General Information and HPI Consulting Request Date of Consult: 07/04/17 Requested By: Rosa Clarke MD Reason for Consult: Tongue twitching and aphasia Source of Information: family, old records Exam Limitations: unable to give history History of Present Illness: This is a 76 year old unfortunate man who presented to the hospital with tongue and facial muscle twitching and episodic aphasia. He has known rectal CA s/o chemotherapy and recent finding of metastatic disease. He also has atrial fibrillation and recurrent UTIs with resistant strains. Last week he suffered another UTI and had a change in mentation (encephalopathy). He was started on antibiotics and ended up on Merpenem. He was better by Tuesday, but then suddenly took a turn for the worse becoming lethargic, aphasic and developing the muscle twitches. NCHCT was normal in the ER. Per his cad administrator he seems to be getting a little better as far as the twitching goes but is still averbal. Allergies/Medications Allergies: Coded Allergies: Penicillins (unknown 11/13/15) STATINS (MUSCLE CRAMPS 06/07/17) Home Med List: Acetaminophen 325 MG TABLET 2 TAB PO Q4H PRN PAIN/TEMP>101 (Reported) Amino AC/Protein Hydr/Whey Pro (Prosource Protein Liquid) (Unknown Strength) LIQUID 30 ML PO BID SUPPLEMENT (Reported) Apixaban (Eliquis) 5 MG TABLET 1 TAB PO BID DVT treatment/ppx 06/10-06/12: Please take 2 x 5mg tablets, twice daily 06/13: Please take 1 x 5mg tablets, twice daily Cholecalciferol (Vitamin D3) (Vitamin D3) 2,000 UNIT TABLET 1 TAB PO DAILY VITAMIN SUPPORT (Reported) Cyanocobalamin (Vitamin B-12) 1,000 MCG TABLET 1 TAB PO DAILY VITAMIN SUPPORT (Reported) Ezetimibe (Zetia) 10 MG TABLET 1 TAB PO DAILY CHOLESTEROL (Reported) Ferrous Sulfate 325 MG (65 MG IRON) TABLET 1 TAB PO DAILY SUPPLEMENT ( Reported) Insulin Aspart (Novolog) (Unknown Strength) VIAL 0 SC SEE SLIDING SCALE Diabetes (Reported) BEFORE MEALS Blood Insulin Sugar Units <80 0 81-100 2 101-200 4 201-250 6 251-300 8 301-350 10 351-400 12 >400 Call Doctor Insulin Glargine,Hum.rec.anlog (Lantus Solostar) 100 UNIT/ML (3 ML) INSULN.PEN 22 UNIT SC QAM DIABETES (Reported) Lactobacillus Acidophilus (Probiotic) 10 BILLION CELL CAPSULE 1 TAB PO DAILY VITAMIN (Reported) Magnesium Hydroxide (Milk Of Magnesia) 400 MG/5 ML ORAL.SUSP 30 ML PO DAILY PRN CONSTIPATION- NO BM IN 3 DAYS (Reported) Metoprolol Tartrate 100 MG TABLET 1 TAB PO BID Heart (Reported) Multiple Vitamin (Multivitamins) 1 EACH TABLET 1 TAB PO DAILY SUPPLEMENT ( Reported) Paroxetine HCl (Paxil) 10 MG TABLET 1 TAB PO DAILY MENTAL HEALTH (Reported) Tamsulosin HCl 0.4 MG CAP.ER.24H 1 CAP PO BID PROSTATE (Reported) Current Medications: Current Medications Sig/Audrey Start time Last Medication Dose Route Stop Time Status Admin Acetaminophen 975 MG Q8P PRN 07/04 1500 AC PO Acetaminophen 650 MG Q4H PRN 07/04 1415 DC PO Acetaminophen 1,000 MG Q6P PRN 07/04 1400 DC N/A 1 UNIT IV Apixaban 5 MG 0600,1800 07/04 1800 AC PO Apixaban 5 MG BID 07/04 1415 DC 07/04 PO 1808 Cholecalciferol 2,000 IU DAILY 07/04 1416 AC 07/04 PO 1809 Dextrose/Sodium 1,000 ML .[id number] 07/04 1400 DC Chloride IV Enoxaparin Sodium 40 MG DAILY 07/04 1359 DC SC Ezetimibe 10 MG DAILY 07/04 1416 AC 07/04 PO 1809 Ferrous Sulfate 325 MG DAILY 07/04 1416 AC 07/04 PO 1809 Insulin Aspart 0 TIDAC 07/04 1700 AC SC Insulin Detemir 22 UNITS DAILY 07/04 1417 AC SC Insulin Detemir 12 UNITS DAILY 07/04 1404 DC SC Insulin Human Regular 0 Q6 07/04 1405 DC SC Lactobacillus 1 CAP DAILY 07/04 1417 AC 07/04 Acidophilus PO 1809 Metoprolol Tartrate 100 MG 1800,0600 07/04 1800 AC PO Metoprolol Tartrate 100 MG BID 07/04 1417 DC 07/04 PO 1809 Metoprolol Tartrate 100 MG BID 07/04 1338 DC IV Multivitamins 1 TAB DAILY 07/04 1418 AC 07/04 Therapeutic PO 1810 Sodium Chloride 1,000 ML ONCE ONE 07/03 1430 DC 03/04 IV 07/03 2229 1538 Tamsulosin HCl 0.4 MG 1800,0600 07/04 1800 AC PO Tamsulosin HCl 0.4 MG BID 07/04 1418 DC / PO 1810 Review of Systems Review of Systems: As per HPI. Past History Travel History Traveled to [place] past 21 day No Medical History Neurological: NEUROPATHY EENT: NONE Cardiovascular: AFIB, CHF, hypertension, hyperlipidemia, PVD (right femoral stent), CAD status post CABG paroxisymal A. 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 spouse Services at Home: Nursing Primary Language: Nigerian Smoking Status: Unknown If Ever Smoked Functional Ability ADLs Independent: dressing, eating, toileting, bathing. Ambulation: independent IADLs Needs Assist: shopping, housework, finances, food prep, telephone, transportation, medication admin. Exam & Diagnostic Data Vital Signs and I&O , Vital Signs Date Time Temp Pulse Resp B/P B/P Pulse O2 O2 Flow FiO2 Mean Ox Delivery Rate 07/04 1811 98.2 72 16 144/65 98 Room Air / 1809 98.2 72 16 144/65 / 1536 97.6 64 12 186/79 97 Room Air / 1258 96 Room Air / 1255 98.2 70 16 187/85 95 Room Air 03/ 1016 98.4 66 16 139/69 95 Room Air 03/ 0611 97.2 96 18 162/72 98 03/ 0141 97.6 60 19 160/76 95 Room Air / 2250 64 18 136/64 97 Room Air Intake & Output 07/04 1600 07/04 0800 07/04 0000 Intake Total Output Total Balance Patient 175 lb Weight Physical Exam: Lethargic, averbal, opens eyes and stares, follows simple commands. EOMI, LUAN, face symmetric. Tongue midline, no twitching. No twitching noted on face. Seems weak in all 4 limbs. Can lift both arms equally while leaning on elbows. Last 48 Hours of Lab Results: Laboratory Tests 07/04 07/04 07/04 1515 1403 1359 Chemistry Sodium (137 - 145 mmol/L) 141 Potassium (3.5 - 5.1 mmol/L) 3.9 Chloride (98 - 107 mmol/L) 107 Carbon Dioxide (22 - 30 mmol/L) 25 Anion Gap (5 - 16) 9 BUN (9 - 20 mg/dL) 33 H Creatinine (0.7 - 1.2 mg/dL) 1.2 Estimated GFR (>60 ml/min) 59 L BUN/Creatinine Ratio (7 - 25 %) 27.5 H Magnesium (1.6 - 2.3 mg/dL) Cancelled 1.7 Hematology CBC w Diff NO MAN DIFF REQ WBC (4.8 - 10.8 /CUMM) 6.6 RBC (4.70 - 6.10 /CUMM) 3.35 L Hgb (14.0 - 18.0 G/DL) 9.1 L Hct (42 - 52 %) 27.8 L MCV (80.0 - 94.0 FL) 83.0 MCH (27.0 - 31.0 PG) 27.3 MCHC (33.0 - 37.0 G/DL) 32.9 L RDW (11.5 - 14.5 %) 21.0 H Plt Count (130 - 400 /CUMM) 323 MPV (7.4 - 10.4 FL) 6.2 L Gran % (42.2 - 75.2 %) 72.9 Lymphocytes % (20.5 - 51.1 %) 15.6 L Monocytes % (1.7 - 9.3 %) 7.5 Eosinophils % (0 - 5 %) 3.3 Basophils % (0.0 - 2.0 %) 0.7 Absolute Granulocytes (1.4 - 6.5 /CUMM) 4.8 Absolute Lymphocytes (1.2 - 3.4 /CUMM) 1.0 L Absolute Monocytes (0.10 - 0.60 /CUMM) 0.5 Absolute Eosinophils (0.0 - 0.7 /CUMM) 0.2 Absolute Basophils (0.0 - 0.2 /CUMM) 0 03/04 1437 Chemistry Sodium (137 - 145 mmol/L) 139 Potassium (3.5 - 5.1 mmol/L) 4.1 Chloride (98 - 107 mmol/L) 104 Carbon Dioxide (22 - 30 mmol/L) 26 Anion Gap (5 - 16) 9 BUN (9 - 20 mg/dL) 37 H Creatinine (0.7 - 1.2 mg/dL) 1.2 Estimated GFR (>60 ml/min) 59 L BUN/Creatinine Ratio (7 - 25 %) 30.8 H Glucose (65 - 99 mg/dL) 112 H Calcium (8.4 - 10.2 mg/dL) 9.2 Magnesium (1.6 - 2.3 mg/dL) 1.4 L Total Bilirubin (0.2 - 1.3 mg/dL) 0.3 AST (17 - 59 U/L) 12 L ALT (21 - 72 U/L) 19 L Alkaline Phosphatase (< 127 U/L) 60 Total Protein (6.3 - 8.2 g/dL) 6.2 L Albumin (3.5 - 5.0 g/dL) 2.9 L Globulin (1.9 - 4.2 gm/dL) 3.3 Albumin/Globulin Ratio (1.1 - 2.2 %) 0.9 L TSH &T3 &Free T4 Intrp (0.27 - 4.20 uIU/mL) 3.000 Prolactin (3.7 - 17.9 ng/mL) 12.7 Hematology CBC w Diff NO MAN DIFF REQ WBC (4.8 - 10.8 /CUMM) 8.0 RBC (4.70 - 6.10 /CUMM) 3.63 L Hgb (14.0 - 18.0 G/DL) 9.7 L Hct (42 - 52 %) 30.5 L MCV (80.0 - 94.0 FL) 83.9 MCH (27.0 - 31.0 PG) 26.7 L MCHC (33.0 - 37.0 G/DL) 31.8 L RDW (11.5 - 14.5 %) 21.0 H Plt Count (130 - 400 /CUMM) 342 MPV (7.4 - 10.4 FL) 6.5 L Gran % (42.2 - 75.2 %) 69.4 Lymphocytes % (20.5 - 51.1 %) 19.0 L Monocytes % (1.7 - 9.3 %) 8.0 Eosinophils % (0 - 5 %) 3.2 Basophils % (0.0 - 2.0 %) 0.4 Absolute Granulocytes (1.4 - 6.5 /CUMM) 5.6 Absolute Lymphocytes (1.2 - 3.4 /CUMM) 1.5 Absolute Monocytes (0.10 - 0.60 /CUMM) 0.6 Absolute Eosinophils (0.0 - 0.7 /CUMM) 0.3 Absolute Basophils (0.0 - 0.2 /CUMM) 0 Imaging/Other Studies: NCHCT normal. Assessment/Plan Assessment: 76 year old recently treated with Meropenem for a UTI. Since yesterday he had developed twitching of his facial muscles, lethargy, aphasia and encephalopathy. His EEG was read as muscle twitches more consistent with myokymia which is not epileptiform. I feel that there is a good likelihood that all of this is due to meropenem. Rectal CA rarely metastesizes to the brain. Other possibilities include a paraneoplastic encephalitis. Recommendations: 1. Recommend monitoring for now. 2. If not better tomorrow and continues to be aphasic would consider possible use of anti-epileptics. 3. Recommend MRI brain with contrast. 4. Hydration. YC Consult Acknowledgment - Thank you for your consult request.
[2017-07-04 22:24] VITALS: BP 118/70
[2017-07-05 07:31] VITALS: BP 138/70
[2017-07-05 07:33] VITALS: BP 140/78
--- NOTE | 2017-07-05 07:59 | PN- Housestaff ---
See Addendum Subjective Follow-up For: Encephalopathy Subjective: No overnight events. Patient is AOx0 this morning. Does not know his own name. When asked if he is concerned about this, he says no. When asked about the similarity between an apple and orange, says they are both round. Cannot spell word "world" backwords, would not attempt. He has no complaints or pain. Review of Systems Constitutional: Reports: no symptoms. EENTM: Reports: no symptoms. Cardiovascular: Reports: no symptoms. Respiratory: Reports: no symptoms. Gastrointestinal: Reports: no symptoms. Genitourinary: Reports: no symptoms. Musculoskeletal: Reports: no symptoms. Skin: Reports: no symptoms. Neurological/Psychological: Reports: see HPI. Hematologic/Endocrine: Reports: no symptoms. Immunologic/Allergic: Reports: no symptoms. Objective Last 24 Hrs of Vital Signs/I&O Vital Signs Date Time Temp Pulse Resp B/P B/P Pulse O2 O2 Flow FiO2 Mean Ox Delivery Rate 07/05 0733 97.5 59 18 140/78 97 Room Air 07/05 0731 98.8 55 20 138/70 93 Room Air /05 2224 97.9 65 18 118/70 98 Room Air 03/ 1811 98.2 72 16 144/65 98 Room Air 03/05 1809 98.2 72 16 144/65 03/05 1536 97.6 64 12 186/79 97 Room Air 03/05 1258 96 Room Air 03/05 1255 98.2 70 16 187/85 95 Room Air 03/05 1016 98.4 66 16 139/69 95 Room Air Intake & Output 07/05 0800 07/05 0000 07/04 1600 Intake Total 250 Output Total 300 Balance -50 Intake, IV 10 Intake, Oral 240 Number 1 Bowel Movements Output, Urine 300 Patient 63.701 kg 79.379 kg Weight Physical Exam General Appearance: Alert, Cooperative, No Acute Distress Cardiovascular: Regular Rate, Normal S1, Normal S2 Lungs: Clear to Auscultation Abdomen: Normal Bowel Sounds, Soft, No Tenderness Neurological: Normal Speech, Strength at 5/5 X4 Ext, Normal Tone, tongue fasiculations Extremities: No Edema, Normal Pulses, No Tenderness/Swelling Current Medications: Current Medications Sig/Audrey Start time Last Medication Dose Route Stop Time Status Admin Acetaminophen 975 MG Q8P PRN 07/04 1500 AC PO Acetaminophen 650 MG Q4H PRN 07/04 1415 DC PO Acetaminophen 1,000 MG Q6P PRN 07/04 1400 DC N/A 1 UNIT IV Apixaban 5 MG 0600,1800 07/04 1800 AC PO Apixaban 5 MG BID 07/04 1415 DC 07/04 PO 1808 Cholecalciferol 2,000 IU DAILY 07/04 1416 AC 07/04 PO 1809 Dextrose/Sodium 1,000 ML .[id number] 07/04 1400 DC Chloride IV Enoxaparin Sodium 40 MG DAILY 07/04 1359 DC SC Ezetimibe 10 MG DAILY 07/04 1416 AC 07/04 PO 1809 Ferrous Sulfate 325 MG DAILY 07/04 1416 AC 07/04 PO 1809 Insulin Aspart 0 TIDAC 07/04 1700 AC SC Insulin Detemir 22 UNITS DAILY 07/04 1417 AC SC Insulin Detemir 12 UNITS DAILY 07/04 1404 DC SC Insulin Human Regular 0 Q6 07/04 1405 DC SC Lactobacillus 1 CAP DAILY 07/04 1417 AC 07/04 Acidophilus PO 1809 Metoprolol Tartrate 100 MG 1800,0600 07/04 1800 AC PO Metoprolol Tartrate 100 MG BID 07/04 1417 DC 07/04 PO 1809 Metoprolol Tartrate 100 MG BID 07/04 1338 DC IV Multivitamins 1 TAB DAILY 07/04 1418 AC 07/04 Therapeutic PO 1810 Tamsulosin HCl 0.4 MG 1800,0600 07/04 1800 AC PO Tamsulosin HCl 0.4 MG BID 07/04 1418 DC 07/04 PO 1810 Last 24 Hrs of Lab/Pilo Results Last 24 Hrs of Labs/Mics: Laboratory Tests 07/04/17 1515: CBC w Diff NO MAN DIFF REQ, RBC 3.35 L, MCV 83.0, MCH 27.3, MCHC 32.9 L, RDW 21.0 H, MPV 6.2 L, Gran % 72.9, Lymphocytes % 15.6 L, Monocytes % 7.5, Eosinophils % 3.3, Basophils % 0.7, Absolute Granulocytes 4.8, Absolute Lymphocytes 1.0 L, Absolute Monocytes 0.5, Absolute Eosinophils 0.2, Absolute Basophils 0 07/04/17 1403: Magnesium Cancelled 07/04/17 1359: Anion Gap 9, Estimated GFR 59 L, BUN/Creatinine Ratio 27.5 H, Magnesium 1.7 Assessment/Plan Assessment: History of hydronephrosis This is a 76-year-old gentleman complicated past medical history multiple comorbidities he was admitted for sudden change in mentation, aphagia, inability to swallow and reportedly fascial muscle twitch. Problem list: 1. Altered mental status 2. Myokymia #AMS: Patient presented from correction with altered mental status. This morning, he is alert and oriented 0. He demonstrates concrete thinking and is unable to perform simple mental tasks. It is unclear what his baseline mentation is however and I'll talk to today to obtain this collateral information. He does have a history of dementia. 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 Neurology believes his AMS may be secondary to meropenem side effect versus paraneoplastic encephalitis. -MRI head with and without contrast -Appreciate neurology recommendations #Chronic medical problem: -Continue home medications DVT prophylaxis with rivaroxaban Regular diet DNR/DNI Problem List: 1. Altered mental status Pain Ratin Pain Location: no pain Pain Goal: Remain pain free Pain Plan: see a/p Tomorrow's Labs & Rationales: no
--- NOTE | 2017-07-05 08:58 | Cons- Wound Care ---
General Information and HPI Consulting Request Date of Consult: 07/05/17 Requested By: Rosa Clarke MD Reason for Consult: Sacral decubitus ulcer present on admission History of Present Illness: Patient is 76-year-old with metastatic colon cancer admitted with concerns over altered mental status and was found to have a pressure ulcer of his coccyx present on admission. Patient reports this is been present for several weeks. Patient has evidence of progressive metastatic cancer for which she is no longer considered a candidate for intervention. Allergies/Medications Allergies: Coded Allergies: Penicillins (unknown 11/13/15) STATINS (MUSCLE CRAMPS 06/07/17) Home Med List: Acetaminophen 325 MG TABLET 2 TAB PO Q4H PRN PAIN/TEMP>101 (Reported) Amino AC/Protein Hydr/Whey Pro (Prosource Protein Liquid) (Unknown Strength) LIQUID 30 ML PO BID SUPPLEMENT (Reported) Apixaban (Eliquis) 5 MG TABLET 1 TAB PO BID DVT treatment/ppx 06/10-06/12: Please take 2 x 5mg tablets, twice daily 06/13: Please take 1 x 5mg tablets, twice daily Cholecalciferol (Vitamin D3) (Vitamin D3) 2,000 UNIT TABLET 1 TAB PO DAILY VITAMIN SUPPORT (Reported) Cyanocobalamin (Vitamin B-12) 1,000 MCG TABLET 1 TAB PO DAILY VITAMIN SUPPORT (Reported) Ezetimibe (Zetia) 10 MG TABLET 1 TAB PO DAILY CHOLESTEROL (Reported) Ferrous Sulfate 325 MG (65 MG IRON) TABLET 1 TAB PO DAILY SUPPLEMENT ( Reported) Insulin Aspart (Novolog) (Unknown Strength) VIAL 0 SC SEE SLIDING SCALE Diabetes (Reported) BEFORE MEALS Blood Insulin Sugar Units <80 0 81-100 2 101-200 4 201-250 6 251-300 8 301-350 10 351-400 12 >400 Call Doctor Insulin Glargine,Hum.rec.anlog (Lantus Solostar) 100 UNIT/ML (3 ML) INSULN.PEN 22 UNIT SC QAM DIABETES (Reported) Lactobacillus Acidophilus (Probiotic) 10 BILLION CELL CAPSULE 1 TAB PO DAILY VITAMIN (Reported) Magnesium Hydroxide (Milk Of Magnesia) 400 MG/5 ML ORAL.SUSP 30 ML PO DAILY PRN CONSTIPATION- NO BM IN 3 DAYS (Reported) Metoprolol Tartrate 100 MG TABLET 1 TAB PO BID Heart (Reported) Multiple Vitamin (Multivitamins) 1 EACH TABLET 1 TAB PO DAILY SUPPLEMENT ( Reported) Paroxetine HCl (Paxil) 10 MG TABLET 1 TAB PO DAILY MENTAL HEALTH (Reported) Tamsulosin HCl 0.4 MG CAP.ER.24H 1 CAP PO BID PROSTATE (Reported) Review of Systems Review of Systems: noncontributory Past History Travel History Traveled to [place] past 21 day No Medical History Neurological: NEUROPATHY EENT: NONE Cardiovascular: AFIB, CHF, hypertension, hyperlipidemia, PVD (right femoral stent), CAD status post CABG paroxisymal A. 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 Cancer(s): melanoma, prostate cancer, colorectal cancer status post transanal excision RN CLINICAL DOCUMENTATION/Reproductive: NONE Surgical History Surgical History: CABG, colon resection, prostatectomy (laser 12/2016), CYST REMOVAL R femoral artery stent transanal excision of rectal lesion PVD status post stent colon cancer status post transanal excision Family History Relations & Conditions If Any: cousin FH: colon cancer MOTHER FATHER Relation not specified for: FH: prostate carcinoma Psychosocial History Who Do You Live With? spouse Services at Home: Nursing Primary Language: Cymraes Smoking Status: Unknown If Ever Smoked Functional Ability ADLs Independent: dressing, eating, toileting, bathing. Ambulation: independent IADLs Needs Assist: shopping, housework, finances, food prep, telephone, transportation, medication admin. Exam & Diagnostic Data Vital Signs and I&O Vital Signs Result Date Time Pulse Ox 97 07/05 732 B/P 140/78 07/05 732 O2 Delivery Room Air 07/05 732 Temp 97.5 07/05 732 Pulse 59 07/05 732 Resp 18 07/05 732 Intake & Output 07/05 0000 07/04 1600 07/04 0800 Intake Total 250 Output Total 300 Balance -50 Intake, IV 10 Intake, Oral 240 Number 1 Bowel Movements Output, Urine 300 Patient 175 lb Weight Over the coccyx is approximately 3 x 1.2 cm unstageable pressure ulcer with over 90% yellow slough there is no exposed bone sinus tracking or undermining. Patient appears to be malnourished with reduced albumin Assessment/Plan Impression/Plan: 76-year-old gentleman multiple medical problems inclusive of metastatic cancer without hope of therapy or cure admitted with altered mental status and found to have a unstageable decubitus ulcer of the coccyx present on admission. Recommend aggressive offloading. In view of the poor prognosis with respect to his malignancy would not pursue aggressive evaluation for complicating osteomyelitis. Note his sedimentation rate was 80. Wound care recommendation can be use of an enzymatic debriding agent such as Santyl covered with Xeroform change daily Consult Acknowledgment - Thank you for your consult request.
[2017-07-05 14:29] VITALS: BP 168/87
[2017-07-05 22:05] VITALS: BP 183/80
--- NOTE | 2017-07-06 00:34 | Cons- General Surgery ---
General Information and HPI History of Present Illness: denies abdom pain Allergies/Medications Allergies: Coded Allergies: Penicillins (unknown 11/13/15) STATINS (MUSCLE CRAMPS 06/07/17) Home Med List: Acetaminophen 325 MG TABLET 2 TAB PO Q4H PRN PAIN/TEMP>101 (Reported) Amino AC/Protein Hydr/Whey Pro (Prosource Protein Liquid) (Unknown Strength) LIQUID 30 ML PO BID SUPPLEMENT (Reported) Apixaban (Eliquis) 5 MG TABLET 1 TAB PO BID DVT treatment/ppx 06/10-06/12: Please take 2 x 5mg tablets, twice daily 06/13: Please take 1 x 5mg tablets, twice daily Cholecalciferol (Vitamin D3) (Vitamin D3) 2,000 UNIT TABLET 1 TAB PO DAILY VITAMIN SUPPORT (Reported) Cyanocobalamin (Vitamin B-12) 1,000 MCG TABLET 1 TAB PO DAILY VITAMIN SUPPORT (Reported) Ezetimibe (Zetia) 10 MG TABLET 1 TAB PO DAILY CHOLESTEROL (Reported) Ferrous Sulfate 325 MG (65 MG IRON) TABLET 1 TAB PO DAILY SUPPLEMENT ( Reported) Insulin Aspart (Novolog) (Unknown Strength) VIAL 0 SC SEE SLIDING SCALE Diabetes (Reported) BEFORE MEALS Blood Insulin Sugar Units <80 0 81-100 2 101-200 4 201-250 6 251-300 8 301-350 10 351-400 12 >400 Call Doctor Insulin Glargine,Hum.rec.anlog (Lantus Solostar) 100 UNIT/ML (3 ML) INSULN.PEN 22 UNIT SC QAM DIABETES (Reported) Lactobacillus Acidophilus (Probiotic) 10 BILLION CELL CAPSULE 1 TAB PO DAILY VITAMIN (Reported) Magnesium Hydroxide (Milk Of Magnesia) 400 MG/5 ML ORAL.SUSP 30 ML PO DAILY PRN CONSTIPATION- NO BM IN 3 DAYS (Reported) Metoprolol Tartrate 100 MG TABLET 1 TAB PO BID Heart (Reported) Multiple Vitamin (Multivitamins) 1 EACH TABLET 1 TAB PO DAILY SUPPLEMENT ( Reported) Paroxetine HCl (Paxil) 10 MG TABLET 1 TAB PO DAILY MENTAL HEALTH (Reported) Tamsulosin HCl 0.4 MG CAP.ER.24H 1 CAP PO BID PROSTATE (Reported) Current Medications: I rev Current Medications Sig/Audrey Start time Last Medication Dose Route Stop Time Status Admin Acetaminophen 975 MG Q8P PRN 07/04 1500 AC PO Apixaban 5 MG 0600,1800 07/04 1800 AC 07/05 PO 1733 Cholecalciferol 2,000 IU DAILY 07/04 1416 AC 07/05 PO 1220 Ezetimibe 10 MG DAILY 07/04 1416 AC 07/05 PO 1221 Ferrous Sulfate 325 MG DAILY 07/04 1416 AC 07/05 PO 1221 Insulin Aspart 0 TIDAC 07/04 1700 AC 07/05 SC 1717 Insulin Detemir 22 UNITS DAILY 07/04 1417 AC 07/05 SC 1223 Lactobacillus 1 CAP DAILY 07/04 1417 AC 07/05 Acidophilus PO 1222 Metoprolol Tartrate 100 MG 1800,00 07/04 1800 AC 07/05 PO 1734 Multivitamins 1 TAB DAILY 07/04 1418 AC 07/05 Therapeutic PO 1220 Tamsulosin HCl 0.4 MG 1800,00 07/04 1800 AC 07/05 PO 1735 Past History Medical History Neurological: NEUROPATHY EENT: NONE Cardiovascular: AFIB, CHF, hypertension, hyperlipidemia, PVD (right femoral stent), CAD status post CABG paroxisymal A. 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 spouse Services at Home: Nursing Primary Language: Indonesian Smoking Status: Unknown If Ever Smoked Functional Ability ADLs Independent: dressing, eating, toileting, bathing. Ambulation: independent IADLs Needs Assist: shopping, housework, finances, food prep, telephone, transportation, medication admin. Exam & Diagnostic Data Vital Signs and I&O I rev Vital Signs Date Time Temp Pulse Resp B/P B/P Pulse O2 O2 Flow FiO2 Mean Ox Delivery Rate 07/05 2204 98.2 63 20 183/80 93 Room Air 07/05 1735 72 158/79 07/05 1734 72 158/79 07/05 1429 97.9 63 18 168/87 96 Room Air 07/05 0733 97.5 59 18 140/78 97 Room Air 07/05 0731 98.8 55 20 138/70 93 Room Air I rev Intake & Output 07/06 0807/06 0000 07/05 1600 07/05 0800 07/05 0000 07/04 1600 Intake Total 120 1080 250 250 Output Total 500 1000 300 Balance -380 80 250 -50 Intake, IV 10 10 Intake, Oral 120 1080 240 240 Number 1 1 Bowel Movements Output, Urine 500 1000 300 Patient 140 lb 175 lb Weight Last 24 Hours of Labs: I rev Assessment/Plan Assessment/Plan Denies abdom pain Consult Acknowledgment - Thank you for your consult request.
--- NOTE | 2017-07-06 07:31 | PN- Housestaff ---
See Addendum Subjective Follow-up For: Dementia, pre sacaral mass Subjective: No overnight events. After speaking with Patient's , seems like his mentation is back to baseline. He feels good this morning with no pain or issues. Review of Systems Constitutional: Reports: no symptoms. EENTM: Reports: no symptoms. Cardiovascular: Reports: no symptoms. Respiratory: Reports: no symptoms. Gastrointestinal: Reports: no symptoms. Genitourinary: Reports: no symptoms. Musculoskeletal: Reports: no symptoms. Skin: Reports: no symptoms. Neurological/Psychological: Reports: no symptoms. Hematologic/Endocrine: Reports: no symptoms. Immunologic/Allergic: Reports: no symptoms. Objective Last 24 Hrs of Vital Signs/I&O Vital Signs Date Time Temp Pulse Resp B/P B/P Pulse O2 O2 Flow FiO2 Mean Ox Delivery Rate 07/06 05 65 180/80 07/07 511 65 180/80 07/05 2205 98.2 63 20 183/80 93 Room Air 07/05 1735 72 158/79 07/05 1734 72 158/79 07/05 1429 97.9 63 18 168/87 96 Room Air / 0733 97.5 59 18 140/78 97 Room Air / 0731 98.8 55 20 138/70 93 Room Air Intake & Output 07/06 0800 07/06 0000 07/05 1600 Intake Total 601 184 1198 Output Total 0 500 1000 Balance 120 -380 80 Intake, Oral 522 423 6048 Output, Stool 0 Output, Urine 500 1000 Patient 63.701 kg Weight Physical Exam General Appearance: Alert, Cooperative, No Acute Distress Cardiovascular: Regular Rate, Normal S1, Normal S2 Lungs: Clear to Auscultation Abdomen: Soft, No Tenderness, ostomy clean without erythema Extremities: No Edema, Normal Pulses, No Tenderness/Swelling Current Medications: Current Medications Sig/Audrey Start time Last Medication Dose Route Stop Time Status Admin Acetaminophen 975 MG Q8P PRN 07/04 1500 AC PO Apixaban 5 MG 0600,1800 07/04 1800 AC 07/06 PO 0512 Cholecalciferol 2,000 IU DAILY 07/04 1416 AC 07/05 PO 1220 Ezetimibe 10 MG DAILY 07/04 1416 AC 07/05 PO 1221 Ferrous Sulfate 325 MG DAILY 07/04 1416 AC 07/05 PO 1221 Insulin Aspart 0 TIDAC 07/04 1700 AC 07/05 SC 1717 Insulin Detemir 22 UNITS DAILY 07/04 1417 AC 07/05 SC 1223 Lactobacillus 1 CAP DAILY 07/04 1417 AC 07/05 Acidophilus PO 1222 Metoprolol Tartrate 100 MG 1800,0600 / 1800 AC 07/06 PO 0512 Multivitamins 1 TAB DAILY 07/04 1418 AC 07/05 Therapeutic PO 1220 Tamsulosin HCl 0.4 MG 1800,07/04 1800 AC 07/06 PO 0512 Assessment/Plan Assessment: This is a 76-year-old gentleman complicated past medical history multiple comorbidities he was admitted for sudden change in mentation, aphagia, inability to swallow and reportedly fascial muscle twitch. Problem list: 1. 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 Advanced dementia 4. Altered mental status, resolved #Presacral mass with obstructive uropathy: Patient had outpatient CT abdomen/ pelvis for evaluation of possible obstruction and was scheduled for urology follow-up. Imaging showed a presacral mass consistent with prior imaging in October 2016. Upon reviewing this information with his , she was unaware of this mass. We've consulted colorectal surgery and urology for evaluation. Patient does have a history of recurrent urinary tract infections likely secondary to this obstruction. Despite his advanced dementia, his would like aggressive measures at this time. This can probably be done outpatient though. Patient is asymptomatic at this time. -Appreciate urology recommendations -Appreciate surgery recommendations #Advanced dementia: Patient presented from custodial with altered mental status. 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 His altered mental status has resolved because his mentation is back at baseline according to his . -Appreciate neurology recommendations #Chronic medical problem: -Continue home medications DVT prophylaxis with rivaroxaban Regular diet DNR/DNI Problem List: 1. Presacral mass Pain Ratin Pain Location: no Pain Goal: Remain pain free Pain Plan: see a/p Tomorrow's Labs & Rationales: no
[2017-07-06 07:43] VITALS: BP 130/84
--- NOTE | 2017-07-06 12:18 | MRI REPORT ---
EXAMINATION: MR BRAIN WITHOUT AND WITH CONTRAST CLINICAL INFORMATION: Altered mental status. COMPARISON: Head CT 07/03/2017. TECHNIQUE: Multiplanar, multisequence imaging of the brain was performed before and after the intravenous administration of 7 mL of Gadavist. FINDINGS: There is a small rounded focus of elevated diffusion signal within the right frontal centrum semiovale compatible with a subacute infarct (no signal deficit on ADC). There is no intracranial mass, hemorrhage, or extra-axial collection. There is no gross unexpected intracranial enhancement noting that the postcontrast images are severely motion degraded. There are moderate patchy and confluent foci of T2 hyperintensity in the bilateral periventricular and deep cerebral white matter and central hortencia compatible with small vessel ischemic changes. There are chronic bilateral basal ganglia and thalamic lacunar infarcts. There is a small old lacunar infarct in the right cerebellum. There is mild diffuse brain parenchymal volume loss with prominence of the ventricles and sulci. The ventricular size is at the top range of normal and there are no findings specific for hydrocephalus. The major arterial flow voids are preserved. The orbital contents are within normal limits. There is fluid within the right mastoid air cells. IMPRESSION: 1. No acute intracranial abnormality identified. 2. Small subacute infarction in the right frontal centrum semiovale. 3. Moderate small vessel ischemic changes in a background of mild diffuse brain parenchymal volume loss. 4. Severely motion degraded postcontrast images. No gross intracranial enhancement.
[2017-07-06 13:58] VITALS: BP 174/75
--- NOTE | 2017-07-06 13:58 | Cons- Urology ---
General Information and HPI Consulting Request Date of Consult: 07/06/17 Requested By: Rosa Clarke MD Reason for Consult: Bilateral hydronephrosis Source of Information: old records Exam Limitations: unable to give history History of Present Illness: Patient known to me from hospital admission in 01/2017. He has hx of DM, CAD, DM, HTN, hyperlipidemia. He underwent APR at [facility] in the past complicated by pelvic abscess. He had received RT and chemo therapy prior to surgery and chemotherapy post op. He has a hx of R ureteral stone treatment by his urologist Dr Nails in [place]. 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 He was admitted with facial twitch and altered mental status. These sx's have resolved without any specific therapy. CT of the abd and pelvis shows bilateral mild to moderate hydronephrosis with the ureters dilated down to the pelvic mass. The findings are essentially unchanged from his prior CT scan. His creatinine is stable at 1.2. His urine culture has grown 30k E. coli. Blood culture has grown coag neg staph. He denies any flank pain or dysuria. Allergies/Medications Allergies: Coded Allergies: Penicillins (unknown 11/13/15) STATINS (MUSCLE CRAMPS 06/07/17) Home Med List: Acetaminophen 325 MG TABLET 2 TAB PO Q4H PRN PAIN/TEMP>101 (Reported) Amino AC/Protein Hydr/Whey Pro (Prosource Protein Liquid) (Unknown Strength) LIQUID 30 ML PO BID SUPPLEMENT (Reported) Apixaban (Eliquis) 5 MG TABLET 1 TAB PO BID DVT treatment/ppx 06/10-06/12: Please take 2 x 5mg tablets, twice daily 06/13: Please take 1 x 5mg tablets, twice daily Cholecalciferol (Vitamin D3) (Vitamin D3) 2,000 UNIT TABLET 1 TAB PO DAILY VITAMIN SUPPORT (Reported) Cyanocobalamin (Vitamin B-12) 1,000 MCG TABLET 1 TAB PO DAILY VITAMIN SUPPORT (Reported) Ezetimibe (Zetia) 10 MG TABLET 1 TAB PO DAILY CHOLESTEROL (Reported) Ferrous Sulfate 325 MG (65 MG IRON) TABLET 1 TAB PO DAILY SUPPLEMENT ( Reported) Insulin Aspart (Novolog) (Unknown Strength) VIAL 0 SC SEE SLIDING SCALE Diabetes (Reported) BEFORE MEALS Blood Insulin Sugar Units <80 0 81-100 2 101-200 4 201-250 6 251-300 8 301-350 10 351-400 12 >400 Call Doctor Insulin Glargine,Hum.rec.anlog (Lantus Solostar) 100 UNIT/ML (3 ML) INSULN.PEN 22 UNIT SC QAM DIABETES (Reported) Lactobacillus Acidophilus (Probiotic) 10 BILLION CELL CAPSULE 1 TAB PO DAILY VITAMIN (Reported) Magnesium Hydroxide (Milk Of Magnesia) 400 MG/5 ML ORAL.SUSP 30 ML PO DAILY PRN CONSTIPATION- NO BM IN 3 DAYS (Reported) Metoprolol Tartrate 100 MG TABLET 1 TAB PO BID Heart (Reported) Multiple Vitamin (Multivitamins) 1 EACH TABLET 1 TAB PO DAILY SUPPLEMENT ( Reported) Paroxetine HCl (Paxil) 10 MG TABLET 1 TAB PO DAILY MENTAL HEALTH (Reported) Tamsulosin HCl 0.4 MG CAP.ER.24H 1 CAP PO BID PROSTATE (Reported) Current Medications: Current Medications Sig/Audrey Start time Last Medication Dose Route Stop Time Status Admin Acetaminophen 975 MG Q8P PRN 07/04 1500 AC PO Apixaban 5 MG 0600,1800 / 1800 AC 07/06 PO 0512 Cholecalciferol 2,000 IU DAILY 07/04 1416 AC / PO 1249 Ezetimibe 10 MG DAILY 07/04 1416 AC / PO 1249 Ferrous Sulfate 325 MG DAILY 07/04 1416 AC / PO 1250 Insulin Aspart 0 TIDAC / 1700 AC 07/05 SC 1717 Insulin Detemir 22 UNITS DAILY 07/04 1417 AC 07/06 SC 1256 Lactobacillus 1 CAP DAILY 07/04 1417 AC 07/06 Acidophilus PO 1249 Metoprolol Tartrate 100 MG 1800,0600 03/ 1800 AC / PO 0512 Multivitamins 1 TAB DAILY 07/04 1418 AC 07/06 Therapeutic PO 1250 Nystatin 1 CINDY TID 07/06 1000 AC 07/06 TOP 1250 Tamsulosin HCl 0.4 MG 1800,0600 03/ 1800 AC / PO 0512 Past History Medical History Blood Transfusion Hx: No Neurological: NEUROPATHY EENT: NONE Cardiovascular: AFIB, CHF, hypertension, hyperlipidemia, PVD (right femoral stent), CAD status post CABG paroxisymal A. 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 Cancer(s): melanoma, prostate cancer, colorectal cancer status post transanal excision CHEF DE PARTIE/Reproductive: NONE Surgical History Pertinent Surgical History: CABG, colon resection, prostatectomy (laser 12/2016), CYST REMOVAL R femoral artery stent transanal excision of rectal lesion PVD status post stent colon cancer status post transanal excision Family History Relations & Conditions If Any: cousin FH: colon cancer MOTHER FATHER Relation not specified for: FH: prostate carcinoma Psychosocial History Who Do You Live With? spouse Services at Home: Nursing Primary Language: Hungarian Smoking Status: Unknown If Ever Smoked Functional Ability ADLs Independent: dressing, eating, toileting, bathing. Ambulation: independent IADLs Needs Assist: shopping, housework, finances, food prep, telephone, transportation, medication admin. Exam & Diagnostic Data Vital Signs and I&O Vital Signs Date Time Temp Pulse Resp B/P B/P Pulse O2 O2 Flow FiO2 Mean Ox Delivery Rate 07/06 1000 Room Air 07/06 0918 Room Air 07/06 0743 97.7 72 20 130/84 97 Room Air 07/06 0512 65 180/80 07/06 0512 65 180/80 07/05 2205 98.2 63 20 183/80 93 Room Air 07/05 1735 72 158/79 07/05 1734 72 158/79 / 1429 97.9 63 18 168/87 96 Room Air Intake & Output 07/06 1600 07/06 0800 07/06 0000 07/05 1600 07/05 0800 / 0000 Intake Total 459 972 8213 250 250 Output Total 350 465 887 7465 300 Balance -350 -380 -380 80 250 -50 Intake, IV 10 10 Intake, Oral 973 137 4969 240 240 Number 1 1 Bowel Movements Output, Stool 0 Output, Urine 350 337 327 7405 300 Patient 140 lb 140 lb Weight Lying in bed. No acute distress Back: No CVA tenderness Abd: colostomy in place. Soft and non tender. Genitalia: normal male Laboratory Tests 07/06 1105 Urines Urine Color (YEL,AMB,STR) STRAW Urine Clarity (CLEAR) HAZY H Urine pH (5.0 - 8.0) 6.5 Ur Specific [place] (1.001 - 1.035) 1.020 Urine Protein (NEG,<30 MG/DL) 100 H Urine Ketones (NEG) NEG Urine Nitrite (NEG) NEG Urine Bilirubin (NEG) NEG Urine Urobilinogen (0.1 - 1.0 EU/dl) 0.2 Ur Leukocyte Esterase (NEG) MOD H Ur Microscopic SEDIMENT EXAMINED Urine RBC (0 - 5 /HPF) 50-75 H Urine WBC (0 - 2 /HPF) > 75 H Ur Epithelial Cells (NONE,FEW) RARE Urine Bacteria (NEG/NONE) FEW H Urine Hemoglobin (NEG) LARGE H Urine Glucose (N MG/DL) NEG Assessment/Plan Assessment/Plan Imp: 1. Pelvic mass due to recurrent rectal ca 2. Mild to moderate bilateral hydronephrosis due to pelvic mass. Findings are stable 3. UTI, low colony count Plan: 1. In view of normal wbc count, normal creatinine and no sx's there is no indication to drain kidneys at this point. If, in the future, creatinine rises and aggressive care to be pursued then he would require a nephrostomy tube to drain kidneys as ureteral stents would not provide adequate drainage with pelvic mass of this size. 2. Given low colony count in urine culture and lack of sx's would not treat UTI Consult Acknowledgment - Thank you for your consult request.
--- NOTE | 2017-07-06 14:13 | Patient Discharge Instructions ---
Discharge Instructions General Discharge Information You were seen/treated for: Advanced dementia, presacral mass Watch for these problems: Fever, chest pain, shortness of breath Special Instructions: Please take all medications as directed. Please follow up with primary care, urology, and surgery. Diet Continue normal diet: Yes Activity Full Activity/No Limits: Yes Acute Coronary Syndrome Inclusion Criteria At DC or during hospital stay patient has or had the following: ACS DIAGNOSIS No Discharge Core Measures Meds if any: Prescribed or Continued at Discharge Meds if any: NOT Prescribed or Continued at Discharge Congestive Heart Failure Inclusion Criteria At DC or during hospital stay patient has or had the following: CHF DIAGNOSIS No Discharge Core Measures Meds if any: Prescribed or Continued at Discharge Meds if any: NOT Prescribed or Continued at Discharge Cerebrovascular accident Inclusion Criteria At DC or during hospital stay patient has or had the following: CVA/TIA Diagnosis No Discharge Core Measures Meds if any: Prescribed or Continued at Discharge Meds if any: NOT Prescribed or Continued at Discharge Venous thromboembolism Inclusion Criteria VTE Diagnosis No VTE Type NONE VTE Confirmed by (Test) NONE Discharge Core Measures - Per Current guidelines, there needs to be overlap - treatment for the first 5 days of Warfarin therapy. - If discharged on Warfarin prior to 5 days of - overlap therapy, the patient will need to be - assessed for post discharge needs including - *Post discharge parental anticoagulation - *Warfarin and/or parental anticoagulation education - *Follow up date to check INR post discharge At least 5 days overlap therapy as Inpatient No Meds if any: Prescribed or Continued at Discharge Note: Overlap Therapy is Warfarin and Anticoagulant Meds if any: NOT Prescribed or Continued at Discharge
[2017-07-06 15:00] VITALS: BP 174/75
[2017-07-06 15:17] VITALS: BP 144/72
== END 2017-07-06 15:46 ==
LOC: ERH 14:03 → ERHI 19:54 → 2NA 19:54 → ERHI 19:54 → 2NA 19:54 → CANRESERV 20:59 → ENRESERV 20:59 → EDBEDREQ 07-04 11:39 → 2NA 07-04 14:05 → ERHI 07-04 14:05 → ENRESERV 07-04 19:14 → ENTRNSPT 07-04 20:28 → EDTRNSPTSTS 07-04 20:30 → EDTRNSPT 07-04 20:30 → 2NA 07-04 20:44 → CMPTRNSPT 07-04 20:52 → 2NA 07-05 10:07 → ENPENDDIS 07-06 14:20 → 2NA 07-06 15:46
PROVIDERS: Emergency Medicine; Student in an Organized Health Care Education/Training Program
DX: R41.82 Altered mental status, unspecified (principal); E11.40 Type 2 diabetes mellitus with diabetic neuropathy, unspecified; Z79.4 Long term (current) use of insulin; I13.0 Hypertensive heart and chronic kidney disease with heart failure and stage 1 through stage 4 chronic kidney disease, or unspecified chronic kidney disease; I50.9 Heart failure, unspecified; N18.9 Chronic kidney disease, unspecified; E11.22 Type 2 diabetes mellitus with diabetic chronic kidney disease; E11.51 Type 2 diabetes mellitus with diabetic peripheral angiopathy without gangrene; F41.9 Anxiety disorder, unspecified; F32.9 Major depressive disorder, single episode, unspecified; G47.33 Obstructive sleep apnea (adult) (pediatric); E83.42 Hypomagnesemia; Z87.442 Personal history of urinary calculi; E78.5 Hyperlipidemia, unspecified; I25.10 Atherosclerotic heart disease of native coronary artery without angina pectoris; Z95.1 Presence of aortocoronary bypass graft; D63.1 Anemia in chronic kidney disease; C20 Malignant neoplasm of rectum; I48.0 Paroxysmal atrial fibrillation; Z86.718 Personal history of other venous thrombosis and embolism; N40.0 Benign prostatic hyperplasia without lower urinary tract symptoms; Z85.820 Personal history of malignant melanoma of skin; Z85.46 Personal history of malignant neoplasm of prostate; L89.150 Pressure ulcer of sacral region, unstageable; G93.40 Encephalopathy, unspecified; R47.01 Aphasia; G25.89 Other specified extrapyramidal and movement disorders; N13.30 Unspecified hydronephrosis; Z79.01 Long term (current) use of anticoagulants
CPT/HCPCS: 2NAP; 70552; 70553; 81001; 82436; 92526-GN; 92610-GN; 95816; 96374; 96375; 99291; A9579; G0378; G8996-GN; G8997-GN; J0131; J1650; J7508